=== PATIENT | male | born 1985 | race Caucasian/White ===

== ENCOUNTER 2017-08-11 04:48 | Emergency (ER) | payer MEDICAID ==
[~2017-08-11] VITALS: Ht 182.9 cm; Wt 81.6 kg
[2017-08-11 04:48] VITALS: BP_SYST 98
[~2017-08-11 04:48] MED LIST: ALBU2.5V7 INH; ARTT OP; ASCO-339 GT; BACL10TA GT; COLL100 GT; EPOE1VIA13 SUBCUT; FAMO20TA8 GT; LEVE750T4 GT; MAGN400O4 GT; MULT240L GT; NA P118E RC; ONDA4TAB5 GT; POLY17PO4 PO; PROP10TA10 GT; TOP25 GT; TYLL650 GT; ZIN220 GT; [UNRECOGNIZED DRUG - CODE] IV
[2017-08-11] MEDS ORDERED: GASTROGRAFIN 120 ML ONE (06:24)
== END 2017-08-11 09:30 | disposition home or self-care (01) ==
LOC: SED 04:48
DX: K94.23 Gastrostomy malfunction (principal); Z79.899 Other long term (current) drug therapy
CPT/HCPCS: 43760; 74240; 99284; Q9963

== ENCOUNTER 2019-04-21 10:10 | Inpatient (IN) | payer MEDICAID ==
[~2019-04-21] VITALS: Ht 167.6 cm; Wt 66.7 kg
[2019-04-21 10:10] VITALS: BP_SYST 133
[~2019-04-21 10:10] MED LIST changes: -EPOE1VIA13 SUBCUT; +FER300L GT; +FRUC15LI GT; +IPRA0.2S6 INH; -MAGN400O4 GT; -NA P118E RC; -ONDA4TAB5 GT; +TRAM50TA92 GT; -ZIN220 GT; -[UNRECOGNIZED DRUG - CODE] IV
[2019-04-21] MEDS ORDERED: MORPHINE 4 MG/ML INJ. SYRINGE IVP ONE ×2 (10:45→13:45)
[2019-04-21 11:02] LABS: BILIRUBIN,URINE NEGATIVE (NEGATIVE); BLOOD, URINE 3+ (NEGATIVE); CLARITY/URINE TURBID (CLEAR); COLOR,URINE YELLOW (YELLOW); GLUCOSE,URINE NEGATIVE (NEGATIVE); KETONES,URINE NEGATIVE (NEGATIVE); LEUKOCYTE ESTERASE ,URINE 3+ (NEGATIVE); NITRITE, URINE POSITIVE (NEGATIVE); PH,URINE 7.5 (5.0-8.0); PROTEIN URINE 1+ (NEGATIVE); UROBILINOGEN,URINE 0.2 (0.2-1.0)
[2019-04-21 11:28] LABS: WBC,URINE 50-80 /HPF (0-3)
[2019-04-21 11:29] LABS: BACTERIA,URINE FEW /HPF (None Seen); MUCUS,URINE None Seen /LPF (None Seen)
[2019-04-21 11:30] LABS: BASOPHILS % (AUTO) 0.1 % (0.0-2.0); EOSINOPHILS % (AUTO) 0.1 % (0.0-4.0); HEMATOCRIT 27.9 % (36-54); HEMOGLOBIN 9.7 g/dL (14.0-18.0); LYMPHOCYTES # (AUTO) 0.6 K/uL (1.0-5.5); LYMPHOCYTES % (AUTO) 3.8 % (20.5-51.5); MEAN CORPUSCULAR HEMOGLOBIN 35 pg (27-31); MEAN CORPUSCULAR HGB CONC 35 % (32-36); MEAN CORPUSCULAR VOLUME 101 fL (79.0-98.0); MONOCYTES # (AUTO) 0.7 K/uL (0.0-1.0); MONOCYTES % (AUTO) 4.4 % (1.7-9.3); NEUTROPHILS # (AUTO) 14.3 K/uL (1.8-7.7); NEUTROPHILS % (AUTO) 91.6 % (40.0-70.0); PLATELET COUNT (AUTO) 348 K/uL (130-430); RED BLOOD CELL COUNT(AUTO) 2.76 MIL/uL (4.2-6.2); RED CELL DISTRIBUTION WIDTH 13.2 % (9.0-15.0); WHITE BLOOD COUNT (AUTO) 15.6 K/uL (4.8-10.8)
[2019-04-21 11:39] LABS: CALCIUM 8.5 mg/dL (8.4-11.0); CREATININE 1.64 mg/dL (0.55-1.30); POTASSIUM 4.1 mmol/L (3.5-5.1)
[2019-04-21 11:44] LABS: ALBUMIN 3.3 g/dL (3.4-4.8); INR 1.1 (0.80-1.20); PROTHROMBIN TIME 10.9 SECS (9.5-12.5); TOTAL BILIRUBIN 0.3 mg/dL (0.0-1.0)
[2019-04-21] MEDS ORDERED: NACL 0.9% 1,000 ML IV ONE (13:45)
[2019-04-21] MEDS ORDERED: cefTRIAXone 1 GM IVPB PREMIX 50 ML IV ONE (13:45)
[2019-04-21] MEDS ORDERED: ONDANSETRON HCL 4 MG/2 ML VIAL IVP ONE (13:45)
[2019-04-21] MEDS ORDERED: NS 500 ML IV ONE (14:00)
[2019-04-21] MEDS ORDERED: MUPIROCIN 2% TOPICAL OINTMENT 22 GM NS PRN (14:45)
[2019-04-21] MEDS ORDERED: POTASSIUM CHLORIDE 20 MEQ TAB.PRT.SR PO PRN (14:45)
[2019-04-21] MEDS ORDERED: ACETAMINOPHEN 325 MG TABLET PO PRN (14:45)
[2019-04-21] MEDS ORDERED: IPRATROPIUM BROM 0.5 MG/2.5 ML VIAL.NEB (ATROVENT) INH PRN (14:45)
[2019-04-21] MEDS ORDERED: ONDANSETRON HCL 4 MG/2 ML VIAL IVP PRN (14:45)
[2019-04-21] MEDS ORDERED: ALBUTEROL SULFATE 0.083% 2.5 MG/3 ML VIAL.NEB INH PRN (14:45)
[2019-04-21] MEDS ORDERED: DOCUSATE SODIUM 100 MG CAPSULE PO PRN (14:45)
[2019-04-21] MEDS ORDERED: MAGNESIUM SULFATE 50 ML IV PRN (14:45)
[2019-04-21] MEDS ORDERED: MORPHINE 2 MG/ML INJ. SYRINGE IVP PRN ×2 (14:45)
[2019-04-21] MEDS ORDERED: ZOLPIDEM TARTRATE 5 MG TABLET PO PRN (14:45)
[2019-04-21] MEDS ORDERED: LORazepam 2 MG/ML VIAL IVP PRN (14:45)
[2019-04-21] MEDS: NACL 0.9% 1,000 ML IV SCH (16:53)
[2019-04-21 16:56] VITALS: BP_SYST 101
[2019-04-21 17:02] VITALS: BP_SYST 114
[2019-04-21] MEDS ORDERED: ATROPINE SULFATE 0.5 MG/5 ML SYRINGE IVP ONE (17:30)
[2019-04-21 19:00] VITALS: BP_SYST 105
[2019-04-21] MEDS ORDERED: ATROPINE SULFATE 0.5 MG/5 ML SYRINGE IVP PRN (19:30)
[2019-04-21 20:00] VITALS: BP_SYST 105
[2019-04-21] MEDS: levETIRAcetam 500 MG TABLET GT SCH (21:00)
[2019-04-21] MEDS: TOPIRAMATE 25 MG TABLET(TOPAMAX) GT SCH (21:00)
[2019-04-21] MEDS: HEPARIN SODIUM,PORCINE 5000 UNITS/ML VIAL SUBCUT SCH (21:00)
[2019-04-21] MEDS: POLYETHYLENE GLYCOL 3350, 17 GM/ POWD.PACK PO SCH (21:00)
[2019-04-22] MEDS: NACL 0.9% 1,000 ML IV SCH (02:07)
[2019-04-22 02:29] VITALS: BP_SYST 128
[2019-04-22 07:19] LABS: BASOPHILS % (AUTO) 0.2 % (0.0-2.0); EOSINOPHILS % (AUTO) 0.1 % (0.0-4.0); HEMATOCRIT 29.9 % (36-54); HEMOGLOBIN 10.5 g/dL (14.0-18.0); LYMPHOCYTES # (AUTO) 1.1 K/uL (1.0-5.5); LYMPHOCYTES % (AUTO) 7.1 % (20.5-51.5); MEAN CORPUSCULAR HEMOGLOBIN 36 pg (27-31); MEAN CORPUSCULAR HGB CONC 35 % (32-36); MEAN CORPUSCULAR VOLUME 102 fL (79.0-98.0); MONOCYTES # (AUTO) 1.4 K/uL (0.0-1.0); MONOCYTES % (AUTO) 8.7 % (1.7-9.3); NEUTROPHILS # (AUTO) 13.4 K/uL (1.8-7.7); NEUTROPHILS % (AUTO) 83.9 % (40.0-70.0); PLATELET COUNT (AUTO) 411 K/uL (130-430); RED BLOOD CELL COUNT(AUTO) 2.93 MIL/uL (4.2-6.2); RED CELL DISTRIBUTION WIDTH 13.3 % (9.0-15.0)
[2019-04-22 08:00] VITALS: BP_SYST 133
[2019-04-22 08:00] LABS: ALBUMIN 3.4 g/dL (3.4-4.8); CREATININE 1.53 mg/dL (0.55-1.30); POTASSIUM 4.4 mmol/L (3.5-5.1); THYROID STIMULATING HORMONE 4.39 uIu/mL (0.36-3.74); TOTAL BILIRUBIN 0.3 mg/dL (0.0-1.0)
[2019-04-22 08:01] LABS: CALCIUM 8.6 mg/dL (8.4-11.0)
[2019-04-22] MEDS ORDERED: cefTRIAXone 1 GM in D5W 50 ML IV SCH (09:00)
[2019-04-22] MEDS ORDERED: metroNIDAZOLE 500 mg/NS 100 ML IV ONE (09:15)
[2019-04-22] MEDS: DOCUSATE SODIUM 100 MG/10 ML UDC GT SCH (09:24)
[2019-04-22] MEDS: PROPRANOLOL HCL 10 MG TABLET (INDERAL) PO SCH ×2 (09:25→23:10)
[2019-04-22] MEDS: BACLOFEN 10 MG TABLET GT SCH (09:25)
[2019-04-22] MEDS: TOPIRAMATE 25 MG TABLET(TOPAMAX) GT SCH ×2 (09:26→23:09)
[2019-04-22] MEDS: levETIRAcetam 500 MG TABLET GT SCH ×2 (09:26→23:09)
[2019-04-22] MEDS: HEPARIN SODIUM,PORCINE 5000 UNITS/ML VIAL SUBCUT SCH ×2 (09:28→23:13)
[2019-04-22 12:00] VITALS: BP_SYST 130
[2019-04-22] MEDS: metroNIDAZOLE 500 mg/NS 100 ML IV SCH ×2 (14:00→23:11)
[2019-04-22 16:57] VITALS: BP_SYST 116
[2019-04-22] MEDS: PEG 400/HYPROMELLOSE/GLYCERIN 15 ML DROPS OP SCH (18:13)
[2019-04-22 19:00] VITALS: BP_SYST 135
[2019-04-22 20:00] VITALS: BP_SYST 135
[2019-04-22] MEDS: POLYETHYLENE GLYCOL 3350, 17 GM/ POWD.PACK PO SCH (23:10)
[2019-04-23] MEDS ORDERED: PIPERACILLIN/TAZOBACTAM 3.375 GM/VIAL (ZOSYN) IV ONE (05:24)
[2019-04-23] MEDS: metroNIDAZOLE 500 mg/NS 100 ML IV SCH ×3 (05:34→23:47)
[2019-04-23] MEDS: PIPERACILLIN/TAZO 3.375/DEX-IS 50 ML IV SCH ×4 (05:34→23:47)
[2019-04-23 06:28] VITALS: BP_SYST 123
[2019-04-23 07:45] LABS: BASOPHILS % (AUTO) 0.3 % (0.0-2.0); EOSINOPHILS # (AUTO) 0.1 K/uL (0.0-0.4); EOSINOPHILS % (AUTO) 0.6 % (0.0-4.0); HEMATOCRIT 30.5 % (36-54); HEMOGLOBIN 10.2 g/dL (14.0-18.0); LYMPHOCYTES # (AUTO) 1.2 K/uL (1.0-5.5); LYMPHOCYTES % (AUTO) 8.4 % (20.5-51.5); MEAN CORPUSCULAR HEMOGLOBIN 35 pg (27-31); MEAN CORPUSCULAR HGB CONC 33 % (32-36); MEAN CORPUSCULAR VOLUME 105 fL (79.0-98.0); MONOCYTES # (AUTO) 1.2 K/uL (0.0-1.0); MONOCYTES % (AUTO) 8.5 % (1.7-9.3); NEUTROPHILS % (AUTO) 82.2 % (40.0-70.0); PLATELET COUNT (AUTO) 364 K/uL (130-430); RED CELL DISTRIBUTION WIDTH 13.6 % (9.0-15.0); WHITE BLOOD COUNT (AUTO) 14.6 K/uL (4.8-10.8)
[2019-04-23 08:01] LABS: CALCIUM 8.5 mg/dL (8.4-11.0); CREATININE 1.67 mg/dL (0.55-1.30)
[2019-04-23] MEDS: levETIRAcetam 500 MG TABLET GT SCH ×2 (09:24→23:48)
[2019-04-23] MEDS: DOCUSATE SODIUM 100 MG/10 ML UDC GT SCH (09:24)
[2019-04-23] MEDS: PROPRANOLOL HCL 10 MG TABLET (INDERAL) PO SCH ×2 (09:25→23:49)
[2019-04-23] MEDS: TOPIRAMATE 25 MG TABLET(TOPAMAX) GT SCH ×2 (09:26→23:48)
[2019-04-23] MEDS: HEPARIN SODIUM,PORCINE 5000 UNITS/ML VIAL SUBCUT SCH ×2 (09:26→23:51)
[2019-04-23] MEDS: PEG 400/HYPROMELLOSE/GLYCERIN 15 ML DROPS OP SCH (09:27)
[2019-04-23] MEDS: NACL 0.9% 1,000 ML IV SCH ×2 (09:28→23:44)
[2019-04-23] MEDS: BACLOFEN 10 MG TABLET GT SCH (09:44)
[2019-04-23 12:15] VITALS: BP_SYST 116
[2019-04-23 17:23] VITALS: BP_SYST 122
[2019-04-23 20:34] VITALS: BP_SYST 119
[2019-04-23] MEDS: POLYETHYLENE GLYCOL 3350, 17 GM/ POWD.PACK PO SCH (23:47)
[2019-04-23 23:55] VITALS: BP_SYST 110
[2019-04-24] VITALS (8 sets, daily range): BP systolic 101–117
[2019-04-24] MEDS: PIPERACILLIN/TAZO 3.375/DEX-IS 50 ML IV SCH ×3 (06:42→21:00)
[2019-04-24] MEDS: metroNIDAZOLE 500 mg/NS 100 ML IV SCH ×3 (06:43→21:00)
[2019-04-24 08:32] LABS: BASOPHILS % (AUTO) 0.3 % (0.0-2.0); EOSINOPHILS # (AUTO) 0.4 K/uL (0.0-0.4); EOSINOPHILS % (AUTO) 3.1 % (0.0-4.0); HEMATOCRIT 27.2 % (36-54); HEMOGLOBIN 9.2 g/dL (14.0-18.0); LYMPHOCYTES # (AUTO) 1.2 K/uL (1.0-5.5); LYMPHOCYTES % (AUTO) 9.1 % (20.5-51.5); MEAN CORPUSCULAR HEMOGLOBIN 35 pg (27-31); MEAN CORPUSCULAR HGB CONC 34 % (32-36); MEAN CORPUSCULAR VOLUME 104 fL (79.0-98.0); MONOCYTES # (AUTO) 0.9 K/uL (0.0-1.0); MONOCYTES % (AUTO) 6.7 % (1.7-9.3); NEUTROPHILS # (AUTO) 10.8 K/uL (1.8-7.7); NEUTROPHILS % (AUTO) 80.8 % (40.0-70.0); PLATELET COUNT (AUTO) 325 K/uL (130-430); RED BLOOD CELL COUNT(AUTO) 2.61 MIL/uL (4.2-6.2); RED CELL DISTRIBUTION WIDTH 13.6 % (9.0-15.0); WHITE BLOOD COUNT (AUTO) 13.4 K/uL (4.8-10.8)
[2019-04-24 09:31] LABS: CALCIUM 8.2 mg/dL (8.4-11.0); CREATININE 1.63 mg/dL (0.55-1.30); POTASSIUM 3.8 mmol/L (3.5-5.1)
[2019-04-24] MEDS: BACLOFEN 10 MG TABLET GT SCH (10:42)
[2019-04-24] MEDS: levETIRAcetam 500 MG TABLET GT SCH ×2 (10:43→20:59)
[2019-04-24] MEDS: TOPIRAMATE 25 MG TABLET(TOPAMAX) GT SCH ×2 (10:43→20:59)
[2019-04-24] MEDS: PEG 400/HYPROMELLOSE/GLYCERIN 15 ML DROPS OP SCH (10:44)
[2019-04-24] MEDS: PROPRANOLOL HCL 10 MG TABLET (INDERAL) PO SCH (10:45)
[2019-04-24] MEDS: HEPARIN SODIUM,PORCINE 5000 UNITS/ML VIAL SUBCUT SCH ×2 (10:47→21:16)
[2019-04-24] MEDS: DOCUSATE SODIUM 100 MG/10 ML UDC GT SCH (10:49)
[2019-04-24] MEDS: NACL 0.9% 1,000 ML IV SCH (11:03)
[2019-04-24] MEDS: D5/0.45 NS 1,000 ML IV SCH ×2 (14:22→21:04)
[2019-04-24] MEDS: POLYETHYLENE GLYCOL 3350, 17 GM/ POWD.PACK PO SCH (20:59)
[2019-04-25 00:26] VITALS: BP_SYST 132
[2019-04-25] MEDS: metroNIDAZOLE 500 mg/NS 100 ML IV SCH ×3 (05:22→21:51)
[2019-04-25] MEDS: PIPERACILLIN/TAZO 3.375/DEX-IS 50 ML IV SCH ×3 (05:23→17:13)
[2019-04-25] MEDS: D5/0.45 NS 1,000 ML IV SCH (05:54)
[2019-04-25 07:48] LABS: ALBUMIN 2.6 g/dL (3.4-4.8); CALCIUM 8.5 mg/dL (8.4-11.0); CREATININE 1.65 mg/dL (0.55-1.30); POTASSIUM 4.1 mmol/L (3.5-5.1); TOTAL BILIRUBIN 0.3 mg/dL (0.0-1.0)
[2019-04-25 07:55] VITALS: BP_SYST 104
[2019-04-25 08:14] LABS: BASOPHILS # (AUTO) 0.1 K/uL (0.0-0.2); BASOPHILS % (AUTO) 0.7 % (0.0-2.0); EOSINOPHILS # (AUTO) 0.5 K/uL (0.0-0.4); EOSINOPHILS % (AUTO) 3.8 % (0.0-4.0); HEMATOCRIT 27.1 % (36-54); HEMOGLOBIN 8.9 g/dL (14.0-18.0); LYMPHOCYTES # (AUTO) 1.3 K/uL (1.0-5.5); LYMPHOCYTES % (AUTO) 9.3 % (20.5-51.5); MEAN CORPUSCULAR HEMOGLOBIN 35 pg (27-31); MEAN CORPUSCULAR HGB CONC 33 % (32-36); MEAN CORPUSCULAR VOLUME 107 fL (79.0-98.0); MONOCYTES # (AUTO) 0.8 K/uL (0.0-1.0); MONOCYTES % (AUTO) 5.9 % (1.7-9.3); NEUTROPHILS # (AUTO) 11.2 K/uL (1.8-7.7); NEUTROPHILS % (AUTO) 80.3 % (40.0-70.0); PLATELET COUNT (AUTO) 292 K/uL (130-430); RED BLOOD CELL COUNT(AUTO) 2.53 MIL/uL (4.2-6.2); RED CELL DISTRIBUTION WIDTH 13.7 % (9.0-15.0)
[2019-04-25] MEDS: BACLOFEN 10 MG TABLET GT SCH (09:09)
[2019-04-25] MEDS: TOPIRAMATE 25 MG TABLET(TOPAMAX) GT SCH ×2 (09:10→21:51)
[2019-04-25] MEDS: PEG 400/HYPROMELLOSE/GLYCERIN 15 ML DROPS OP SCH (09:10)
[2019-04-25] MEDS: levETIRAcetam 500 MG TABLET GT SCH ×2 (09:10→21:51)
[2019-04-25] MEDS: DOCUSATE SODIUM 100 MG/10 ML UDC GT SCH (09:10)
[2019-04-25] MEDS: HEPARIN SODIUM,PORCINE 5000 UNITS/ML VIAL SUBCUT SCH ×2 (09:12→22:05)
[2019-04-25] MEDS: ATROPINE SULFATE 1 MG/10 ML SYRINGE IVP PRN ×2 (11:06→15:43)
[2019-04-25 12:48] VITALS: BP_SYST 111
[2019-04-25 16:00] VITALS: BP_SYST 100
[2019-04-25] MEDS: D5W 1,000 ML IV SCH ×2 (17:18→21:50)
[2019-04-25] MEDS ORDERED: MENTHOL/ZINC OXIDE 113 GM OINT. TP PRN (18:45)
[2019-04-25 21:48] VITALS: BP_SYST 110
[2019-04-25] MEDS: POLYETHYLENE GLYCOL 3350, 17 GM/ POWD.PACK PO SCH (21:51)
[2019-04-26 00:28] VITALS: BP_SYST 128
[2019-04-26] MEDS: metroNIDAZOLE 500 mg/NS 100 ML IV SCH ×2 (05:17→14:49)
[2019-04-26] MEDS: PIPERACILLIN/TAZO 3.375/DEX-IS 50 ML IV SCH ×2 (06:25→13:57)
[2019-04-26] MEDS: D5W 1,000 ML IV SCH (06:25)
[2019-04-26] MEDS: ATROPINE SULFATE 1 MG/10 ML SYRINGE IVP PRN (07:51)
[2019-04-26] MEDS: HEPARIN SODIUM,PORCINE 5000 UNITS/ML VIAL SUBCUT SCH (09:37)
[2019-04-26] MEDS: DOCUSATE SODIUM 100 MG/10 ML UDC GT SCH (09:59)
[2019-04-26] MEDS: PEG 400/HYPROMELLOSE/GLYCERIN 15 ML DROPS OP SCH (09:59)
[2019-04-26] MEDS: BACLOFEN 10 MG TABLET GT SCH (09:59)
[2019-04-26] MEDS: TOPIRAMATE 25 MG TABLET(TOPAMAX) GT SCH (09:59)
[2019-04-26] MEDS: levETIRAcetam 500 MG TABLET GT SCH (10:00)
[2019-04-26 10:20] LABS: CALCIUM 8.9 mg/dL (8.4-11.0); CREATININE 1.62 mg/dL (0.55-1.30); POTASSIUM 4.1 mmol/L (3.5-5.1); TOTAL BILIRUBIN 0.3 mg/dL (0.0-1.0)
[2019-04-26 10:35] LABS: BASOPHILS # (AUTO) 0.1 K/uL (0.0-0.2); BASOPHILS % (AUTO) 0.5 % (0.0-2.0); EOSINOPHILS # (AUTO) 0.5 K/uL (0.0-0.4); EOSINOPHILS % (AUTO) 5.4 % (0.0-4.0); HEMATOCRIT 23.7 % (36-54); LYMPHOCYTES # (AUTO) 1.2 K/uL (1.0-5.5); LYMPHOCYTES % (AUTO) 13.1 % (20.5-51.5); MEAN CORPUSCULAR HEMOGLOBIN 36 pg (27-31); MEAN CORPUSCULAR HGB CONC 34 % (32-36); MEAN CORPUSCULAR VOLUME 107 fL (79.0-98.0); MONOCYTES # (AUTO) 0.6 K/uL (0.0-1.0); MONOCYTES % (AUTO) 6.2 % (1.7-9.3); NEUTROPHILS % (AUTO) 74.8 % (40.0-70.0); PLATELET COUNT (AUTO) 231 K/uL (130-430); RED BLOOD CELL COUNT(AUTO) 2.23 MIL/uL (4.2-6.2); RED CELL DISTRIBUTION WIDTH 13.7 % (9.0-15.0); WHITE BLOOD COUNT (AUTO) 9.4 K/uL (4.8-10.8)
[2019-04-26 12:45] VITALS: BP_SYST 104
[2019-04-26] MEDS ORDERED: PIPE3.379 IV (16:44)
[2019-04-26 16:46] VITALS: BP_SYST 131
[2019-04-26 16:50] VITALS: BP_SYST 131
== END 2019-04-26 19:05 | DRG 720 ==
LOC: SED 10:10 → STU 14:29
PROVIDERS: ADMIT General Practice; ATTEND General Practice
PROC: 5A1955Z Respiratory Ventilation, Greater than 96 Consecutive Hours (ICD-10-PCS; 2019-04-21)
PROC: 02HV33Z Insertion of Infusion Device into Superior Vena Cava, Percutaneous Approach (ICD-10-PCS; principal; 2019-04-22)
PROC: B548ZZA Ultrasonography of Superior Vena Cava, Guidance (ICD-10-PCS; 2019-04-22)
DX: A41.9 Sepsis, unspecified organism (principal); N17.0 Acute kidney failure with tubular necrosis; G82.50 Quadriplegia, unspecified; Z99.11 Dependence on respirator [ventilator] status; G93.40 Encephalopathy, unspecified; J96.10 Chronic respiratory failure, unspecified whether with hypoxia or hypercapnia; Z93.0 Tracheostomy status; T83.018A Breakdown (mechanical) of other urinary catheter, initial encounter; N39.0 Urinary tract infection, site not specified; Z66 Do not resuscitate; N18.9 Chronic kidney disease, unspecified; B96.4 Proteus (mirabilis) (morganii) as the cause of diseases classified elsewhere; E87.0 Hyperosmolality and hypernatremia; G40.909 Epilepsy, unspecified, not intractable, without status epilepticus; J45.909 Unspecified asthma, uncomplicated; N31.9 Neuromuscular dysfunction of bladder, unspecified; N13.30 Unspecified hydronephrosis; Y73.8 Miscellaneous gastroenterology and urology devices associated with adverse incidents, not elsewhere classified; R13.10 Dysphagia, unspecified; Z86.718 Personal history of other venous thrombosis and embolism; Z87.820 Personal history of traumatic brain injury; Z93.1 Gastrostomy status; Z95.828 Presence of other vascular implants and grafts; Z87.81 Personal history of (healed) traumatic fracture; Y92.89 Other specified places as the place of occurrence of the external cause
CPT/HCPCS: 36415; 71045; 76770; 80048; 80053; 81000-TC; 83036; 83605; 83735-TC; 84443-TC; 84484; 85025; 85610-TC; 85730-TC; 87040-TC; 87081; 87086; 87186-TC; 93005; 94002; 94003; 94640; 94760; 96361; 96365; 96375; 96376; 99285; C1751; C1769; G0378; J0461; J0696; J1644; J2060; J2270; J2405; J2543; J3490; J7030; J7060; J7613

== ENCOUNTER 2019-07-20 23:21 | Inpatient (IN) | payer MEDICAID ==
[~2019-07-20] VITALS: Ht 167.6 cm; Wt 70.8 kg
[2019-07-20 23:21] VITALS: BP_SYST 102
[~2019-07-20 23:21] MED LIST changes: +PIPE3.379 IV
[2019-07-21] VITALS (25 sets, daily range): BP systolic 92–154
--- NOTE | 2019-07-21 00:40 | NUR ---
SENT HERE FROM [facility] FOR CATHETER INSERTION. STAFF APPARENTLY UNABLE TO INSERT WANG. MALAYSIAN 14 COUDE CATHETER INSERTION ATTEMPTED BUT WITH TOTAL RESISTANCE. ER-MD MADE AWARE. MALAYSIAN 12 COUDE CATHETER ORDERED.
--- NOTE | 2019-07-21 01:05 | NUR ---
ATTEMPTED TO INSERT 12 CHINESE COUDE CATHETER BUT UNSUCCESSFUL. PT. TO BE ADMITTED INSTEAD.
--- NOTE | 2019-07-21 01:15 | NUR ---
PLACED IN BED 2. RT AT BEDSIDE TO HOOK PT.TO THE VENTILATOR WTH THE FOLLOWING SETTINGS: WD=092 FIO2=40% AC=12 PEEP=5.
--- NOTE | 2019-07-21 03:08 | NUR ---
RECTAL TEMPERATURE RECHECKED WITH . IYMO=859.3. FINGERSTICK BLOOD SUGAR HSDUZ=704. ER- AWARE.
[2019-07-21] MEDS ORDERED: PIPERACILLIN/TAZO 3.375 GM in NS 50 ML IV ONE (03:15)
[2019-07-21] MEDS ORDERED: NACL 0.9% 1,000 ML IV ONE (03:15)
[2019-07-21] MEDS ORDERED: VANCOMYCIN HCL 1,000 MG in NS 250 ML IV ONE (03:15)
--- NOTE | 2019-07-21 03:18 | NUR ---
GAUGE 20 IV LINE ESTABLISHED TO THE RIGHT WRIST.
--- NOTE | 2019-07-21 03:24 | NUR ---
PORTABLE CXR DONE.
--- NOTE | 2019-07-21 03:30 | NUR ---
BLOOD DRAWN BY LAB.CARE AIDE
--- NOTE | 2019-07-21 03:31 | NUR ---
NS 1 LITER BOLUS AND ZOSYN 3.375 GM IVPB GIVEN ORDERED.
[2019-07-21 03:36] LABS: HEMATOCRIT 30.1 % (36-54); HEMOGLOBIN 10.6 g/dL (14.0-18.0); MEAN CORPUSCULAR HEMOGLOBIN 35 pg (27-31); MEAN CORPUSCULAR HGB CONC 35 % (32-36); MEAN CORPUSCULAR VOLUME 100 fL (79.0-98.0); PLATELET COUNT (AUTO) 391 K/uL (130-430); RED BLOOD CELL COUNT(AUTO) 3.01 MIL/uL (4.2-6.2); WHITE BLOOD COUNT (AUTO) 19.2 K/uL (4.8-10.8)
[2019-07-21] MEDS ORDERED: PIPERACILLIN/TAZOBACTAM 3.375 GM/VIAL (ZOSYN) IV ONE (03:39)
[2019-07-21] MEDS ORDERED: VANCOMYCIN HCL 1000 MG/VIAL IV ONE (03:39)
[2019-07-21 03:49] LABS: CALCIUM 9.4 mg/dL (8.4-11.0); CREATININE 2.59 mg/dL (0.55-1.30)
[2019-07-21 03:55] LABS: ALBUMIN 3.5 g/dL (3.4-4.8); TOTAL BILIRUBIN 0.6 mg/dL (0.0-1.0)
[2019-07-21 03:57] LABS: ATYPICAL LYMPHOCYTES % 0 % (0-0); BAND % (MANUAL) 0 % (0-6); LYMPHOCYTES % (MANUAL) 10 % (20-46); MONOCYTES % (MANUAL) 4 % (0-11)
[2019-07-21 03:58] LABS: BASOPHILS % (MANUAL) 0 % (0-2); EOSINOPHILS % (MANUAL) 1 % (0-7); METAMYELOCYTES % 0 % (0-0)
[2019-07-21 04:02] LABS: POTASSIUM 2.9 mmol/L (3.5-5.1)
--- NOTE | 2019-07-21 04:11 | NUR ---
INFUSION OF VANCOMYCIN 1 GM IVPB STARTED.
--- NOTE | 2019-07-21 05:14 | NUR ---
ADMITTED TO ICU FOR UTI,RENAL FAILURE. UNDER THE SERVICE OF . ADMITTING ORDERS GIVEN.
[2019-07-21] MEDS ORDERED: ASCO500T20 PO (05:18)
[2019-07-21] MEDS ORDERED: KCL 20 mEq in 0.45% NS 1000 mL 1,000 ML IV ONE (05:30)
[2019-07-21] MEDS ORDERED: PIPERACILLIN/TAZO 3.375 GM in NS 50 ML IV SCH (06:00)
--- NOTE | 2019-07-21 06:40 | NUR ---
REPORT GIVEN TO ICU CHARGE NURSE TYREL BEY. PT. GOING TO ICU BED-4. PT. TO BE TRANSFERRED AFTER 729 PER ICU STAFF REQUEST. VS REMAIN STABLE.
--- NOTE | 2019-07-21 07:10 | NUR ---
ENDORSED CARE TO AM SHIFT NURSE KRISS DICKERSON.
--- NOTE | 2019-07-21 07:40 | NUR ---
Transfer to ICU via ACLS protocol. Licensed nurse present. IV present no signs or symptoms of infiltration. Patient will be admitted to care of DR. BOYER. Admitted to ICU unit. Will go to room 4. Belongings list completed. Complete and up to date summary report printed. SBAR report to be given at bedside with opportunity for questions.
--- NOTE | 2019-07-21 07:40 | NUR ---
Patient will be admitted to care of DR. BOYER. Admitted to ICU unit. Will go to room 4. Belongings list completed. Complete and up to date summary report printed. SBAR report to be given at bedside with opportunity for questions. Transfer to ICU via ACLS protocol. Licensed nurse present. IV present no signs or symptoms of infiltration.
--- NOTE | 2019-07-21 07:50 | NUR ---
Pt transfer on gurney from ER to ICU without incidence. PT stable HR ST 111, RR 12, 100% O2, 128/83.
--- NOTE | 2019-07-21 07:50 | NUR ---
AM ASSESSMENT Received pt from ER via tesfaye. PT diaphoretic, sluggish eye reflexes, does not respond to verbal or tactile response. Moves when applied noxious stimuli. Excessive redness noted in midback to buttocks. Open wound noted near sacrum area. Lung sounds clear in upper and middle lobes bilaterally but diminished in the lower right. Bed locked and in lowest position with call light in hand.
--- NOTE | 2019-07-21 08:35 | NUR ---
Called Dr. Quiñones with a consult, spoke with Marce from the exchange
--- NOTE | 2019-07-21 09:00 | NUR ---
CHG BATH given. Changed chucks and gown. PT had BM and provided perianal care. Pictures taken and noted. Pt is anuric with slight red discharge from penis. Will continue to monitor.
--- NOTE | 2019-07-21 09:30 | NUR ---
G-tube dressing changed. Noted no dressing applied on arrival from ER. Periwound is slightly red and inflamed. Cleaned ostomy with NS.
--- NOTE | 2019-07-21 09:32 | NUR ---
Zosyn for 0600 not administered. Called Pharmacy per Mackenzie who asked pharmacists to not administer the 0600 dose and to continue with the 1200 dose as scheduled. Read back and confirmed. Will place 0600 dose in return cassette.
--- NOTE | 2019-07-21 10:30 | NUR ---
Place seizure pads on upper bed rails due to history of seizures. Verified by sister Gabrielle.
--- NOTE | 2019-07-21 11:00 | NUR ---
CONSULTS Called Dr Estes and received consult orders for Dr Watters, Cortes Martin (Urologist), and Dr Mcleod (GI). Asked for DVT prophylaxis orders but no other orders received. Dr Estes stated he will in later to do an assessment and to give orders.
--- NOTE | 2019-07-21 11:22 | NUR ---
FLU STATUS PT is current for this years flu vaccine. Received 03/2019, Verified from Figueroa from [facility].
--- NOTE | 2019-07-21 11:26 | NUR ---
Called Dr. Kolb with a consult spoke with Arlene from doctors office
--- NOTE | 2019-07-21 11:35 | NUR ---
Called Dr. Watters with a consult, spoke with Caridad from doctors office
--- NOTE | 2019-07-21 11:37 | NUR ---
DC PLANNING Called & spoke w Dr Estes if can downgrade from ICU level of care. States has not seen pt, will come in to eval & downgrade if not needing ICU.
--- NOTE | 2019-07-21 11:41 | NUR ---
Called Dr. Mcleod with a consult, spoke with Sandy from doctors office
--- NOTE | 2019-07-21 12:00 | NUR ---
CONTACT PRECAUTIONS Place pt on contact precautions due to sister Gabrielle stating pt has recent positive culture for fungal infection on back.
--- NOTE | 2019-07-21 12:40 | NUR ---
Start tube feeding Jevity 1.5 @ 30cc/hr with a goal of 50cc/hr. 0cc residual noted. Flushed with 30cc pre-feeding and auscultated for positive placement.
[2019-07-21] MEDS ORDERED: LevALBUTEROL HCL 1.25 MG/0.5 ML *CONC.* VIAL.NEB (XOPENEX CONC.) INH PRN (14:15)
--- NOTE | 2019-07-21 14:15 | NUR ---
Called Dr. Madrigal with a consult,spoke with Anitha from doctors office
--- NOTE | 2019-07-21 14:40 | NUR ---
MD ROUNDS Dr Estes bedside. Bladder scan performed per MD request. Three scans completed with the highest scan reading @ 521cc. MD witnessed bedside and aware.
--- NOTE | 2019-07-21 14:50 | NUR ---
Dr Majano from ER bedside from request of Dr Estes. Dr Majano unsuccessfully tried to insert a 10 red Coude and 12 Coude with 0.035 x 15cm guide wire using sterile technique. Obstruction noted from Dr Majano. Slight blood drainage noted but no discharge of urine. Will continue to monitor. Dr Estes bedside and aware of procedure.
[2019-07-21] MEDS ORDERED: cefTRIAXone 1 GM in D5W 50 ML IV SCH (15:00)
--- NOTE | 2019-07-21 15:10 | NUR ---
DC PLANNING Discussed dc planning w Dr Estes. Pt needs to transfer to contracted hospital for higher level of care for Urology consult. Has bladder outlet obstruction & have not been able to put in ross cath here & no Urology to see pt here. Pt needs Transfer to Tele level of care. Called & spoke with Kristy @ [facility], ph [phone], states to fax order/pt info to . Pt will be assigned a CM, CM will review & call me to work on transfer. Faxed pt info. Spoke with pt's sister Gabrielle Townsend, ph [phone], in [facility]. Is aware of plan to transfer & agreeable. Prefers [facility] or anywhere going [place], sister lives in [place], but agreeable anywhere where he is accepted.
[2019-07-21] MEDS ORDERED: POTASSIUM CHLORIDE 20 MEQ/PKT PACKET PO ONE (15:30)
[2019-07-21] MEDS: NACL 0.9% 1,000 ML IV SCH ×2 (15:30→21:28)
--- NOTE | 2019-07-21 15:55 | NUR ---
DC PLANNING Received call from Destinee @ [facility],[place] [phone], pt can go to [facility] w tracking #[id number] if accepted. No other hospital @ this time will ask Produce Clerk. For ambulance use Call the Car , ph [phone] under transportation prompt, no auth# needed, inform it's for hospital to hospital transfer Trach to vent. Called & spoke w Latisha @ [facility], ph [phone], states that they are at capacity but do anticipate discharges later today, will place on board for when bed avail. Faxed pt info, fax [phone], informed to call nsg station directly after hours. Called & spoke w Destinee @ [facility], updated [facility] @ capacity might have bed later, asked for other hospital. States will call Produce Clerk for other hospital option in case no beds @ [facility]. Addendum: 07/21/19 at 1637 by Ivana Severino RN Received call back from [place], can try [facility] use same tracking/auth #. Called & spoke with Iris @ [facility], ph [phone], states has no Tele beds avail. States any trach/vent pt is automatically ICU level & no ICU beds either. States to fax pt info for when bed avail, pt info faxed, fax [phone]. Gave auth #. Updated charge nurse in ICU. Called & spoke w Latisha @ [facility], has all info needed states will call nsg station when bed avail. Radiology called for CD.
[2019-07-21] MEDS: PIPERACILLIN/TAZO 2.25G/DEX-IS 50 ML IV SCH ×2 (17:48→23:53)
--- NOTE | 2019-07-21 18:00 | NUR ---
APPLIED SCD BILATERALLY ON LOWER EXTREMITIES.
--- NOTE | 2019-07-21 18:50 | NUR ---
Re: Transfer - Received call back from [facility] rep who states that the urologist cannot accept the patient and suggests patient goes to tertiary care center such as [facility] or [place]. Informed primary nurse.
--- NOTE | 2019-07-21 19:14 | NUR ---
Endorsement given to Celio BEY and Stoney BEY using SBAR. Pt resting with no signs of pain or distress. Seizure pads in place with SCD, and SEQUEIRA. Feet elevated with call light in hand.
--- NOTE | 2019-07-21 20:00 | NUR ---
OPENS EYES SPON. TRACH TO VENT. SUCTIONED WITH SMALL AMOUNT OF THIN CLEAR MUCUS OBTAINED. ORAL CARE GIVEN. GT FEEDING WITH JEVITY 1.5 AT 50CC/HR. RESIDUAL CHECK 100CC, GT DRSG SATURATED. GT FEEDING PLACED ON HOLD AT THIS TIME. EXTREMITIES CONTRACTED. JOCELYNN SCD'S IN PLACE. ST.
[2019-07-21] MEDS: LevALBUTEROL HCL 1.25 MG/0.5 ML *CONC.* VIAL.NEB (XOPENEX CONC.) INH SCH (20:12)
[2019-07-21] MEDS: traMADol HCL HCL 50 MG TABLET (ULTRAM) GT SCH (21:16)
[2019-07-21] MEDS: TOPIRAMATE 25 MG TABLET(TOPAMAX) GT SCH (21:16)
[2019-07-21] MEDS: FAMOTIDINE 20 MG TABLET GT SCH (21:16)
[2019-07-21] MEDS: LevETIRAcetam 500 MG/5 ML UDC ORAL LIQUID GT SCH (21:16)
[2019-07-21] MEDS: POLYETHYLENE GLYCOL 3350, 17 GM/ POWD.PACK PO SCH (21:17)
--- NOTE | 2019-07-21 22:00 | NUR ---
HS CARE. HAS SPASTIC EPISODES WHEN COUGHING.
[2019-07-22] VITALS (35 sets, daily range): BP systolic 77–143
--- NOTE | 2019-07-22 | NUR ---
DOZES ON AND OFF. SUCTIONED WITH SAME RESULTS. ORAL CARE DONE. RESIDUAL CHECK 0, GT FEEDING RESTARTED AT 50CC/HR.
[2019-07-22] MEDS: LevALBUTEROL HCL 1.25 MG/0.5 ML *CONC.* VIAL.NEB (XOPENEX CONC.) INH SCH ×4 (01:31→20:03)
--- NOTE | 2019-07-22 04:00 | NUR ---
GT DRSG CHANGED, GT SITE CARE DONE. INCONTINENT OF URINE(?) AND STOOL, 1 LARGE PASTY GREENISH BROWN STOOL DEFECATED. ANGELA-CARE DONE. CLEANED WELL, SKIN IN BUTTOCKS EXCORIATED. Z-GUARD APPLIED. BACK CARE DONE. COMPLETE LINEN CHANGE. DOES NOT ASSIST WITH TURNING. ANUPAM PROC WELL.
[2019-07-22] MEDS: PIPERACILLIN/TAZO 2.25G/DEX-IS 50 ML IV SCH ×4 (05:47→23:02)
--- NOTE | 2019-07-22 06:00 | NUR ---
SUCTIONED AND TURNED Q2 HRS AND PRN. VSS. REMAINS IN GUARDED CONDITION.
[2019-07-22 06:04] LABS: BASOPHILS # (AUTO) 0.1 K/uL (0.0-0.2); BASOPHILS % (AUTO) 0.3 % (0.0-2.0); EOSINOPHILS # (AUTO) 0.1 K/uL (0.0-0.4); EOSINOPHILS % (AUTO) 0.7 % (0.0-4.0); HEMATOCRIT 25.9 % (36-54); HEMOGLOBIN 8.9 g/dL (14.0-18.0); LYMPHOCYTES # (AUTO) 0.5 K/uL (1.0-5.5); LYMPHOCYTES % (AUTO) 2.2 % (20.5-51.5); MEAN CORPUSCULAR HEMOGLOBIN 35 pg (27-31); MEAN CORPUSCULAR HGB CONC 35 % (32-36); MEAN CORPUSCULAR VOLUME 102 fL (79.0-98.0); MONOCYTES # (AUTO) 0.9 K/uL (0.0-1.0); MONOCYTES % (AUTO) 4.6 % (1.7-9.3); NEUTROPHILS % (AUTO) 92.2 % (40.0-70.0); PLATELET COUNT (AUTO) 314 K/uL (130-430); RED BLOOD CELL COUNT(AUTO) 2.55 MIL/uL (4.2-6.2); RED CELL DISTRIBUTION WIDTH 14.4 % (9.0-15.0); WHITE BLOOD COUNT (AUTO) 20.6 K/uL (4.8-10.8)
[2019-07-22 06:30] LABS: CALCIUM 8.4 mg/dL (8.4-11.0); CREATININE 3.76 mg/dL (0.55-1.30); POTASSIUM 3.8 mmol/L (3.5-5.1)
--- NOTE | 2019-07-22 07:00 | NUR ---
Shift report received from night RN using SBAR
[2019-07-22] MEDS ORDERED: MENTHOL/ZINC OXIDE 113 GM OINT. TP PRN (07:15)
[2019-07-22] MEDS: FAMOTIDINE 20 MG TABLET GT SCH ×2 (08:15→20:05)
[2019-07-22] MEDS: ASCORBIC ACID 500 MG TABLET PO SCH (08:15)
[2019-07-22] MEDS: PEG 400/HYPROMELLOSE/GLYCERIN 15 ML DROPS OP SCH (08:15)
[2019-07-22] MEDS: FERROUS SULFATE 300 MG/5 ML UDC GT SCH (08:15)
[2019-07-22] MEDS: TOPIRAMATE 25 MG TABLET(TOPAMAX) GT SCH ×2 (08:15→20:05)
[2019-07-22] MEDS: traMADol HCL HCL 50 MG TABLET (ULTRAM) GT SCH ×2 (08:15→09:15)
[2019-07-22] MEDS: BACLOFEN 10 MG TABLET GT SCH (08:15)
--- NOTE | 2019-07-22 08:15 | NUR ---
AM ASSESSMENT PT resting with no signs of pain or distress. Seizure pads in place bilaterally in upper rails. PT on SCD bilaterally on lower extremities. No BM, pt anuric with no visible signs of urine. PT gown slightly saturated with diaphoresis. Noted eyes slightly red. PT on left side pillow support. Will continue to monitor. Bed locked and in lowest position.
[2019-07-22] MEDS: LevETIRAcetam 500 MG/5 ML UDC ORAL LIQUID GT SCH ×2 (08:16→20:05)
[2019-07-22] MEDS: DOCUSATE SODIUM 100 MG/10 ML UDC GT SCH (08:16)
[2019-07-22] MEDS: FIBER STAT GT SCH (08:16)
[2019-07-22] MEDS: MULTIVITAMINS,THERAPEUTIC 5 ML UDC GT SCH (08:18)
--- NOTE | 2019-07-22 08:30 | NUR ---
Oral care performed. Pt unwilling to open mouth completely. Will try again @ 12:00
--- NOTE | 2019-07-22 08:37 | NUR ---
DC PLANNING Per nsg notes last [facility] unable to take pt. Called & spoke w Nusrat @ [facility], ph [phone], states has not heard back from urologist yet, will page again to see if can take pt, will call back once hears from Urologist. Called & spoke w Destinee @ [facility], ph [phone], updated, states will speak w her Site Leader & will call me back with other Hospitals we can try. Called & spoke w charge nurse in ICU, per report Charge Nurse yest did call Dr Kolb, Urologist, to see if could come see pt & stated could not yest. Today I called Dr Kolb's/Dr Kirkland's office if can see pt today, will ask administration for Medicare rate if can see pt. Addendum: 07/22/19 at 0917 by Ivana Severino RN Received call from Destinee @ [facility], [facility] to call [facility] if can accept pt. Asked for other hospitals also, states have to try that one first. Called & spoke w Darwin @ Transfer Center @ [facility], ph [phone], states no bed avail & have pt's waiting in ER for beds. Called & informed Destinee, states her Site Leader is reaching out to Urologist looking for hospital, will call me back with other hospital can try. Wants Radiology showing bladder obstruction. Called & spoke w pt's nurse informed needed order for radiology showing bladder obstruction.
--- NOTE | 2019-07-22 09:00 | NUR ---
Ivana (applications developer) called stating insurance wanted to see if we could order an ultrasound or diagnostic study to verify need for urologist. Informed Ivana I will contact and request for service. Will follow up with Ivana and .
--- NOTE | 2019-07-22 09:20 | NUR ---
Dr Madrigal bedside. Informed MD of current situation with pt status, insurance, urologist, and rn case mgr. MD ordered STAT ultrasound of kidney and bladder. Will continue to monitor pt status and keep all parties updated with results.
--- NOTE | 2019-07-22 09:39 | NUR ---
Nutrition Update Lexx Scale 11 noted. Pt admitted for cath replacement. Diet: Jevity 1.5 at 50 ml/hr, Free Water Flush: 75 CC/HR via GT BMI: 25.3 kg/m2 RD to follow per nutrition care standards.
--- NOTE | 2019-07-22 10:45 | NUR ---
plumbing service technician bedside.
--- NOTE | 2019-07-22 11:46 | NUR ---
DC PLANNING Received call back from Destinee @ [facility] to try [facility]. Called & spoke w Gabrielle @ [facility] transfer [place], ph [phone] fax [phone], states no beds avail right now but will add to wait list, faxed pt information. Called & spoke w Joselo in admitting @ [facility], states need to find accepting MD first. Called & spoke w Dr Estes states will accept pt @ Q of . Called & spoke w Joselo @ [facility] & informed, transferred call to [facility] in Bed Control. Per [facility] in bed control [facility], ph [phone] fax [phone], no beds & few in ER waiting for bed to fax pt info & will place on waiting list once insurance verified. Gave auth# from [facility]. FAxed pt info. Called Dr Kolb & Dr Kirkland's exchange again if can come see pt, will ask administration for Medicare rate. Per Arlene in Urology office, Dr Kirkland declined & Dr Kolb has not responded, she paged again but thinks will decline, seeing pts in office. Called & [facility] Transfer center per Rayna earlier needed transfer back agreement, got administration to sign, Dr Estes in agreement & faxed back. Spoke w Catrina @ [facility], received transfer back agreement, Urologist has not called back, will try again. Addendum: 07/22/19 at 1226 by Ivana Severino RN Received call from Luz @ [facility], states discussed with their CM & to try their sister [facility] that they have urology specialty. Called & informed Destinee @ [facility], states ok to try them. Called & spoke w Shayy @ [facility], ph [phone], cannot accept no beds & have alot of pt's waiting in ER for beds. Called & left msdustin Felipe, need more hospitals. Addendum: 07/22/19 at 1228 by Ivana Severino RN Called [facility] transfer center, ph [phone], received pt info, will call if get a bed. Addendum: 07/22/19 at 1352 by Ivana Severino RN Late Entry per Destinee Argueta, same auth/tracking # for all Hospitals that she gives me ok for, auth# [id number].
--- NOTE | 2019-07-22 12:00 | NUR ---
Dr Kolb bedside and successfully inserted Willis Catheter 16 Fr. Immediate return of clear yellow urine noted. PT tolerated well. Called Dr Estes per exchange. Will continue to monitor.
--- NOTE | 2019-07-22 12:25 | NUR ---
CHG bath given. Changed bedding and provided perineal and perianal care.
--- NOTE | 2019-07-22 12:35 | NUR ---
Oral care provide. Pt tolerated well. Sister bedside to assist.
--- NOTE | 2019-07-22 12:45 | NUR ---
Dropped of urine culture sample to laboratory per Dr Kolb orders.
--- NOTE | 2019-07-22 13:30 | NUR ---
Noted 550 cc of urine in Willis Bag. Slight cloudy remnants visible.
--- NOTE | 2019-07-22 13:52 | NUR ---
DC PLANNING Per ICU nurse Dr Kolb, Urologist, came in & placed ross, Dr Estes was notified. I called & spoke w Dr Estes is aware of Ross being placed & states no need to transfer pt, cancelled transfer order. I called & informed Destinee @ [facility]. Called & informed Rayna @ [facility]. Called & informed Rafael @ [facility], called & informed [facility]. Spoke w pt's sister Gabrielle in [facility], is aware.
--- NOTE | 2019-07-22 16:00 | NUR ---
Oral care provided Pt tolerated well.
[2019-07-22] MEDS ORDERED: NS 500 ML IV ONE (17:30)
--- NOTE | 2019-07-22 17:35 | NUR ---
Pt had BM, changed gown, chucks, and provided perineal & perianal care. PT tolerated well. Willis draining yellow cloudy urine.
--- NOTE | 2019-07-22 19:15 | NUR ---
Endorsement provided to night RN using SBAR. PT noted with low BP 95/65. Night RN bedside for endorsement. Bed locked and in lowest position. Seizure pads in place.
--- NOTE | 2019-07-22 19:45 | NUR ---
Opening Note Pt in bed, lethargic. Able to open eyes spontaneously, but unable to track or follow commands. Pt is SR/SB on the monitor w/ BP noted in the 90s. Pt is Trach to vent, Settings: AC 15, 40%, 500, +5. Tolerating well, no s/s of distress noted. Pt has G-tube in place running TF, no residual noted. Willis catheter in place draining urine to gravity. RT wrist 22g in place running IVF. No s/s of infiltration noted. Will continue to monitor.
[2019-07-22] MEDS: POLYETHYLENE GLYCOL 3350, 17 GM/ POWD.PACK PO SCH (20:05)
[2019-07-22] MEDS: NACL 0.9% 1,000 ML IV SCH (20:06)
--- NOTE | 2019-07-22 20:30 | NUR ---
Called Spoke w/ Dr. Velasco regarding Pt low BP. New orders received. Will carry out as ordered.
[2019-07-22] MEDS ORDERED: NACL 0.9% 500 ML IV ONE (20:45)
--- NOTE | 2019-07-22 22:14 | NUR ---
MD Called Spoke w/ Dr. Estes regarding Pt status. New orders received, Will carry out as ordered.
[2019-07-22] MEDS: NOREPINEPHRINE BITARTRATE 4 MG in NS 246 ML IV PRN (22:28)
[2019-07-22] MEDS ORDERED: NOREPINEPHRINE 4 MG/4 ML VIAL IV ONE (22:34)
[2019-07-23] VITALS (34 sets, daily range): BP systolic 80–140
--- NOTE | 2019-07-23 00:27 | NUR ---
RN Rounds Pt in bed asleep. SR/SB on the monitor. SBP currently in the 80-90s. Levophed running @4mcg/kg/min. No s/s of distress noted. Will continue to monitor.
[2019-07-23] MEDS: LevALBUTEROL HCL 1.25 MG/0.5 ML *CONC.* VIAL.NEB (XOPENEX CONC.) INH SCH ×4 (01:06→19:00)
[2019-07-23] MEDS: NACL 0.9% 1,000 ML IV SCH ×2 (03:30→16:57)
--- NOTE | 2019-07-23 04:12 | NUR ---
RN Round Pt in bed asleep. No s/s of distress noted. Pt has Levophed running @4mcg/kg/min. VSS. Will continue to monitor.
[2019-07-23] MEDS: PIPERACILLIN/TAZO 2.25G/DEX-IS 50 ML IV SCH ×4 (06:09→23:14)
--- NOTE | 2019-07-23 06:39 | NUR ---
Closing Note Pt in bed asleep. SB on the monitor. Trach to vent. Settings remain the same. Pt has IVF infusing and Levophed @4mcg/kg/min. SBP in the 80-90s. No s/s of distress noted. Pt has ross catheter in place draniing urine to gravity. Pt G-tube running TF. No residual noted. H2O flush given. Patient safety rounds completed. Pt turned and cleaned. Will endorse to oncoming RN.
--- NOTE | 2019-07-23 07:05 | NUR ---
Endorsement received from night RN using SBAR.
--- NOTE | 2019-07-23 07:10 | NUR ---
SHIFT REPORT Pt resting with no signs of pain. Levophed running @ 4 mcg/kg/min. HR 60, RR 18, O2 sat 100%, BP 125/82. SCD on bilaterally lower extremities, on SEQUEIRA. Tube feeding Jevity 1.5 @ 50cc. NS running @ 75cc/hr.
[2019-07-23] MEDS: PEG 400/HYPROMELLOSE/GLYCERIN 15 ML DROPS OP SCH (08:19)
[2019-07-23] MEDS: LevETIRAcetam 500 MG/5 ML UDC ORAL LIQUID GT SCH ×2 (08:19→21:00)
[2019-07-23] MEDS: FERROUS SULFATE 300 MG/5 ML UDC GT SCH (08:20)
[2019-07-23] MEDS: BACLOFEN 10 MG TABLET GT SCH (08:20)
[2019-07-23] MEDS: ASCORBIC ACID 500 MG TABLET PO SCH (08:20)
[2019-07-23] MEDS: MULTIVITAMINS,THERAPEUTIC 5 ML UDC GT SCH (08:20)
[2019-07-23] MEDS: TOPIRAMATE 25 MG TABLET(TOPAMAX) GT SCH ×2 (08:20→20:59)
[2019-07-23] MEDS: FAMOTIDINE 20 MG TABLET GT SCH (08:20)
[2019-07-23] MEDS: DOCUSATE SODIUM 100 MG/10 ML UDC GT SCH (08:20)
[2019-07-23] MEDS: traMADol HCL HCL 50 MG TABLET (ULTRAM) GT SCH ×2 (08:21→20:59)
--- NOTE | 2019-07-23 08:30 | NUR ---
Critical value reporting H&H 6.8 and 20.1 noted from LAB. Called MD for orders.
--- NOTE | 2019-07-23 08:45 | NUR ---
Oral care provided. Pt tolerated well.
--- NOTE | 2019-07-23 09:00 | NUR ---
AM ASSESSMENT PT sinus leola on monitor. No BM, with yellow cloudy urine noted. Will continue to monitor.
--- NOTE | 2019-07-23 09:00 | NUR ---
Consent for PICC line and blood transfusion obtained via telephone with Gabrielle (sister of pt).
[2019-07-23 09:32] LABS: BASOPHILS % (AUTO) 0.4 % (0.0-2.0); EOSINOPHILS # (AUTO) 0.6 K/uL (0.0-0.4); EOSINOPHILS % (AUTO) 4.5 % (0.0-4.0); LYMPHOCYTES % (AUTO) 7.8 % (20.5-51.5); MEAN CORPUSCULAR HEMOGLOBIN 35 pg (27-31); MEAN CORPUSCULAR HGB CONC 34 % (32-36); MEAN CORPUSCULAR VOLUME 104 fL (79.0-98.0); MONOCYTES # (AUTO) 1.4 K/uL (0.0-1.0); MONOCYTES % (AUTO) 10.5 % (1.7-9.3); PLATELET COUNT (AUTO) 279 K/uL (130-430); RED CELL DISTRIBUTION WIDTH 14.6 % (9.0-15.0)
[2019-07-23 09:44] LABS: RED BLOOD CELL COUNT(AUTO) 1.95 MIL/uL (4.2-6.2)
[2019-07-23 09:53] LABS: CALCIUM 7.8 mg/dL (8.4-11.0); CREATININE 2.94 mg/dL (0.55-1.30); POTASSIUM 3.4 mmol/L (3.5-5.1)
[2019-07-23 09:54] LABS: ALBUMIN 2.3 g/dL (3.4-4.8); TOTAL BILIRUBIN 0.3 mg/dL (0.0-1.0)
[2019-07-23 09:59] LABS: HEMATOCRIT 20.1 % (36-54); HEMOGLOBIN 6.8 g/dL (14.0-18.0)
--- NOTE | 2019-07-23 10:26 | NUR ---
CONSULT PAGE DR MYLES PER NURSE FOR LAB RESULTS DIALED NUMBER [id number] SPOKE TO LUL
--- NOTE | 2019-07-23 10:30 | NUR ---
Dr Forte called and orders received for 1 unit of PRBC, protonix IV, CBC post transfusion. Read back and confirmed
[2019-07-23 10:48] LABS: NEUTROPHILS % (AUTO) 76.8 % (40.0-70.0)
--- NOTE | 2019-07-23 11:30 | NUR ---
PICC line inserted and Okay to used received from internetworking technician. Will document and enter orders.
--- NOTE | 2019-07-23 12:00 | NUR ---
Oral care provided. Pt tolerated well.
[2019-07-23] MEDS: NOREPINEPHRINE BITARTRATE 4 MG in NS 246 ML IV PRN (12:11)
--- NOTE | 2019-07-23 12:35 | NUR ---
Dietitian Recommendations * Recommend Jevity 1.5 at 50 ml/hr, Davin BID, Free Water Flush: 75 ml Q6h via GT Provides: 1800 kcal/day, 77 gm protein/day, and 1212 ml free water/day Meets: 101% of estimated caloric needs and 91% of upper end of estimated protein needs LP, RD Please refer to Nutrition Assessment for details. Addendum: 07/23/19 at [address] Amended: Links added.
--- NOTE | 2019-07-23 15:30 | NUR ---
MD Rounds Dr Estes bedside. Orders received.
--- NOTE | 2019-07-23 16:20 | NUR ---
Oral care provided. Pt tolerated well.
--- NOTE | 2019-07-23 16:45 | NUR ---
Transfusion of 300cc of PRBC given IV through PICC line. PT had no adverse reactions. Temp 97.1f pre transfusion, 15 minutes @ 97.4F, Post transfusion @ 98.1F. Will continue to monitor.
[2019-07-23] MEDS: ATROPINE SULFATE 1 MG/10 ML SYRINGE IVP PRN (16:57)
[2019-07-23 18:08] LABS: BASOPHILS % (AUTO) 0.3 % (0.0-2.0); EOSINOPHILS # (AUTO) 0.7 K/uL (0.0-0.4); EOSINOPHILS % (AUTO) 5.2 % (0.0-4.0); HEMATOCRIT 26.8 % (36-54); HEMOGLOBIN 9.1 g/dL (14.0-18.0); LYMPHOCYTES # (AUTO) 1.1 K/uL (1.0-5.5); LYMPHOCYTES % (AUTO) 8.5 % (20.5-51.5); MEAN CORPUSCULAR HEMOGLOBIN 35 pg (27-31); MEAN CORPUSCULAR HGB CONC 34 % (32-36); MEAN CORPUSCULAR VOLUME 102 fL (79.0-98.0); MONOCYTES # (AUTO) 1.4 K/uL (0.0-1.0); MONOCYTES % (AUTO) 11.3 % (1.7-9.3); NEUTROPHILS # (AUTO) 9.5 K/uL (1.8-7.7); NEUTROPHILS % (AUTO) 74.7 % (40.0-70.0); PLATELET COUNT (AUTO) 272 K/uL (130-430); RED BLOOD CELL COUNT(AUTO) 2.64 MIL/uL (4.2-6.2); RED CELL DISTRIBUTION WIDTH 15.6 % (9.0-15.0); WHITE BLOOD COUNT (AUTO) 12.8 K/uL (4.8-10.8)
--- NOTE | 2019-07-23 19:15 | NUR ---
Endorsement given to night RN using SBAR. PT in no signs of pain or distress. Bed locked and in lowest position.
--- NOTE | 2019-07-23 19:55 | NUR ---
Called Dr. Estes called and made aware of Pt urine lab results. No new orders received. Pt already on ABx. Will continue to monitor.
--- NOTE | 2019-07-23 20:07 | NUR ---
Opening Note Pt in bed asleep. SB on the monitor w/ HR in the 50s. Pt Trach to vent. Settings: AC 15, 40%, 500, +5. Tolerating well. LISANDRO PICC line in place running IVF and LEvophed @4mcg/kg/min. Pt BP stable, SBP >90. G-tube in place running feedings, no residual noted. Willis catheter in place draining urine to gravity. No s/s of leakage noted. Pt safety rounds completed, will continue to monitor.
[2019-07-23] MEDS: PANTOPRAZOLE SODIUM 40 MG/VIAL (PROTONIX) IVP SCH (20:59)
[2019-07-23] MEDS: POLYETHYLENE GLYCOL 3350, 17 GM/ POWD.PACK PO SCH (20:59)
[2019-07-24] VITALS (35 sets, daily range): BP systolic 88–124
--- NOTE | 2019-07-24 00:20 | NUR ---
RN Rounds Pt in bed asleep. No s/s of distress noted. SR on the monitor. Pt has Levophed infusing @4mcg/kg/min. RT wrist 22g has been dislodged. Site cleaned. Will continue to monitor.
--- NOTE | 2019-07-24 04:03 | NUR ---
RN Rounds Pt in bed asleep. No s/s of distress noted. Tolerating Levophed @2mcg/kg/min well. VSS. SBP >90. Will continue to monitor.
[2019-07-24] MEDS: PIPERACILLIN/TAZO 2.25G/DEX-IS 50 ML IV SCH ×4 (05:16→23:24)
--- NOTE | 2019-07-24 06:25 | NUR ---
Closing Note Pt in bed asleep. SB on the monitor. Trach to vent. Pt has IVF infusing and Levophed @2mcg/kg/min. SBP >90. No s/s of distress noted. Pt has ross catheter in place draning urine to gravity. Pt G-tube running TF. No residual noted. H2O flush given. Patient safety rounds completed. Pt turned and cleaned. Will endorse to oncoming RN.
[2019-07-24 06:35] LABS: BASOPHILS % (AUTO) 0.1 % (0.0-2.0); EOSINOPHILS # (AUTO) 0.4 K/uL (0.0-0.4); EOSINOPHILS % (AUTO) 3.8 % (0.0-4.0); HEMATOCRIT 25.7 % (36-54); HEMOGLOBIN 8.8 g/dL (14.0-18.0); LYMPHOCYTES # (AUTO) 0.9 K/uL (1.0-5.5); LYMPHOCYTES % (AUTO) 8.4 % (20.5-51.5); MEAN CORPUSCULAR HEMOGLOBIN 35 pg (27-31); MEAN CORPUSCULAR HGB CONC 34 % (32-36); MEAN CORPUSCULAR VOLUME 101 fL (79.0-98.0); MONOCYTES % (AUTO) 9.5 % (1.7-9.3); NEUTROPHILS # (AUTO) 8.6 K/uL (1.8-7.7); NEUTROPHILS % (AUTO) 78.2 % (40.0-70.0); PLATELET COUNT (AUTO) 268 K/uL (130-430); RED BLOOD CELL COUNT(AUTO) 2.53 MIL/uL (4.2-6.2); RED CELL DISTRIBUTION WIDTH 15.9 % (9.0-15.0); WHITE BLOOD COUNT (AUTO) 10.9 K/uL (4.8-10.8)
[2019-07-24 06:36] LABS: CALCIUM 8.7 mg/dL (8.4-11.0); CREATININE 2.28 mg/dL (0.55-1.30); POTASSIUM 3.8 mmol/L (3.5-5.1)
--- NOTE | 2019-07-24 07:07 | NUR ---
RECEIVED NURSING REPORT FROM RISHABH BRISCOE R.N
[2019-07-24 07:21] LABS: TOTAL IRON BIND. CAPACITY 166 ug/dL (250-450)
[2019-07-24] MEDS: LevALBUTEROL HCL 1.25 MG/0.5 ML *CONC.* VIAL.NEB (XOPENEX CONC.) INH SCH ×4 (07:45→19:30)
--- NOTE | 2019-07-24 08:30 | NUR ---
DR. FAN SEE PATIENT
[2019-07-24] MEDS ORDERED: PANTOPRAZOLE SODIUM 40 MG/VIAL (PROTONIX) IVP SCH (09:00)
[2019-07-24] MEDS: traMADol HCL HCL 50 MG TABLET (ULTRAM) GT SCH ×2 (09:20→20:39)
[2019-07-24] MEDS: ASCORBIC ACID 500 MG TABLET PO SCH (09:20)
[2019-07-24] MEDS: PANTOPRAZOLE SODIUM 40 MG/VIAL (PROTONIX) IVP SCH ×2 (09:20→20:40)
[2019-07-24] MEDS: TOPIRAMATE 25 MG TABLET(TOPAMAX) GT SCH ×2 (09:20→20:39)
[2019-07-24] MEDS: BACLOFEN 10 MG TABLET GT SCH (09:21)
[2019-07-24] MEDS: LevETIRAcetam 500 MG/5 ML UDC ORAL LIQUID GT SCH ×2 (09:21→20:40)
[2019-07-24] MEDS: FERROUS SULFATE 300 MG/5 ML UDC GT SCH (09:21)
[2019-07-24] MEDS: DOCUSATE SODIUM 100 MG/10 ML UDC GT SCH (09:21)
[2019-07-24] MEDS: MULTIVITAMINS,THERAPEUTIC 5 ML UDC GT SCH (09:22)
[2019-07-24] MEDS: PEG 400/HYPROMELLOSE/GLYCERIN 15 ML DROPS OP SCH (09:23)
[2019-07-24] MEDS: NACL 0.9% 1,000 ML IV SCH ×2 (09:23→22:36)
--- NOTE | 2019-07-24 10:00 | NUR ---
PATIENT HAD LARGE AMOUNT LOOSE STOOL, GIVE CHG BATH DONE, G-T STOMA CARE DONE
[2019-07-24] MEDS: ATROPINE SULFATE 1 MG/10 ML SYRINGE IVP PRN ×2 (12:38→16:33)
--- NOTE | 2019-07-24 12:39 | NUR ---
H.R 46-48, ORDERED GIVE ATROPINE 0.5 MG IVP
[2019-07-24] MEDS: NOREPINEPHRINE BITARTRATE 4 MG in NS 246 ML IV PRN (12:45)
--- NOTE | 2019-07-24 16:15 | NUR ---
DR. BOYER SEE PATIENT
[2019-07-24] MEDS: POLYETHYLENE GLYCOL 3350, 17 GM/ POWD.PACK PO SCH (20:38)
--- NOTE | 2019-07-24 22:41 | NUR ---
PAGED FOR SINUS TACHYCARDIA, H.R [id number]
--- NOTE | 2019-07-24 22:53 | NUR ---
AT 2250 P.M, CALLED BACK, ORDERED KEEP CLOSE MONITOR, IF H.R > 140, PLEASE NOTIFY DR LUU AWARE
--- NOTE | 2019-07-24 23:40 | NUR ---
ENDORSEMENT Pt care endorsed to me, VSS. All patient needs met at this time. Report given by SOTERO Rose.
[2019-07-25] VITALS (30 sets, daily range): BP systolic 85–108
[2019-07-25] MEDS: LevALBUTEROL HCL 1.25 MG/0.5 ML *CONC.* VIAL.NEB (XOPENEX CONC.) INH SCH ×2 (01:10→19:35)
[2019-07-25] MEDS: PIPERACILLIN/TAZO 2.25G/DEX-IS 50 ML IV SCH ×3 (05:25→17:02)
[2019-07-25 05:59] LABS: BASOPHILS % (AUTO) 0.6 % (0.0-2.0); EOSINOPHILS # (AUTO) 0.3 K/uL (0.0-0.4); EOSINOPHILS % (AUTO) 4.4 % (0.0-4.0); HEMATOCRIT 23.6 % (36-54); LYMPHOCYTES # (AUTO) 0.9 K/uL (1.0-5.5); LYMPHOCYTES % (AUTO) 11.4 % (20.5-51.5); MEAN CORPUSCULAR HEMOGLOBIN 35 pg (27-31); MEAN CORPUSCULAR HGB CONC 34 % (32-36); MEAN CORPUSCULAR VOLUME 102 fL (79.0-98.0); MONOCYTES # (AUTO) 0.8 K/uL (0.0-1.0); MONOCYTES % (AUTO) 9.5 % (1.7-9.3); NEUTROPHILS # (AUTO) 5.8 K/uL (1.8-7.7); NEUTROPHILS % (AUTO) 74.1 % (40.0-70.0); PLATELET COUNT (AUTO) 255 K/uL (130-430); RED BLOOD CELL COUNT(AUTO) 2.32 MIL/uL (4.2-6.2); RED CELL DISTRIBUTION WIDTH 15.9 % (9.0-15.0); WHITE BLOOD COUNT (AUTO) 7.9 K/uL (4.8-10.8)
[2019-07-25 06:15] LABS: CALCIUM 8.3 mg/dL (8.4-11.0); CREATININE 1.97 mg/dL (0.55-1.30); POTASSIUM 4.1 mmol/L (3.5-5.1)
--- NOTE | 2019-07-25 08:05 | NUR ---
RECEIVED NURSING REPORT FROM HR PAYROLL COORDINATOR ADEN Lara
--- NOTE | 2019-07-25 08:07 | NUR ---
REPORT GIVEN PT CARE ENDORSED TO SOTERO COLEMAN USING NURSING SBAR.
[2019-07-25] MEDS: FIBER STAT GT SCH (09:00)
[2019-07-25] MEDS: PEG 400/HYPROMELLOSE/GLYCERIN 15 ML DROPS OP SCH (09:34)
[2019-07-25] MEDS: PANTOPRAZOLE SODIUM 40 MG/VIAL (PROTONIX) IVP SCH ×2 (09:35→21:58)
[2019-07-25] MEDS: FERROUS SULFATE 300 MG/5 ML UDC GT SCH (09:35)
[2019-07-25] MEDS: DOCUSATE SODIUM 100 MG/10 ML UDC GT SCH (09:35)
[2019-07-25] MEDS: LevETIRAcetam 500 MG/5 ML UDC ORAL LIQUID GT SCH ×2 (09:36→21:56)
[2019-07-25] MEDS: traMADol HCL HCL 50 MG TABLET (ULTRAM) GT SCH ×2 (09:36→21:58)
[2019-07-25] MEDS: MULTIVITAMINS,THERAPEUTIC 5 ML UDC GT SCH (09:36)
[2019-07-25] MEDS: TOPIRAMATE 25 MG TABLET(TOPAMAX) GT SCH ×2 (09:37→21:57)
[2019-07-25] MEDS: BACLOFEN 10 MG TABLET GT SCH (09:37)
[2019-07-25] MEDS: ASCORBIC ACID 500 MG TABLET PO SCH (09:37)
[2019-07-25] MEDS: 0.45% NACL 1,000 ML IV SCH (11:28)
--- NOTE | 2019-07-25 14:00 | NUR ---
DR. BOYER SEE PATIENT, NO ORDER FOR DOWN GRADE, DOCTOR VERBALIZED : KEEP PATIENT IN ICU ,CLOSE MONITOR PATIENT,S CONDITION
--- NOTE | 2019-07-25 14:30 | NUR ---
GIVE CHG BATH ,WOUND CARE , G-T STOMA CARE DONE
--- NOTE | 2019-07-25 14:33 | NUR ---
Nutrition F/U RD reviewed pt's current EMR including diet Hx, physician notes, nursing notes, pertinent labs/meds/procedures, care trends and care activity. Current Nutrition Support: Jevity 1.5 at 50ml/hr, Davin BID, FWF 75cc Q6H via GT x 2 days Subjective information: Pt seen in bed, on vent, IV infusing and EN infusing per MD orders. Per RN report, pt is tolerating EN regimen well, no residual this morning. Davin was delivered w/ EN formula and was administered this morning w/ medications. Theragran liquid noted in list of medications. Labs: 07/25 Na 145WNL, K 4.1WNL, BG 137H, BUN 25H, CRE 1.97H Skin Integrity Comment: Lexx scale: 12; posterior buttocks w/ wound per nursing notes NEW Estimated Energy Expenditure (kcals/day) 1756 kcal/day (REE using PSU 2003b for critical illness, on vent) Estimated Protein Required (g/day) 43-85 gm/day (0.6-1.2 gm/kg CBW for ARF, wound healing) Estimated Fluid Required (l/day) Per physician d/t ARF Problem/Etiology/Signs/Symptoms Increased nutritional needs related to metabolic demands as evidenced by estimated nutritional requirements for wound healing. (*ongoing) Altered nutrition-related labs r/t renal dysfunction AEB elevated BUN and SCre lab values and Hx of Renal Disease. (*new) Expected Outcomes/Goals - Monitor tolerance to EN support w/ goal of pt meeting at least 80% of estimated nutritional needs, labs trending WNL, normal GI function, and skin integrity/wt maintenance Dietitian Recommendations * Recommend continuing Jevity 1.5 at 50 ml/hr, Davin BID, Free Water Flush: 75 ml Q6h via GT Provides: 1800 kcal/day, 77 gm protein/day, and 1212 ml free water/day Meets: 103% of estimated caloric needs and 91% of upper end of estimated protein needs Follow Up High Risk: F/U in 2-3days
--- NOTE | 2019-07-25 14:43 | NUR ---
Dietitian Recommendations * Recommend continuing Jevity 1.5 at 50 ml/hr, Davin BID, Free Water Flush: 75 ml Q6h via GT Provides: 1800 kcal/day, 77 gm protein/day, and 1212 ml free water/day Meets: 103% of estimated caloric needs and 91% of upper end of estimated protein needs Please see Nutrition F/U note. FDC, RD
--- NOTE | 2019-07-25 19:30 | NUR ---
Initial note Received patient after report from dayshift nurse Rose BEY. Patient in isolation room for positive urine culture Citrobacter Koseri. Vent dependent via trach with settings AC 15, TV 500, FIO2 40%, Peep 5+. Opens eyes to contact. Repositioned for comfort. Willis catheter in place and secured to leg. LISANDRO picc in place and patent, infusing IVF as per MD orders. will continue to monitor patient as per unit protocol.
--- NOTE | 2019-07-25 19:35 | NUR ---
GIVE COMPLETE NURSING REPORT TO SPRING MACHINE OPERATOR RYANN Lara
[2019-07-25] MEDS: POLYETHYLENE GLYCOL 3350, 17 GM/ POWD.PACK PO SCH (21:58)
[2019-07-26] VITALS (29 sets, daily range): BP systolic 84–128
[2019-07-26] MEDS: PIPERACILLIN/TAZO 2.25G/DEX-IS 50 ML IV SCH ×5 (00:10→23:51)
[2019-07-26] MEDS: LevALBUTEROL HCL 1.25 MG/0.5 ML *CONC.* VIAL.NEB (XOPENEX CONC.) INH SCH ×2 (00:47→19:18)
[2019-07-26 01:31] LABS: FOLATE (FOLIC ACID) >20.0 ng/mL (>3.0)
--- NOTE | 2019-07-26 03:00 | NUR ---
Morning care provided. Bed bath given, linen and gown changed. carlee area and ross care also provided. Repositioned for comfort. patient tolerated well.
--- NOTE | 2019-07-26 07:07 | NUR ---
RECEIVED NURSING REPORT FROM SILK HANGER RYANN Lara
--- NOTE | 2019-07-26 07:45 | NUR ---
SEE PATIENT, ORDERED FOLLOW UP STAT CMP
[2019-07-26] MEDS: ASCORBIC ACID 500 MG TABLET PO SCH (08:15)
[2019-07-26] MEDS: BACLOFEN 10 MG TABLET GT SCH (08:15)
[2019-07-26] MEDS: traMADol HCL HCL 50 MG TABLET (ULTRAM) GT SCH ×2 (08:15→20:46)
[2019-07-26] MEDS: TOPIRAMATE 25 MG TABLET(TOPAMAX) GT SCH ×2 (08:15→20:46)
[2019-07-26] MEDS: DOCUSATE SODIUM 100 MG/10 ML UDC GT SCH (08:16)
[2019-07-26] MEDS: FERROUS SULFATE 300 MG/5 ML UDC GT SCH (08:16)
[2019-07-26] MEDS: LevETIRAcetam 500 MG/5 ML UDC ORAL LIQUID GT SCH ×2 (08:16→20:46)
[2019-07-26] MEDS: MULTIVITAMINS,THERAPEUTIC 5 ML UDC GT SCH (08:17)
[2019-07-26] MEDS: PEG 400/HYPROMELLOSE/GLYCERIN 15 ML DROPS OP SCH (08:17)
[2019-07-26] MEDS: PANTOPRAZOLE SODIUM 40 MG/VIAL (PROTONIX) IVP SCH ×2 (08:17→20:47)
[2019-07-26] MEDS: ATROPINE SULFATE 1 MG/10 ML SYRINGE IVP PRN ×2 (08:23→11:59)
--- NOTE | 2019-07-26 08:25 | NUR ---
H.R 47 , ORDERED GIVE ATROPINE 0.5 MG IVP
[2019-07-26 08:40] LABS: CALCIUM 8.7 mg/dL (8.4-11.0)
[2019-07-26 08:45] LABS: ALBUMIN 2.5 g/dL (3.4-4.8); TOTAL BILIRUBIN 0.4 mg/dL (0.0-1.0)
[2019-07-26] MEDS: NOREPINEPHRINE BITARTRATE 4 MG in NS 246 ML IV PRN (11:17)
--- NOTE | 2019-07-26 11:17 | NUR ---
PATIENT,S B.P 82/40 [facility]-84/41 [facility], H.R 55-57,( AFTER ATROPINE 0.5 MG IVP ) PRN ORDERED ON LEVOPHED DRIP, KEEP SBP > 90 MM[facility]
[2019-07-26] MEDS: 0.45% NACL 1,000 ML IV SCH (11:19)
--- NOTE | 2019-07-26 19:07 | NUR ---
GIVE COMPLETE NURSING REPORT TO OVEN STRIPPER RYANN Lara
--- NOTE | 2019-07-26 19:45 | NUR ---
INITIAL NOTE Received patient after report from dayshift nurse Rose BEY. Patient with eyes open but unable to follow commands nor able to trace. Levophed drip infusing at 2 mcg/k/min with adequate BP. Willis catheter in place and draining to gravity. Repositioned for comfort with assist from second nurse. Will continue to monitor patient as per unit protocol.
[2019-07-26] MEDS: POLYETHYLENE GLYCOL 3350, 17 GM/ POWD.PACK PO SCH (20:47)
--- NOTE | 2019-07-26 21:50 | NUR ---
Blood pressure over 120 systolic and HR 130 Levophed drip reduced from 2 mcg/min to 1 mcg/min
[2019-07-26] MEDS: ACETAMINOPHEN 650 MG/20.3 ML UDC GT PRN (22:07)
--- NOTE | 2019-07-26 22:30 | NUR ---
Dr Estes to see patient. No orders received.
[2019-07-27] VITALS (36 sets, daily range): BP systolic 83–125
[2019-07-27] MEDS: LevALBUTEROL HCL 1.25 MG/0.5 ML *CONC.* VIAL.NEB (XOPENEX CONC.) INH SCH ×4 (00:51→19:29)
--- NOTE | 2019-07-27 04:55 | NUR ---
Morning care provided CHG bath given. patient repositioned for comfort.
[2019-07-27] MEDS: PIPERACILLIN/TAZO 2.25G/DEX-IS 50 ML IV SCH ×3 (06:16→17:04)
--- NOTE | 2019-07-27 07:05 | NUR ---
Shift report received from night RN using SBAR
[2019-07-27] MEDS: PEG 400/HYPROMELLOSE/GLYCERIN 15 ML DROPS OP SCH (08:13)
[2019-07-27] MEDS: LevETIRAcetam 500 MG/5 ML UDC ORAL LIQUID GT SCH ×2 (08:13→21:27)
[2019-07-27] MEDS: MULTIVIT-MINERALS/FERROUS GLUC 15 ML UDC GT SCH (08:13)
[2019-07-27] MEDS: TOPIRAMATE 25 MG TABLET(TOPAMAX) GT SCH ×2 (08:15→21:25)
[2019-07-27] MEDS: ASCORBIC ACID 500 MG TABLET PO SCH (08:15)
[2019-07-27] MEDS: FERROUS SULFATE 300 MG/5 ML UDC GT SCH (08:15)
[2019-07-27] MEDS: PANTOPRAZOLE SODIUM 40 MG/VIAL (PROTONIX) IVP SCH ×2 (08:15→21:25)
[2019-07-27] MEDS: DOCUSATE SODIUM 100 MG/10 ML UDC GT SCH (08:15)
[2019-07-27] MEDS: traMADol HCL HCL 50 MG TABLET (ULTRAM) GT SCH ×2 (08:15→21:26)
[2019-07-27] MEDS: FIBER STAT GT SCH (08:16)
[2019-07-27] MEDS: BACLOFEN 10 MG TABLET GT SCH (08:16)
--- NOTE | 2019-07-27 08:30 | NUR ---
AM ASSESSMENT PT resting with no signs of pain or distress. PT has scant BM. Levophed @ 2 mcg/kg/min. Will continue to monitor. Bedlocked and in lowest position.
--- NOTE | 2019-07-27 08:40 | NUR ---
Davin administered with 8oz of water via gtube.
--- NOTE | 2019-07-27 08:45 | NUR ---
Oral care provided. Pt tolerated well.
[2019-07-27] MEDS: 0.45% NACL 1,000 ML IV SCH (08:51)
--- NOTE | 2019-07-27 09:15 | NUR ---
Pt had BM, provided perineal and perianal care. CHG done. Changed bedding and gown.
[2019-07-27 09:26] LABS: FERRITIN 413 ng/mL (30-400)
--- NOTE | 2019-07-27 09:30 | NUR ---
Pictures taken of posterior and buttock wounds. Changed dressing, provided perineal and perianal care. Pt tolerated well.
--- NOTE | 2019-07-27 12:25 | NUR ---
Pt sinus leola on monitor of <60 bpm. Administered 0.5 mg of atropine and HR increased to >60bpm. Will continue to monitor.
[2019-07-27] MEDS: ATROPINE SULFATE 1 MG/10 ML SYRINGE IVP PRN ×2 (12:26→17:03)
--- NOTE | 2019-07-27 12:30 | NUR ---
Oral care provided. Pt tolerated well.
--- NOTE | 2019-07-27 14:00 | NUR ---
Provided deep tracheal suction. Noted scant amount of clear sputum. Pt tolerated well.
--- NOTE | 2019-07-27 17:00 | NUR ---
Pt sinus leola <60 bpm, pulled out atropine 0.5 mg to administer but pt rebounded on own and HR >60 bpm. Will continue to monitor. Will hold atropine until needed or will return to pharmacy.
[2019-07-27] MEDS: NOREPINEPHRINE BITARTRATE 4 MG in NS 246 ML IV PRN (17:02)
--- NOTE | 2019-07-27 17:50 | NUR ---
PT now Sinus Tach >99 bpm, currently at 121 bpm. Returned atropine to pharmacy. Will continue to monitor.
--- NOTE | 2019-07-27 19:10 | NUR ---
Endorsement given to night RN using SBAR. Pt resting with no signs of pain. SR on monitor 93 bpm. Levophed running at 0.5 mcg/kg/min. Bed locked and in lowest position.
[2019-07-27] MEDS: POLYETHYLENE GLYCOL 3350, 17 GM/ POWD.PACK PO SCH (21:00)
[2019-07-28] VITALS (35 sets, daily range): BP systolic 90–126
[2019-07-28] MEDS: PIPERACILLIN/TAZO 2.25G/DEX-IS 50 ML IV SCH ×5 (00:20→23:49)
[2019-07-28] MEDS: ACETAMINOPHEN 650 MG/20.3 ML UDC GT PRN (00:55)
[2019-07-28] MEDS: LevALBUTEROL HCL 1.25 MG/0.5 ML *CONC.* VIAL.NEB (XOPENEX CONC.) INH SCH ×4 (01:22→21:32)
[2019-07-28 05:28] LABS: BASOPHILS # (AUTO) 0.1 K/uL (0.0-0.2); BASOPHILS % (AUTO) 0.4 % (0.0-2.0); EOSINOPHILS # (AUTO) 0.5 K/uL (0.0-0.4); EOSINOPHILS % (AUTO) 3.7 % (0.0-4.0); HEMATOCRIT 27.2 % (36-54); HEMOGLOBIN 9.2 g/dL (14.0-18.0); LYMPHOCYTES # (AUTO) 1.5 K/uL (1.0-5.5); LYMPHOCYTES % (AUTO) 11.8 % (20.5-51.5); MEAN CORPUSCULAR HEMOGLOBIN 34 pg (27-31); MEAN CORPUSCULAR HGB CONC 34 % (32-36); MEAN CORPUSCULAR VOLUME 102 fL (79.0-98.0); MONOCYTES # (AUTO) 0.8 K/uL (0.0-1.0); MONOCYTES % (AUTO) 6.4 % (1.7-9.3); NEUTROPHILS # (AUTO) 10.1 K/uL (1.8-7.7); NEUTROPHILS % (AUTO) 77.7 % (40.0-70.0); PLATELET COUNT (AUTO) 336 K/uL (130-430); RED BLOOD CELL COUNT(AUTO) 2.66 MIL/uL (4.2-6.2); RED CELL DISTRIBUTION WIDTH 15.6 % (9.0-15.0)
[2019-07-28 05:41] LABS: ALBUMIN 2.4 g/dL (3.4-4.8); CALCIUM 8.4 mg/dL (8.4-11.0); CREATININE 1.96 mg/dL (0.55-1.30); POTASSIUM 4.4 mmol/L (3.5-5.1); TOTAL BILIRUBIN 0.4 mg/dL (0.0-1.0)
--- NOTE | 2019-07-28 07:05 | NUR ---
Update report received from night RN using SBAR bedside.
[2019-07-28] MEDS: PEG 400/HYPROMELLOSE/GLYCERIN 15 ML DROPS OP SCH (08:08)
[2019-07-28] MEDS: MULTIVIT-MINERALS/FERROUS GLUC 15 ML UDC GT SCH (08:09)
[2019-07-28] MEDS: LevETIRAcetam 500 MG/5 ML UDC ORAL LIQUID GT SCH ×2 (08:10→21:01)
[2019-07-28] MEDS: FERROUS SULFATE 300 MG/5 ML UDC GT SCH (08:10)
[2019-07-28] MEDS: BACLOFEN 10 MG TABLET GT SCH (08:10)
[2019-07-28] MEDS: PANTOPRAZOLE SODIUM 40 MG/VIAL (PROTONIX) IVP SCH ×2 (08:10→21:01)
[2019-07-28] MEDS: DOCUSATE SODIUM 100 MG/10 ML UDC GT SCH (08:11)
[2019-07-28] MEDS: ASCORBIC ACID 500 MG TABLET PO SCH (08:11)
[2019-07-28] MEDS: traMADol HCL HCL 50 MG TABLET (ULTRAM) GT SCH ×2 (08:11→21:01)
[2019-07-28] MEDS: TOPIRAMATE 25 MG TABLET(TOPAMAX) GT SCH ×2 (08:20→21:01)
--- NOTE | 2019-07-28 08:30 | NUR ---
AM ASSESSMENT PT resting with no signs of pain or distress. Levophed running at 3mcg/kg/min. Tube feeding out of volume. No residual present in G-tube. G-tube patent. Pt temp at 98.8F. Willis with clear yellow urine. Seizure pads in place. Bed locked and in lowest position.
--- NOTE | 2019-07-28 08:45 | NUR ---
Oral care provided. Pt tolerated well.
--- NOTE | 2019-07-28 09:00 | NUR ---
Davin provided with 8oz of water through G-tube.
--- NOTE | 2019-07-28 11:00 | NUR ---
CHG bath provided. Wound care provided. Changed bedding and gown. Pt tolerated well.
[2019-07-28] MEDS: 0.45% NACL 1,000 ML IV SCH (11:18)
--- NOTE | 2019-07-28 12:00 | NUR ---
Oral care provided. Deep suction with scant amount of sputum. Pt tolerated well.
--- NOTE | 2019-07-28 15:00 | NUR ---
Atropine 0.5 mg administered for HR <60bpm. Pt HR increased >60bpm. Will continue to monitor.
[2019-07-28] MEDS: ATROPINE SULFATE 1 MG/10 ML SYRINGE IVP PRN ×2 (15:01→18:24)
--- NOTE | 2019-07-28 15:30 | NUR ---
Per Lani BEY and Vee ID remove pt from isolation precautions.
--- NOTE | 2019-07-28 16:00 | NUR ---
Oral care provided. Pt tolerated well.
--- NOTE | 2019-07-28 16:15 | NUR ---
Nutrition F/U (short note d/t high patient load) RD reviewed pt's current EMR including diet Hx, physician notes, nursing notes, pertinent labs/meds/procedures, care trends, and care activity. Current Nutrition Support: Jevity 1.5 at 50 ml/hr, Davin BID, Free Water Flush: 75 ml Q6h via GT x5 days Pt seen resting in bed earlier today w/ TF infusing as per physician order. No s/s of intolerance per EMR records. Bedscale wt taken: 178# -- likely skewed d/t linens/bedding. Current TF regimen continues adequate/appropriate. Pt is at moderate nutritional risk; RD to F/U within 3-5 days.
--- NOTE | 2019-07-28 18:25 | NUR ---
Atropine 0.5 mg administered for HR <60bpm. Pt HR increased >60bpm. Will continue to monitor and endorse to night RN.
--- NOTE | 2019-07-28 19:17 | NUR ---
Endorsement provided to night RN using SBAR. PT resting with no signs of pain or distress. Padded side rails in place. Bed locked and in lowest position.
--- NOTE | 2019-07-28 19:25 | NUR ---
Opening Note Patient report received from endorsing RN via SBAR communication
[2019-07-28] MEDS: POLYETHYLENE GLYCOL 3350, 17 GM/ POWD.PACK PO SCH (20:49)
--- NOTE | 2019-07-28 21:00 | NUR ---
Nursing Note Patient repositioned in bed, oral care given. Patient tolerated well
--- NOTE | 2019-07-28 22:00 | NUR ---
Nursing Note Davin given via g-tube, patient tolerated well
--- NOTE | 2019-07-28 23:00 | NUR ---
Nursing Note Patient given oral suctioning, patient tolerated well
[2019-07-29] VITALS (36 sets, daily range): BP systolic 64–132
[2019-07-29] MEDS: LevALBUTEROL HCL 1.25 MG/0.5 ML *CONC.* VIAL.NEB (XOPENEX CONC.) INH SCH ×2 (00:59→19:45)
[2019-07-29] MEDS: NOREPINEPHRINE BITARTRATE 4 MG in NS 246 ML IV PRN (02:32)
--- NOTE | 2019-07-29 03:00 | NUR ---
Nursing Note Patient given oral care, suctioning provided. Patient pulled up in bed and repositioned. Patient tolerated well. Patient resting with eyes closed
--- NOTE | 2019-07-29 05:00 | NUR ---
Nursing Note Patient repositioned in bed, patient tolerated well
[2019-07-29] MEDS: PIPERACILLIN/TAZO 2.25G/DEX-IS 50 ML IV SCH ×3 (05:40→17:20)
[2019-07-29 06:02] LABS: BASOPHILS # (AUTO) 0.1 K/uL (0.0-0.2); BASOPHILS % (AUTO) 0.7 % (0.0-2.0); EOSINOPHILS # (AUTO) 0.6 K/uL (0.0-0.4); EOSINOPHILS % (AUTO) 4.5 % (0.0-4.0); HEMATOCRIT 27.9 % (36-54); HEMOGLOBIN 9.5 g/dL (14.0-18.0); LYMPHOCYTES # (AUTO) 1.3 K/uL (1.0-5.5); LYMPHOCYTES % (AUTO) 10.3 % (20.5-51.5); MEAN CORPUSCULAR HEMOGLOBIN 35 pg (27-31); MEAN CORPUSCULAR HGB CONC 34 % (32-36); MEAN CORPUSCULAR VOLUME 103 fL (79.0-98.0); MONOCYTES # (AUTO) 0.7 K/uL (0.0-1.0); MONOCYTES % (AUTO) 5.6 % (1.7-9.3); NEUTROPHILS # (AUTO) 10.3 K/uL (1.8-7.7); NEUTROPHILS % (AUTO) 78.9 % (40.0-70.0); PLATELET COUNT (AUTO) 349 K/uL (130-430); RED BLOOD CELL COUNT(AUTO) 2.71 MIL/uL (4.2-6.2); RED CELL DISTRIBUTION WIDTH 15.5 % (9.0-15.0)
[2019-07-29 06:37] LABS: CALCIUM 8.8 mg/dL (8.4-11.0); CREATININE 1.86 mg/dL (0.55-1.30); POTASSIUM 4.5 mmol/L (3.5-5.1)
--- NOTE | 2019-07-29 07:26 | NUR ---
Closing Note Patient report given to oncoming RN via SBAR communication
--- NOTE | 2019-07-29 08:00 | NUR ---
AM NOTES: Received bedside report. patient resting. no s/s of distress. on trach vent setting ac 15, tv 500, fio2 40%, peep 5. saturation 100%. oral care, skin care, ross care provided. g-tube feeding ongoing 50ml/hr no residual noted. keep hob elevated to prevent aspiration. ross emptied 200ml bright yellow output. right upper picc line 30cm arm circumference. ivf and levophed 3 mcg/kg/min infusing. 2 lumen with good blood return. redness r/t moisture at the perianal area. scd for dvt prophylaxis.bed is low and lock position. will monitor.
[2019-07-29] MEDS: FIBER STAT GT SCH (09:00)
[2019-07-29] MEDS: DOCUSATE SODIUM 100 MG/10 ML UDC GT SCH (09:00)
[2019-07-29] MEDS: PANTOPRAZOLE SODIUM 40 MG/VIAL (PROTONIX) IVP SCH ×2 (09:11→20:58)
[2019-07-29] MEDS: FERROUS SULFATE 300 MG/5 ML UDC GT SCH (09:11)
[2019-07-29] MEDS: BACLOFEN 10 MG TABLET GT SCH (09:12)
[2019-07-29] MEDS: ASCORBIC ACID 500 MG TABLET PO SCH (09:12)
[2019-07-29] MEDS: MULTIVIT-MINERALS/FERROUS GLUC 15 ML UDC GT SCH (09:13)
[2019-07-29] MEDS: LevETIRAcetam 500 MG/5 ML UDC ORAL LIQUID GT SCH ×2 (09:13→20:57)
[2019-07-29] MEDS: PEG 400/HYPROMELLOSE/GLYCERIN 15 ML DROPS OP SCH (09:17)
[2019-07-29] MEDS: TOPIRAMATE 25 MG TABLET(TOPAMAX) GT SCH ×2 (09:28→20:57)
[2019-07-29] MEDS: traMADol HCL HCL 50 MG TABLET (ULTRAM) GT SCH ×2 (09:29→20:58)
--- NOTE | 2019-07-29 09:30 | NUR ---
patient heart rate drop to 47bpm. atropin 0.5 mg ivp administered . will monitor. Addendum: 07/29/19 at 1003 by Rupinder Jacobo RN heart rate 70-80's.
[2019-07-29] MEDS: ATROPINE SULFATE 1 MG/10 ML SYRINGE IVP PRN ×4 (09:31→20:59)
[2019-07-29] MEDS: 0.45% NACL 1,000 ML IV SCH ×2 (12:18→14:48)
--- NOTE | 2019-07-29 12:38 | NUR ---
patient heart rate drop to 45bpm. atropin 0.5 mg ivp administered. heart rate goes up to 60-66bpm. will monitor.
--- NOTE | 2019-07-29 15:00 | NUR ---
Wound Evaluation: Wound Consult ordered for Low Lexx Score. Patient evaluated for a low Lexx score of 12. Patient was awake, non-verbal, non-responsive to verbal commands, and received in a [place] Bed with an IsoFlex MANDY mattress with low air-loss therapy. Patient is unable to turn in bed. Recent labs: WBC 13.0, RBC 2.71, Hgb 9.5, Hct 27.9, Cl 113, BUN 38, Creat 1.86, GFR 45, Alb 2.4. 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 Microbiology reports: Blood Culture results x 2 negative. MRSA screen results negative. Urine culture results positive for Citrobacter Koseri. Intrinsic values that affect wound healing: Traumatic Brain Injury, Hydrocephalus, Chronic Respiratory Failure. Extrinsic values that affect wound healing: Immobility. Skin Assessment: 1. Sacral/Buttocks/Perineal/Entire Bilateral Posterior Thigh areas: Severe IAD with bright red erythema, present on admission. Dry, flaky scaly skin present. 2. Left Buttock: Severe IAD with bright red erythema and MASD, present on admission. Surrounding tissue has dry, flaky scaly skin. Open area has 100% dark red tissue. No odor, scant sanguineous drainage. Measures 4.0 cm x 3.5 cm. 3. Right Buttock: Severe IAD with bright red erythema and MASD, present on admission. Surrounding tissue has dry, flaky scaly skin. Open area has 100% dark red tissue. No odor, scant sanguineous drainage. Measures 4.3 cm x 3.0 cm. Recommend: Cleanse wounds with normal Saline. Pat dry. Apply Calmoseptine cream to wounds. Apply Hydraguard barrier cream to erythematous and dry, flaky scaly skin areas. Perform site care bid and prn for soiling. Recommend reposition patient side to side only every 2 hours with pillow support. Elevate, off-load and float bilateral heels with pillows. Offload pressure areas with pillows for pressure re-distribution. Perform skin care and monitor skin integrity Q shift. Use moisture barrier cream on moisture susceptible areas QID and PRN for soiling. Maintain patient on a low air-loss mattress.
--- NOTE | 2019-07-29 15:00 | NUR ---
wound care nurse seen by and recommend cleanse normal saline, applied silicon cream bid to removed scaly and dry skin. Calmoseptine cream to the open skin. turn and reposition with pillow support.
--- NOTE | 2019-07-29 16:00 | NUR ---
Patient repositioned by staff every 2 hours with pillow support.
--- NOTE | 2019-07-29 16:16 | NUR ---
PUlmo consult: seen by dr. brownlee, updated about patient current condition.
[2019-07-29] MEDS ORDERED: HYDROCORTISONE SOD SUCC 100 MG/2 ML VIAL IVP ONE (16:30)
--- NOTE | 2019-07-29 18:00 | NUR ---
Patient repositioned by staff every 2 hours with pillow support.
--- NOTE | 2019-07-29 18:55 | NUR ---
all needs mets. no s/s of distress. trach to vent mech setting ac 15, tv 400m fio2 40% peep 5. saturation 100%. vital sign stable, afebrile. ivf and Levophed infusing well. Picc line patent with good blood return. ross catheter draining via gravity. adequate amount yellow color out noted. g-tube feeding.keep hob elevated to prevent aspiration.
--- NOTE | 2019-07-29 20:00 | NUR ---
TRACH TO VENT. SUCTIONED WITH SCANT AMOUNT OF THIN CLEAR SPUTUM OBTAINED. ORAL CARE GIVEN. GT FEEDING WITH JEVITY 1.5 AT 50CC/HR. RESIDUAL CHECK. 0. LISANDRO PICC LINE RAMIREZ D/I. EXTREMITIES CONTRACTED. WANG CATH PATENT DRAINING CLEAR YELLOW URINE TO GRAVITY. DR BOYER HERE EARLIER. NO NEW ORDERS GIVEN. ON LEVOPHED DRIP AT 3 MCG/MIN. SINUS BRADYCARDIA.
[2019-07-29] MEDS: POLYETHYLENE GLYCOL 3350, 17 GM/ POWD.PACK PO SCH (20:58)
--- NOTE | 2019-07-29 21:00 | NUR ---
ATROPINE 0.5 MG IVP GIVEN FOR HR OF 43.
[2019-07-29] MEDS: HYDROCORTISONE SOD SUCC 100 MG/2 ML VIAL IVP SCH (21:49)
--- NOTE | 2019-07-29 22:00 | NUR ---
HS CARE GIVEN.
[2019-07-30] VITALS (36 sets, daily range): BP systolic 89–130
--- NOTE | 2019-07-30 | NUR ---
SUCTIONED. TURNED. ORAL CARE. RESIDUAL CHECK 0. GT FLUSHED WITH 75CC H2O. SINUS TACHY. HR 130. TYLENOL 640 MG GT GIVEN FOR SLIGHT FEVER OF 99.1. BP 130/70, LEVOPHED DECREASED TO 2 MCG/MIN.
[2019-07-30] MEDS: PIPERACILLIN/TAZO 2.25G/DEX-IS 50 ML IV SCH ×4 (00:16→17:05)
[2019-07-30] MEDS: ACETAMINOPHEN 650 MG/20.3 ML UDC GT PRN (00:19)
[2019-07-30] MEDS: LevALBUTEROL HCL 1.25 MG/0.5 ML *CONC.* VIAL.NEB (XOPENEX CONC.) INH SCH ×4 (01:04→19:20)
--- NOTE | 2019-07-30 02:30 | NUR ---
BP 122/64, LEVOPHED AT 1 MCG/MIN
--- NOTE | 2019-07-30 04:00 | NUR ---
SUCTIONED. TURNED. 1 MOD SOFT FORMED GREENISH BROWN STOOL DEFECATED. CLEANED. ANGELA-CARE. HYDRAGUARD, Z-GUARD, AND CALMOSEPTINE APPLIED. RESIDUAL CHECK 0. BP 123/61, LEVOPHED OFF.
[2019-07-30 05:50] LABS: BASOPHILS # (AUTO) 0.1 K/uL (0.0-0.2); BASOPHILS % (AUTO) 0.5 % (0.0-2.0); EOSINOPHILS % (AUTO) 0.1 % (0.0-4.0); HEMATOCRIT 29.1 % (36-54); HEMOGLOBIN 9.7 g/dL (14.0-18.0); LYMPHOCYTES # (AUTO) 0.9 K/uL (1.0-5.5); MEAN CORPUSCULAR HEMOGLOBIN 34 pg (27-31); MEAN CORPUSCULAR HGB CONC 33 % (32-36); MEAN CORPUSCULAR VOLUME 103 fL (79.0-98.0); MONOCYTES # (AUTO) 0.6 K/uL (0.0-1.0); MONOCYTES % (AUTO) 4.2 % (1.7-9.3); NEUTROPHILS # (AUTO) 12.9 K/uL (1.8-7.7); NEUTROPHILS % (AUTO) 89.2 % (40.0-70.0); PLATELET COUNT (AUTO) 347 K/uL (130-430); RED BLOOD CELL COUNT(AUTO) 2.82 MIL/uL (4.2-6.2); RED CELL DISTRIBUTION WIDTH 15.4 % (9.0-15.0); WHITE BLOOD COUNT (AUTO) 14.5 K/uL (4.8-10.8)
[2019-07-30] MEDS: HYDROCORTISONE SOD SUCC 100 MG/2 ML VIAL IVP SCH ×3 (05:52→21:12)
--- NOTE | 2019-07-30 06:00 | NUR ---
UO GOOD. GT FLUSHED WITH 75CC H2O. SUCTIONED AND TURNED Q2 HRS AND PRN. OCCASIONAL SPASTIC REACTIONS TO SUCTIONING NOTED. REMAINS IN GUARDED CONDITION.
[2019-07-30 06:07] LABS: CALCIUM 8.7 mg/dL (8.4-11.0); POTASSIUM 4.2 mmol/L (3.5-5.1)
--- NOTE | 2019-07-30 08:00 | NUR ---
am notes; received report from Celio griffin. patient obtunded. on trach to vent size 7.vent setting ac 15, tv 500, fio2 40%, peep 5. saturation 100%. oral care, skin care, ross care provided. right buttock ( close to sacral area small size purple color skin noted. turn and reposition with pillow support. lower back, sacral, beatriz buttocks and upper posterior legs dermatitis.pinkish/ scaly skin, peer wound care nurse recommendation, cleanse with ns and silicon cream applied. and Calmoseptine at the skin tear area. turn and reposition with pillow support. on air mattress. g-tube feeding jevity 1.5 @ 40ml/hr infusing. no residual noted. keep hob elevated to prevent aspiration. ross cath draining via gravity. emptied 180ml yellow with sediment noted. bed is low and lock position. will monitor.
[2019-07-30] MEDS: DOCUSATE SODIUM 100 MG/10 ML UDC GT SCH (09:00)
[2019-07-30] MEDS: PANTOPRAZOLE SODIUM 40 MG/VIAL (PROTONIX) IVP SCH ×2 (09:17→21:11)
[2019-07-30] MEDS: TOPIRAMATE 25 MG TABLET(TOPAMAX) GT SCH ×2 (09:18→21:11)
[2019-07-30] MEDS: traMADol HCL HCL 50 MG TABLET (ULTRAM) GT SCH ×2 (09:18→21:11)
[2019-07-30] MEDS: ASCORBIC ACID 500 MG TABLET PO SCH (09:18)
[2019-07-30] MEDS: MULTIVIT-MINERALS/FERROUS GLUC 15 ML UDC GT SCH (09:18)
[2019-07-30] MEDS: BACLOFEN 10 MG TABLET GT SCH (09:18)
[2019-07-30] MEDS: FERROUS SULFATE 300 MG/5 ML UDC GT SCH (09:18)
[2019-07-30] MEDS: LevETIRAcetam 500 MG/5 ML UDC ORAL LIQUID GT SCH ×2 (09:19→21:13)
[2019-07-30] MEDS: PEG 400/HYPROMELLOSE/GLYCERIN 15 ML DROPS OP SCH (09:19)
--- NOTE | 2019-07-30 10:00 | NUR ---
Patient repositioned by staff every 2 hours with pillow support.
--- NOTE | 2019-07-30 10:47 | NUR ---
Nutrition Consult Nutrition Consult received for Lexx Score 12, MASD Buttocks 07/29/19 1811. Pt is being followed by clinical nutrition team. Please refer to latest Nutrition F/U note 07/28/19. RD to continue to follow as per nutrition care standards.
--- NOTE | 2019-07-30 11:30 | NUR ---
MD ROUNDS: seen by Dr. Noriega updated about patient current condition.
--- NOTE | 2019-07-30 12:00 | NUR ---
Patient is able to reposition self in bed and is encouraged to request assistance when needed. Addendum: 07/30/19 at 1922 by Celio Thomason RN Patient repositioned by staff every 2 hours with pillow support.
--- NOTE | 2019-07-30 16:00 | NUR ---
Patient is able to reposition self in bed and is encouraged to request assistance when needed. Addendum: 07/30/19 at 1923 by Celio Thomason RN Patient repositioned by staff every 2 hours with pillow support.
[2019-07-30] MEDS: 0.45% NACL 1,000 ML IV SCH (16:53)
--- NOTE | 2019-07-30 18:48 | NUR ---
all needs mets, no s/s of distress. vital sign stable, afebrile. g-tube feeding infusing.keep hob elevated to prevent aspiration. no residual noted.
--- NOTE | 2019-07-30 20:00 | NUR ---
TRACH TO VENT. SUCTIONED WITH SMALL AMOUNT OF THIN WHITE MUCUS OBTAINED. ORAL CARE GIVEN. GT FEEDING WITH JEVITY 1.5 AT 50 CC/HR. RESIDUAL CHECK 0. WANG CATH PATENT DRAINING CLOUDY YELLOW URINE WITH SEDIMENTS TO GRAVITY. EXTREMITIES CONTRACTED. LIAT BRIGHT. LISANDRO PICC LINE RAMIREZ D/I.
--- NOTE | 2019-07-30 21:00 | NUR ---
1 PACKET OF NAY GIVEN. HS CARE.
[2019-07-30] MEDS: POLYETHYLENE GLYCOL 3350, 17 GM/ POWD.PACK PO SCH (21:11)
--- NOTE | 2019-07-30 23:00 | NUR ---
RIGHT UPPER ARM PICC LINE DRSG CHANGED USING ASEPTIC TECHNIQUE.
[2019-07-31] VITALS (35 sets, daily range): BP systolic 93–121
--- NOTE | 2019-07-31 | NUR ---
SUCTIONED. TURNED. ORAL CARE GIVEN. RESIDUAL CHECK 0. GT FLUSHED WITH 75CC H2O.
[2019-07-31] MEDS: PIPERACILLIN/TAZO 2.25G/DEX-IS 50 ML IV SCH ×4 (00:03→18:02)
--- NOTE | 2019-07-31 02:00 | NUR ---
SUCTIONED WITH SAME RESULTS. SPASTIC REACTIONS AT TIMES. SINUS DEANGELO.
[2019-07-31] MEDS: LevALBUTEROL HCL 1.25 MG/0.5 ML *CONC.* VIAL.NEB (XOPENEX CONC.) INH SCH ×4 (02:13→19:55)
--- NOTE | 2019-07-31 04:00 | NUR ---
ORAL CARE, RESIDUAL CHECK 0. SUCTIONED AND REPOSITIONED. AM CARE DONE.
[2019-07-31] MEDS: HYDROCORTISONE SOD SUCC 100 MG/2 ML VIAL IVP SCH ×2 (05:25→18:03)
[2019-07-31] MEDS: ATROPINE SULFATE 1 MG/10 ML SYRINGE IVP PRN ×3 (05:26→11:16)
--- NOTE | 2019-07-31 05:32 | NUR ---
ATROPINE 0.5 MG IVP GIVEN FOR HR 40.
--- NOTE | 2019-07-31 06:00 | NUR ---
SUCTIONED AND TURNED Q2 HRS AND PRN. UO GOOD. GT FLUSHED WITH 75CC H2O. REMAINS IN GUARDED CONDITION.
[2019-07-31 06:24] LABS: ALBUMIN 2.2 g/dL (3.4-4.8); CALCIUM 8.2 mg/dL (8.4-11.0); CREATININE 1.96 mg/dL (0.55-1.30); POTASSIUM 4.1 mmol/L (3.5-5.1); TOTAL BILIRUBIN 0.3 mg/dL (0.0-1.0)
[2019-07-31] MEDS: BACLOFEN 10 MG TABLET GT SCH (09:14)
[2019-07-31] MEDS: DOCUSATE SODIUM 100 MG/10 ML UDC GT SCH (09:14)
[2019-07-31] MEDS: PANTOPRAZOLE SODIUM 40 MG/VIAL (PROTONIX) IVP SCH ×2 (09:15→21:54)
[2019-07-31] MEDS: FERROUS SULFATE 300 MG/5 ML UDC GT SCH (09:15)
[2019-07-31] MEDS: MULTIVIT-MINERALS/FERROUS GLUC 15 ML UDC GT SCH (09:44)
[2019-07-31] MEDS: LevETIRAcetam 500 MG/5 ML UDC ORAL LIQUID GT SCH ×2 (09:45→21:55)
[2019-07-31] MEDS: PEG 400/HYPROMELLOSE/GLYCERIN 15 ML DROPS OP SCH (09:46)
[2019-07-31] MEDS: THEOPHYLLINE ANHYDROUS 200 MG CAP.ER.24H PO SCH ×2 (10:02→21:54)
[2019-07-31] MEDS: TOPIRAMATE 25 MG TABLET(TOPAMAX) GT SCH ×2 (10:02→21:54)
[2019-07-31] MEDS: ASCORBIC ACID 500 MG TABLET PO SCH (10:02)
[2019-07-31 10:08] LABS: BASOPHILS % (AUTO) 0.3 % (0.0-2.0); EOSINOPHILS % (AUTO) 0.1 % (0.0-4.0); HEMATOCRIT 23.3 % (36-54); HEMOGLOBIN 7.9 g/dL (14.0-18.0); LYMPHOCYTES # (AUTO) 0.7 K/uL (1.0-5.5); LYMPHOCYTES % (AUTO) 7.2 % (20.5-51.5); MEAN CORPUSCULAR HEMOGLOBIN 35 pg (27-31); MEAN CORPUSCULAR HGB CONC 34 % (32-36); MEAN CORPUSCULAR VOLUME 104 fL (79.0-98.0); MONOCYTES # (AUTO) 0.3 K/uL (0.0-1.0); MONOCYTES % (AUTO) 2.7 % (1.7-9.3); NEUTROPHILS # (AUTO) 8.7 K/uL (1.8-7.7); NEUTROPHILS % (AUTO) 89.7 % (40.0-70.0); PLATELET COUNT (AUTO) 271 K/uL (130-430); RED BLOOD CELL COUNT(AUTO) 2.25 MIL/uL (4.2-6.2); RED CELL DISTRIBUTION WIDTH 15.2 % (9.0-15.0); WHITE BLOOD COUNT (AUTO) 9.7 K/uL (4.8-10.8)
[2019-07-31 14:23] LABS: BASOPHILS % (AUTO) 0.3 % (0.0-2.0); EOSINOPHILS % (AUTO) 0.3 % (0.0-4.0); HEMATOCRIT 24.9 % (36-54); HEMOGLOBIN 8.3 g/dL (14.0-18.0); LYMPHOCYTES # (AUTO) 1.1 K/uL (1.0-5.5); LYMPHOCYTES % (AUTO) 11.4 % (20.5-51.5); MEAN CORPUSCULAR HEMOGLOBIN 35 pg (27-31); MEAN CORPUSCULAR HGB CONC 33 % (32-36); MEAN CORPUSCULAR VOLUME 104 fL (79.0-98.0); MONOCYTES # (AUTO) 0.5 K/uL (0.0-1.0); MONOCYTES % (AUTO) 5.2 % (1.7-9.3); NEUTROPHILS # (AUTO) 8.2 K/uL (1.8-7.7); NEUTROPHILS % (AUTO) 82.8 % (40.0-70.0); PLATELET COUNT (AUTO) 296 K/uL (130-430); RED CELL DISTRIBUTION WIDTH 15.3 % (9.0-15.0); WHITE BLOOD COUNT (AUTO) 9.9 K/uL (4.8-10.8)
--- NOTE | 2019-07-31 18:00 | NUR ---
pt repositiond q2, suctioned as need. G/T feeding with Jevity 1.5 @ 50ml/hr tolerated. flushed water 75ml q6. on Trach vent A/C 15, TV 500, FIO2 40%, PEEP 5. F/C draining yellow colored urine. 700ml out. IVF 1/2 NS @ 40ML/HR TO LISANDRO PICC line. Tele monitor SB ( HR 40-50). will continue to monitor.
[2019-07-31] MEDS: POLYETHYLENE GLYCOL 3350, 17 GM/ POWD.PACK PO SCH (21:59)
[2019-08-01] VITALS (35 sets, daily range): BP systolic 87–127
[2019-08-01] MEDS: PIPERACILLIN/TAZO 2.25G/DEX-IS 50 ML IV SCH ×5 (00:51→23:33)
[2019-08-01] MEDS: LevALBUTEROL HCL 1.25 MG/0.5 ML *CONC.* VIAL.NEB (XOPENEX CONC.) INH SCH ×4 (01:39→19:56)
[2019-08-01] MEDS: HYDROCORTISONE SOD SUCC 100 MG/2 ML VIAL IVP SCH ×2 (07:03→16:57)
[2019-08-01 07:09] LABS: BASOPHILS # (AUTO) 0.1 K/uL (0.0-0.2); BASOPHILS % (AUTO) 0.4 % (0.0-2.0); EOSINOPHILS # (AUTO) 0.2 K/uL (0.0-0.4); EOSINOPHILS % (AUTO) 1.1 % (0.0-4.0); HEMATOCRIT 27.8 % (36-54); HEMOGLOBIN 9.2 g/dL (14.0-18.0); LYMPHOCYTES # (AUTO) 2.3 K/uL (1.0-5.5); LYMPHOCYTES % (AUTO) 14.2 % (20.5-51.5); MEAN CORPUSCULAR HEMOGLOBIN 35 pg (27-31); MEAN CORPUSCULAR HGB CONC 33 % (32-36); MEAN CORPUSCULAR VOLUME 105 fL (79.0-98.0); MONOCYTES # (AUTO) 1.1 K/uL (0.0-1.0); NEUTROPHILS # (AUTO) 12.3 K/uL (1.8-7.7); PLATELET COUNT (AUTO) 372 K/uL (130-430); RED BLOOD CELL COUNT(AUTO) 2.64 MIL/uL (4.2-6.2); RED CELL DISTRIBUTION WIDTH 15.5 % (9.0-15.0); WHITE BLOOD COUNT (AUTO) 15.9 K/uL (4.8-10.8)
--- NOTE | 2019-08-01 07:30 | NUR ---
Opening Note Patient report received from insole presser via SBAR
[2019-08-01 07:35] LABS: ALBUMIN 2.2 g/dL (3.4-4.8); CALCIUM 8.3 mg/dL (8.4-11.0); CREATININE 1.78 mg/dL (0.55-1.30); POTASSIUM 4.2 mmol/L (3.5-5.1); TOTAL BILIRUBIN 0.3 mg/dL (0.0-1.0)
--- NOTE | 2019-08-01 08:30 | NUR ---
MD Round Dr. Watters at bedside assessing patient, no new orders. Consult okay with transfer to Tele
[2019-08-01] MEDS: FIBER STAT GT SCH (09:00)
[2019-08-01] MEDS: DOCUSATE SODIUM 100 MG/10 ML UDC GT SCH (09:00)
[2019-08-01] MEDS: THEOPHYLLINE ANHYDROUS 200 MG CAP.ER.24H PO SCH ×2 (09:09→20:44)
[2019-08-01] MEDS: LevETIRAcetam 500 MG/5 ML UDC ORAL LIQUID GT SCH ×2 (09:09→20:44)
[2019-08-01] MEDS: PANTOPRAZOLE SODIUM 40 MG/VIAL (PROTONIX) IVP SCH ×2 (09:10→20:41)
[2019-08-01] MEDS: ASCORBIC ACID 500 MG TABLET PO SCH (09:10)
[2019-08-01] MEDS: BACLOFEN 10 MG TABLET GT SCH (09:10)
[2019-08-01] MEDS: FERROUS SULFATE 300 MG/5 ML UDC GT SCH (09:10)
[2019-08-01] MEDS: MULTIVIT-MINERALS/FERROUS GLUC 15 ML UDC GT SCH (09:10)
[2019-08-01] MEDS: PEG 400/HYPROMELLOSE/GLYCERIN 15 ML DROPS OP SCH (09:10)
[2019-08-01] MEDS: TOPIRAMATE 25 MG TABLET(TOPAMAX) GT SCH ×2 (09:15→20:42)
[2019-08-01] MEDS: ATROPINE SULFATE 1 MG/10 ML SYRINGE IVP PRN ×2 (09:16→15:13)
--- NOTE | 2019-08-01 09:45 | NUR ---
MD Round Dr. Quiñones at bedside assessing patient, physician entered orders. Consult okay with transfer to Tele
--- NOTE | 2019-08-01 10:00 | NUR ---
Nursing Note Patient provided oral care, repositioned in bed. Patient tolerated well
[2019-08-01] MEDS: 0.45% NACL 1,000 ML IV SCH ×2 (10:12→22:45)
[2019-08-01 11:19] LABS: NEUTROPHILS % (AUTO) 77.3 % (40.0-70.0)
--- NOTE | 2019-08-01 12:00 | NUR ---
Nursing Note Patient repositioned in bed, tubefeeding flush given. Patient tolerated well
--- NOTE | 2019-08-01 13:45 | NUR ---
Round Dr. Madrigal at bedside assessing patient, no new orders. Consult okay with transfer to Tele
--- NOTE | 2019-08-01 18:00 | NUR ---
MD Carlo Estes at bedside assessing patient, physician okay with transfer to Tele, orders entered. Patient will be monitored on Tele status until a bed and nurse are available
--- NOTE | 2019-08-01 19:20 | NUR ---
Closing Note Patient report given to nightshift RN via SBAR communication
[2019-08-01] MEDS: POLYETHYLENE GLYCOL 3350, 17 GM/ POWD.PACK PO SCH (20:42)
[2019-08-02] VITALS (21 sets, daily range): BP systolic 100–112
[2019-08-02] MEDS: LevALBUTEROL HCL 1.25 MG/0.5 ML *CONC.* VIAL.NEB (XOPENEX CONC.) INH SCH ×4 (01:07→19:47)
[2019-08-02] MEDS: ATROPINE SULFATE 1 MG/10 ML SYRINGE IVP PRN ×3 (04:23→22:14)
[2019-08-02] MEDS: PIPERACILLIN/TAZO 2.25G/DEX-IS 50 ML IV SCH ×4 (05:21→23:09)
[2019-08-02] MEDS: HYDROCORTISONE SOD SUCC 100 MG/2 ML VIAL IVP SCH ×2 (05:48→17:43)
[2019-08-02 06:13] LABS: BASOPHILS # (AUTO) 0.1 K/uL (0.0-0.2); BASOPHILS % (AUTO) 0.4 % (0.0-2.0); EOSINOPHILS # (AUTO) 0.1 K/uL (0.0-0.4); EOSINOPHILS % (AUTO) 0.6 % (0.0-4.0); HEMATOCRIT 28.2 % (36-54); HEMOGLOBIN 9.3 g/dL (14.0-18.0); LYMPHOCYTES % (AUTO) 13.7 % (20.5-51.5); MEAN CORPUSCULAR HEMOGLOBIN 34 pg (27-31); MEAN CORPUSCULAR HGB CONC 33 % (32-36); MEAN CORPUSCULAR VOLUME 105 fL (79.0-98.0); MONOCYTES # (AUTO) 1.4 K/uL (0.0-1.0); MONOCYTES % (AUTO) 9.5 % (1.7-9.3); NEUTROPHILS # (AUTO) 10.9 K/uL (1.8-7.7); NEUTROPHILS % (AUTO) 75.8 % (40.0-70.0); PLATELET COUNT (AUTO) 305 K/uL (130-430); RED CELL DISTRIBUTION WIDTH 15.7 % (9.0-15.0); WHITE BLOOD COUNT (AUTO) 14.4 K/uL (4.8-10.8)
--- NOTE | 2019-08-02 07:01 | NUR ---
Opening Note Patient report received from endorsing RN via SBAR communication
[2019-08-02] MEDS: DOCUSATE SODIUM 100 MG/10 ML UDC GT SCH (07:36)
--- NOTE | 2019-08-02 07:45 | NUR ---
Round Dr. Madrigal at bedside assessing patient, no new orders
[2019-08-02] MEDS: THEOPHYLLINE ANHYDROUS 200 MG CAP.ER.24H PO SCH ×2 (08:03→21:12)
[2019-08-02] MEDS: FERROUS SULFATE 300 MG/5 ML UDC GT SCH (08:03)
[2019-08-02] MEDS: PEG 400/HYPROMELLOSE/GLYCERIN 15 ML DROPS OP SCH (08:03)
[2019-08-02] MEDS: MULTIVIT-MINERALS/FERROUS GLUC 15 ML UDC GT SCH (08:03)
[2019-08-02] MEDS: LevETIRAcetam 500 MG/5 ML UDC ORAL LIQUID GT SCH ×2 (08:03→21:14)
[2019-08-02] MEDS: ASCORBIC ACID 500 MG TABLET PO SCH (08:05)
[2019-08-02] MEDS: TOPIRAMATE 25 MG TABLET(TOPAMAX) GT SCH ×2 (08:05→21:08)
[2019-08-02] MEDS: BACLOFEN 10 MG TABLET GT SCH (08:05)
[2019-08-02] MEDS: PANTOPRAZOLE SODIUM 40 MG/VIAL (PROTONIX) IVP SCH ×2 (08:05→21:06)
--- NOTE | 2019-08-02 08:55 | NUR ---
Round Dr. Watters at bedside assessing patient, no new orders
--- NOTE | 2019-08-02 10:00 | NUR ---
Nursing Note Patient repositioned in bed and pulled up, oral care provided. Patient tolerated well
--- NOTE | 2019-08-02 11:42 | NUR ---
Discharge Planning: DCP faxed referral to Sharri [facility] (f [phone] p [phone]) DCP to follow up
--- NOTE | 2019-08-02 11:46 | NUR ---
LTAC Request: Phoned [facility] provider line # [phone] and faxed the clinical info to fax# [phone]. Per Kailey. there will be a vocational case manager calling back with the approval decision , once she received and reviewed the documents. Ambulance auth is also required prior to transfer the pt.
--- NOTE | 2019-08-02 13:00 | NUR ---
Nursing Note Patient provided oral care and repositioned in bed. Water flush provided though g-tube, patient tolerated well
--- NOTE | 2019-08-02 15:00 | NUR ---
Patient received obtunded, no signs of pain, no signs of distress, on trach to vent - settings AC 15, TV 500, Fio2 40% and peep 5, tolerating well, G tube in place, no residual output at this time , flushing well, Willis Catheter in place draining to gravity, no leaking, fall, aspiration and seizure precautions in place, continuing to monitor.
--- NOTE | 2019-08-02 15:05 | NUR ---
PT TRANSFERRED Patient transfered to room 134A via hospital bed, accompanied by ACLS certified RN and RT. Patient's chart, medication, and belonging sent with patient. Patient tolerated well. Report given to SOTERO Rao at bedside via [facility].
--- NOTE | 2019-08-02 15:49 | NUR ---
Atropine patient heart rate down to 40 at the time of administration, post administration heart rate is - 60bpm, continuing to monitor the patient.
--- NOTE | 2019-08-02 16:58 | NUR ---
RN rounds patient resting in bed, eyes open, no signs of pain or distress, tolerating vent settings, heart rate is now 68, continuing to monitor, bed in lowest position, three side rails up, bed alarm on, fall, aspiration and seizure precautions in place.
--- NOTE | 2019-08-02 17:48 | NUR ---
RN rounds/Medication patient resting in bed, eyes open, no signs of distress or pain, administered scheduled medications, PICC line is patent and infusing well, water flush provided per MD orders, continuing to monitor, bed in lowest position, three side rails up, fall, aspiration and seizure precautions in place.
--- NOTE | 2019-08-02 18:32 | NUR ---
Closing note patient resting in bed, eyes closed, breathing is even and unlabored, no signs of distress, all needs met, will endorse report to NOC shift nurse, bed in lowest position, three side rails up, bed alarm on, fall, aspiration and seizure precautions in place.
--- NOTE | 2019-08-02 20:51 | NUR ---
INITIAL NOTE: Patient in bed asleep. Patient showing no signs and or symptoms of pain or respiratory distress. Patient currently on Vent with settings of: AC-15, Fi02-40%, Peep- 5, TV-500. Patient has a LISANDRO PICC Line in place. Vitals stable with a HR of 50. Patient has a ross catheter in place draining urine to gravity. No leakage noted. Safety measures enforced and placed. Bed in lowest position. Call light within reach. Will continue to monitor and carry out plan of care.
[2019-08-02] MEDS: POLYETHYLENE GLYCOL 3350, 17 GM/ POWD.PACK PO SCH (21:15)
--- NOTE | 2019-08-02 22:20 | NUR ---
Bradycardia: Patient's heart rate sustaining in the 40's. Administered Atropine 0.5 MG intravenously as indicated. Heart rate post-administration assessed, now sustaining in 60's. Will continue monitoring.
--- NOTE | 2019-08-02 22:45 | NUR ---
MEDS: Nightly scheduled medications given. Patient tolerated well. No residual noted from g-tube. Willis catheter in place draining urine by gravity. Patient LISANDRO Picc Line in place. flushes well. Safety measures in place. Patient Q2 reposition. Bed in lowest position. Call light within reach. Will continue to monitor and carry out plan of care.
--- NOTE | 2019-08-03 00:45 | NUR ---
ROUND: patient showing no respiratory distress or pain. patient resting in bed asleep with eyes closed, tolerating mech. vent settings well. continuing to monitor. bed in lowest position. call light within reach. will continue to monitor and carry out plan of care.
[2019-08-03] MEDS: LevALBUTEROL HCL 1.25 MG/0.5 ML *CONC.* VIAL.NEB (XOPENEX CONC.) INH SCH ×4 (01:04→19:21)
[2019-08-03 01:40] VITALS: BP_SYST 115
[2019-08-03] MEDS: ATROPINE SULFATE 1 MG/10 ML SYRINGE IVP PRN (01:42)
--- NOTE | 2019-08-03 01:47 | NUR ---
Bradycardia: Patient's heart rate sustaining in the 40's. Administered Atropine 0.5 MG intravenously as indicated. Heart rate post-administration assessed, now sustaining in 70's. Will continue monitoring.
--- NOTE | 2019-08-03 02:45 | NUR ---
ROUNDS: patient asleep. eyes closed showing no respiratory distress or pain. patients HR is 97. patient bed in lowest position. call light within reach. will continue to monitor and carry out plan of care. safety measures enforced and in place.
[2019-08-03] MEDS: 0.45% NACL 1,000 ML IV SCH (03:43)
[2019-08-03] MEDS: PIPERACILLIN/TAZO 2.25G/DEX-IS 50 ML IV SCH (05:02)
[2019-08-03] MEDS: HYDROCORTISONE SOD SUCC 100 MG/2 ML VIAL IVP SCH (05:02)
--- NOTE | 2019-08-03 06:11 | NUR ---
CLOSING NOTES: Patient remained calm and comfortable throughout the night. Patient showing no respiratory distress or pain. Patient ross catheter in place and draining yellow urine to gravity. G tube in place. No residual noted. PICC Line to LISANDRO. Flushed with NS. Intact. No change in vent settings. Safety protocols met and enforced throughout the shift. Patient changed Q2 hours throughout the night. bed in lowest position. call light within reach. will continue to monitor and carry out plan of care.
[2019-08-03 08:00] VITALS: BP_SYST 118
--- NOTE | 2019-08-03 08:00 | NUR ---
ASSUMPTION OF CARE: RECEIVED PT ASLEEP, EASILY AROUSED VIA LIGHT TACTILE STIMULI, NON-VERBAL, TRACH TO VENT, WITH CLEAR BREATH SOUNDS, UNLABORED BREATHING, VENT SETTINGS ARE AC=15, XL=009, FIO2=40 AND PEEP OF 5, SATURATING 99% AT THIS TIME, NO DISTRESS NOTED, G-TUBE FEEDING OF JEVITY @50CC, TOLERATING WELL, LESS THAN 10CC RESIDUAL ASPIRATED, DX:RISK FOR FLUID VOLUME EXCESS, R/T UTI, RENAL FAILURE. PT HAS WANG CATH SECURE, DRAINING CLEAR, YELLOW URINE TO GRAVITY, IV SITE INTACT, PATENT, NO REDNESS OR SWELLING, RESTING ON AIR MATTRESS WITH NO OPEN WOUNDS TO SKIN NOTED, WILL CONT' TO REPOSITION Q2HRS AND PRN, WILL CONT' WITH HOURLY ROUNDING, AND POC.
--- NOTE | 2019-08-03 09:00 | NUR ---
VISIT: AT BEDSIDE FOR ASSESSMENT OF PT, NEW ORDERS GIVEN, WILL CONT' TO MONITOR, WILL CONT' WITH POC.
--- NOTE | 2019-08-03 09:00 | NUR ---
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
[2019-08-03 09:07] LABS: BASOPHILS # (AUTO) 0.1 K/uL (0.0-0.2); BASOPHILS % (AUTO) 0.3 % (0.0-2.0); EOSINOPHILS # (AUTO) 0.2 K/uL (0.0-0.4); EOSINOPHILS % (AUTO) 1.1 % (0.0-4.0); HEMATOCRIT 30.6 % (36-54); HEMOGLOBIN 10.1 g/dL (14.0-18.0); LYMPHOCYTES % (AUTO) 5.4 % (20.5-51.5); MEAN CORPUSCULAR HEMOGLOBIN 35 pg (27-31); MEAN CORPUSCULAR HGB CONC 33 % (32-36); MEAN CORPUSCULAR VOLUME 105 fL (79.0-98.0); MONOCYTES # (AUTO) 0.6 K/uL (0.0-1.0); MONOCYTES % (AUTO) 3.2 % (1.7-9.3); NEUTROPHILS # (AUTO) 16.6 K/uL (1.8-7.7); PLATELET COUNT (AUTO) 344 K/uL (130-430); RED BLOOD CELL COUNT(AUTO) 2.92 MIL/uL (4.2-6.2); RED CELL DISTRIBUTION WIDTH 16.7 % (9.0-15.0); WHITE BLOOD COUNT (AUTO) 18.5 K/uL (4.8-10.8)
[2019-08-03] MEDS: DOCUSATE SODIUM 100 MG/10 ML UDC GT SCH (09:13)
[2019-08-03] MEDS: BACLOFEN 10 MG TABLET GT SCH (09:14)
[2019-08-03] MEDS: FERROUS SULFATE 300 MG/5 ML UDC GT SCH (09:14)
[2019-08-03] MEDS: TOPIRAMATE 25 MG TABLET(TOPAMAX) GT SCH ×2 (09:14→21:46)
[2019-08-03] MEDS: PANTOPRAZOLE SODIUM 40 MG/VIAL (PROTONIX) IVP SCH ×2 (09:14→21:43)
[2019-08-03] MEDS: ASCORBIC ACID 500 MG TABLET PO SCH (09:14)
[2019-08-03] MEDS: THEOPHYLLINE ANHYDROUS 200 MG CAP.ER.24H PO SCH ×2 (09:15→21:43)
[2019-08-03] MEDS: MULTIVIT-MINERALS/FERROUS GLUC 15 ML UDC GT SCH (09:16)
[2019-08-03] MEDS: LevETIRAcetam 500 MG/5 ML UDC ORAL LIQUID GT SCH ×2 (09:17→21:42)
[2019-08-03] MEDS: PEG 400/HYPROMELLOSE/GLYCERIN 15 ML DROPS OP SCH (09:18)
[2019-08-03 09:25] LABS: ALBUMIN 2.5 g/dL (3.4-4.8); CALCIUM 8.7 mg/dL (8.4-11.0); CREATININE 1.77 mg/dL (0.55-1.30); POTASSIUM 4.7 mmol/L (3.5-5.1); TOTAL BILIRUBIN 0.4 mg/dL (0.0-1.0)
[2019-08-03] MEDS ORDERED: HYDROCORTISONE SOD SUCC 100 MG/2 ML VIAL IVP ONE (10:15)
--- NOTE | 2019-08-03 10:15 | NUR ---
VISIT: AT BEDSIDE FOR ASSESSMENT OF PT, NEW ORDERS GIVEN, WILL CONT' TO MONITOR, WILL CONT' WITH POC.
--- NOTE | 2019-08-03 11:20 | NUR ---
FELISA FREEMAN CONTACTED INSURANCE SHELLEY EVERETT # [phone] FOR LTAC AUTHORIZATION, SHELLEY LADD CM REQUESTED FOR CLINICAL AND LTAC ORDER TO FAX TO HER # [phone] @ 11:20 AM. DIXIE BEY CM
--- NOTE | 2019-08-03 12:00 | NUR ---
NURSES NOTES: PT REPOSITIONED FOR COMFORT, REMAINS STABLE, NO S/S OF DISTRESS, SUCTIONED PRN, ORAL CARE GIVEN, TOLERATING TUBE FEEDING, WILL CONT' TO MONITOR, WILL CONT' WITH POC.
[2019-08-03 12:54] VITALS: BP_SYST 124
[2019-08-03] MEDS: CEFEPIME 1 GM in D5W 50 ML IV SCH ×2 (12:55→21:42)
--- NOTE | 2019-08-03 13:50 | NUR ---
DC PLANNING [facility] KATHI EVERETT CALLED BACK AT 12:50, MENTIONED THAT AFTER CAREFULLY REVIEWED PATIENT CURRENTLY USES VENTILATOR WITH FIO2 40%, WILL NOT BE QUALIFIED TO GO LTAC LEVEL OF CARE, DCP: RESUME SUB ACUTE LEVEL OF CARE. NOTIFIED RN @ 13:48 AND RN WILL INFORM PHYSICIAN. SARAH BEY CM
--- NOTE | 2019-08-03 15:00 | NUR ---
NURSES NOTES: PT REMAINS STABLE, IS SLEEPING WITH NO S/S OF DISTRESS, BREATHING IS UNLABORED, NO INDICATION OF PAIN, TOLERATING PRESCRIBED TX, WILL CONT' TO MONITOR AND ASSESS.
[2019-08-03 16:57] VITALS: BP_SYST 122
--- NOTE | 2019-08-03 19:20 | NUR ---
VISIT: DR BOYER AT [facility] FOR NASSESSMENT OF PT, NEW ORDERS GIVEN, WILL CONT' TO MONITOR, WILL ENDORSE TO NEXT SHIFT.
--- NOTE | 2019-08-03 19:38 | NUR ---
Pt was received lying in bed with his eyes closed and non-verbal. Tracheostomy #[address] and connected to vent with settings of AC 15, FIO2 40%, TV 500 and Peep 5. GTF of Jevity 1.5 is infusing well at 50ml/hr. HOB is elevated 45 degrees to prevent aspiration. Pt is tolerating vent settings and GTF well. IVF of 1/2NS is infusing well via LISANDRO PICC at 40ml/hr with the PICC dressing dry and intact. Willis cath to gravity drainage is draining clear yellowish urine. Fall, seizure and safety precautions are in place.
[2019-08-03 20:00] VITALS: BP_SYST 111
--- NOTE | 2019-08-03 21:30 | NUR ---
Pt is tolerating GTF and vent settings well. No acute distress noted at this time. Fall, seizure and safety precautions are in place.
[2019-08-03] MEDS: POLYETHYLENE GLYCOL 3350, 17 GM/ POWD.PACK PO SCH (21:43)
--- NOTE | 2019-08-03 23:30 | NUR ---
Pt remains non-verbal. GTF and IVF are infusing well. No respiratory distress noted. Vent settings remain unchanged and well tolerated by pt. Fall, seizure and safety precautions are in place.
[2019-08-04] MEDS: LevALBUTEROL HCL 1.25 MG/0.5 ML *CONC.* VIAL.NEB (XOPENEX CONC.) INH SCH ×3 (01:17→13:46)
[2019-08-04 01:28] VITALS: BP_SYST 122
--- NOTE | 2019-08-04 01:30 | NUR ---
No seizure activity noted. Pt is tolerating Vent settings and GTF well. IVF is infusing well via LISANDRO PICC. Fall, seizure and safety precautions are in place.
--- NOTE | 2019-08-04 03:30 | NUR ---
Pt is sleeping comfortably in bed. GTF and IVF are infusing well. Pt is tolerating GTF and vent settings well. No acute distress noted at this time. Fall, seizure and safety precautions are in place.
--- NOTE | 2019-08-04 05:00 | NUR ---
Pt is sleeping without any distress noted. IVF is infusing well via LISANDRO PICC. Pt is tolerating vent settings and GTF well. Fall, seizure and safety precautions are in place.
[2019-08-04] MEDS: 0.45% NACL 1,000 ML IV SCH (06:19)
--- NOTE | 2019-08-04 06:33 | NUR ---
Pt is resting quietly in bed. All pt's needs were attended to. IVF and GTF are infusing well. Fall, seizure and safety precautions are in place. Will endorse to day shift nurse.
[2019-08-04 07:15] LABS: BASOPHILS # (AUTO) 0.1 K/uL (0.0-0.2); BASOPHILS % (AUTO) 0.5 % (0.0-2.0); EOSINOPHILS # (AUTO) 0.3 K/uL (0.0-0.4); EOSINOPHILS % (AUTO) 2.5 % (0.0-4.0); HEMATOCRIT 27.8 % (36-54); HEMOGLOBIN 9.3 g/dL (14.0-18.0); LYMPHOCYTES # (AUTO) 1.4 K/uL (1.0-5.5); MEAN CORPUSCULAR HEMOGLOBIN 35 pg (27-31); MEAN CORPUSCULAR HGB CONC 34 % (32-36); MEAN CORPUSCULAR VOLUME 105 fL (79.0-98.0); MONOCYTES # (AUTO) 0.8 K/uL (0.0-1.0); NEUTROPHILS # (AUTO) 11.3 K/uL (1.8-7.7); PLATELET COUNT (AUTO) 282 K/uL (130-430); RED BLOOD CELL COUNT(AUTO) 2.65 MIL/uL (4.2-6.2); RED CELL DISTRIBUTION WIDTH 17.1 % (9.0-15.0)
[2019-08-04 07:23] LABS: CALCIUM 8.4 mg/dL (8.4-11.0); CREATININE 1.62 mg/dL (0.55-1.30); POTASSIUM 3.5 mmol/L (3.5-5.1)
[2019-08-04 08:00] VITALS: BP_SYST 110
--- NOTE | 2019-08-04 08:00 | NUR ---
ASSUMPTION OF CARE: RECEIVED PT ASLEEP, EASILY AROUSED VIA LIGHT TACTILE STIMULI, NON-VERBAL, TRACH TO VENT, WITH CLEAR BREATH SOUNDS, UNLABORED BREATHING, VENT SETTINGS ARE AC=15, IR=232, FIO2=40 AND PEEP OF 5, SATURATING 100% AT THIS TIME, NO DISTRESS NOTED, G-TUBE FEEDING OF JEVITY @50CC, TOLERATING WELL, LESS THAN 10CC RESIDUAL ASPIRATED, DX:RISK FOR FLUID VOLUME EXCESS, R/T UTI, RENAL FAILURE. PT HAS WANG CATH SECURE, DRAINING CLEAR, YELLOW URINE TO GRAVITY, IV SITE INTACT, PATENT, NO REDNESS OR SWELLING, RESTING ON AIR MATTRESS WITH NO OPEN WOUNDS TO SKIN NOTED, WILL CONT' TO REPOSITION Q2HRS AND PRN, WILL CONT' WITH HOURLY ROUNDING, AND POC.
[2019-08-04] MEDS ORDERED: HYDROCORTISONE SOD SUCC 100 MG/2 ML VIAL IVP SCH (09:00)
--- NOTE | 2019-08-04 09:00 | NUR ---
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
[2019-08-04] MEDS: ASCORBIC ACID 500 MG TABLET PO SCH (09:41)
[2019-08-04] MEDS: BACLOFEN 10 MG TABLET GT SCH (09:41)
[2019-08-04] MEDS: TOPIRAMATE 25 MG TABLET(TOPAMAX) GT SCH (09:42)
[2019-08-04] MEDS: CEFEPIME 1 GM in D5W 50 ML IV SCH (09:43)
[2019-08-04] MEDS: FERROUS SULFATE 300 MG/5 ML UDC GT SCH (09:44)
[2019-08-04] MEDS: DOCUSATE SODIUM 100 MG/10 ML UDC GT SCH (09:44)
[2019-08-04] MEDS: MULTIVIT-MINERALS/FERROUS GLUC 15 ML UDC GT SCH (09:45)
[2019-08-04] MEDS: THEOPHYLLINE ANHYDROUS 200 MG CAP.ER.24H PO SCH (09:45)
[2019-08-04] MEDS: LevETIRAcetam 500 MG/5 ML UDC ORAL LIQUID GT SCH (09:46)
[2019-08-04] MEDS: PANTOPRAZOLE SODIUM 40 MG/VIAL (PROTONIX) IVP SCH (09:46)
[2019-08-04 10:38] VITALS: BP_SYST 112
--- NOTE | 2019-08-04 12:00 | NUR ---
NURSES NOTES: PT REMAINS STABLE, WITH NO S/S OF DISTRESS, BREATHING IS UNLABORED, NO INDICATION OF PAIN, SUCTIONED NEEDED, REPOSITIONED FOR COMFORT, TOLERATED WELL, SIDE RAILS UP X3, SIDE RAILS PADDED SZ. PRECAUTION, CALL LIGHT PLACED WITHIN REACH, WILL CONT' TO MONITOR AND ASSESS.
[2019-08-04 12:47] VITALS: BP_SYST 116
--- NOTE | 2019-08-04 14:30 | NUR ---
VISIT: AT BEDSIDE FOR ASSESSMENT OF PT, NEW ORDERS GIVEN, WILL CONT' TO MONITOR AND ASSESS.
--- NOTE | 2019-08-04 14:57 | NUR ---
Discharge Planning: Patient going to [facility] ([phone]) Rm 43, DCP arrange transportation with [employer] ([phone]) ACLS with RT Ref#[id number], nurse station will be notified of transport company and time of moss picker. Patient packet taken to nurse station and nurse made aware.
--- NOTE | 2019-08-04 15:00 | NUR ---
NURSES NOTES: PT CLEANED, REPOSITIONED, VSS, NO SIGNIFICANT CHANGES NOTED, WILL CONT' TO MONITOR AND ASSESS.
--- NOTE | 2019-08-04 16:30 | NUR ---
ENDORSEMENT: REPORT GIVEN TO NURSE CEM BEY, PT WILL GO TO ROOM 43, EPT IS 1700P, FAMILY INFORMED, SPOKE WITH PT'S BROTHER AND DAUGHTER VIA PHONE, NEEDS MET, WILL CONT' TO MONITOR AND ASSESS.
[2019-08-04 16:35] VITALS: BP_SYST 113
[2019-08-04 17:17] VITALS: BP_SYST 116
--- NOTE | 2019-08-04 17:23 | NUR ---
Nutrition F/U (short note d/t high patient load) RD reviewed pt's current EMR including diet Hx, physician notes, nursing notes, pertinent labs/meds/procedures, care trends, and care activity. Current Nutrition Support: Jevity 1.5 at 50 ml/hr, Davin BID, Free Water Flush: 75 ml Q6h via GT x12 days Per EMR, no s/s of intolerance -- abd is soft and non-distended w/ active bowel sounds; minimal residuals noted. Current TF regimen continues adequate/appropriate. Pt is at moderate nutritional risk; RD to F/U within 3-5 days.
--- NOTE | 2019-08-04 17:37 | NUR ---
[facility] CAME TO TELL THAT THEY CANNOT TRANSPORT PT TO [facility] FOR THEY DO NOT HAVE THE VENTILATOR. DISPATCH DID NOT GIVE THE INFO THAT VENTILATOR IS NEEDED. THE NEW DIRECTOR BROADCAST TIME WAS SET FOR 1800 - 1830.
--- NOTE | 2019-08-04 18:30 | NUR ---
DISCHARGE: PT DISCHARGED TO [facility] IN STABLE CONDITION, HAS NO PERSONAL BELONGINGS IN ROOM, WILL BE TRANSPORTED VIA [facility].
[2019-08-05] MEDS ORDERED: HYDROCORTISONE SOD SUCC 100 MG/2 ML VIAL IVP SCH (09:00)
== END 2019-08-04 19:10 | DRG 720 ==
LOC: SED 23:21 → SIC 07-21 05:19 → STU 08-02 14:54 → SMU 08-03 21:44 → STU 08-04 11:40
PROVIDERS: ADMIT Family Medicine; ATTEND Family Medicine
PROC: 5A1955Z Respiratory Ventilation, Greater than 96 Consecutive Hours (ICD-10-PCS; principal; 2019-07-21)
PROC: 30233N1 Transfusion of Nonautologous Red Blood Cells into Peripheral Vein, Percutaneous Approach (ICD-10-PCS; 2019-07-23)
PROC: 02HV33Z Insertion of Infusion Device into Superior Vena Cava, Percutaneous Approach (ICD-10-PCS; 2019-07-23)
PROC: B548ZZA Ultrasonography of Superior Vena Cava, Guidance (ICD-10-PCS; 2019-07-23)
DX: A41.9 Sepsis, unspecified organism (principal); R65.21 Severe sepsis with septic shock; G82.50 Quadriplegia, unspecified; G93.40 Encephalopathy, unspecified; J18.9 Pneumonia, unspecified organism; Z99.11 Dependence on respirator [ventilator] status; G91.9 Hydrocephalus, unspecified; J96.10 Chronic respiratory failure, unspecified whether with hypoxia or hypercapnia; N17.9 Acute kidney failure, unspecified; N39.0 Urinary tract infection, site not specified; E87.6 Hypokalemia; G40.909 Epilepsy, unspecified, not intractable, without status epilepticus; N31.9 Neuromuscular dysfunction of bladder, unspecified; N18.9 Chronic kidney disease, unspecified; N13.9 Obstructive and reflux uropathy, unspecified; M86.60 Other chronic osteomyelitis, unspecified site; D64.9 Anemia, unspecified; G90.8 Other disorders of autonomic nervous system; F07.81 Postconcussional syndrome; N35.919 Unspecified urethral stricture, male, unspecified site; R13.10 Dysphagia, unspecified; Z86.718 Personal history of other venous thrombosis and embolism; Z98.2 Presence of cerebrospinal fluid drainage device; Z95.828 Presence of other vascular implants and grafts; Z87.891 Personal history of nicotine dependence; Z87.820 Personal history of traumatic brain injury; Z93.0 Tracheostomy status
CPT/HCPCS: 36415; 71045; 76770; 80048; 80053; 82607; 82728; 82746; 82962; 83540-TC; 83550-TC; 83605; 85007; 85025; 85027; 86886; 86900; 86901; 86920; 87040-TC; 87081; 87086; 87186-TC; 94002; 94003; 94640; 94760; 96365; 96366; 96367; 99285; C1751; C9113; G0378; J0461; J0692; J0696; J1720; J2543; J3370; J3480; J7030; J7040; J7050; J7060; J7612; P9021

== ENCOUNTER 2020-04-06 08:36 | Inpatient (IN) | payer MEDICAID, SELFPAY ==
[~2020-04-06] VITALS: Ht 175.3 cm; Wt 59.9 kg
[2020-04-06] VITALS (7 sets, daily range): BP systolic 78–126
[~2020-04-06 08:36] MED LIST changes: -ASCO-339 GT; +ASCO500T20 PO; -PIPE3.379 IV; +POLY17PO4 GT; -POLY17PO4 PO; -PROP10TA10 GT
--- NOTE | 2020-04-06 08:36 | NUR ---
BROUGHT IN BY [facility] FROM [facility], PLACED IN BED #6 AND TRIAGED. REPORT GIVEN TO KENTON
--- NOTE | 2020-04-06 08:38 | NUR ---
Patient to ER bed 6 to gown for evaluation. Side rails up.
--- NOTE | 2020-04-06 08:40 | NUR ---
Pt brought to ER for low H/H, Hgb 6.7 Hct 20. Pt resting in gurney at this time, placed on monitor, no distress noted, appears calm and comfortable, awaiting MD.
--- NOTE | 2020-04-06 08:45 | NUR ---
ER at bedside examining patient.
[2020-04-06 09:25] LABS: BASOPHILS # (AUTO) 0.1 K/uL (0.0-0.2)
[2020-04-06 09:33] LABS: RED CELL DISTRIBUTION WIDTH 16.1 % (9.0-15.0)
--- NOTE | 2020-04-06 09:44 | NUR ---
CALLED TO [facility] FOR UPDATED MED REC. STATES THEY WILL FAX IT OVER
[2020-04-06 10:12] LABS: BASOPHILS % (AUTO) 0.7 % (0.0-2.0); EOSINOPHILS # (AUTO) 0.3 K/uL (0.0-0.4); EOSINOPHILS % (AUTO) 3.1 % (0.0-4.0); HEMATOCRIT 22.7 % (36-54); HEMOGLOBIN 7.8 g/dL (14.0-18.0); LYMPHOCYTES # (AUTO) 1.2 K/uL (1.0-5.5); LYMPHOCYTES % (AUTO) 11.9 % (20.5-51.5); MEAN CORPUSCULAR HEMOGLOBIN 38 pg (27-31); MEAN CORPUSCULAR HGB CONC 34 % (32-36); MEAN CORPUSCULAR VOLUME 112 fL (79.0-98.0); MONOCYTES # (AUTO) 1.1 K/uL (0.0-1.0); NEUTROPHILS # (AUTO) 7.5 K/uL (1.8-7.7); NEUTROPHILS % (AUTO) 73.3 % (40.0-70.0); PLATELET COUNT (AUTO) 463 K/uL (130-430); RED BLOOD CELL COUNT(AUTO) 2.03 MIL/uL (4.2-6.2); WHITE BLOOD COUNT (AUTO) 10.2 K/uL (4.8-10.8)
[2020-04-06] MEDS ORDERED: MOM GT (10:19)
[2020-04-06] MEDS ORDERED: B CO1CAP5 GT (10:19)
[2020-04-06] MEDS ORDERED: CALC-823 GT (10:19)
[2020-04-06] MEDS ORDERED: REGL10 GT (10:19)
[2020-04-06] MEDS ORDERED: THEO80SO4 GT (10:19)
[2020-04-06] MEDS ORDERED: BISACODYL SUPP PR (10:19)
[2020-04-06] MEDS ORDERED: [UNRECOGNIZED DRUG - OTHER] GT (10:19)
[2020-04-06] MEDS ORDERED: MYL80 GT (10:19)
[2020-04-06] MEDS ORDERED: CHLO473M5 GT (10:19)
--- NOTE | 2020-04-06 10:20 | NUR ---
Medication reconciliation completed with information provided by [facility]. Any prior medication reconciliation on file was reviewed and corrected.
[2020-04-06 10:32] LABS: CREATININE 1.76 mg/dL (0.55-1.30); POTASSIUM 3.8 mmol/L (3.5-5.1)
[2020-04-06 10:35] LABS: INR 1.1 (0.80-1.20)
[2020-04-06 10:39] LABS: ALBUMIN 2.5 g/dL (3.4-4.8); TOTAL BILIRUBIN 0.2 mg/dL (0.0-1.0)
--- NOTE | 2020-04-06 11:30 | NUR ---
Pt resting in [facility] VSS appears comfortable
--- NOTE | 2020-04-06 12:20 | NUR ---
ADMISSION NOTE Received patient from ER via tesfaye, received report from Ney BEY. Patient admitted with diagnosis of anemia. Patient a & o x 0, non verbal, patient on vent, ross draining by gravity, picc line on left upper arm, bed in low and locked position, call light within reach, bed alarm on. vs obtained
--- NOTE | 2020-04-06 12:33 | NUR ---
Patient will be admitted to care [facility]. Admitted to Med Surg unit. Will go to room 101A. Belongings list completed. Complete and up to date summary report printed. SBAR report to be given at bedside with opportunity for questions.
--- NOTE | 2020-04-06 14:57 | NUR ---
NURSE NOTE HUNG PATIENTS FEEDING VIA GTUBE. 0 RESIDUAL, FLUSHED FREELY. NO SIGNS OF DISTRESS
--- NOTE | 2020-04-06 16:26 | NUR ---
BT INITIATION: Consent signed per agreeing to administration of blood. Blood has been type and crossmatched. Blood sent from blood bank. Information on unit of blood checked against patient wristband at bedside by two nurses. All information matches. Patient or responsible constitution party informed of potential complications associated with blood transfusion. Informed of possible transfusion reaction symptoms. Aware of need to notify nurse at once of itching, shortness of breath, flushing, feeling of impending doom, or other symptoms not previously present. Vital signs taken within 5 minutes prior to initiation of transfusion. RN will remain with patient for first 15 minutes of transfusion at which time vital signs will be re-assessed.
--- NOTE | 2020-04-06 18:06 | NUR ---
NURSE NOTE PATIENT IN BED, RESPIRATIONS EVEN, NON LABORED, VENT SETTINGS ORDERED, G TUBE FEEDING RUNNING ORDERED, BLOOD TRANSFUSION RUNNING ORDERED, NO SIGNS OF DISTRESS NOTED. BED IN LOW AND LOCKED POSITION, CALL LIGHT WITHIN REACH, BED ALARM ON
--- NOTE | 2020-04-06 19:25 | NUR ---
CLOSING NOTE PATIENT IN BED, RESPIRATIONS EVEN, NON LABORED, VENT SETTINGS ORDERED, G TUBE FEEDING RUNNING ORDERED, IVF'S TKO, NO SIGNS OF DISTRESS NOTED. BED IN LOW AND LOCKED POSITION, CALL LIGHT WITHIN REACH, BED ALARM ON, ENDORSED CARE TO NIGHT RN, PATIENT HAS RECEIVED 1 OF 2 PRBC'S.
--- NOTE | 2020-04-06 19:37 | NUR ---
Initial note: Received report from nikolay RN. Patient in bed asleep. Patient showing no signs and or symptoms of acute distress. Patient currently on trach to vent with settings of AC 12, FiO2 25%, PEEP 5.0, TV 500. Patient has a VERONICA PICC Line in place, flushes well with NS and has good blood return. Willis catheter in place draining yellow urine to gravity. Safety, fall, seizure precautions in place. Will continue with plan of care.
--- NOTE | 2020-04-06 19:55 | NUR ---
BT INITIATION: Consent signed agreeing to administration of blood. Blood has been type and crossmatched. Blood sent from blood bank. Information on unit of blood checked against patient wristband at bedside by two nurses. All information matches. Patient or responsible alliance party informed of potential complications associated with blood transfusion. Informed of possible transfusion reaction symptoms. Aware of need to notify nurse at once of itching, shortness of breath, flushing, feeling of impending doom, or other symptoms not previously present. Vital signs taken within 5 minutes prior to initiation of transfusion. RN will remain with patient for first 15 minutes of transfusion at which time vital signs will be re-assessed.
[2020-04-06] MEDS ORDERED: IPRATROPIUM BROM 0.5 MG/2.5 ML VIAL.NEB (ATROVENT) INH PRN ×2 (21:30)
[2020-04-06] MEDS ORDERED: BISACODYL PR PRN (21:30)
[2020-04-06] MEDS: BACLOFEN 10 MG TABLET GT SCH (21:30)
[2020-04-06] MEDS: ACETAMINOPHEN 650 MG/20.3 ML UDC GT SCH (21:30)
[2020-04-06] MEDS: THEOPHYLLINE ANHYDROUS 80 MG/15 ML UDC GT SCH (21:30)
--- NOTE | 2020-04-06 21:45 | NUR ---
CONSULTATION PAGED/CALLED Reason for Consultation: RESP FAILURE Person Who was Notified:EXCHANGE Consulting Physician: DR. PINA Performance Improvement Manager Specialty: Ordering Physician: MERLIN
--- NOTE | 2020-04-06 22:08 | NUR ---
Dr. Villa rounds: MD at bedside to examine patient.
[2020-04-06] MEDS: levETIRAcetam 500 MG TABLET GT SCH (22:11)
[2020-04-06] MEDS: TOPIRAMATE 25 MG TABLET(TOPAMAX) GT SCH (22:11)
[2020-04-06] MEDS: FAMOTIDINE 20 MG TABLET GT SCH (22:11)
[2020-04-06] MEDS ORDERED: BISACODYL 10 MG/SUPPOSITORY RC PRN (22:15)
--- NOTE | 2020-04-06 22:45 | NUR ---
BT complete: Blood transfusion completed at this time. Patient tolerated well. No adverse reactions throughout transfusion. Total of 2 units PRBC's transfused today. VERONICA PICC line saline locked.
[2020-04-07 00:07] VITALS: BP_SYST 121
--- NOTE | 2020-04-07 03:43 | NUR ---
Rounds: Patient is sleeping comfortably. Does not show any acute distress. Even and unlabored breathing on trach to vent, no change in settings. Tubefeeding in place as ordered. Call light with patient. Will continue monitoring.
--- NOTE | 2020-04-07 04:30 | NUR ---
Wound care: Wound care done for buttocks and sacrum. Patient tolerated well.
--- NOTE | 2020-04-07 05:30 | NUR ---
PICC line care: VERONICA PICC line care performed. Sterile technique observed. Site saline locked. Patient tolerated well.
--- NOTE | 2020-04-07 06:07 | NUR ---
Closing note: Patient is sleeping. Patient showing no signs and or symptoms of acute distress. Patient on trach to vent, no change in settings. Patient has a VERONICA PICC Line in place. Willis catheter in place draining yellow urine to gravity. All needs met. Safety, fall, seizure precautions in place. Call light with patient. Will endorse care to dayshift RN.
[2020-04-07 06:44] LABS: BASOPHILS # (AUTO) 0.1 K/uL (0.0-0.2); BASOPHILS % (AUTO) 0.8 % (0.0-2.0); EOSINOPHILS # (AUTO) 0.5 K/uL (0.0-0.4); EOSINOPHILS % (AUTO) 5.1 % (0.0-4.0); HEMATOCRIT 29.5 % (36-54); HEMOGLOBIN 10.2 g/dL (14.0-18.0); LYMPHOCYTES # (AUTO) 1.4 K/uL (1.0-5.5); LYMPHOCYTES % (AUTO) 13.7 % (20.5-51.5); MEAN CORPUSCULAR HEMOGLOBIN 35 pg (27-31); MEAN CORPUSCULAR HGB CONC 35 % (32-36); MEAN CORPUSCULAR VOLUME 101 fL (79.0-98.0); MONOCYTES # (AUTO) 1.1 K/uL (0.0-1.0); NEUTROPHILS # (AUTO) 7.4 K/uL (1.8-7.7); NEUTROPHILS % (AUTO) 70.4 % (40.0-70.0); PLATELET COUNT (AUTO) 515 K/uL (130-430); RED BLOOD CELL COUNT(AUTO) 2.92 MIL/uL (4.2-6.2); RED CELL DISTRIBUTION WIDTH 23.1 % (9.0-15.0); WHITE BLOOD COUNT (AUTO) 10.6 K/uL (4.8-10.8)
[2020-04-07 06:45] LABS: CALCIUM 8.5 mg/dL (8.4-11.0); CREATININE 1.86 mg/dL (0.55-1.30); POTASSIUM 3.9 mmol/L (3.5-5.1)
[2020-04-07 08:00] VITALS: BP_SYST 122
[2020-04-07] MEDS: FERROUS SULFATE 300 MG/5 ML UDC GT SCH (08:45)
[2020-04-07] MEDS: METOCLOPRAMIDE HCL 10 MG/10 ML UDC GT SCH ×3 (08:46→20:05)
[2020-04-07] MEDS: FAMOTIDINE 20 MG TABLET GT SCH ×2 (08:46→20:05)
[2020-04-07] MEDS: ACETAMINOPHEN 650 MG/20.3 ML UDC GT SCH ×2 (08:46→20:05)
[2020-04-07] MEDS: DOCUSATE SODIUM 100 MG/10 ML UDC GT SCH (08:46)
[2020-04-07] MEDS: TOPIRAMATE 25 MG TABLET(TOPAMAX) GT SCH ×2 (08:46→20:06)
[2020-04-07] MEDS: levETIRAcetam 500 MG TABLET GT SCH ×2 (08:47→20:06)
[2020-04-07] MEDS: traMADol HCL HCL 50 MG TABLET (ULTRAM) GT SCH ×2 (08:47→20:06)
[2020-04-07] MEDS: CALCIUM CARBONATE/VITAMIN D3 1 TAB TABLET GT SCH ×2 (08:47→20:06)
[2020-04-07] MEDS: SIMETHICONE 80 MG TAB.CHEW GT SCH ×3 (08:47→20:06)
[2020-04-07] MEDS: BACLOFEN 10 MG TABLET GT SCH (08:47)
[2020-04-07] MEDS: PEG 400/HYPROMELLOSE/GLYCERIN 15 ML DROPS OP SCH (08:48)
[2020-04-07] MEDS: CHLORHEXIDINE GLUCONATE 15 ML/DOSE, 480 ML MM SCH ×2 (08:48→20:09)
[2020-04-07] MEDS: THEOPHYLLINE ANHYDROUS 80 MG/15 ML UDC GT SCH ×2 (08:49→20:08)
[2020-04-07] MEDS ORDERED: [UNRECOGNIZED DRUG - OTHER] GT SCH (09:00)
--- NOTE | 2020-04-07 09:41 | NUR ---
opened eyes when addressed him by first name, non-verbal. On vent, sat well 99%, ABG done, nothing abnormal. H&H up to 10.2/29.5 vs 7.8//7 on admission.
--- NOTE | 2020-04-07 10:15 | NUR ---
Nutrition Update Lexx Scale 11 noted. Pt admitted for anemia. Diet: Jevity 1.2 at 60 ml/hr, Free Water Flush: q6h via GT -- *water flush order needs clarification* BMI: 19.6 kg/m2 RD to follow per nutrition care standards.
[2020-04-07] MEDS ORDERED: VITAMIN B COMPLEX 1 CAP/TAB GT ONE (12:00)
[2020-04-07 12:08] VITALS: BP_SYST 92
--- NOTE | 2020-04-07 15:22 | NUR ---
Dietitian Recommendations * Recommend Jevity 1.2 at 60 ml/hr, Davin BID, Free Water Flush: 200 ml Q6h via GT Provides: 1808 kcal/day, 85 gm protein/day, and 1962 ml free water/day Meets: 100% of lower end of estimated caloric needs and 94% of upper end of estimated protein needs SARAH VINES Please refer to Nutrition Assessment for details. Addendum: 04/07/20 at [address] Amended: Links added. Addendum: 04/07/20 at [address] RD called pt's primary RN x4 to relay RD rec and new TF order; unable to reach RN via phone call. RD spoke w/ MST playground monitor to relay message to RN. Addendum: 04/07/20 at [address] RD spoke w/ pt's primary RN via phone call -- relayed RD rec for Davin BID and water flush order: 200 ml Q6h via GT; RN acknowledged. Addendum: 04/07/20 at [address] CORRECTION: * Recommend Jevity 1.2 at 60 ml/hr, Davin BID, Free Water Flush: 200 ml Q6h via GT Provides: 1888 kcal/day, 85 gm protein/day, and 1962 ml free water/day Meets: 105% of lower end of estimated caloric needs and 94% of upper end of estimated protein needs LP, RD
[2020-04-07 16:08] VITALS: BP_SYST 123
--- NOTE | 2020-04-07 19:30 | NUR ---
OPENING NOTES RECEIVED REPORT FROM DAY SHIFT RN. PT RESTING IN BED, NONVERBAL. PT TOLERATING TO VENT SETTING AT AC12, FiO2 25, TV 500, PEEP 5. NO SIGNS OF RESPIRATORY DISTRESS NOTED. LEFT UPPER ARM CENTRAL LINE INTACT. PT ALSO TOLERATING TO TUBE FEEDING AT 60ML/HR. WANG CATHETER INTACT, DRAINING BY GRAVITY. BED ALARM ON, LOCKED IN LOWEST POSITION. PADDED SIDE RAILS UP. SAFETY, FALL, AND ASPIRATION PRECAUTIONS ARE IN PLACE. WILL CONTINUE TO MONITOR.
[2020-04-07 20:00] VITALS: BP_SYST 133
[2020-04-07] MEDS: POLYETHYLENE GLYCOL 3350, 17 GM/ POWD.PACK GT SCH (20:06)
--- NOTE | 2020-04-07 21:39 | NUR ---
Paged Dr. Estes
--- NOTE | 2020-04-07 22:03 | NUR ---
Taqueria Noriega s/w Juliann
--- NOTE | 2020-04-07 22:21 | NUR ---
Second call for Dr. Noriega s/w Juliann
--- NOTE | 2020-04-07 22:41 | NUR ---
Taqueria Noriega s/w Juliann
--- NOTE | 2020-04-07 22:42 | NUR ---
SPOKE TO DR. GEORGE NOTIFIED DR. GEORGE REGARDING PT HEART RATE 133-143. NEW ORDER RECEIVED. WILL CARRY OUT.
--- NOTE | 2020-04-07 22:43 | NUR ---
HIGH ALERT NOTE: Called HAROLDO Garcia back at 2240 identified within the medical roster to verify physician authenticity.
[2020-04-07] MEDS ORDERED: MORPHINE 2 MG/ML INJ. SYRINGE IVP PRN (22:45)
[2020-04-07] MEDS: NACL 0.9% 1,000 ML IV SCH (23:08)
[2020-04-07 23:15] LABS: HEMOGLOBIN 10.1 g/dL (14.0-18.0)
[2020-04-07 23:20] LABS: BASOPHILS # (AUTO) 0.1 K/uL (0.0-0.2); BASOPHILS % (AUTO) 0.5 % (0.0-2.0); CALCIUM 8.4 mg/dL (8.4-11.0); CREATININE 1.82 mg/dL (0.55-1.30); EOSINOPHILS # (AUTO) 0.6 K/uL (0.0-0.4); EOSINOPHILS % (AUTO) 4.1 % (0.0-4.0); HEMATOCRIT 29.1 % (36-54); LYMPHOCYTES # (AUTO) 1.7 K/uL (1.0-5.5); LYMPHOCYTES % (AUTO) 12.3 % (20.5-51.5); MEAN CORPUSCULAR HEMOGLOBIN 35 pg (27-31); MEAN CORPUSCULAR HGB CONC 35 % (32-36); MEAN CORPUSCULAR VOLUME 101 fL (79.0-98.0); MONOCYTES # (AUTO) 1.3 K/uL (0.0-1.0); MONOCYTES % (AUTO) 9.3 % (1.7-9.3); NEUTROPHILS # (AUTO) 10.3 K/uL (1.8-7.7); NEUTROPHILS % (AUTO) 73.8 % (40.0-70.0); PLATELET COUNT (AUTO) 561 K/uL (130-430); POTASSIUM 4.2 mmol/L (3.5-5.1); RED BLOOD CELL COUNT(AUTO) 2.89 MIL/uL (4.2-6.2); RED CELL DISTRIBUTION WIDTH 22.1 % (9.0-15.0); WHITE BLOOD COUNT (AUTO) 13.9 K/uL (4.8-10.8)
[2020-04-07 23:25] LABS: ALBUMIN 2.5 g/dL (3.4-4.8); TOTAL BILIRUBIN 0.2 mg/dL (0.0-1.0)
--- NOTE | 2020-04-07 23:46 | NUR ---
Taqueria Noriega s/w Juliann
[2020-04-08] VITALS (8 sets, daily range): BP systolic 114–149
--- NOTE | 2020-04-08 00:04 | NUR ---
SPOKE TO DR. GEORGE NOTIFIED DR. GEORGE REGARDING RESULT OF WBC AND HEART RATE SUSTAINING 145S. NEW ORDER RECEIVED. ALSO, SPOKE TO DR. GEORGE REGARDING PT WANG CATHETER NEEDS TO BE CHANGE (WANG FROM [facility], AND WAS NOT CHANGED BY ER). DR. GEORGE STATED TO DO NOT CHANGE, LEAVE IT ALONE. MD DIDN'T ORDER FOR BOLUS NS, ANTIBIOTICS, AND ID CONSULT.
--- NOTE | 2020-04-08 00:05 | NUR ---
DR. PINA AT THE BEDSIDE
[2020-04-08] MEDS ORDERED: cefTRIAXone 1 GM VIAL ONE (00:47)
--- NOTE | 2020-04-08 00:58 | NUR ---
Consultation Paged Reason for Consultation: tachycardia Was consult called: Y Person who was notified: Divina Consulting Physician: Dr. Watters (Dr. Velasco is service station cashier) Ordering Physician: Dr. Noriega
[2020-04-08] MEDS: cefTRIAXone 1 GM in D5W 50 ML IV SCH ×2 (01:09→23:52)
[2020-04-08 01:25] LABS: CLARITY/URINE CLOUDY (CLEAR); COLOR,URINE YELLOW (YELLOW)
[2020-04-08 01:26] LABS: BILIRUBIN,URINE NEGATIVE (NEGATIVE); BLOOD, URINE 3+ (NEGATIVE); GLUCOSE,URINE NEGATIVE (NEGATIVE); KETONES,URINE NEGATIVE (NEGATIVE); LEUKOCYTE ESTERASE ,URINE 3+ (NEGATIVE); NITRITE, URINE POSITIVE (NEGATIVE); PROTEIN URINE NEGATIVE (NEGATIVE); UROBILINOGEN,URINE 0.2 (0.2-1.0)
[2020-04-08 01:28] LABS: BACTERIA,URINE MANY /HPF (None Seen); RBC,URINE >100 /HPF (0-3); WBC,URINE >100 /HPF (0-3)
--- NOTE | 2020-04-08 04:20 | NUR ---
SPOKE TO DR. LUU NOTIFIED DR. LUU REGARDING PT HEART RATE SUSTAINING (130-135). NO NEW ORDER RECEIVED. WILL CONTINUE TO MONITOR.
--- NOTE | 2020-04-08 06:55 | NUR ---
CLOSING NOTES PT RESTING IN BED. PT TOLERATING TO VENT SETTING AT AC12, FiO2 25, TV 500, PEEP 5. NO SIGNS OF RESPIRATORY DISTRESS NOTED. HEART RATE NOTED BETWEEN 117-118. LEFT UPPER ARM CENTRAL LINE INTACT. PT ALSO TOLERATING TO TUBE FEEDING AT 60ML/HR. WANG CATHETER INTACT, DRAINING BY GRAVITY. BED ALARM ON, LOCKED IN LOWEST POSITION. PADDED SIDE RAILS UP. SAFETY, FALL, AND ASPIRATION PRECAUTIONS ARE IN PLACE. ALL NEEDS ARE MET THROUGHOUT SHIFT. WILL CONTINUE TO MONITOR UNTIL ENDORSE TO DAY SHIFT RN.
[2020-04-08 07:00] LABS: BASOPHILS # (AUTO) 0.1 K/uL (0.0-0.2); BASOPHILS % (AUTO) 0.4 % (0.0-2.0); EOSINOPHILS # (AUTO) 0.2 K/uL (0.0-0.4); EOSINOPHILS % (AUTO) 1.6 % (0.0-4.0); HEMATOCRIT 27.9 % (36-54); HEMOGLOBIN 9.7 g/dL (14.0-18.0); LYMPHOCYTES # (AUTO) 1.3 K/uL (1.0-5.5); LYMPHOCYTES % (AUTO) 9.2 % (20.5-51.5); MEAN CORPUSCULAR HEMOGLOBIN 35 pg (27-31); MEAN CORPUSCULAR HGB CONC 35 % (32-36); MEAN CORPUSCULAR VOLUME 101 fL (79.0-98.0); MONOCYTES # (AUTO) 1.2 K/uL (0.0-1.0); MONOCYTES % (AUTO) 8.5 % (1.7-9.3); NEUTROPHILS # (AUTO) 11.8 K/uL (1.8-7.7); NEUTROPHILS % (AUTO) 80.3 % (40.0-70.0); PLATELET COUNT (AUTO) 514 K/uL (130-430); RED BLOOD CELL COUNT(AUTO) 2.75 MIL/uL (4.2-6.2); WHITE BLOOD COUNT (AUTO) 14.7 K/uL (4.8-10.8)
[2020-04-08] MEDS ORDERED: ACETAMINOPHEN 500 MG TABLET GT PRN (07:30)
[2020-04-08 07:33] LABS: CALCIUM 8.1 mg/dL (8.4-11.0); CREATININE 1.8 mg/dL (0.55-1.30); POTASSIUM 3.7 mmol/L (3.5-5.1)
--- NOTE | 2020-04-08 07:38 | NUR ---
SPOKE TO LAB SPOKE TO THE LAB REGARDING TYLENOL BECAUSE I WAS NOT ABLE TO STOP SCHEDULE TYLENOL. LAB STATED THAT THEY ARE GOING TO STOP SCHEDULE MEDICATION. DR. PINA STATED TO STOP SCHEDULE TYLENOL AND PUT NEW ORDER FOR TYLENOL 500MG GT Q4 PRN FOR FEVER/MILD PAIN.
[2020-04-08] MEDS: NACL 0.9% 1,000 ML IV SCH ×2 (07:51→22:13)
[2020-04-08] MEDS: PEG 400/HYPROMELLOSE/GLYCERIN 15 ML DROPS OP SCH (07:53)
[2020-04-08] MEDS: CHLORHEXIDINE GLUCONATE 15 ML/DOSE, 480 ML MM SCH ×2 (07:53→22:16)
[2020-04-08] MEDS: DOCUSATE SODIUM 100 MG/10 ML UDC GT SCH (08:49)
[2020-04-08] MEDS: VITAMIN B COMPLEX 1 CAP/TAB GT SCH (08:49)
[2020-04-08] MEDS: METOCLOPRAMIDE HCL 10 MG/10 ML UDC GT SCH ×3 (08:49→22:14)
[2020-04-08] MEDS: FERROUS SULFATE 300 MG/5 ML UDC GT SCH (08:49)
[2020-04-08] MEDS: MILK OF MAGNESIA 30 ML UDC GT SCH (08:49)
[2020-04-08] MEDS: FAMOTIDINE 20 MG TABLET GT SCH ×2 (08:49→22:14)
[2020-04-08] MEDS: levETIRAcetam 500 MG TABLET GT SCH ×2 (08:49→22:13)
[2020-04-08] MEDS: BACLOFEN 10 MG TABLET GT SCH (08:50)
[2020-04-08] MEDS: CALCIUM CARBONATE/VITAMIN D3 1 TAB TABLET GT SCH ×2 (08:50→22:14)
[2020-04-08] MEDS: TOPIRAMATE 25 MG TABLET(TOPAMAX) GT SCH ×2 (08:50→22:14)
[2020-04-08] MEDS: traMADol HCL HCL 50 MG TABLET (ULTRAM) GT SCH ×2 (08:50→22:16)
[2020-04-08] MEDS: SIMETHICONE 80 MG TAB.CHEW GT SCH ×3 (08:50→22:13)
[2020-04-08] MEDS: THEOPHYLLINE ANHYDROUS 80 MG/15 ML UDC GT SCH (10:24)
--- NOTE | 2020-04-08 17:09 | NUR ---
alert, opened eyes when heard voices, and on tactile stimuli, non-verbal. Still Tachy , 110-112 HR GT site red, leaked, the site cleansed with water, barrier cream applied. Continues with ivf, and tube feed at 60cc, Davin added per acid cutter recommendations. Seen by reservation manager, no new orders except lab in am. Seen by supervisor pile driving, EKG done. As the shift goes, back to NSR now.
[2020-04-08] MEDS: POLYETHYLENE GLYCOL 3350, 17 GM/ POWD.PACK GT SCH (22:13)
[2020-04-09 00:33] VITALS: BP_SYST 125
[2020-04-09 06:19] LABS: BASOPHILS # (AUTO) 0.1 K/uL (0.0-0.2); BASOPHILS % (AUTO) 0.7 % (0.0-2.0); EOSINOPHILS # (AUTO) 0.5 K/uL (0.0-0.4); EOSINOPHILS % (AUTO) 2.7 % (0.0-4.0); HEMOGLOBIN 9.2 g/dL (14.0-18.0); LYMPHOCYTES # (AUTO) 1.7 K/uL (1.0-5.5); LYMPHOCYTES % (AUTO) 8.3 % (20.5-51.5); MEAN CORPUSCULAR HEMOGLOBIN 35 pg (27-31); MEAN CORPUSCULAR HGB CONC 34 % (32-36); MEAN CORPUSCULAR VOLUME 103 fL (79.0-98.0); MONOCYTES # (AUTO) 1.7 K/uL (0.0-1.0); MONOCYTES % (AUTO) 8.3 % (1.7-9.3); NEUTROPHILS # (AUTO) 15.9 K/uL (1.8-7.7); PLATELET COUNT (AUTO) 557 K/uL (130-430); RED BLOOD CELL COUNT(AUTO) 2.63 MIL/uL (4.2-6.2); RED CELL DISTRIBUTION WIDTH 21.9 % (9.0-15.0); WHITE BLOOD COUNT (AUTO) 19.9 K/uL (4.8-10.8)
[2020-04-09] MEDS: NACL 0.9% 1,000 ML IV SCH ×2 (06:20→16:02)
[2020-04-09 06:51] LABS: CALCIUM 8.1 mg/dL (8.4-11.0); CREATININE 1.46 mg/dL (0.55-1.30)
--- NOTE | 2020-04-09 07:28 | NUR ---
Opening Note received SBAR report from night shift manager RN, patient resting in bed, patient is nonverbal, trach to mechanical ventilator, no acute distress noted, side rails padded, educated patient on use of call light and asked to call for assistance, call light in reach, bed in low and locked position, bed alarm on.
[2020-04-09 08:00] VITALS: BP_SYST 118
[2020-04-09] MEDS ORDERED: [UNRECOGNIZED DRUG - OTHER] GT SCH (09:00)
[2020-04-09] MEDS: FERROUS SULFATE 300 MG/5 ML UDC GT SCH (09:07)
[2020-04-09] MEDS: CALCIUM CARBONATE/VITAMIN D3 1 TAB TABLET GT SCH ×2 (09:07→20:42)
[2020-04-09] MEDS: FAMOTIDINE 20 MG TABLET GT SCH ×2 (09:07→20:41)
[2020-04-09] MEDS: PEG 400/HYPROMELLOSE/GLYCERIN 15 ML DROPS OP SCH (09:07)
[2020-04-09] MEDS: DOCUSATE SODIUM 100 MG/10 ML UDC GT SCH (09:07)
[2020-04-09] MEDS: METOCLOPRAMIDE HCL 10 MG/10 ML UDC GT SCH ×3 (09:07→20:41)
[2020-04-09] MEDS: SIMETHICONE 80 MG TAB.CHEW GT SCH ×3 (09:08→20:41)
[2020-04-09] MEDS: levETIRAcetam 500 MG TABLET GT SCH ×2 (09:08→20:41)
[2020-04-09] MEDS: traMADol HCL HCL 50 MG TABLET (ULTRAM) GT SCH ×2 (09:08→20:42)
[2020-04-09] MEDS: BACLOFEN 10 MG TABLET GT SCH (09:08)
[2020-04-09] MEDS: THEOPHYLLINE ANHYDROUS 200 MG CAP.ER.24H PO SCH (09:14)
[2020-04-09] MEDS: VITAMIN B COMPLEX 1 CAP/TAB GT SCH (09:14)
[2020-04-09] MEDS: CHLORHEXIDINE GLUCONATE 15 ML/DOSE, 480 ML MM SCH ×2 (09:14→20:44)
[2020-04-09] MEDS: TOPIRAMATE 25 MG TABLET(TOPAMAX) GT SCH ×2 (09:14→20:41)
--- NOTE | 2020-04-09 09:55 | NUR ---
Oral Care/Tube Feeding educated patient on purpose and procedure for oral care, oral care completed, patient tolerated well, new tube feeding with new tubing hung at this time, HOB elevated 30 degrees, no acute distress noted, no residual from tube feeding, patient resting in bed, respirations even and unlabored on mechanical ventilator.
[2020-04-09 11:28] VITALS: BP_SYST 130
--- NOTE | 2020-04-09 12:05 | NUR ---
RN Rounds patient resting in bed, respirations even and unlabored on mechanical ventilator, no acute distress noted.
--- NOTE | 2020-04-09 14:18 | NUR ---
Oral Care oral care provided, patient tolerated well, no acute distress noted.
--- NOTE | 2020-04-09 15:00 | NUR ---
Wound Care Nawaf RN at bedside for wound consult, wound care completed to sacrum, patient tolerated well, no pain noted during or after wound care using FLACC scale, see MST shift assessment for wound care.
--- NOTE | 2020-04-09 15:00 | NUR ---
Wound Evaluation: Wound Consult ordered by Dr. Estes. Thank you, Dr. Estes, for the consult. Patient was awake, non-verbal, non-responsive to verbal commands, and received in a Vianney Bed with an IsoFlex MANDY mattress with low air-loss therapy. Patient is unable to turn in bed. Past medical history: Traumatic Brain Injury, Seizure disorder, REFERRAL SPECIALIST Shunt Placement, Hydrocephalus, Chronic Respiratory Failure, G-tube placement and Tracheostomy. Recent labs: WBC 19.9, RBC 2.63, hemoglobin 9.2, hematocrit 27.0, BUN 32, creatinine 1.46, GFR 59, calcium 8.1, alkaline phosphatase 150, albumin 2.5. Microbiology reports: Blood Culture results x 2 in progress. MRSA screen results negative. Urine culture results in progress. 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 Intrinsic values that affect wound healing: Traumatic Brain Injury, Hydrocephalus, Chronic Respiratory Failure, Hypoalbuminemia. Extrinsic values that affect wound healing: Immobility. Skin Assessment: 1. Left Buttock: Severe IAD with bright red erythema and MASD that has converted to a Stage 2 pressure ulcer, present on admission. Surrounding tissue has dry, flaky scaly skin. Open area has 100% dark red tissue. No odor, no drainage. Measures 6.0 cm x 5.4 cm. 2. Right Buttock: Severe IAD with bright red erythema and MASD that has converted to a Stage 2 pressure ulcer, present on admission. Surrounding tissue has dry, flaky scaly skin. Open area has 100% dark red tissue. No odor, no drainage. Measures 12.0 cm x 6.5 cm. Recommend: Cleanse wounds with normal Saline. Pat dry. Apply Calmoseptine cream to wounds. Apply Hydraguard barrier cream to erythematous and dry, flaky scaly skin areas on surrounding tissue. Apply Venelex ointment to any portion of wound not covered by Calmoseptine cream. Perform site care daily, and prn for soiling. Recommend reposition patient side to side only every 2 hours with pillow support. Elevate, off-load and float bilateral heels with one pillow lengthwise under each extremity at all times. Offload pressure areas with pillows for pressure re-distribution. Perform skin care and monitor skin integrity Q shift. Use Calmoseptine cream on moisture susceptible areas QID and PRN for soiling. Maintain patient on a low air-loss mattress.
[2020-04-09 15:09] VITALS: BP_SYST 106
--- NOTE | 2020-04-09 17:21 | NUR ---
RN Rounds patient resting in bed, respirations even and unlabored on mechanical ventilator, no acute distress noted, patient tolerating tube feeding well, zero residual, HOB elevated, heel floating throughout shift.
[2020-04-09] MEDS ORDERED: MENTHOL/ZINC OXIDE 113 GM OINT. TP PRN (18:15)
--- NOTE | 2020-04-09 19:22 | NUR ---
Closing Note SBAR report given to receiving RN, patient resting in bed, respirations even and unlabored on mechanical ventilator, tube feeding infusing well, HOB elevated, ross catheter draining to gravity, side rails padded, educated patient on use of call light and asked to call for assistance, call light in reach, bed in low and locked position, bed alarm on, care endorsed to night custodian RN.
--- NOTE | 2020-04-09 19:30 | NUR ---
CHANGE OF SHIFT; pt. endorsed by day shift, no respiratory distress. no complaints at this time, wants the door closed for now since it is noisy. call light within reach. Addendum: 04/09/20 at 2252 by Lizzette Bautista RN wrong pt.
--- NOTE | 2020-04-09 20:00 | NUR ---
NOTES: pt. on vent via trach # 7 settings, FIO2 @ 25 %, TV 500 Peep 5 AC rate 12, with some spontaneous breathing. O2 sat 99%.HOB elevated. VS checked. pt. non verbal due to brain injury. IV infusing via left upper arm with PICC line. both arms and lower extremities contracted, noted tattoo all over his upper body. on air sampling and monitoring and shows sinus tach. ross cath to osd. g tube feed with Jevity 1.2 @ 60cc/hr.
[2020-04-09 20:15] VITALS: BP_SYST 130
[2020-04-09] MEDS: POLYETHYLENE GLYCOL 3350, 17 GM/ POWD.PACK GT SCH (20:42)
--- NOTE | 2020-04-09 21:00 | NUR ---
NOTES: due medications given per g tube. and flushed. g tube has 2 outlets, 1 port for the feeding and another port for medications. g tube site clean.
--- NOTE | 2020-04-09 22:30 | NUR ---
NOTES: complete hs care done, repositioned and turn to sides.
[2020-04-10] VITALS: BP_SYST 101
--- NOTE | 2020-04-10 | NUR ---
NOTES: condition observed. suction orally and via trach. on seizure precautions, side rails padded.
--- NOTE | 2020-04-10 01:05 | NUR ---
NOTES: charge nurse Mirian, found out that pt. sputum culture done on 04/06 was PHLEBOTOMIST (Carbapenem ). will put pt. on contact isolation.
--- NOTE | 2020-04-10 02:15 | NUR ---
NOTES: continue to monitor. borderline sinus rhythm and sinus tach. 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
--- NOTE | 2020-04-10 03:00 | NUR ---
NOTES: pictures taken on bilateral buttocks, wound care nurse seen it, noted stage 2 pressure sore. dressing changed.
[2020-04-10] MEDS: NACL 0.9% 1,000 ML IV SCH ×3 (03:56→15:27)
[2020-04-10] MEDS: cefTRIAXone 1 GM in D5W 50 ML IV SCH (03:56)
--- NOTE | 2020-04-10 04:15 | NUR ---
NOTES: pt. repositioned, turn to sides. condition observed. pretty calm and sleeping.
--- NOTE | 2020-04-10 05:30 | NUR ---
NOTES: oral suction and oral care done. keep HOB elevated. trach site clean. kept both legs/heels elevated with 2 pillows, on air mattress.
--- NOTE | 2020-04-10 06:43 | NUR ---
CLOSING NOTES; pt. vent settings unchanged, FIO2 25% TV 500 Peep 5 AC rate 12. IV continuous via PICC line on left upper arm. G tube feeding with Jevity 1.2 @ 60 cc/hr. Free water flushes every 6 hours. neuro status unchanged. head protruding, soft to touch. fall and seizure precautions. bed alarm on, side rails padded. unable to use call light. 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 for further care and assistance. will endorse to incoming shift.
--- NOTE | 2020-04-10 07:35 | NUR ---
OPENING NOTES: RECEIVED PATIENT FROM HEEL SHAPER NURSE. PATIENT IS AWAKE LAYING DOWN IN BED WITH HIS EYES OPEN. PATIENT IS ON MECHANICAL VENTILATION WITH SETTING OF FIO2: 25%, PEEP: 5, RATE: 12, TV: 500 AND TOLERATING WELL. G-TUBE INTACT AND RUNNING FEEDING. PICC LINE INTACT AND RUNNING FLUIDS. WANG INTACT AND DRAINING BY GRAVITY. PATIENT IN STABLE CONDITION. SAFETY, FALL, ASPIRATION, SEIZURE, AND CONTACT PRECAUTIONS ARE IN PLACE. BED LOCKED IN LOWEST POSITION WITH CALL LIGHT IN REACH. WILL CONTINUE TO MONITOR PATIENT FOR ANY CHANGES.
[2020-04-10 08:18] VITALS: BP_SYST 104
[2020-04-10] MEDS: DOCUSATE SODIUM 100 MG/10 ML UDC GT SCH (08:55)
[2020-04-10] MEDS: MILK OF MAGNESIA 30 ML UDC GT SCH (08:55)
[2020-04-10] MEDS: VITAMIN B COMPLEX 1 CAP/TAB GT SCH (08:56)
[2020-04-10] MEDS: METOCLOPRAMIDE HCL 10 MG/10 ML UDC GT SCH ×3 (08:56→20:41)
[2020-04-10] MEDS: CALCIUM CARBONATE/VITAMIN D3 1 TAB TABLET GT SCH ×2 (08:56→20:42)
[2020-04-10] MEDS: FAMOTIDINE 20 MG TABLET GT SCH ×2 (08:56→20:41)
[2020-04-10] MEDS: FERROUS SULFATE 300 MG/5 ML UDC GT SCH (08:56)
[2020-04-10] MEDS: TOPIRAMATE 25 MG TABLET(TOPAMAX) GT SCH ×2 (08:56→20:42)
[2020-04-10] MEDS: SIMETHICONE 80 MG TAB.CHEW GT SCH ×3 (08:56→20:42)
[2020-04-10] MEDS: BACLOFEN 10 MG TABLET GT SCH (08:56)
[2020-04-10] MEDS: levETIRAcetam 500 MG TABLET GT SCH ×2 (08:56→20:42)
[2020-04-10] MEDS: PEG 400/HYPROMELLOSE/GLYCERIN 15 ML DROPS OP SCH (08:56)
[2020-04-10] MEDS: CHLORHEXIDINE GLUCONATE 15 ML/DOSE, 480 ML MM SCH ×2 (08:57→21:35)
[2020-04-10] MEDS: BALSAM PERU/CASTOR OIL 60 GM OINT...G. TP SCH (08:57)
[2020-04-10] MEDS: THEOPHYLLINE ANHYDROUS 200 MG CAP.ER.24H PO SCH (08:57)
[2020-04-10] MEDS: traMADol HCL HCL 50 MG TABLET (ULTRAM) GT SCH ×2 (08:57→20:43)
--- NOTE | 2020-04-10 10:35 | NUR ---
REPORT/CHANGE OF CARE: REPORT GIVEN TO SOTERO MONTALVO. PATIENT IS AWAKE LAYING DOWN IN BED WITH HIS EYES OPEN. PATIENT IS ON MECHANICAL VENTILATION AND TOLERATING WELL. G-TUBE INTACT AND RUNNING FEEDING. PICC LINE INTACT AND RUNNING FLUIDS. WANG INTACT AND DRAINING BY GRAVITY. PATIENT IN STABLE CONDITION. SAFETY, FALL, ASPIRATION, SEIZURE, AND CONTACT PRECAUTIONS ARE IN PLACE. BED LOCKED IN LOWEST POSITION WITH CALL LIGHT IN REACH.
[2020-04-10 11:44] VITALS: BP_SYST 106
--- NOTE | 2020-04-10 11:52 | NUR ---
Nutrition F/U RD reviewed pt's current EMR record including diet hx, MD notes, RN notes, pertinent labs/meds/procedures, care trends, and care activity Admitting Diagnosis Anemia Reviewed Pertinent Medical/Surgical Hx Medical Record Medical History Comment: PMH: TBI, vent-dependent respiratory failure, s/p trach/PEG, seizure disorder per physician notes Pt received packed cells upon admission per EMR review SARS-CoV-2 Ag (Rapid) Negative 04/06 Subjective Information Pt remains comatose, s/p trach, on vent, non-verbal per MD notes. Per RN note, pt has been tolerating TF well, w/ minimal residuals. Current TF of Jevity 1.2 at 60 ml/hr w/ FWF 200 ml q6h w/ Davin BID remains adequate and appropriate to meet needs. Will continue monitor. Current Diet Order/Nutrition Support Jevity 1.2 at 60 ml/hr, Free Water Flush: 200 ml q6h via GT w/ Davin BID x 3 days Pertinent Medications mylicon, miralax, VIT B complex, reglan, ferrous sulfate, colace, os-ivy, MOM, dulcolax, keppra, pepcid Pertinent Labs H/H 9.5 L/27.0 L Last BM Apr 07, 2020 Skin Integrity Comment: Lexx scale: 9; per [facility] note (04/09), L/R buttocks - IAD w/ MASD converted to Stage 2 pressure ulcers Estimated Energy Expenditure (kcals/day) 6448-3294 kcal/day (30-35 kcal/kg CBW for gradual wt gain, wound healing) Estimated Protein Required (g/day) 72-90 gm/day (1.2-1.5 gm/kg CBW for gradual wt gain, wound healing) Estimated Fluid Required (l/day) 1.8-2.1 L/day (1 ml/kcal/day for maintenance) Problem/Etiology/Signs/Symptoms Increased nutritional needs related to metabolic demands as evidenced by estimated nutritional requirements for underweight status and wound healing. *improving via EN Expected Outcomes/Goals - Monitor tolerance of EN support w/ goal of pt meeting at least 90% of estimated nutritional needs, labs trending WNL, normal GI function, and skin integrity/wt maintenance Dietitian Recommendations * Recommend continue Jevity 1.2 at 60 ml/hr, Davin BID, Free Water Flush: 200 ml Q6h via GT Provides: 1888 kcal/day, 85 gm protein/day, and 1962 ml free water/day Meets: 105% of lower end of estimated caloric needs and 94% of upper end of estimated protein needs Follow Up High Risk: F/U in 2-3days
--- NOTE | 2020-04-10 11:58 | NUR ---
Dietitian Recommendations * Recommend continue Jevity 1.2 at 60 ml/hr, Davin BID, Free Water Flush: 200 ml Q6h via GT Provides: 1888 kcal/day, 85 gm protein/day, and 1962 ml free water/day Meets: 105% of lower end of estimated caloric needs and 94% of upper end of estimated protein needs. Please see Nutrition F/U for details. EP,RD
--- NOTE | 2020-04-10 12:05 | NUR ---
RECEIVED PT IN BED, PT IS AWARE, NON-VERBAL, ON TRACH TO VENT. NO SOB, NO S/S OF RESP DISTRESS. IV FLUIDS AND G-TUBE FEEDING INFUSING WELL. WILL CONT TO MONITOR.
[2020-04-10 15:34] VITALS: BP_SYST 97
--- NOTE | 2020-04-10 19:40 | NUR ---
CHANGE OF SHIFT; report given by nurse Panchito pt. on vent with trach. no respiratory distress. 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 continue to monitor. pt. unable to use call light.
--- NOTE | 2020-04-10 19:49 | NUR ---
CLOSING NOTES, PT HAS BEEN STABLE, NO CHANGES IN VENT SETTINGS, SUCTIONED PRN. IV FLUIDS AND TUBE FEEDING CONTINUED. ENDORSED TO NIGHT NURSE.
[2020-04-10] MEDS: POLYETHYLENE GLYCOL 3350, 17 GM/ POWD.PACK GT SCH (20:41)
[2020-04-10 21:00] VITALS: BP_SYST 124
--- NOTE | 2020-04-10 21:00 | NUR ---
NOTES; pt. on vent via trach, vent settings FIO2 25% TV 500 Peep 5 AC rate 12, continuous IVF via PICC line on left upper ar, bot arms and legs contracted and stiff with tattoos on upper body. G tube with Jevity 1.2 @ [address] Estes here , made aware of IV rte, order to decrease to 50 cc/hr. ross cath to osd. on fall and seizure precautions. 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 environmental monitoring technician shows sinus tach. unable to use call light.
--- NOTE | 2020-04-10 22:00 | NUR ---
NOTES: complete hs care and linen changed. repositioned, turn to sides. suction via trach. medications given thru g tube, 2 ports for feeding and medications.
--- NOTE | 2020-04-11 00:15 | NUR ---
NOPTES: pt. suctioned orally and via trach. oral care done. repositioned. occ. bout of cough on stimulation.
[2020-04-11] MEDS: cefTRIAXone 1 GM in D5W 50 ML IV SCH ×2 (00:30→23:25)
[2020-04-11] MEDS: NACL 0.9% 1,000 ML IV SCH ×3 (00:35→20:48)
[2020-04-11 00:44] VITALS: BP_SYST 114
--- NOTE | 2020-04-11 02:00 | NUR ---
NOTES: pt. eyes closed no distress. condition unchanged.
--- NOTE | 2020-04-11 03:16 | NUR ---
NOTES: condition observed. continue to monitor.
--- NOTE | 2020-04-11 04:30 | NUR ---
NOTES: sacral/buttocks wound dressing changed. repositioned. condition unchanged. no BM. oral care greer.
--- NOTE | 2020-04-11 06:00 | NUR ---
NOTES: repositioned, turn to sides. g tube dressing changed, site skin appears reddened. flushed with water.
--- NOTE | 2020-04-11 06:53 | NUR ---
CLOSING NOTES; SAME SETTINGS ON THE VENT, KEPT hob ELEVATED. HEAD PROTRUDING DUE TO BRAIN INJURY. IVF AT 50 CC/HR. G TUBE AT 60 CC/HR. ON FALL AND SEIZURE PRECAUTIONS, BOTH RAILS PADDED. WANG INTACT. FOR FURTHER CARE AND ASSISTANCE. WILL ENDORSE TO INCOMING SHIFT. 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
--- NOTE | 2020-04-11 07:30 | NUR ---
OPENING NOTES: RECEIVED PATIENT FROM EMERGENCY COMMUNICATIONS DISPATCHER NURSE. PATIENT IS AWAKE LAYING DOWN IN BED WITH HIS EYES OPEN. PATIENT IS ON MECHANICAL VENTILATION WITH SETTING OF FIO2: 25%, PEEP: 5, RATE: 12, TV: 500 AND TOLERATING WELL. G-TUBE INTACT AND RUNNING FEEDING. PICC LINE INTACT AND RUNNING FLUIDS. WANG INTACT AND DRAINING BY GRAVITY. PATIENT IN STABLE CONDITION. SAFETY, FALL, ASPIRATION, SEIZURE, AND CONTACT PRECAUTIONS ARE IN PLACE. BED LOCKED IN LOWEST POSITION WITH CALL LIGHT IN REACH. WILL CONTINUE TO MONITOR PATIENT FOR ANY CHANGES.
[2020-04-11] MEDS: VITAMIN B COMPLEX 1 CAP/TAB GT SCH (09:00)
[2020-04-11] MEDS: THEOPHYLLINE ANHYDROUS 200 MG CAP.ER.24H PO SCH (09:00)
--- NOTE | 2020-04-11 10:05 | NUR ---
NOTES: pt. suctioned orally and via trach. oral care done. repositioned. occassional cough on stimulation.
--- NOTE | 2020-04-11 10:45 | NUR ---
This Rn along with PHOTOGRAPHS CURATOR repositioned pt. and this RN did dressing change. pt. tolerated procedure well.
[2020-04-11] MEDS: FERROUS SULFATE 300 MG/5 ML UDC GT SCH (11:19)
[2020-04-11] MEDS: METOCLOPRAMIDE HCL 10 MG/10 ML UDC GT SCH ×3 (11:19→20:45)
[2020-04-11] MEDS: TOPIRAMATE 25 MG TABLET(TOPAMAX) GT SCH ×2 (11:20→20:45)
[2020-04-11] MEDS: levETIRAcetam 500 MG TABLET GT SCH ×2 (11:20→20:44)
[2020-04-11] MEDS: traMADol HCL HCL 50 MG TABLET (ULTRAM) GT SCH ×2 (11:21→20:47)
[2020-04-11] MEDS: SIMETHICONE 80 MG TAB.CHEW GT SCH ×3 (11:21→20:45)
[2020-04-11] MEDS: DOCUSATE SODIUM 100 MG/10 ML UDC GT SCH (11:21)
[2020-04-11] MEDS: CALCIUM CARBONATE/VITAMIN D3 1 TAB TABLET GT SCH ×2 (11:22→20:45)
[2020-04-11] MEDS: FAMOTIDINE 20 MG TABLET GT SCH ×2 (11:22→20:45)
[2020-04-11] MEDS: BACLOFEN 10 MG TABLET GT SCH (11:22)
[2020-04-11] MEDS: CHLORHEXIDINE GLUCONATE 15 ML/DOSE, 480 ML MM SCH ×2 (11:23→20:47)
[2020-04-11] MEDS: PEG 400/HYPROMELLOSE/GLYCERIN 15 ML DROPS OP SCH (11:23)
[2020-04-11] MEDS: BALSAM PERU/CASTOR OIL 60 GM OINT...G. TP SCH (11:24)
[2020-04-11 12:00] VITALS: BP_SYST 110
[2020-04-11 16:00] VITALS: BP_SYST 105
[2020-04-11 19:00] VITALS: BP_SYST 118
--- NOTE | 2020-04-11 19:15 | NUR ---
change of shift.pt.presents isolation stsus;contact;urine/sputum.pt.presents trach/vent.pt.presents picc line w iv fluids.pt.presents g/j tube w feed.pt.presents ross cath.pt.presents seizure precautions.call light/telephone w/in access of the pt.
[2020-04-11 20:00] VITALS: BP_SYST 118
--- NOTE | 2020-04-11 20:00 | NUR ---
pt.assessed.v/s assessed values w/in normal limits.trach intact.i have attended to the oral/trach care/suctioning.picc line intact;patent iv fluids infusing.g/j tube intact;patent g/j tube feed;jevity:1.2 infusing@the rate 60ml/hr.ross cath intact; patent urine content present.pt. assessed for cleanliness.pt.repositioned.per flacc pain mgx pt.absent facial grimaces/body posturing.general status stable. respiratory status stable;unlabored.call light/telephone placed w/in access of the pt. vent settings reviewed;tv;500,fio-2%=25%,a/c;12,peep:5.correspond to the md's current order.
[2020-04-11] MEDS: POLYETHYLENE GLYCOL 3350, 17 GM/ POWD.PACK GT SCH (20:45)
--- NOTE | 2020-04-11 21:00 | NUR ---
2100pmedications administered vi the g/j tube.intact;patent.i have changed the g/j-tube bottle.keppra administered via the g/j tube.
--- NOTE | 2020-04-11 22:00 | NUR ---
pt.assessed.trach intact.i have attended to the oral/trach care/suctioning.pt.assessed for cleanliness.pt.repositioned.per flacc pain mgx pt.absent facial grimaces/body posturing.picc line intact;patent iv fluids infusing.g/j tube intact;patent g/j tube feed infusing. general status stable.respiratory status stable:02-sat%=99%.call light/telephone placed w/in access of the pt.
--- NOTE | 2020-04-12 | NUR ---
pt.assessed.v/s assessed values w/in normal limits.trach intact.i have attended to the oral/trach care/suctioning.picc line intact;patent iv fluids infusing.g/j tube intact;patent g/j-tube feed infusing.ross cath intact;patent urine content present pt.assessed for cleanliness.pt.repositioned.general status stable.respiratory status stable:02-sat%=99%.call light/telephone w/in access of the pt.
[2020-04-12 00:04] VITALS: BP_SYST 115
--- NOTE | 2020-04-12 02:00 | NUR ---
pt.assessed.trach intact.i have attended to the oral/trach care/suctioning.02-sat%=99%.picc line intact;patent iv fluids infusing. g/j tube intact;patent g-tube feed infusing.ross cath intact;patent urine content present.pt.assessed for cleanliness.pt.repositioned.general status stable.respiratory status stable.call light/telephone place w/in access of the pt.
--- NOTE | 2020-04-12 04:00 | NUR ---
pt.assessed.pt.presents quiescent affect;calm.per flacc pain mgx pt.absent facial grimaces/body posturing.trach intact. i have attended to the oral/trach care/suctioning.picc line intact;patent iv fluids infusing.g/j tube intact;patent g/j tube feed infusing.ross cath intact;patent urine content present.pt.assessed for cleanliness.pt.repositioned.general status stable.respiratory status stable.02-sat%=99%.call light/telephone placed w/in access of the pt.
--- NOTE | 2020-04-12 06:25 | NUR ---
pt.assessed.pt.presents quiescent affect;calm.per flacc pain mgx pt.absent facial grimaces/body posturing.trach intact. i have attended to the oral/trach care/suctioning.picc line intact;patent iv fluids infusing.g/j tube intact;patent g/j tube feed infusing.ross cath intact;patent urine content present.pt.assessed for cleanliness.pt.repositioned.general status stable.respiratory status stable;unlabored:02-thu%=99%.call light/telephone placed w/in access of the pt. Addendum: 04/12/20 at 0642 by Tito Finney RN i have cleansed/changed the g/j tube dsg.
[2020-04-12 06:44] LABS: CALCIUM 8.4 mg/dL (8.4-11.0); CREATININE 1.21 mg/dL (0.55-1.30); POTASSIUM 4.6 mmol/L (3.5-5.1)
[2020-04-12 06:55] LABS: BASOPHILS # (AUTO) 0.1 K/uL (0.0-0.2); BASOPHILS % (AUTO) 0.5 % (0.0-2.0); EOSINOPHILS # (AUTO) 0.5 K/uL (0.0-0.4); EOSINOPHILS % (AUTO) 4.4 % (0.0-4.0); HEMATOCRIT 25.6 % (36-54); HEMOGLOBIN 8.6 g/dL (14.0-18.0); LYMPHOCYTES # (AUTO) 1.6 K/uL (1.0-5.5); LYMPHOCYTES % (AUTO) 14.2 % (20.5-51.5); MEAN CORPUSCULAR HEMOGLOBIN 35 pg (27-31); MEAN CORPUSCULAR HGB CONC 34 % (32-36); MEAN CORPUSCULAR VOLUME 104 fL (79.0-98.0); MONOCYTES # (AUTO) 1.1 K/uL (0.0-1.0); MONOCYTES % (AUTO) 9.7 % (1.7-9.3); NEUTROPHILS # (AUTO) 7.9 K/uL (1.8-7.7); NEUTROPHILS % (AUTO) 71.2 % (40.0-70.0); PLATELET COUNT (AUTO) 451 K/uL (130-430); RED BLOOD CELL COUNT(AUTO) 2.46 MIL/uL (4.2-6.2); RED CELL DISTRIBUTION WIDTH 21.4 % (9.0-15.0); WHITE BLOOD COUNT (AUTO) 11.1 K/uL (4.8-10.8)
--- NOTE | 2020-04-12 07:55 | NUR ---
Opening Notes Patient is laying in bed, resting at this time. Alert and oriented x0. Patient remains on contact isolation and bed rest at this time. Seizure precautions in place: padded siderails, bed in lowest position. No resp distress noted. Breathing is even and unlabored. No use of accessory muscles. Pt remains on trach to vent, protex #7 (AC 12 TV 500 FiO2 25% PEEP 5), patient has scheduled breathing treatments. PICC line on VERONICA, flushing well at this time. Dressing clean and dry. NS @ 100 cc/hr, infusing well at this time. Willis catheter draining by gravity, note with clear and yellow urine. GTUBE site intact, dressing clean and dry. Tubefeed: Jevity 1.2 @ 60 cc/hr, infusing well. No residual noted. SCDs in place. All needs met. Safety and fall precautions in place. Call light within reach. Bed in lowest position, alarm on, locked. Will continue to monitor.
[2020-04-12 08:00] VITALS: BP_SYST 118
[2020-04-12] MEDS: VITAMIN B COMPLEX 1 CAP/TAB GT SCH (09:26)
[2020-04-12] MEDS: DOCUSATE SODIUM 100 MG/10 ML UDC GT SCH (09:26)
[2020-04-12] MEDS: THEOPHYLLINE ANHYDROUS 200 MG CAP.ER.24H PO SCH (09:26)
[2020-04-12] MEDS: SIMETHICONE 80 MG TAB.CHEW GT SCH ×2 (09:26→14:03)
[2020-04-12] MEDS: METOCLOPRAMIDE HCL 10 MG/10 ML UDC GT SCH ×2 (09:26→14:02)
[2020-04-12] MEDS: MILK OF MAGNESIA 30 ML UDC GT SCH (09:26)
[2020-04-12] MEDS: FERROUS SULFATE 300 MG/5 ML UDC GT SCH (09:26)
[2020-04-12] MEDS: CALCIUM CARBONATE/VITAMIN D3 1 TAB TABLET GT SCH (09:26)
[2020-04-12] MEDS: TOPIRAMATE 25 MG TABLET(TOPAMAX) GT SCH (09:27)
[2020-04-12] MEDS: levETIRAcetam 500 MG TABLET GT SCH (09:27)
[2020-04-12] MEDS: FAMOTIDINE 20 MG TABLET GT SCH (09:27)
[2020-04-12] MEDS: BACLOFEN 10 MG TABLET GT SCH (09:27)
[2020-04-12] MEDS: traMADol HCL HCL 50 MG TABLET (ULTRAM) GT SCH (09:28)
[2020-04-12] MEDS: PEG 400/HYPROMELLOSE/GLYCERIN 15 ML DROPS OP SCH (09:28)
[2020-04-12] MEDS: BALSAM PERU/CASTOR OIL 60 GM OINT...G. TP SCH (09:28)
[2020-04-12] MEDS: CHLORHEXIDINE GLUCONATE 15 ML/DOSE, 480 ML MM SCH (09:29)
--- NOTE | 2020-04-12 10:02 | NUR ---
Notes Patient is laying in bed at this time. Hung a new tube feeding: Jevity 1.2 @ 60 cc/hr, infusing well at this time. No resp distress noted. Breathing is even and unlabored. Pt shows no signs of pain at this time. Will continue to monitor.
[2020-04-12 11:00] VITALS: BP_SYST 109
--- NOTE | 2020-04-12 12:00 | NUR ---
Notes Patient is sleeping in bed at this time. No resp distress noted. Breathing is even and unlabored. No signs of pain at this time. Will continue to monitor.
--- NOTE | 2020-04-12 12:02 | NUR ---
Discharge Planning: DCP faxed pt referral to [facility] (p [phone]) DCP to follow up Addendum: 04/12/20 at 1516 by Taty Armstrong DP DCP arranged transportation with [employer] [phone] trip# [phone] [facility] to transport to [facility] (p [phone]) Rm 46. DCP took patient packet to nurse station nurse made aware.
[2020-04-12 12:07] VITALS: BP_SYST 109
[2020-04-12 12:28] VITALS: BP_SYST 136
[2020-04-12] MEDS: NACL 0.9% 1,000 ML IV SCH (14:09)
--- NOTE | 2020-04-12 14:45 | NUR ---
Notes Patient is laying in bed, resting at this time. No resp distress noted. Breathing is even and unlabored. No signs of pain at this time. Patient is incontinent, noted with soft bowel movement. Cleaned, left dry and repositioned in bed. Will continue to monitor.
[2020-04-12] MEDS ORDERED: ROCPM1 IV (15:18)
--- NOTE | 2020-04-12 15:52 | NUR ---
Called and gave report to SOTERO Resendiz at [facility]
[2020-04-12 16:05] VITALS: BP_SYST 136
--- NOTE | 2020-04-12 16:45 | NUR ---
D/C Patient Patient ALERT AND ORIENTED X0. discussed with patient the results and treatment provided. ON BED REST for discharge to [facility]. Patient in stable condition, ID band removed. PATIENT LEFT WITH TRACHEOSTOMY, PICC LINE AND WANG CATHETER IN PLACE. PT HAS NO BELONGINGS UPON ADMISSION.
== END 2020-04-12 16:40 | DRG 663 ==
LOC: SED 08:36 → SMU 11:47 → STU 12:33 → SMU 12:33 → STU 21:06
PROVIDERS: ADMIT Family Medicine; ATTEND Family Medicine
PROC: 5A1955Z Respiratory Ventilation, Greater than 96 Consecutive Hours (ICD-10-PCS; principal; 2020-04-06)
PROC: 30233N1 Transfusion of Nonautologous Red Blood Cells into Peripheral Vein, Percutaneous Approach (ICD-10-PCS; 2020-04-06)
DX: D64.9 Anemia, unspecified (principal); N39.0 Urinary tract infection, site not specified; J96.10 Chronic respiratory failure, unspecified whether with hypoxia or hypercapnia; G40.909 Epilepsy, unspecified, not intractable, without status epilepticus; M86.9 Osteomyelitis, unspecified; G90.8 Other disorders of autonomic nervous system; E86.0 Dehydration; G91.9 Hydrocephalus, unspecified; G82.50 Quadriplegia, unspecified; Z66 Do not resuscitate; S06.9X0A Unspecified intracranial injury without loss of consciousness, initial encounter; Z20.828 Contact with and (suspected) exposure to other viral communicable diseases; J94.2 Hemothorax; X58.XXXA Exposure to other specified factors, initial encounter; Z87.01 Personal history of pneumonia (recurrent); Z99.11 Dependence on respirator [ventilator] status; Z87.820 Personal history of traumatic brain injury; Z93.0 Tracheostomy status; Z93.1 Gastrostomy status; Y93.89 Activity, other specified; Y92.89 Other specified places as the place of occurrence of the external cause; Y99.8 Other external cause status; E44.0 Moderate protein-calorie malnutrition
CPT/HCPCS: 36415; 36430; 36600; 71045; 80048; 80053; 81000-TC; 82803-TC; 83605; 85025; 85610-TC; 85730-TC; 86886; 86900; 86901; 86920; 87040-TC; 87070-TC; 87081; 87086; 87205-TC; 93005; 94002; 94003; 94640; 94760; 99285; G0378; J0696; J2270; J7030; J7040; J7060; J8597; P9021

== ENCOUNTER 2021-07-30 20:36 | Inpatient (IN) | payer MEDICAID, SELFPAY ==
[~2021-07-30] VITALS: Ht 162.6 cm; Wt 55.8 kg
[~2021-07-30 20:36] MED LIST changes: -ALBU2.5V7 INH; +ALBU8.5H8 INH; +AMIN30LI2 PO; +ASCO500T20 GT; -ASCO500T20 PO; +BISACODYL SUPP PR; +CALC-823 GT; +CARB15DR OP; +CHLO473M5 GT; +FOLI0.8T42 GT; +FRUC15LI PO; -IPRA0.2S6 INH; +MOM GT; -MULT240L GT; +REGL10 GT; +SIME80TA15 GT; +THEO80SO4 GT; +ZINC50TA69 GT; +[UNRECOGNIZED DRUG - CODE] IJ; +[UNRECOGNIZED DRUG - OTHER] GT
[2021-07-30 20:42] VITALS: BP_SYST 108
[2021-07-30] MEDS ORDERED: [UNRECOGNIZED DRUG - CODE] IJ (21:15)
[2021-07-30] MEDS ORDERED: AMIN30LI2 GT (21:15)
[2021-07-30] MEDS ORDERED: LACT10SO7 PO (21:15)
[2021-07-30] MEDS ORDERED: METO25TA6 GT (21:15)
[2021-07-30] MEDS ORDERED: Rena-Vite GT (21:15)
[2021-07-30] MEDS ORDERED: SIME125C81 GT (21:15)
[2021-07-30 21:21] LABS: BASOPHILS # (AUTO) 0.1 K/uL (0.0-0.2); BASOPHILS % (AUTO) 0.6 % (0.0-2.0); EOSINOPHILS # (AUTO) 0.5 K/uL (0.0-0.4); EOSINOPHILS % (AUTO) 4.4 % (0.0-4.0); HEMATOCRIT 27.8 % (36-54); HEMOGLOBIN 9.8 g/dL (14.0-18.0); LYMPHOCYTES # (AUTO) 1.4 K/uL (1.0-5.5); LYMPHOCYTES % (AUTO) 12.8 % (20.5-51.5); MEAN CORPUSCULAR HEMOGLOBIN 37 pg (27-31); MEAN CORPUSCULAR HGB CONC 35 % (32-36); MEAN CORPUSCULAR VOLUME 104 fL (79.0-98.0); MONOCYTES % (AUTO) 9.3 % (1.7-9.3); NEUTROPHILS # (AUTO) 7.9 K/uL (1.8-7.7); NEUTROPHILS % (AUTO) 72.9 % (40.0-70.0); PLATELET COUNT (AUTO) 384 K/uL (130-430); RED BLOOD CELL COUNT(AUTO) 2.66 MIL/uL (4.2-6.2); RED CELL DISTRIBUTION WIDTH 15.3 % (9.0-15.0); WHITE BLOOD COUNT (AUTO) 10.8 K/uL (4.8-10.8)
[2021-07-30 21:47] LABS: CALCIUM 10.3 mg/dL (8.4-11.0); CREATININE 2.13 mg/dL (0.55-1.30); POTASSIUM 3.8 mmol/L (3.5-5.1)
[2021-07-30 21:56] LABS: ALBUMIN 3.3 g/dL (3.4-4.8); TOTAL BILIRUBIN 1.3 mg/dL (0.0-1.0)
[2021-07-30 22:41] LABS: BILIRUBIN,URINE NEGATIVE (NEGATIVE); BLOOD, URINE 2+ (NEGATIVE); CLARITY/URINE CLOUDY (CLEAR); COLOR,URINE STRAW (YELLOW); GLUCOSE,URINE NEGATIVE (NEGATIVE); KETONES,URINE NEGATIVE (NEGATIVE); LEUKOCYTE ESTERASE ,URINE 3+ (NEGATIVE); PROTEIN URINE 2+ (NEGATIVE)
[2021-07-30 22:42] LABS: NITRITE, URINE NEGATIVE (NEGATIVE); UROBILINOGEN,URINE 0.2 (0.2-1.0)
[2021-07-30] MEDS ORDERED: NACL 0.9% 1,000 ML IV ONE (22:45)
[2021-07-30 22:50] LABS: BACTERIA,URINE MANY /HPF (None Seen); MUCUS,URINE 2+ /LPF (None Seen); WBC,URINE >100 /HPF (0-3)
[2021-07-30] MEDS ORDERED: cefTRIAXone 1 GM IVPB PREMIX 0 ML IV ONE (23:35)
[2021-07-30] MEDS: 0.45% NACL 1,000 ML IV SCH (23:35)
[2021-07-31] VITALS (7 sets, daily range): BP systolic 92–117
[2021-07-31 07:17] LABS: BASOPHILS # (AUTO) 0.1 K/uL (0.0-0.2); BASOPHILS % (AUTO) 0.5 % (0.0-2.0); EOSINOPHILS # (AUTO) 0.5 K/uL (0.0-0.4); EOSINOPHILS % (AUTO) 4.6 % (0.0-4.0); HEMOGLOBIN 7.5 g/dL (14.0-18.0); LYMPHOCYTES # (AUTO) 1.6 K/uL (1.0-5.5); LYMPHOCYTES % (AUTO) 15.2 % (20.5-51.5); MEAN CORPUSCULAR HEMOGLOBIN 37 pg (27-31); MEAN CORPUSCULAR HGB CONC 35 % (32-36); MEAN CORPUSCULAR VOLUME 106 fL (79.0-98.0); MONOCYTES % (AUTO) 9.2 % (1.7-9.3); NEUTROPHILS # (AUTO) 7.4 K/uL (1.8-7.7); NEUTROPHILS % (AUTO) 70.5 % (40.0-70.0); PLATELET COUNT (AUTO) 356 K/uL (130-430); RED BLOOD CELL COUNT(AUTO) 2.02 MIL/uL (4.2-6.2); RED CELL DISTRIBUTION WIDTH 15.5 % (9.0-15.0); WHITE BLOOD COUNT (AUTO) 10.6 K/uL (4.8-10.8)
[2021-07-31 07:43] LABS: PROTHROMBIN TIME 10.6 SECS (9.5-12.5)
[2021-07-31 07:49] LABS: CALCIUM 9.5 mg/dL (8.4-11.0); CREATININE 2.13 mg/dL (0.55-1.30); POTASSIUM 3.9 mmol/L (3.5-5.1)
[2021-07-31 07:53] LABS: ALBUMIN 2.9 g/dL (3.4-4.8); TOTAL BILIRUBIN 0.3 mg/dL (0.0-1.0)
[2021-07-31 08:37] LABS: HEMATOCRIT 21.3 % (36-54)
[2021-07-31] MEDS ORDERED: cefTRIAXone 1 GM in D5W 50 ML IV SCH (09:00)
[2021-07-31] MEDS: cefTRIAXone 1 GM in D5W 50 ML IV SCH (09:50)
[2021-07-31 11:04] LABS: THYROID STIMULATING HORMONE 2.75 uIu/mL (0.34-4.82)
[2021-07-31] MEDS: 0.45% NACL 1,000 ML IV SCH ×2 (13:55→17:52)
[2021-08-01 00:25] VITALS: BP_SYST 135
[2021-08-01] MEDS: 0.45% NACL 1,000 ML IV SCH ×4 (02:42→21:49)
[2021-08-01 04:38] VITALS: BP_SYST 117
[2021-08-01 04:39] VITALS: BP_SYST 124
[2021-08-01 07:41] LABS: CALCIUM 8.7 mg/dL (8.4-11.0); CREATININE 1.73 mg/dL (0.55-1.30); PHOSPHORUS 4.9 mg/dL (2.7-4.5); POTASSIUM 3.9 mmol/L (3.5-5.1)
[2021-08-01 08:23] LABS: TOTAL IRON BIND. CAPACITY 181 ug/dL (250-450)
[2021-08-01 09:19] LABS: BASOPHILS # (AUTO) 0.1 K/uL (0.0-0.2); BASOPHILS % (AUTO) 0.5 % (0.0-2.0); EOSINOPHILS # (AUTO) 0.5 K/uL (0.0-0.4); EOSINOPHILS % (AUTO) 5.2 % (0.0-4.0); HEMOGLOBIN 7.2 g/dL (14.0-18.0); LYMPHOCYTES # (AUTO) 0.9 K/uL (1.0-5.5); LYMPHOCYTES % (AUTO) 9.7 % (20.5-51.5); MEAN CORPUSCULAR HEMOGLOBIN 36 pg (27-31); MEAN CORPUSCULAR HGB CONC 34 % (32-36); MEAN CORPUSCULAR VOLUME 106 fL (79.0-98.0); MONOCYTES # (AUTO) 0.7 K/uL (0.0-1.0); MONOCYTES % (AUTO) 6.9 % (1.7-9.3); NEUTROPHILS # (AUTO) 7.6 K/uL (1.8-7.7); NEUTROPHILS % (AUTO) 77.7 % (40.0-70.0); PLATELET COUNT (AUTO) 321 K/uL (130-430); RED CELL DISTRIBUTION WIDTH 15.2 % (9.0-15.0); WHITE BLOOD COUNT (AUTO) 9.7 K/uL (4.8-10.8)
[2021-08-01 09:29] LABS: RED BLOOD CELL COUNT(AUTO) 1.98 MIL/uL (4.2-6.2)
[2021-08-01] MEDS: cefTRIAXone 1 GM in D5W 50 ML IV SCH (10:04)
[2021-08-01 11:41] VITALS: BP_SYST 114
[2021-08-01 18:02] VITALS: BP_SYST 135
[2021-08-01 19:21] LABS: URINE SODIUM, RANDOM 33 mmol/L (40-220)
[2021-08-01 21:30] VITALS: BP_SYST 103
[2021-08-02] VITALS (8 sets, daily range): BP systolic 101–127
[2021-08-02] MEDS: 0.45% NACL 1,000 ML IV SCH ×3 (04:05→18:31)
[2021-08-02 07:48] LABS: BASOPHILS % (AUTO) 0.5 % (0.0-2.0); EOSINOPHILS # (AUTO) 0.4 K/uL (0.0-0.4); EOSINOPHILS % (AUTO) 5.2 % (0.0-4.0); HEMATOCRIT 25.1 % (36-54); HEMOGLOBIN 8.8 g/dL (14.0-18.0); LYMPHOCYTES # (AUTO) 0.8 K/uL (1.0-5.5); LYMPHOCYTES % (AUTO) 10.3 % (20.5-51.5); MEAN CORPUSCULAR HEMOGLOBIN 35 pg (27-31); MEAN CORPUSCULAR HGB CONC 35 % (32-36); MEAN CORPUSCULAR VOLUME 100 fL (79.0-98.0); MONOCYTES # (AUTO) 0.6 K/uL (0.0-1.0); MONOCYTES % (AUTO) 8.4 % (1.7-9.3); NEUTROPHILS # (AUTO) 5.7 K/uL (1.8-7.7); NEUTROPHILS % (AUTO) 75.6 % (40.0-70.0); PLATELET COUNT (AUTO) 288 K/uL (130-430); RED BLOOD CELL COUNT(AUTO) 2.52 MIL/uL (4.2-6.2); RED CELL DISTRIBUTION WIDTH 20.3 % (9.0-15.0); WHITE BLOOD COUNT (AUTO) 7.6 K/uL (4.8-10.8)
[2021-08-02 07:58] LABS: CALCIUM 8.6 mg/dL (8.4-11.0); CREATININE 1.47 mg/dL (0.55-1.30); POTASSIUM 4.1 mmol/L (3.5-5.1)
[2021-08-02] MEDS: cefTRIAXone 1 GM in D5W 50 ML IV SCH (08:07)
[2021-08-02 09:07] LABS: FOLATE (FOLIC ACID) >20.0 ng/mL (>3.0)
[2021-08-02] MEDS ORDERED: CIPROFLOXACIN LACT 400 MG/D5W 200 ML IV SCH (20:00)
[2021-08-03] VITALS (9 sets, daily range): BP systolic 98–156
[2021-08-03] MEDS: 0.45% NACL 1,000 ML IV SCH ×4 (01:49→22:20)
[2021-08-03] MEDS ORDERED: LEVOFLOXACIN 250 MG/D5W 0 ML IV ONE (02:01)
[2021-08-03] MEDS ORDERED: LEVOFLOXACIN IN DEXTROSE 5 % 100 ML IV ONE (02:15)
[2021-08-03] MEDS: LEVOFLOXACIN IN DEXTROSE 5 % 100 ML IV SCH ×2 (02:16→20:13)
[2021-08-03 07:47] LABS: CALCIUM 8.7 mg/dL (8.4-11.0); CREATININE 1.38 mg/dL (0.55-1.30); POTASSIUM 4.4 mmol/L (3.5-5.1)
[2021-08-03 09:13] LABS: RED BLOOD CELL COUNT(AUTO) 2.47 MIL/uL (4.2-6.2); WHITE BLOOD COUNT (AUTO) 7.7 K/uL (4.8-10.8)
[2021-08-03 09:14] LABS: BASOPHILS % (AUTO) 0.6 % (0.0-2.0); EOSINOPHILS # (AUTO) 0.3 K/uL (0.0-0.4); EOSINOPHILS % (AUTO) 4.1 % (0.0-4.0); HEMATOCRIT 25.1 % (36-54); HEMOGLOBIN 7.7 g/dL (14.0-18.0); LYMPHOCYTES # (AUTO) 0.9 K/uL (1.0-5.5); LYMPHOCYTES % (AUTO) 11.4 % (20.5-51.5); MEAN CORPUSCULAR HEMOGLOBIN 35 pg (27-31); MEAN CORPUSCULAR HGB CONC 35 % (32-36); MEAN CORPUSCULAR VOLUME 102 fL (79.0-98.0); MONOCYTES # (AUTO) 0.9 K/uL (0.0-1.0); MONOCYTES % (AUTO) 11.2 % (1.7-9.3); NEUTROPHILS # (AUTO) 5.6 K/uL (1.8-7.7); NEUTROPHILS % (AUTO) 72.7 % (40.0-70.0); PLATELET COUNT (AUTO) 260 K/uL (130-430); RED CELL DISTRIBUTION WIDTH 19.8 % (9.0-15.0)
[2021-08-04] VITALS (7 sets, daily range): BP systolic 113–128
[2021-08-04] MEDS: 0.45% NACL 1,000 ML IV SCH ×2 (08:20→18:46)
[2021-08-04 09:01] LABS: BASOPHILS % (AUTO) 0.4 % (0.0-2.0); EOSINOPHILS # (AUTO) 0.4 K/uL (0.0-0.4); EOSINOPHILS % (AUTO) 3.5 % (0.0-4.0); HEMATOCRIT 29.6 % (36-54); LYMPHOCYTES % (AUTO) 8.7 % (20.5-51.5); MEAN CORPUSCULAR HEMOGLOBIN 35 pg (27-31); MEAN CORPUSCULAR HGB CONC 34 % (32-36); MEAN CORPUSCULAR VOLUME 102 fL (79.0-98.0); MONOCYTES # (AUTO) 0.8 K/uL (0.0-1.0); MONOCYTES % (AUTO) 7.2 % (1.7-9.3); NEUTROPHILS # (AUTO) 9.1 K/uL (1.8-7.7); NEUTROPHILS % (AUTO) 80.2 % (40.0-70.0); PLATELET COUNT (AUTO) 332 K/uL (130-430); RED BLOOD CELL COUNT(AUTO) 2.91 MIL/uL (4.2-6.2); RED CELL DISTRIBUTION WIDTH 19.3 % (9.0-15.0)
[2021-08-04 09:04] LABS: WHITE BLOOD COUNT (AUTO) 11.4 K/uL (4.8-10.8)
[2021-08-04 09:08] LABS: CALCIUM 8.9 mg/dL (8.4-11.0); CREATININE 1.5 mg/dL (0.55-1.30); POTASSIUM 4.7 mmol/L (3.5-5.1)
[2021-08-04] MEDS: ACETAMINOPHEN 650 MG/20.3 ML UDC GT PRN ×2 (10:49→17:50)
[2021-08-04] MEDS: LEVOFLOXACIN IN DEXTROSE 5 % 100 ML IV SCH (21:08)
[2021-08-04] MEDS: LevETIRAcetam 500 MG/5 ML UDC ORAL LIQUID GT SCH (23:27)
[2021-08-04] MEDS ORDERED: LevETIRAcetam 500 MG/5 ML UDC ORAL LIQUID ONE (23:28)
[2021-08-05] VITALS (15 sets, daily range): BP systolic 78–144
[2021-08-05] MEDS: 0.45% NACL 1,000 ML IV SCH ×2 (04:36→14:43)
[2021-08-05 09:20] LABS: BASOPHILS # (AUTO) 0.1 K/uL (0.0-0.2); BASOPHILS % (AUTO) 0.6 % (0.0-2.0); EOSINOPHILS # (AUTO) 0.5 K/uL (0.0-0.4); HEMATOCRIT 23.5 % (36-54); HEMOGLOBIN 8.2 g/dL (14.0-18.0); LYMPHOCYTES # (AUTO) 1.2 K/uL (1.0-5.5); LYMPHOCYTES % (AUTO) 13.2 % (20.5-51.5); MEAN CORPUSCULAR HEMOGLOBIN 36 pg (27-31); MEAN CORPUSCULAR HGB CONC 35 % (32-36); MEAN CORPUSCULAR VOLUME 102 fL (79.0-98.0); MONOCYTES # (AUTO) 1.2 K/uL (0.0-1.0); MONOCYTES % (AUTO) 13.1 % (1.7-9.3); NEUTROPHILS # (AUTO) 6.3 K/uL (1.8-7.7); NEUTROPHILS % (AUTO) 68.1 % (40.0-70.0); PLATELET COUNT (AUTO) 270 K/uL (130-430); RED CELL DISTRIBUTION WIDTH 19.2 % (9.0-15.0); WHITE BLOOD COUNT (AUTO) 9.2 K/uL (4.8-10.8)
[2021-08-05 09:49] LABS: CALCIUM 8.5 mg/dL (8.4-11.0); CREATININE 1.53 mg/dL (0.55-1.30); POTASSIUM 4.5 mmol/L (3.5-5.1)
[2021-08-05] MEDS: LevETIRAcetam 500 MG/5 ML UDC ORAL LIQUID GT SCH ×2 (10:03→21:08)
[2021-08-05] MEDS ORDERED: LORazepam 2 MG/ML VIAL IVP ONE (12:15)
[2021-08-05] MEDS ORDERED: METOPROLOL TARTRATE 5 MG/5 ML AMPUL IVP ONE (13:30)
[2021-08-05] MEDS: ACETAMINOPHEN 650 MG/20.3 ML UDC GT PRN ×3 (14:15→22:21)
[2021-08-05] MEDS ORDERED: cefTRIAXone 1 GM in D5W 50 ML IV SCH (14:30)
[2021-08-05] MEDS ORDERED: ACETAMINOPHEN 650 MG/20.3 ML UDC ONE (15:45)
[2021-08-05] MEDS ORDERED: NALOXONE HCL 0.4 MG/ML AMP (NARCAN) IVP PRN (18:00)
[2021-08-05] MEDS ORDERED: DEXMEDETOMIDINE HCL 400 MCG in NS 96 ML IV PRN ×2 (18:00→18:30)
[2021-08-05] MEDS: cefTRIAXone 1 GM in D5W 50 ML IV SCH (18:42)
[2021-08-05] MEDS: MORPHINE 2 MG/ML INJ. SYRINGE IVP PRN (19:00)
[2021-08-05] MEDS ORDERED: NOREPINEPHRINE BITARTRATE 4 MG in NS 246 ML IV PRN (19:45)
[2021-08-05 20:52] LABS: INR 1.2 (0.80-1.20); PROTHROMBIN TIME 12.3 SECS (9.5-12.5)
[2021-08-05] MEDS: LEVOFLOXACIN IN DEXTROSE 5 % 100 ML IV SCH (21:09)
[2021-08-05] MEDS: METOPROLOL TARTRATE 25 MG TABLET PO SCH (21:29)
[2021-08-06] VITALS (26 sets, daily range): BP systolic 63–163
[2021-08-06] MEDS: LORazepam 2 MG/ML VIAL IVP PRN ×2 (00:54→13:05)
[2021-08-06] MEDS: 0.45% NACL 1,000 ML IV SCH (01:08)
[2021-08-06] MEDS: ACETAMINOPHEN 650 MG/20.3 ML UDC GT PRN ×2 (06:20→15:01)
[2021-08-06 06:56] LABS: BASOPHILS # (AUTO) 0.1 K/uL (0.0-0.2); BASOPHILS % (AUTO) 0.6 % (0.0-2.0); EOSINOPHILS # (AUTO) 0.3 K/uL (0.0-0.4); EOSINOPHILS % (AUTO) 1.9 % (0.0-4.0); HEMATOCRIT 29.7 % (36-54); HEMOGLOBIN 10.2 g/dL (14.0-18.0); LYMPHOCYTES # (AUTO) 1.4 K/uL (1.0-5.5); LYMPHOCYTES % (AUTO) 7.9 % (20.5-51.5); MEAN CORPUSCULAR HEMOGLOBIN 36 pg (27-31); MEAN CORPUSCULAR HGB CONC 34 % (32-36); MEAN CORPUSCULAR VOLUME 104 fL (79.0-98.0); MONOCYTES # (AUTO) 1.7 K/uL (0.0-1.0); MONOCYTES % (AUTO) 9.8 % (1.7-9.3); PLATELET COUNT (AUTO) 301 K/uL (130-430); RED BLOOD CELL COUNT(AUTO) 2.85 MIL/uL (4.2-6.2); WHITE BLOOD COUNT (AUTO) 17.5 K/uL (4.8-10.8)
[2021-08-06 07:08] LABS: ALBUMIN 2.8 g/dL (3.4-4.8); CALCIUM 8.4 mg/dL (8.4-11.0); CREATININE 2.17 mg/dL (0.55-1.30); PHOSPHORUS 4.4 mg/dL (2.7-4.5); POTASSIUM 5.3 mmol/L (3.5-5.1); TOTAL BILIRUBIN 0.5 mg/dL (0.0-1.0)
[2021-08-06] MEDS ORDERED: NS 500 ML IV ONE ×2 (07:15→10:25)
[2021-08-06] MEDS: ALBUMIN HUMAN 25% 50 ML IV SCH ×3 (07:15→18:43)
[2021-08-06] MEDS: NACL 0.9% 1,000 ML IV SCH ×2 (08:00→16:00)
[2021-08-06] MEDS: ENOXAPARIN SODIUM 30 MG/0.3 ML SYRINGE SUBCUT SCH (09:00)
[2021-08-06] MEDS ORDERED: EPOETIN ALFA 10,000 UNITS/ML VIAL SUBCUT SCH (09:00)
[2021-08-06 10:25] LABS: NEUTROPHILS % (AUTO) 79.8 % (40.0-70.0)
[2021-08-06] MEDS: LevETIRAcetam 500 MG/5 ML UDC ORAL LIQUID GT SCH (11:28)
[2021-08-06] MEDS: METOPROLOL TARTRATE 25 MG TABLET PO SCH ×2 (11:30→21:56)
[2021-08-06] MEDS ORDERED: SODIUM ZIRCONIUM CYCLOSILICATE 10 GM POWD.PACK PO ONE (13:30)
[2021-08-06] MEDS: MORPHINE 2 MG/ML INJ. SYRINGE IVP PRN (16:10)
[2021-08-06] MEDS: cefTRIAXone 1 GM in D5W 50 ML IV SCH (16:53)
[2021-08-06] MEDS: EPOETIN ALFA 10,000 UNITS/ML VIAL SUBCUT SCH (17:11)
[2021-08-06] MEDS: LEVOFLOXACIN IN DEXTROSE 5 % 100 ML IV SCH (21:55)
[2021-08-07] VITALS (21 sets, daily range): BP systolic 95–149
[2021-08-07 06:31] LABS: BASOPHILS # (AUTO) 0.1 K/uL (0.0-0.2); BASOPHILS % (AUTO) 0.6 % (0.0-2.0); EOSINOPHILS # (AUTO) 0.5 K/uL (0.0-0.4); EOSINOPHILS % (AUTO) 5.2 % (0.0-4.0); HEMATOCRIT 26.1 % (36-54); HEMOGLOBIN 8.8 g/dL (14.0-18.0); LYMPHOCYTES # (AUTO) 1.2 K/uL (1.0-5.5); LYMPHOCYTES % (AUTO) 12.1 % (20.5-51.5); MEAN CORPUSCULAR HEMOGLOBIN 35 pg (27-31); MEAN CORPUSCULAR HGB CONC 34 % (32-36); MEAN CORPUSCULAR VOLUME 104 fL (79.0-98.0); MONOCYTES # (AUTO) 0.7 K/uL (0.0-1.0); MONOCYTES % (AUTO) 7.2 % (1.7-9.3); NEUTROPHILS # (AUTO) 7.5 K/uL (1.8-7.7); NEUTROPHILS % (AUTO) 74.9 % (40.0-70.0); PLATELET COUNT (AUTO) 272 K/uL (130-430); RED BLOOD CELL COUNT(AUTO) 2.51 MIL/uL (4.2-6.2); RED CELL DISTRIBUTION WIDTH 19.1 % (9.0-15.0)
[2021-08-07 07:26] LABS: ALBUMIN 3.1 g/dL (3.4-4.8); CREATININE 1.91 mg/dL (0.55-1.30); POTASSIUM 3.9 mmol/L (3.5-5.1); TOTAL BILIRUBIN 0.5 mg/dL (0.0-1.0)
[2021-08-07] MEDS: NACL 0.9% 1,000 ML IV SCH ×3 (08:07→16:28)
[2021-08-07] MEDS: ENOXAPARIN SODIUM 30 MG/0.3 ML SYRINGE SUBCUT SCH (08:30)
[2021-08-07] MEDS: METOPROLOL TARTRATE 25 MG TABLET PO SCH ×2 (09:00→21:06)
[2021-08-07 09:01] LABS: THYROID STIMULATING HORMONE 1.67 uIu/mL (0.34-4.82)
[2021-08-07] MEDS: LORazepam 2 MG/ML VIAL IVP PRN ×2 (13:42→19:48)
[2021-08-07] MEDS: MORPHINE 2 MG/ML INJ. SYRINGE IVP PRN ×2 (14:57→21:08)
[2021-08-07] MEDS: cefTRIAXone 1 GM in D5W 50 ML IV SCH (16:27)
[2021-08-07] MEDS: ACETAMINOPHEN 650 MG/20.3 ML UDC GT PRN ×2 (18:26→18:27)
[2021-08-07] MEDS: LEVOFLOXACIN IN DEXTROSE 5 % 100 ML IV SCH (21:25)
[2021-08-08 05:07] VITALS: BP_SYST 105
[2021-08-08 07:30] LABS: BASOPHILS # (AUTO) 0.1 K/uL (0.0-0.2); BASOPHILS % (AUTO) 0.9 % (0.0-2.0); EOSINOPHILS # (AUTO) 0.8 K/uL (0.0-0.4); EOSINOPHILS % (AUTO) 6.6 % (0.0-4.0); HEMOGLOBIN 9.4 g/dL (14.0-18.0); LYMPHOCYTES # (AUTO) 1.4 K/uL (1.0-5.5); LYMPHOCYTES % (AUTO) 11.4 % (20.5-51.5); MEAN CORPUSCULAR HEMOGLOBIN 35 pg (27-31); MEAN CORPUSCULAR HGB CONC 33 % (32-36); MEAN CORPUSCULAR VOLUME 105 fL (79.0-98.0); MONOCYTES # (AUTO) 1.1 K/uL (0.0-1.0); MONOCYTES % (AUTO) 8.8 % (1.7-9.3); NEUTROPHILS % (AUTO) 72.3 % (40.0-70.0); PLATELET COUNT (AUTO) 350 K/uL (130-430); RED BLOOD CELL COUNT(AUTO) 2.68 MIL/uL (4.2-6.2); RED CELL DISTRIBUTION WIDTH 19.2 % (9.0-15.0); WHITE BLOOD COUNT (AUTO) 12.4 K/uL (4.8-10.8)
[2021-08-08 07:32] LABS: CREATININE 1.74 mg/dL (0.55-1.30); POTASSIUM 4.3 mmol/L (3.5-5.1)
[2021-08-08 08:27] VITALS: BP_SYST 111
[2021-08-08] MEDS: METOPROLOL TARTRATE 25 MG TABLET PO SCH ×2 (09:13→20:34)
[2021-08-08] MEDS: ENOXAPARIN SODIUM 30 MG/0.3 ML SYRINGE SUBCUT SCH (09:15)
[2021-08-08] MEDS: NACL 0.9% 1,000 ML IV SCH ×3 (09:16→16:19)
[2021-08-08 11:31] VITALS: BP_SYST 114
[2021-08-08] MEDS ORDERED: levoFLOXacin 500 MG TABLET PO ONE (14:15)
[2021-08-08 15:30] VITALS: BP_SYST 115
[2021-08-08] MEDS: VANCOMYCIN HCL 750 MG in NS 250 ML IV SCH (16:18)
[2021-08-08] MEDS: EPOETIN ALFA 10,000 UNITS/ML VIAL SUBCUT SCH (17:52)
[2021-08-08 20:00] VITALS: BP_SYST 119
[2021-08-08 23:24] VITALS: BP_SYST 119
[2021-08-09] VITALS (7 sets, daily range): BP systolic 100–150
[2021-08-09] MEDS: NACL 0.9% 1,000 ML IV SCH ×3 (00:05→15:35)
[2021-08-09] MEDS: VANCOMYCIN HCL 750 MG in NS 250 ML IV SCH ×2 (02:10→15:35)
[2021-08-09 07:13] LABS: BASOPHILS # (AUTO) 0.1 K/uL (0.0-0.2); EOSINOPHILS # (AUTO) 0.6 K/uL (0.0-0.4); EOSINOPHILS % (AUTO) 6.2 % (0.0-4.0); HEMATOCRIT 26.3 % (36-54); LYMPHOCYTES # (AUTO) 1.4 K/uL (1.0-5.5); LYMPHOCYTES % (AUTO) 13.4 % (20.5-51.5); MEAN CORPUSCULAR HEMOGLOBIN 36 pg (27-31); MEAN CORPUSCULAR HGB CONC 34 % (32-36); MEAN CORPUSCULAR VOLUME 104 fL (79.0-98.0); NEUTROPHILS # (AUTO) 7.2 K/uL (1.8-7.7); NEUTROPHILS % (AUTO) 69.4 % (40.0-70.0); PLATELET COUNT (AUTO) 312 K/uL (130-430); RED BLOOD CELL COUNT(AUTO) 2.52 MIL/uL (4.2-6.2); RED CELL DISTRIBUTION WIDTH 19.2 % (9.0-15.0); WHITE BLOOD COUNT (AUTO) 10.4 K/uL (4.8-10.8)
[2021-08-09 07:51] LABS: ALBUMIN 2.8 g/dL (3.4-4.8); CALCIUM 8.6 mg/dL (8.4-11.0); CREATININE 1.77 mg/dL (0.55-1.30); POTASSIUM 4.1 mmol/L (3.5-5.1); TOTAL BILIRUBIN 0.3 mg/dL (0.0-1.0)
[2021-08-09] MEDS: LevETIRAcetam 500 MG/5 ML UDC ORAL LIQUID GT SCH ×2 (08:12→21:09)
[2021-08-09] MEDS: ENOXAPARIN SODIUM 30 MG/0.3 ML SYRINGE SUBCUT SCH (08:14)
[2021-08-09] MEDS: METOPROLOL TARTRATE 25 MG TABLET PO SCH ×2 (08:15→21:09)
[2021-08-09] MEDS ORDERED: MINERAL OIL 30 ML UDC GT ONE (09:30)
[2021-08-09] MEDS: levoFLOXacin 500 MG TABLET PO SCH (10:02)
[2021-08-10 00:14] VITALS: BP_SYST 126
[2021-08-10] MEDS: VANCOMYCIN HCL 750 MG in NS 250 ML IV SCH ×2 (03:15→14:41)
[2021-08-10 06:50] LABS: BASOPHILS # (AUTO) 0.1 K/uL (0.0-0.2); BASOPHILS % (AUTO) 0.6 % (0.0-2.0); EOSINOPHILS # (AUTO) 0.6 K/uL (0.0-0.4); EOSINOPHILS % (AUTO) 4.5 % (0.0-4.0); HEMATOCRIT 24.8 % (36-54); HEMOGLOBIN 8.2 g/dL (14.0-18.0); LYMPHOCYTES # (AUTO) 1.3 K/uL (1.0-5.5); LYMPHOCYTES % (AUTO) 9.1 % (20.5-51.5); MEAN CORPUSCULAR HEMOGLOBIN 35 pg (27-31); MEAN CORPUSCULAR HGB CONC 33 % (32-36); MEAN CORPUSCULAR VOLUME 105 fL (79.0-98.0); NEUTROPHILS # (AUTO) 11.5 K/uL (1.8-7.7); NEUTROPHILS % (AUTO) 78.8 % (40.0-70.0); PLATELET COUNT (AUTO) 296 K/uL (130-430); RED BLOOD CELL COUNT(AUTO) 2.36 MIL/uL (4.2-6.2); RED CELL DISTRIBUTION WIDTH 18.8 % (9.0-15.0); WHITE BLOOD COUNT (AUTO) 14.5 K/uL (4.8-10.8)
[2021-08-10 07:06] LABS: ALBUMIN 2.9 g/dL (3.4-4.8); CREATININE 1.65 mg/dL (0.55-1.30); POTASSIUM 4.1 mmol/L (3.5-5.1); TOTAL BILIRUBIN 0.2 mg/dL (0.0-1.0)
[2021-08-10 08:00] VITALS: BP_SYST 132
[2021-08-10] MEDS: NACL 0.9% 1,000 ML IV SCH ×4 (08:00→22:02)
[2021-08-10] MEDS: LevETIRAcetam 500 MG/5 ML UDC ORAL LIQUID GT SCH ×2 (09:43→21:44)
[2021-08-10] MEDS: METOPROLOL TARTRATE 25 MG TABLET PO SCH ×2 (09:43→21:44)
[2021-08-10] MEDS: levoFLOXacin 500 MG TABLET PO SCH (09:44)
[2021-08-10] MEDS: ENOXAPARIN SODIUM 30 MG/0.3 ML SYRINGE SUBCUT SCH (09:56)
[2021-08-10] MEDS: ACETAMINOPHEN 650 MG/20.3 ML UDC GT PRN (09:57)
[2021-08-10] MEDS: MINERAL OIL 30 ML UDC GT SCH (12:00)
[2021-08-10 12:59] VITALS: BP_SYST 130
[2021-08-10 15:20] VITALS: BP_SYST 95
[2021-08-10] MEDS: EPOETIN ALFA 10,000 UNITS/ML VIAL SUBCUT SCH (17:29)
[2021-08-10 20:30] VITALS: BP_SYST 115
[2021-08-11 01:16] VITALS: BP_SYST 122
[2021-08-11 07:16] LABS: BASOPHILS # (AUTO) 0.1 K/uL (0.0-0.2); BASOPHILS % (AUTO) 0.7 % (0.0-2.0); EOSINOPHILS # (AUTO) 0.7 K/uL (0.0-0.4); EOSINOPHILS % (AUTO) 6.8 % (0.0-4.0); HEMATOCRIT 23.5 % (36-54); HEMOGLOBIN 7.9 g/dL (14.0-18.0); LYMPHOCYTES # (AUTO) 1.4 K/uL (1.0-5.5); LYMPHOCYTES % (AUTO) 13.4 % (20.5-51.5); MEAN CORPUSCULAR HEMOGLOBIN 36 pg (27-31); MEAN CORPUSCULAR HGB CONC 34 % (32-36); MEAN CORPUSCULAR VOLUME 106 fL (79.0-98.0); MONOCYTES # (AUTO) 0.7 K/uL (0.0-1.0); NEUTROPHILS # (AUTO) 7.3 K/uL (1.8-7.7); NEUTROPHILS % (AUTO) 72.1 % (40.0-70.0); PLATELET COUNT (AUTO) 274 K/uL (130-430); RED BLOOD CELL COUNT(AUTO) 2.22 MIL/uL (4.2-6.2); RED CELL DISTRIBUTION WIDTH 19.5 % (9.0-15.0); WHITE BLOOD COUNT (AUTO) 10.1 K/uL (4.8-10.8)
[2021-08-11 07:36] LABS: CALCIUM 9.1 mg/dL (8.4-11.0); CREATININE 1.43 mg/dL (0.55-1.30)
[2021-08-11] MEDS: NACL 0.9% 1,000 ML IV SCH (07:48)
[2021-08-11] MEDS: MINERAL OIL 30 ML UDC GT SCH (08:52)
[2021-08-11] MEDS: METOPROLOL TARTRATE 25 MG TABLET PO SCH ×2 (08:53→20:56)
[2021-08-11] MEDS: levoFLOXacin 500 MG TABLET PO SCH (08:53)
[2021-08-11] MEDS: ENOXAPARIN SODIUM 30 MG/0.3 ML SYRINGE SUBCUT SCH (08:58)
[2021-08-11] MEDS: LevETIRAcetam 500 MG/5 ML UDC ORAL LIQUID GT SCH ×2 (09:14→20:55)
[2021-08-11 09:30] LABS: VANCOMYCIN,RANDOM 36.6 ug/mL
[2021-08-11] MEDS: 0.45% NACL 1,000 ML IV SCH ×2 (10:15→20:58)
[2021-08-11 10:36] VITALS: BP_SYST 136
[2021-08-11 12:23] VITALS: BP_SYST 130
[2021-08-11 16:20] VITALS: BP_SYST 125
[2021-08-11 20:00] VITALS: BP_SYST 120
[2021-08-11 20:17] VITALS: BP_SYST 120
[2021-08-11] MEDS: ACETAMINOPHEN 650 MG/20.3 ML UDC GT PRN (20:57)
[2021-08-12 00:06] VITALS: BP_SYST 99
[2021-08-12 07:40] VITALS: BP_SYST 129
[2021-08-12 08:00] VITALS: BP_SYST 129
[2021-08-12] MEDS: MINERAL OIL 30 ML UDC GT SCH (08:37)
[2021-08-12] MEDS: ACETAMINOPHEN 650 MG/20.3 ML UDC GT PRN (08:37)
[2021-08-12] MEDS: LevETIRAcetam 500 MG/5 ML UDC ORAL LIQUID GT SCH (08:37)
[2021-08-12] MEDS: levoFLOXacin 500 MG TABLET PO SCH (08:37)
[2021-08-12] MEDS: METOPROLOL TARTRATE 25 MG TABLET PO SCH (08:38)
[2021-08-12] MEDS: ENOXAPARIN SODIUM 30 MG/0.3 ML SYRINGE SUBCUT SCH (08:38)
[2021-08-12 12:18] VITALS: BP_SYST 144
[2021-08-12] MEDS ORDERED: LEVO500T90 GT (15:28)
[2021-08-12] MEDS ORDERED: VANCOMYCIN (15:49)
[2021-08-12 16:08] VITALS: BP_SYST 136
[2021-08-12] MEDS ORDERED: MENTHOL/ZINC OXIDE 113 GM OINT. TP PRN (16:30)
[2021-08-12 16:55] VITALS: BP_SYST 118
== END 2021-08-12 17:00 | DRG 720 ==
LOC: SED 20:36 → STU 22:36 → SIC 08-05 15:46 → STU 08-07 17:56
PROVIDERS: ADMIT Internal Medicine; ATTEND Internal Medicine
PROC: 5A1955Z Respiratory Ventilation, Greater than 96 Consecutive Hours (ICD-10-PCS; principal; 2021-07-30)
PROC: 30233N1 Transfusion of Nonautologous Red Blood Cells into Peripheral Vein, Percutaneous Approach (ICD-10-PCS; 2021-08-02)
PROC: 05HY33Z Insertion of Infusion Device into Upper Vein, Percutaneous Approach (ICD-10-PCS; 2021-08-06)
PROC: B54NZZA Ultrasonography of Left Upper Extremity Veins, Guidance (ICD-10-PCS; 2021-08-06)
DX: A41.59 Other Gram-negative sepsis (principal); R65.21 Severe sepsis with septic shock; G82.50 Quadriplegia, unspecified; E43 Unspecified severe protein-calorie malnutrition; J96.10 Chronic respiratory failure, unspecified whether with hypoxia or hypercapnia; N17.9 Acute kidney failure, unspecified; L89.159 Pressure ulcer of sacral region, unspecified stage; G91.9 Hydrocephalus, unspecified; Z93.0 Tracheostomy status; Z99.11 Dependence on respirator [ventilator] status; D63.1 Anemia in chronic kidney disease; M86.9 Osteomyelitis, unspecified; E86.0 Dehydration; N39.0 Urinary tract infection, site not specified; G40.909 Epilepsy, unspecified, not intractable, without status epilepticus; I12.9 Hypertensive chronic kidney disease with stage 1 through stage 4 chronic kidney disease, or unspecified chronic kidney disease; N18.2 Chronic kidney disease, stage 2 (mild); Z20.822 Contact with and (suspected) exposure to COVID-19; Z93.1 Gastrostomy status; Z79.1 Long term (current) use of non-steroidal anti-inflammatories (NSAID); Z79.899 Other long term (current) drug therapy; Z87.01 Personal history of pneumonia (recurrent); Z74.01 Bed confinement status; Z86.73 Personal history of transient ischemic attack (TIA), and cerebral infarction without residual deficits; Z68.21 Body mass index [BMI] 21.0-21.9, adult
CPT/HCPCS: 36415; 36600; 71045; 74018; 76770; 80048; 80053; 80061; 80202; 81000; 82043; 82272; 82542; 82570; 82607; 82746; 82803-TC; 83540; 83550; 83605; 83690; 83735; 83880; 84100; 84302; 84443; 84484; 84550; 85025; 85610-TC; 85730-TC; 86886; 86900; 86901; 86920; 87040; 87070-TC; 87081; 87086; 87186-TC; 87205-TC; 93005; 94002; 94003; 94640; 94760; 96360; 99285; G0378; J0696; J0885; J1650; J1956; J2060; J2270; J3490; J7050; J7060; P9021; P9046

== ENCOUNTER 2021-09-30 10:00 | Inpatient (IN) | payer MEDICAID ==
[~2021-09-30] VITALS: Ht 162.6 cm; Wt 51.7 kg
[~2021-09-30 10:00] MED LIST changes: +AMIN30LI2 GT; -AMIN30LI2 PO; -ARTT OP; -COLL100 GT; -FOLI0.8T42 GT; -FRUC15LI PO; +LACT10SO7 PO; +LEVO500T90 GT; +METO25TA6 GT; -MOM GT; +Rena-Vite GT; +SIME125C81 GT; -SIME80TA15 GT; +VANCOMYCIN
[2021-09-30 10:05] VITALS: BP_SYST 116
--- NOTE | 2021-09-30 10:05 | NUR ---
Pt to bed 4 with report given to SOTERO Newton who will assume care. Pt connected to vent per RT.
--- NOTE | 2021-09-30 10:54 | NUR ---
pt brought in from [facility]. patient has been brought for abnormal bun levels. patient is non verbal non responsive as baseline.l wasw in [facility] in 2014. pt in bed with bed lowered and locked and rails up
[2021-09-30 10:57] LABS: BASOPHILS # (AUTO) 0.1 K/uL (0.0-0.2); BASOPHILS % (AUTO) 0.7 % (0.0-2.0); EOSINOPHILS # (AUTO) 0.9 K/uL (0.0-0.4); EOSINOPHILS % (AUTO) 7.2 % (0.0-4.0); HEMATOCRIT 37.2 % (36-54); HEMOGLOBIN 12.1 g/dL (14.0-18.0); LYMPHOCYTES % (AUTO) 8.5 % (20.5-51.5); MEAN CORPUSCULAR HEMOGLOBIN 35 pg (27-31); MEAN CORPUSCULAR HGB CONC 33 % (32-36); MEAN CORPUSCULAR VOLUME 107 fL (79.0-98.0); MONOCYTES # (AUTO) 0.9 K/uL (0.0-1.0); MONOCYTES % (AUTO) 7.5 % (1.7-9.3); NEUTROPHILS # (AUTO) 9.1 K/uL (1.8-7.7); NEUTROPHILS % (AUTO) 76.1 % (40.0-70.0); PLATELET COUNT (AUTO) 302 K/uL (130-430); RED BLOOD CELL COUNT(AUTO) 3.48 MIL/uL (4.2-6.2); RED CELL DISTRIBUTION WIDTH 15.9 % (9.0-15.0)
--- NOTE | 2021-09-30 11:00 | NUR ---
PT ARRIVES WITH POLST DNR WITH SELECIVE TREATMENT
[2021-09-30 11:18] LABS: CALCIUM 8.9 mg/dL (8.4-11.0); CREATININE 2.72 mg/dL (0.55-1.30); POTASSIUM 4.3 mmol/L (3.5-5.1)
[2021-09-30 11:43] LABS: TOTAL BILIRUBIN 0.3 mg/dL (0.0-1.0)
[2021-09-30 11:44] LABS: ALBUMIN 3.3 g/dL (3.4-4.8)
[2021-09-30] MEDS ORDERED: LR 1,000 ML IV ONE ×3 (11:45→12:45)
[2021-09-30] MEDS ORDERED: BISA10SU61 RC (11:58)
[2021-09-30] MEDS ORDERED: LOVI30 SQ (11:58)
--- NOTE | 2021-09-30 11:58 | NUR ---
Medication reconciliation completed with information provided by [facility]. Any prior medication reconciliation on file was reviewed and corrected.
--- NOTE | 2021-09-30 12:08 | NUR ---
replaced patients indewelling ting. patient tolared procedure. collect sterile urine for lab. pt o2 sat at 100. pt vitals with in normal limits. pt in bed, bed lowered and locked rails up
--- NOTE | 2021-09-30 12:22 | NUR ---
rt notes 1222 Per ABG results, titrated fio2 to 30%, pt saturating 98%. will continue to monitor pt
--- NOTE | 2021-09-30 12:26 | NUR ---
reset indicateor for i access. pt arrived from [facility] with iv access on right forearm. line is patent
[2021-09-30] MEDS ORDERED: PIPERACILLIN/TAZOBACTAM 2.25 GM in NS 50 ML IV ONE (12:30)
--- NOTE | 2021-09-30 12:45 | NUR ---
PT BEING TAKEN TO CT
[2021-09-30] MEDS ORDERED: NACL 0.9% 1,000 ML IV SCH (13:15)
--- NOTE | 2021-09-30 13:19 | NUR ---
ULTRASOUND AT THE BEDSIDE
[2021-09-30] MEDS ORDERED: PIPERACILLIN/TAZOBACTAM 2.25 GM VIAL IV ONE (13:49)
--- NOTE | 2021-09-30 14:00 | NUR ---
rt notes 1025 Pt came in from sub-acute facility. Trach to vent (AC12,400VT PEEP 5 35% FIO2) trach size: Portex 7. Sxn small/thin/yellow. sputum culture sent to lab. Pt saturating 100%. 1222 Titrated fio2 to 30%, per ABG results. [address] for pelvis/abdomen via BVM 15L. No incident happened.
--- NOTE | 2021-09-30 14:44 | NUR ---
Admit bed requested Patient will be admitted to care of . Admitted to unit. 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
[2021-09-30 14:46] LABS: BILIRUBIN,URINE NEGATIVE (NEGATIVE); BLOOD, URINE 3+ (NEGATIVE); CLARITY/URINE TURBID (CLEAR); COLOR,URINE YELLOW (YELLOW); GLUCOSE,URINE NEGATIVE (NEGATIVE); KETONES,URINE NEGATIVE (NEGATIVE); LEUKOCYTE ESTERASE ,URINE 3+ (NEGATIVE); NITRITE, URINE POSITIVE (NEGATIVE); PH,URINE 7.5 (5.0-8.0); PROTEIN URINE 2+ (NEGATIVE); UROBILINOGEN,URINE 0.2 (0.2-1.0)
[2021-09-30 14:51] LABS: BACTERIA,URINE MANY /HPF (None Seen); MUCUS,URINE 1+ /LPF (None Seen); RBC,URINE 50-80 /HPF (0-3); WBC,URINE >100 /HPF (0-3)
[2021-09-30] MEDS ORDERED: LORazepam 2 MG/ML VIAL IVP PRN (15:00)
[2021-09-30] MEDS ORDERED: MUPIROCIN 2% TOPICAL OINTMENT 22 GM NS PRN (15:00)
[2021-09-30] MEDS ORDERED: DOCUSATE SODIUM 100 MG CAPSULE PO PRN (15:00)
[2021-09-30] MEDS ORDERED: MAGNESIUM SULFATE 50 ML IV PRN (15:00)
[2021-09-30] MEDS ORDERED: ONDANSETRON HCL 4 MG/2 ML VIAL IVP PRN (15:00)
[2021-09-30] MEDS ORDERED: IPRATROPIUM/ALBUTEROL SULFATE 3 ML AMPUL.NEB (DUONEB) INH PRN (15:00)
[2021-09-30] MEDS ORDERED: NALOXONE HCL 0.4 MG/ML AMP (NARCAN) IVP PRN ×2 (15:00)
[2021-09-30] MEDS ORDERED: ACETAMINOPHEN 325 MG TABLET PO PRN ×2 (15:00→15:30)
[2021-09-30] MEDS ORDERED: POTASSIUM CHLORIDE 20 MEQ TAB.PRT.SR PO PRN (15:00)
[2021-09-30] MEDS ORDERED: MORPHINE 2 MG/ML INJ. SYRINGE IVP PRN ×2 (15:00)
[2021-09-30 15:07] VITALS: BP_SYST 116
--- NOTE | 2021-09-30 15:08 | NUR ---
PT TURNED FOR COMFORT, HAD SMALL BM, PT CLEANED AND LININS CHANGED. TOLERATED WELL
[2021-09-30] MEDS ORDERED: cefTRIAXone 1 GM in D5W 50 ML IV SCH (16:00)
--- NOTE | 2021-09-30 16:49 | NUR ---
CHANGED TO DR. BOYER, PCP
--- NOTE | 2021-09-30 16:59 | NUR ---
Patient will be admitted to care of [facility]. Admitted to Tele unit. Will go to room . Belongings list completed. Complete and up to date summary report printed. SBAR report to be given at bedside with opportunity for questions.
[2021-09-30 17:30] VITALS: BP_SYST 108
--- NOTE | 2021-09-30 17:30 | NUR ---
rt notes 1730 pt transferred to room 101A via Ventilator [id number]. Vent settings AC12,400VT PEEP 5 30% FIO2. Portex 7, sxn'd prior/post transport. no distress noted. no incident happened. pt saturating 98%. RN Miracle noyola at bedside.
[2021-09-30] MEDS: D5/0.45 NS 1,000 ML IV SCH (17:52)
--- NOTE | 2021-09-30 17:57 | NUR ---
CONSULT: P[facility]NC ACUTE RENAL FAILURE ERIC WISE [phone] S/W: SOWMYA
--- NOTE | 2021-09-30 17:59 | NUR ---
CONSULTATION PAGED/CALLED Reason for Consultation: [] ACUTE RENAL FAILURE Person Who was Notified: [] SOWMYA Consulting Physician: [] DR ANNE Access Control Officer Specialty: [] NEPHRO Ordering Physician: [] DR BOYER
--- NOTE | 2021-09-30 17:59 | NUR ---
CONSULTATION PAGED/CALLED Reason for Consultation: [] RESP FAIL Person Who was Notified: [] SOWMYA Consulting Physician: [] DR PINA Molder Sweep Specialty: [] PULMO Ordering Physician: [] DR BOYER
[2021-09-30 18:07] VITALS: BP_SYST 108
--- NOTE | 2021-09-30 18:52 | NUR ---
1730- received pt from ER, non verbal, trach to vent, tolerating setting well. No distress, started on IVF and GT feeding. 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 unable to take picture on buttom with excoriation at this time. will endorse
[2021-09-30] MEDS ORDERED: LevALBUTEROL HCL 1.25 MG/0.5 ML *CONC.* VIAL.NEB (XOPENEX CONC.) INH PRN (19:30)
[2021-09-30] MEDS ORDERED: BISACODYL 10 MG/SUPPOSITORY RC PRN (19:30)
[2021-09-30 20:00] VITALS: BP_SYST 129
[2021-09-30] MEDS ORDERED: METOPROLOL TARTRATE 25 MG TABLET GT SCH (21:00)
[2021-09-30] MEDS ORDERED: TOPIRAMATE 25 MG TABLET(TOPAMAX) GT SCH (21:00)
[2021-09-30] MEDS ORDERED: POLYETHYLENE GLYCOL 3350, 17 GM/ POWD.PACK GT SCH (21:00)
[2021-09-30] MEDS ORDERED: traMADol HCL HCL 50 MG TABLET (ULTRAM) GT SCH (21:00)
[2021-09-30] MEDS ORDERED: THEOPHYLLINE ANHYDROUS 80 MG/15 ML UDC GT SCH (21:00)
[2021-09-30] MEDS ORDERED: HEPARIN SODIUM,PORCINE 5,000 UNITS/ML VIAL SUBCUT SCH (21:00)
[2021-09-30] MEDS ORDERED: levETIRAcetam 500 MG TABLET GT SCH (21:00)
[2021-09-30] MEDS: ACETAMINOPHEN 650 MG/20.3 ML UDC GT SCH (21:16)
[2021-09-30] MEDS: FAMOTIDINE 20 MG TABLET GT SCH (21:16)
[2021-09-30] MEDS: CALCIUM CARBONATE/VITAMIN D3 1 TAB TABLET GT SCH (21:16)
[2021-09-30] MEDS: METOCLOPRAMIDE HCL 10 MG/10 ML UDC GT SCH (21:16)
[2021-09-30] MEDS: LevETIRAcetam 500 MG/5 ML UDC ORAL LIQUID GT SCH (21:16)
[2021-09-30] MEDS: CHLORHEXIDINE GLUCONATE 15 ML/DOSE, 480 ML MM SCH (21:17)
--- NOTE | 2021-09-30 22:11 | NUR ---
CONSULTATION PAGED/CALLED Reason for Consultation: V TACH EPISODE Person Who was Notified: LORRAINE Consulting Physician: FLORECITA Cook [place] Specialty: Ordering Physician: MERLIN
--- NOTE | 2021-09-30 22:29 | NUR ---
epsiode of vtach for 20 minutes from 2128, Dr. Mendoza informed, referral to Dr. Watters. called Dr. Watters. ordered Amiodarone 200mg per GT q 8hours, CBC, CMP, 21 leads EKG in the morning. BP stable 114/79 during vtach episode.
[2021-09-30] MEDS ORDERED: AMIODARONE HCL 200 MG TABLET PO ONE (22:30)
[2021-10-01] VITALS: BP_SYST 121
[2021-10-01] MEDS ORDERED: THEOPHYLLINE ANHYDROUS 80 MG/15 ML UDC GT SCH
[2021-10-01] MEDS ORDERED: PIPERACILLIN/TAZOBACTAM 3.375 GM/VIAL (ZOSYN) IV ONE (00:09)
[2021-10-01] MEDS: PIPERACILLIN/TAZO 3.375/DEX-IS 50 ML IV SCH ×5 (00:12→23:48)
[2021-10-01] MEDS: LevALBUTEROL HCL 1.25 MG/0.5 ML *CONC.* VIAL.NEB (XOPENEX CONC.) INH SCH ×4 (02:23→19:53)
[2021-10-01 04:00] VITALS: BP_SYST 91
[2021-10-01] MEDS: D5/0.45 NS 1,000 ML IV SCH (05:49)
[2021-10-01] MEDS ORDERED: AMIODARONE HCL 200 MG TABLET PO SCH (06:00)
[2021-10-01 07:07] LABS: CALCIUM 8.4 mg/dL (8.4-11.0); CREATININE 2.55 mg/dL (0.55-1.30); POTASSIUM 4.2 mmol/L (3.5-5.1); TOTAL BILIRUBIN 0.2 mg/dL (0.0-1.0)
[2021-10-01 07:18] LABS: BASOPHILS # (AUTO) 0.1 K/uL (0.0-0.2); BASOPHILS % (AUTO) 0.6 % (0.0-2.0); EOSINOPHILS # (AUTO) 0.7 K/uL (0.0-0.4); HEMATOCRIT 33.9 % (36-54); HEMOGLOBIN 11.1 g/dL (14.0-18.0); LYMPHOCYTES # (AUTO) 0.7 K/uL (1.0-5.5); LYMPHOCYTES % (AUTO) 6.2 % (20.5-51.5); MEAN CORPUSCULAR HEMOGLOBIN 35 pg (27-31); MEAN CORPUSCULAR HGB CONC 33 % (32-36); MEAN CORPUSCULAR VOLUME 107 fL (79.0-98.0); MONOCYTES # (AUTO) 0.7 K/uL (0.0-1.0); MONOCYTES % (AUTO) 6.5 % (1.7-9.3); NEUTROPHILS # (AUTO) 8.4 K/uL (1.8-7.7); NEUTROPHILS % (AUTO) 79.7 % (40.0-70.0); PLATELET COUNT (AUTO) 272 K/uL (130-430); RED BLOOD CELL COUNT(AUTO) 3.18 MIL/uL (4.2-6.2); RED CELL DISTRIBUTION WIDTH 15.9 % (9.0-15.0); WHITE BLOOD COUNT (AUTO) 10.5 K/uL (4.8-10.8)
[2021-10-01] MEDS ORDERED: BISACODYL 10 MG/SUPPOSITORY RC PRN (07:30)
[2021-10-01 07:40] VITALS: BP_SYST 104
--- NOTE | 2021-10-01 08:00 | NUR ---
Initial Notes Patient is nonverbal and lethargic. Vital signs obtained. SPo2 at 97% via trach/vent. No respiratory distress noted. No facial grimace. Oral care done. Patient clean and repositioned. HOB elevated, High Fowlers. Bed locked,alarm on, and side rails up. Call light within reach.
[2021-10-01] MEDS ORDERED: NS 500 ML IV ONE (08:45)
[2021-10-01] MEDS ORDERED: EPOETIN ALFA-EPBX 4,000 UNITS/ML VIAL SUBCUT SCH (09:00)
[2021-10-01] MEDS ORDERED: BACLOFEN 10 MG TABLET GT SCH (09:00)
[2021-10-01] MEDS ORDERED: ZINC GT SCH (09:00)
[2021-10-01] MEDS ORDERED: NON-FORMULARY MEDICATION (Lactulose 20 GM) PO SCH (09:00)
[2021-10-01] MEDS ORDERED: levoFLOXacin 500 MG TABLET GT SCH (09:00)
[2021-10-01] MEDS: CHLORHEXIDINE GLUCONATE 15 ML/DOSE, 480 ML MM SCH ×2 (09:21→21:20)
[2021-10-01] MEDS: ACETAMINOPHEN 650 MG/20.3 ML UDC GT SCH ×2 (09:21→21:17)
[2021-10-01] MEDS: FERROUS SULFATE 300 MG/5 ML UDC GT SCH (09:22)
[2021-10-01] MEDS: LevETIRAcetam 500 MG/5 ML UDC ORAL LIQUID GT SCH ×2 (09:22→21:06)
[2021-10-01] MEDS: METOCLOPRAMIDE HCL 10 MG/10 ML UDC GT SCH ×3 (09:22→21:16)
[2021-10-01] MEDS: NEPHROVITE, (FOLIC ACID/VITAMIN B COMP W-C 1 TAB) GT SCH (09:23)
[2021-10-01] MEDS: CALCIUM CARBONATE/VITAMIN D3 1 TAB TABLET GT SCH ×2 (09:23→21:20)
[2021-10-01] MEDS: ASCORBIC ACID 500 MG TABLET GT SCH (09:23)
[2021-10-01] MEDS: FAMOTIDINE 20 MG TABLET GT SCH ×2 (09:24→21:20)
[2021-10-01] MEDS: ENOXAPARIN SODIUM 30 MG/0.3 ML SYRINGE SQ SCH (09:26)
[2021-10-01] MEDS: PEG 400/HYPROMELLOSE/GLYCERIN 15 ML DROPS OP SCH (09:27)
[2021-10-01] MEDS: SIMETHICONE 40 MG/0.6 ML ML GT SCH ×3 (09:30→21:15)
[2021-10-01] MEDS: THEOPHYLLINE ANHYDROUS 80 MG/15 ML UDC GT SCH ×2 (09:33→21:12)
[2021-10-01 11:32] VITALS: BP_SYST 94
--- NOTE | 2021-10-01 12:00 | NUR ---
Notes Patient is resting. No signs of respiratory distress or facial grimace. Patient's position is High Fowlers. Safety precautions in place and call light within reach.
--- NOTE | 2021-10-01 12:09 | NUR ---
notes- Bolus of 500ml done.
--- NOTE | 2021-10-01 12:26 | NUR ---
Initial Notes Patient is non verbal and lethargic. Vitals obtained, Spo2 at 97% via trach. No respiratory distress noted. No facial grimace noted. Oral care given. Patient repositioned and HOB elevated at High Fowlers. Side rails up, bed locked, and alarm on. Call light within reach. Addendum: 10/01/21 at 1230 by Ivana Aleman LVN wrong time
--- NOTE | 2021-10-01 13:05 | NUR ---
Employment Program Representative VALVE INSPECTOR received a referral stating pt. needs "Social Work" VALVE INSPECTOR called and spoke to emergency contact/ pts. sister, Gabrielle Townsend, who stated she does not know what social work needs pt./brother would need. Gabrielle did not have any concerns or need assistance from VALVE INSPECTOR at this point. VALVE INSPECTOR asked if she needs anything, she could leave a message for this VALVE INSPECTOR or contact the other VALVE INSPECTOR, Jimena at x [phone]. surtass analyst will remain available as needed.
[2021-10-01 15:27] VITALS: BP_SYST 106
--- NOTE | 2021-10-01 16:00 | NUR ---
NOTES PATIENT HAS BEEN CLEANED, APPLIED CREAM, AND REPOSITIONED HIGH FOWLERS. TOLERATED WELL. NO RESPIRATORY DISTRESS NOTED. SAFETY PRECAUTIONS IN PLACE AND CALL LIGHT WITHIN REACH.
--- NOTE | 2021-10-01 18:10 | NUR ---
CLOSING NOTES PATIENT IN BED, RESTING. NO SIGNS OF RESPIRATORY DISTRESS. SPO2 AT 96%. PATIENT HAS BEEN REPOSITIONED AND IS IN HIGH FOWLERS. SAFETY PRECAUTIONS IN PLACE. CALL LIGHT WITHIN REACH.
--- NOTE | 2021-10-01 19:32 | NUR ---
OPENING NOTES: Patient received from AM shift. Patient is not alert and unable to communicate needs, no s/s of distress is noted at this time. Chest rise is even and unlabored on a vent/trach. Normal heart sounds present on tele monitoring. Normal heart sounds with PEG tube noted where he is receiving GT feedings of Jevity 1.2 at 55c/hr with 200ml flush. Willis cath also noted patent and hanging with yellow urine. PIV to right forearm C/D/I and running D51/2NS AT 75ML/HR. Sacral wound dressing is C/D/I/ Patient is stable at this time. Will resume care and monitor throughout the shift.
[2021-10-01 20:00] VITALS: BP_SYST 106
--- NOTE | 2021-10-01 23:00 | NUR ---
Patient HR noted to be elevated at [address] Leo chang.
--- NOTE | 2021-10-01 23:08 | NUR ---
Paged Dr. Watters. SOTERO Brito spoke to the doctor.
[2021-10-01] MEDS ORDERED: METOPROLOL TARTRATE 5 MG/5 ML AMPUL IVP ONE (23:15)
--- NOTE | 2021-10-01 23:30 | NUR ---
HIGH ALERT NOTE: Called back at identified within the medical roster to verify physician authenticity.
[2021-10-02 00:09] VITALS: BP_SYST 104
--- NOTE | 2021-10-02 01:30 | NUR ---
Patient is in bed resting no s/s of distress is noted at this time. Chest rise is even and unlabored. Patient HR is still elevated but it is less than 120bpm. Will continue to monitor.
[2021-10-02] MEDS: D5/0.45 NS 1,000 ML IV SCH (02:30)
[2021-10-02] MEDS: LevALBUTEROL HCL 1.25 MG/0.5 ML *CONC.* VIAL.NEB (XOPENEX CONC.) INH SCH ×4 (02:47→21:03)
[2021-10-02] MEDS: PIPERACILLIN/TAZO 3.375/DEX-IS 50 ML IV SCH ×3 (06:08→17:11)
--- NOTE | 2021-10-02 06:25 | NUR ---
Patient is in bed resting no s/s of distress at this time. Chest rise is even and unlabored on Vent/ trach. All current needs have been met. Safety protocols are in place. Will differ current care to AM shift for continuity of care.
[2021-10-02 06:38] LABS: BASOPHILS # (AUTO) 0.1 K/uL (0.0-0.2); BASOPHILS % (AUTO) 0.7 % (0.0-2.0); EOSINOPHILS # (AUTO) 0.5 K/uL (0.0-0.4); EOSINOPHILS % (AUTO) 4.5 % (0.0-4.0); HEMATOCRIT 33.1 % (36-54); HEMOGLOBIN 10.9 g/dL (14.0-18.0); LYMPHOCYTES # (AUTO) 0.6 K/uL (1.0-5.5); LYMPHOCYTES % (AUTO) 6.4 % (20.5-51.5); MEAN CORPUSCULAR HEMOGLOBIN 35 pg (27-31); MEAN CORPUSCULAR HGB CONC 33 % (32-36); MEAN CORPUSCULAR VOLUME 107 fL (79.0-98.0); MONOCYTES # (AUTO) 0.7 K/uL (0.0-1.0); MONOCYTES % (AUTO) 7.3 % (1.7-9.3); NEUTROPHILS # (AUTO) 8.2 K/uL (1.8-7.7); NEUTROPHILS % (AUTO) 81.1 % (40.0-70.0); PLATELET COUNT (AUTO) 239 K/uL (130-430); RED BLOOD CELL COUNT(AUTO) 3.09 MIL/uL (4.2-6.2); RED CELL DISTRIBUTION WIDTH 16.3 % (9.0-15.0); WHITE BLOOD COUNT (AUTO) 10.1 K/uL (4.8-10.8)
[2021-10-02 06:45] LABS: ANION GAP 10 (5-15); CALCIUM 8.7 mg/dL (8.4-11.0); CHLORIDE 111 mmol/L (98-107); CREATININE 2.58 mg/dL (0.55-1.30); GLUCOSE 244 mg/dL (70-99); POTASSIUM 4.2 mmol/L (3.5-5.1); SODIUM SERUM 147 mmol/L (136-145)
[2021-10-02 07:03] LABS: ALANINE AMINOTRANSFERASE 64 U/L (12-78); ALBUMIN 2.9 g/dL (3.4-4.8); ASPARTATE AMINOTRANSFERASE 21 U/L (10-37); THYROID STIMULATING HORMONE 2.01 uIu/mL (0.36-3.74); TOTAL BILIRUBIN 0.2 mg/dL (0.0-1.0)
[2021-10-02 07:18] LABS: INR 1.2 (0.80-1.20); PROTHROMBIN TIME 11.7 SECS (9.5-12.5)
[2021-10-02 07:44] LABS: GFR AFRICAN AMERICAN 37 mL/min (>90); UREA NITROGEN, BLOOD 114 mg/dL (8-21)
--- NOTE | 2021-10-02 08:20 | NUR ---
Opening Notes Received report from Alisha BEY. Patient is in bed with eyes closed. No apparent distress noted. Patient appears calm and resting. Vitals as charted. Fall and safety precautions in place. All needs met.
[2021-10-02 08:25] VITALS: BP_SYST 110
[2021-10-02] MEDS ORDERED: NS 500 ML IV ONE (08:45)
[2021-10-02 09:18] LABS: CHOLESTEROL 108 mg/dL (<200); HDL CHOLESTEROL 35 mg/dL (>45); LDL CHOLESTEROL 55 mg/dL (<100); TRIGLYCERIDES 134 mg/dL (30-150)
[2021-10-02] MEDS: FERROUS SULFATE 300 MG/5 ML UDC GT SCH (09:50)
[2021-10-02] MEDS: ENOXAPARIN SODIUM 30 MG/0.3 ML SYRINGE SQ SCH (09:51)
[2021-10-02] MEDS: FAMOTIDINE 20 MG TABLET GT SCH ×2 (09:54→21:11)
[2021-10-02] MEDS: ACETAMINOPHEN 650 MG/20.3 ML UDC GT SCH ×2 (09:54→21:10)
[2021-10-02] MEDS: NEPHROVITE, (FOLIC ACID/VITAMIN B COMP W-C 1 TAB) GT SCH (09:54)
[2021-10-02] MEDS: ASCORBIC ACID 500 MG TABLET GT SCH (09:54)
[2021-10-02] MEDS: METOCLOPRAMIDE HCL 10 MG/10 ML UDC GT SCH ×3 (09:54→21:10)
[2021-10-02] MEDS: CALCIUM CARBONATE/VITAMIN D3 1 TAB TABLET GT SCH ×2 (09:55→21:11)
[2021-10-02] MEDS: THEOPHYLLINE ANHYDROUS 80 MG/15 ML UDC GT SCH ×2 (09:56→21:07)
[2021-10-02] MEDS: LevETIRAcetam 500 MG/5 ML UDC ORAL LIQUID GT SCH ×2 (09:57→21:08)
[2021-10-02] MEDS: SIMETHICONE 40 MG/0.6 ML ML GT SCH ×3 (09:57→21:05)
[2021-10-02] MEDS: PEG 400/HYPROMELLOSE/GLYCERIN 15 ML DROPS OP SCH (09:59)
[2021-10-02] MEDS: CHLORHEXIDINE GLUCONATE 15 ML/DOSE, 480 ML MM SCH ×2 (10:03→21:12)
[2021-10-02 11:37] VITALS: BP_SYST 103
[2021-10-02] MEDS: D5W 1,000 ML IV SCH (12:09)
--- NOTE | 2021-10-02 13:37 | NUR ---
Dietitian Recommendations Continue Jevity 1.2 @55 mL/hr. Provides (w/ current D5%) 1754 kcals/day, 73 g protein/day and 1065 mL free water/day. Meets: 99% of lower kcal needs and 103% of upper protein needs. Specify free water flush. Consider switching formula to Glucerna 1.2 if BG continues to be high. Consider d/c D5% if BG continues to be high. Please refer to nutritional assessment for details. Signed: 10/02/21 at 1339 by Lilibeth CASTLE <Co-Signature Required> Co-Signed: 10/02/21 at [address] Addendum: 10/02/21 at 1339 by Lilibeth CASTLE Amended: Links added.
--- NOTE | 2021-10-02 14:30 | NUR ---
RT NOTES. 1300 VENT CHECK WAS UNABLE TO BE PERFORMED DUE TO UNAVAILABILITY.
[2021-10-02 15:34] VITALS: BP_SYST 106
--- NOTE | 2021-10-02 18:48 | NUR ---
Closing Notes Patient is laying in bed with eyes closed. Patient appears calm and resting. No apparent distress noted. Safety and fall precautions within reach. All needs met. Will endorse care to sap bpc architect RN.
--- NOTE | 2021-10-02 19:16 | NUR ---
OPENING NOTES: Patient received from AM shift. Patient is no able to communicate needs, no s/s of distress noted at this time. Chest rise is even and unlabored and patient is vent/trach dependent. Tachy cardic rhythm on tele monitoring. Active bowel sounds present x4, on GT feeding running at 55ml/hr with 200ml flushes. Willis cath in place, patent and running clear yellow urine. Dressing noted to the sacral area C/D/I. Patient is currently stable and safety protocols are in place. Will continue to monitor throughout the shift.
[2021-10-02 20:00] VITALS: BP_SYST 81
[2021-10-02] MEDS ORDERED: ALBUMIN HUMAN 25% 100 ML IV ONE (20:30)
[2021-10-03] MEDS: PIPERACILLIN/TAZO 3.375/DEX-IS 50 ML IV SCH ×4 (00:03→17:48)
[2021-10-03] MEDS: D5W 1,000 ML IV SCH ×2 (00:04→05:18)
[2021-10-03 00:53] VITALS: BP_SYST 92
[2021-10-03] MEDS: LevALBUTEROL HCL 1.25 MG/0.5 ML *CONC.* VIAL.NEB (XOPENEX CONC.) INH SCH ×4 (01:35→21:38)
[2021-10-03 07:04] LABS: ALBUMIN 2.8 g/dL (3.4-4.8); CALCIUM 9.1 mg/dL (8.4-11.0); CREATININE 2.33 mg/dL (0.55-1.30); POTASSIUM 3.9 mmol/L (3.5-5.1); TOTAL BILIRUBIN 0.4 mg/dL (0.0-1.0)
[2021-10-03 07:32] LABS: BASOPHILS # (AUTO) 0.1 K/uL (0.0-0.2); BASOPHILS % (AUTO) 0.6 % (0.0-2.0); EOSINOPHILS # (AUTO) 0.5 K/uL (0.0-0.4); EOSINOPHILS % (AUTO) 4.5 % (0.0-4.0); HEMATOCRIT 28.9 % (36-54); HEMOGLOBIN 9.5 g/dL (14.0-18.0); LYMPHOCYTES # (AUTO) 0.9 K/uL (1.0-5.5); LYMPHOCYTES % (AUTO) 7.3 % (20.5-51.5); MEAN CORPUSCULAR HEMOGLOBIN 35 pg (27-31); MEAN CORPUSCULAR HGB CONC 33 % (32-36); MEAN CORPUSCULAR VOLUME 107 fL (79.0-98.0); MONOCYTES # (AUTO) 0.7 K/uL (0.0-1.0); NEUTROPHILS # (AUTO) 9.7 K/uL (1.8-7.7); PLATELET COUNT (AUTO) 189 K/uL (130-430); RED BLOOD CELL COUNT(AUTO) 2.71 MIL/uL (4.2-6.2); RED CELL DISTRIBUTION WIDTH 15.6 % (9.0-15.0); WHITE BLOOD COUNT (AUTO) 11.9 K/uL (4.8-10.8)
--- NOTE | 2021-10-03 07:43 | NUR ---
Patient is bed resting no s/s of distress at this time. Chest rise is even and unlabored on Vent/Trach. All current shift needs have been met. Patient is currently stable. Will differ current care. To Am shift for continuity of care.
[2021-10-03 08:18] LABS: NEUTROPHILS % (AUTO) 81.6 % (40.0-70.0)
--- NOTE | 2021-10-03 08:20 | NUR ---
Opening Note Patient is laying in bed with eyes closed. Patient appears to be resting, no apparent distress noted. A/O x0. Safety and fall precautions in place.
[2021-10-03] MEDS: THEOPHYLLINE ANHYDROUS 80 MG/15 ML UDC GT SCH ×2 (10:18→22:00)
[2021-10-03] MEDS: SIMETHICONE 40 MG/0.6 ML ML GT SCH ×3 (10:19→22:00)
[2021-10-03] MEDS: LevETIRAcetam 500 MG/5 ML UDC ORAL LIQUID GT SCH ×2 (10:19→22:00)
[2021-10-03] MEDS: FERROUS SULFATE 300 MG/5 ML UDC GT SCH (10:19)
[2021-10-03] MEDS: METOCLOPRAMIDE HCL 10 MG/10 ML UDC GT SCH ×3 (10:20→22:00)
[2021-10-03] MEDS: FAMOTIDINE 20 MG TABLET GT SCH ×2 (10:20→22:01)
[2021-10-03] MEDS: CALCIUM CARBONATE/VITAMIN D3 1 TAB TABLET GT SCH ×2 (10:20→22:04)
[2021-10-03] MEDS: NEPHROVITE, (FOLIC ACID/VITAMIN B COMP W-C 1 TAB) GT SCH (10:20)
[2021-10-03] MEDS: ASCORBIC ACID 500 MG TABLET GT SCH (10:21)
[2021-10-03] MEDS: ACETAMINOPHEN 650 MG/20.3 ML UDC GT SCH ×2 (10:21→22:04)
[2021-10-03] MEDS: ENOXAPARIN SODIUM 30 MG/0.3 ML SYRINGE SQ SCH (10:31)
[2021-10-03] MEDS: PEG 400/HYPROMELLOSE/GLYCERIN 15 ML DROPS OP SCH (10:33)
[2021-10-03] MEDS: CHLORHEXIDINE GLUCONATE 15 ML/DOSE, 480 ML MM SCH ×2 (10:33→22:05)
[2021-10-03 10:44] VITALS: BP_SYST 92
[2021-10-03 11:30] VITALS: BP_SYST 115
--- NOTE | 2021-10-03 12:50 | NUR ---
Note Frankie BEY began midline placement.
--- NOTE | 2021-10-03 13:15 | NUR ---
Note Frankie BEY completed midline placement. 12cm length, 23cm arm circumference.
[2021-10-03] MEDS: NACL 0.9% 1,000 ML IV SCH ×2 (14:12→22:03)
[2021-10-03 15:47] VITALS: BP_SYST 130
[2021-10-03] MEDS: EPOETIN ALFA-EPBX 4,000 UNITS/ML VIAL SUBCUT SCH (16:07)
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
--- NOTE | 2021-10-03 18:53 | NUR ---
Closing Note Patient is laying in bed with eyes closed. No apparent distress noted. Patient appears calm and resting. Safety and fall precautions in place. All needs met. Will endorse care to shift leader RN.
[2021-10-03 21:00] VITALS: BP_SYST 135
--- NOTE | 2021-10-03 21:15 | NUR ---
Reposition & Turning off loading with pillows kept clean also dry as needed , minimal VENTILATOR ALARMING noted position change on schedule tolerating continue to monitor .
[2021-10-04 00:25] VITALS: BP_SYST 90
--- NOTE | 2021-10-04 00:50 | NUR ---
Z GUARD OINTMENT APPLIED TO REDDENED SKIN AREAS LEFT & RIGHT BUTTOCKS , KEPT CLEAN ALSO DRY NEEDED , POSITION CHANGE IMPLEMENTED & TOLERATED .
[2021-10-04] MEDS: PIPERACILLIN/TAZO 3.375/DEX-IS 50 ML IV SCH ×4 (01:55→18:18)
[2021-10-04] MEDS: LevALBUTEROL HCL 1.25 MG/0.5 ML *CONC.* VIAL.NEB (XOPENEX CONC.) INH SCH ×4 (03:26→19:27)
--- NOTE | 2021-10-04 03:31 | NUR ---
PHOTO PICTURE TAKEN OF WOUND LEFT LOWER BUTTOCKS & PUT IN MEDICAL RECORD .
--- NOTE | 2021-10-04 03:32 | NUR ---
PHOTO PICTURE TAKEN OF RIGHT LOWER BUTTOCK WOUND & PUT IN MEDICAL RECORD .
--- NOTE | 2021-10-04 03:33 | NUR ---
PHOTO PICTURE TAKEN OF WOUNDS ON BUTTOCKS AREAS & PUT IN MEDICAL Record .
[2021-10-04] MEDS: NACL 0.9% 1,000 ML IV SCH ×2 (06:03→12:17)
--- NOTE | 2021-10-04 07:55 | NUR ---
Opening Notes Patient is awake, alert and oriented x0, laying in bed resting at this time. Flat affect, obtunded, arousable to painful stimuli. Mild SOB at rest. Congested, suctioned as needed. Pt remains on trach to vent (FiO2 30% TV 400 PEEP 5). No signs of distress/pain at this time. Seizure precautions in place. MID LINE on LISANDRO, double lumen, C/D/I, NS @ 100 ml/hr, infusing well. PEGTUBE in place, clean and dry, new dressing provided. TF: Jevity 1.2 @ 55 ml/hr, infusing well. No residual noted. Confirmed placement with stethoscope. FC draining by gravity, yellow and clear. Wound care provided on PM shift. Contact precautions. All needs met at this time. Safety and fall precautions in place. Bed in lowest position, alarm on, locked. Will continue to monitor.
[2021-10-04 08:00] VITALS: BP_SYST 142
[2021-10-04] MEDS: FERROUS SULFATE 300 MG/5 ML UDC GT SCH (08:41)
[2021-10-04] MEDS: ACETAMINOPHEN 650 MG/20.3 ML UDC GT SCH ×2 (08:42→22:31)
[2021-10-04] MEDS: LevETIRAcetam 500 MG/5 ML UDC ORAL LIQUID GT SCH ×2 (08:43→22:34)
[2021-10-04] MEDS: METOCLOPRAMIDE HCL 10 MG/10 ML UDC GT SCH ×3 (08:43→22:31)
[2021-10-04] MEDS: SIMETHICONE 40 MG/0.6 ML ML GT SCH ×3 (08:43→23:00)
[2021-10-04] MEDS: BALSAM PERU/CASTOR OIL 56.7 GM OINT...G. TP SCH (08:43)
[2021-10-04] MEDS: NEPHROVITE, (FOLIC ACID/VITAMIN B COMP W-C 1 TAB) GT SCH (08:44)
[2021-10-04] MEDS: CALCIUM CARBONATE/VITAMIN D3 1 TAB TABLET GT SCH ×2 (08:44→23:00)
[2021-10-04] MEDS: THEOPHYLLINE ANHYDROUS 80 MG/15 ML UDC GT SCH ×2 (08:44→22:30)
[2021-10-04] MEDS: FAMOTIDINE 20 MG TABLET GT SCH ×2 (08:45→22:31)
[2021-10-04] MEDS: PEG 400/HYPROMELLOSE/GLYCERIN 15 ML DROPS OP SCH (08:45)
[2021-10-04] MEDS: ASCORBIC ACID 500 MG TABLET GT SCH (08:45)
[2021-10-04] MEDS: ENOXAPARIN SODIUM 30 MG/0.3 ML SYRINGE SQ SCH (08:47)
[2021-10-04] MEDS: CHLORHEXIDINE GLUCONATE 15 ML/DOSE, 480 ML MM SCH ×2 (09:00→23:00)
--- NOTE | 2021-10-04 12:00 | NUR ---
Notes Patient is awake, alert and oriented x0. Mild SOB at rest, suctioned as needed. Pt remains on trach to vent. (FiO2 30% TV 400 PEEP 5). No signs of pain at this time. Will continue to monitor.
[2021-10-04 12:33] VITALS: BP_SYST 125
--- NOTE | 2021-10-04 15:12 | NUR ---
CM: Faxed sub acute referral , dc order back to [facility] . The transfer is pending bed assignment.
[2021-10-04 16:08] VITALS: BP_SYST 127
--- NOTE | 2021-10-04 18:55 | NUR ---
Closing Notes Patient is asleep at this time, flat affect. Alert and oriented x0. Mild SOB, use of accessory muscles. Congested, suction as needed. Pt remains on trach to vent (FiO2 30%, TV 400 PEEP 5)., tolerating well. MIDLINE on LISANDRO, double lumen, NS @ 100 ml/hr, infusing well. FC draining by gravity, yellow and clear urine noted. PEGTUBE in place. TF: Jevity 1.2 @ 55 ml/hr, infusing well. Pt remains on bedrest. All needs met. Safety and fall precautions in place. Bed in lowest position, alarm on, locked. Will continue to monitor.
[2021-10-04 20:00] VITALS: BP_SYST 143; BP_SYST 146
--- NOTE | 2021-10-04 20:00 | NUR ---
recieved report from ME nurse. Pt is trach to vent, and admission dx is acute renal failure. Patient is asleep at this time, flat affect. Alert and oriented x0. Mild SOB, use of accessory muscles. settings (FiO2 30%, TV 400 PEEP 5)., tolerating well. MIDLINE on LISANDRO, double lumen, NS @ 100 ml/hr, infusing well. FC draining by gravity, yellow and clear urine noted. PEGTUBE in place. TF: Jevity 1.2 @ 55 ml/hr, infusing well. Pt remains on bedrest. All needs met. Safety and fall precautions in place. Bed in lowest position, alarm on, locked. Will continue to monito
[2021-10-05 00:49] VITALS: BP_SYST 136
[2021-10-05] MEDS: PIPERACILLIN/TAZO 3.375/DEX-IS 50 ML IV SCH ×4 (01:03→17:24)
[2021-10-05] MEDS: LevALBUTEROL HCL 1.25 MG/0.5 ML *CONC.* VIAL.NEB (XOPENEX CONC.) INH SCH ×4 (01:15→21:17)
[2021-10-05 08:02] VITALS: BP_SYST 103
[2021-10-05] MEDS ORDERED: D5W 1,000 ML IV SCH (08:30)
[2021-10-05] MEDS: CALCIUM CARBONATE/VITAMIN D3 1 TAB TABLET GT SCH ×2 (09:19→21:40)
[2021-10-05] MEDS: ASCORBIC ACID 500 MG TABLET GT SCH (09:19)
[2021-10-05] MEDS: FAMOTIDINE 20 MG TABLET GT SCH ×2 (09:20→21:39)
[2021-10-05] MEDS: NEPHROVITE, (FOLIC ACID/VITAMIN B COMP W-C 1 TAB) GT SCH (09:20)
[2021-10-05] MEDS: FERROUS SULFATE 300 MG/5 ML UDC GT SCH (09:21)
[2021-10-05] MEDS: LevETIRAcetam 500 MG/5 ML UDC ORAL LIQUID GT SCH ×2 (09:22→21:36)
[2021-10-05] MEDS: ACETAMINOPHEN 650 MG/20.3 ML UDC GT SCH ×2 (09:22→21:38)
[2021-10-05] MEDS: METOCLOPRAMIDE HCL 10 MG/10 ML UDC GT SCH ×3 (09:22→21:38)
[2021-10-05] MEDS: THEOPHYLLINE ANHYDROUS 80 MG/15 ML UDC GT SCH ×2 (09:23→21:36)
[2021-10-05] MEDS: PEG 400/HYPROMELLOSE/GLYCERIN 15 ML DROPS OP SCH (09:25)
[2021-10-05] MEDS: BALSAM PERU/CASTOR OIL 56.7 GM OINT...G. TP SCH (09:25)
[2021-10-05] MEDS: SIMETHICONE 40 MG/0.6 ML ML GT SCH ×3 (09:26→21:40)
[2021-10-05] MEDS: CHLORHEXIDINE GLUCONATE 15 ML/DOSE, 480 ML MM SCH ×2 (09:28→21:40)
[2021-10-05] MEDS: ENOXAPARIN SODIUM 30 MG/0.3 ML SYRINGE SQ SCH (09:31)
[2021-10-05] MEDS: D5/0.45 NS 1,000 ML IV SCH ×2 (09:34→21:35)
[2021-10-05 12:16] VITALS: BP_SYST 129
--- NOTE | 2021-10-05 13:44 | NUR ---
CM: Per [facility]: unable to accommodate the isolation bed until Thursday. Addendum: 10/05/21 at 1419 by Eduardo Bennett RN Called from [facility]: stated there may be bed for the pt today, he will call back with update.
[2021-10-05 15:29] VITALS: BP_SYST 112
[2021-10-05] MEDS: EPOETIN ALFA-EPBX 4,000 UNITS/ML VIAL SUBCUT SCH (17:26)
--- NOTE | 2021-10-05 19:02 | NUR ---
PT HAD EPISODES OF LOW TV ON THE MONITOR (APPEARS TO BE POSITIONAL) . PT CHANGED TURNED AND REPOSITIONED. WOUND CARE DONE. NO UNTOWARD INCIDENT. WILL ENDORSE TO NIGHT NURSE.
[2021-10-05 19:30] VITALS: BP_SYST 95
[2021-10-05 20:00] VITALS: BP_SYST 95
--- NOTE | 2021-10-05 20:08 | NUR ---
OPENING NOTES: Patient received from AM shift patient patient is non alert unable to communicate needs. Chest rise is even and unlabored on vent/trach. Shifted patient in bed and TV volume alert turns on and off. Will have RT follow up. Patient has normal heart sounds on tele monitoring. Active bowel sounds x4 on auscultation. GT noted on ABD. noted, no tenderness noted. Patient has a sacral wound that is C/D/I. Midline to LISANDRO noted and infusing. Will resume care for continuity of care and monitor throughout the shift.
[2021-10-06] VITALS (9 sets, daily range): BP systolic 83–158
--- NOTE | 2021-10-06 | NUR ---
ROUNDS: Patient is in bed resting no s/s of distress is noted at this time. Chest rise is even and unlabored on vent/trach. Will continue to monitor throughout the shift.
[2021-10-06] MEDS: PIPERACILLIN/TAZO 3.375/DEX-IS 50 ML IV SCH ×4 (02:50→18:53)
[2021-10-06] MEDS: LevALBUTEROL HCL 1.25 MG/0.5 ML *CONC.* VIAL.NEB (XOPENEX CONC.) INH SCH ×4 (04:26→19:48)
[2021-10-06] MEDS: D5/0.45 NS 1,000 ML IV SCH ×2 (06:21→18:54)
[2021-10-06 06:50] LABS: BASOPHILS # (AUTO) 0.1 K/uL (0.0-0.2); BASOPHILS % (AUTO) 1.1 % (0.0-2.0); EOSINOPHILS # (AUTO) 0.6 K/uL (0.0-0.4); HEMATOCRIT 28.3 % (36-54); HEMOGLOBIN 9.4 g/dL (14.0-18.0); LYMPHOCYTES # (AUTO) 1.2 K/uL (1.0-5.5); LYMPHOCYTES % (AUTO) 17.1 % (20.5-51.5); MEAN CORPUSCULAR HEMOGLOBIN 35 pg (27-31); MEAN CORPUSCULAR HGB CONC 33 % (32-36); MEAN CORPUSCULAR VOLUME 105 fL (79.0-98.0); MONOCYTES # (AUTO) 0.6 K/uL (0.0-1.0); MONOCYTES % (AUTO) 8.6 % (1.7-9.3); NEUTROPHILS # (AUTO) 4.5 K/uL (1.8-7.7); NEUTROPHILS % (AUTO) 64.2 % (40.0-70.0); PLATELET COUNT (AUTO) 220 K/uL (130-430); RED BLOOD CELL COUNT(AUTO) 2.69 MIL/uL (4.2-6.2)
--- NOTE | 2021-10-06 07:00 | NUR ---
CLOSING NOTES: Patient is in bed resting no s/s of distress at this time. Chest rise is even and unlabored on RA. Patient is receiving GT feeding with no residual noted at this time and infusing at 55ml/hr. Patient has a LISANDRO Mid-line and is currently infusing D51/2NS running at 100ml/hr, C/D/I, patent with no s/s of infiltration. All current needs have been made and patient is resting comfortably in bed. Will differ further care to AM shift for continuity of care.
[2021-10-06 07:40] LABS: ALBUMIN 2.4 g/dL (3.4-4.8); CREATININE 1.88 mg/dL (0.55-1.30); POTASSIUM 4.1 mmol/L (3.5-5.1); TOTAL BILIRUBIN 0.2 mg/dL (0.0-1.0)
[2021-10-06] MEDS: NEPHROVITE, (FOLIC ACID/VITAMIN B COMP W-C 1 TAB) GT SCH (10:04)
[2021-10-06] MEDS: CALCIUM CARBONATE/VITAMIN D3 1 TAB TABLET GT SCH ×2 (10:04→21:24)
[2021-10-06] MEDS: FAMOTIDINE 20 MG TABLET GT SCH ×2 (10:04→21:24)
[2021-10-06] MEDS: THEOPHYLLINE ANHYDROUS 80 MG/15 ML UDC GT SCH ×2 (10:06→21:23)
[2021-10-06] MEDS: METOCLOPRAMIDE HCL 10 MG/10 ML UDC GT SCH ×3 (10:06→21:24)
[2021-10-06] MEDS: LevETIRAcetam 500 MG/5 ML UDC ORAL LIQUID GT SCH ×2 (10:06→21:23)
[2021-10-06] MEDS: ACETAMINOPHEN 650 MG/20.3 ML UDC GT SCH ×2 (10:06→21:25)
[2021-10-06] MEDS: FERROUS SULFATE 300 MG/5 ML UDC GT SCH (10:07)
[2021-10-06] MEDS: CHLORHEXIDINE GLUCONATE 15 ML/DOSE, 480 ML MM SCH ×2 (10:08→21:00)
[2021-10-06] MEDS: SIMETHICONE 40 MG/0.6 ML ML GT SCH ×3 (10:08→21:23)
[2021-10-06] MEDS: ENOXAPARIN SODIUM 30 MG/0.3 ML SYRINGE SQ SCH (10:10)
[2021-10-06] MEDS: ASCORBIC ACID 500 MG TABLET GT SCH (10:15)
[2021-10-06] MEDS: BALSAM PERU/CASTOR OIL 56.7 GM OINT...G. TP SCH (10:15)
[2021-10-06] MEDS: PEG 400/HYPROMELLOSE/GLYCERIN 15 ML DROPS OP SCH (10:16)
[2021-10-06] MEDS ORDERED: NS 500 ML IV ONE (10:45)
--- NOTE | 2021-10-06 19:24 | NUR ---
Quiet hours noted throughout the shift. No change in condition noted. Pt remains on ventilator. No s/s acute distress noted. Report given to oncoming nurse.
--- NOTE | 2021-10-06 19:52 | NUR ---
RECEIVED PT ON ORDERED VENT SETTINGS: AC12,400,+5 AND 30%. NO S/S OF RD WERE NOTED AND PT IS RESTING COMFORTABLY. VENT ALARMS WERE TURNED DOWN TO VOLUME 1 AT TIME OF ASSESSMENT. ALARMS WERE SUBSEQUENTLY TURNED UP TO VOLUME 5 AND WILL REMAIN THERE THROUGHOUT SHIFT. WILL MONITOR PT THROUGHOUT REMAINDER OF SHIFT.
--- NOTE | 2021-10-06 20:00 | NUR ---
pt.assessed.v/s assessed values wnl.i have attended to the oral/trach care/suction.o2-sat%=98%.picc line,g-tube.ross cath intact. seizure precautions noted.per flacc pain mgx pt.absent facial grimaces/body posturing.pt.assessed cleanliness.pt.repositioned. call light/telephone placed w/in access of the pt.
--- NOTE | 2021-10-06 21:00 | NUR ---
2100p medications administered via g-tube.g-tube feed residuals assessed note 10ml.g-tube flushed w/out resistance. per flacc pain mgx pt.absent facial grimaces/body posturing.call light/telephone w/in access of the pt.
--- NOTE | 2021-10-06 22:00 | NUR ---
pt.assessed.i have attended to the oral/trach care/suction.02-sat%=98%.picc line,g-tube,ross cath intact.per flacc pain mgx pt.absent facial grimaces/body posturing.pt.assessed for cleanliness.pt.repositioned.call light/telephone placed w/in access of the pt.
[2021-10-07] VITALS: BP_SYST 138
--- NOTE | 2021-10-07 | NUR ---
pt.assessed.v/s assessed value wnl.iv fluids infusing.g-tube feed infusing.ross cath intact.i have attended to the oral/trach care/suction.02-sat%=98%.per flacc pain mgx pt.absent facial grimaces/body posturing.pt.assessed for cleanliness.pt. repositioned.call light/telephone placed w/in access of the pt.
[2021-10-07] MEDS: PIPERACILLIN/TAZO 3.375/DEX-IS 50 ML IV SCH ×4 (00:10→23:24)
[2021-10-07] MEDS: LevALBUTEROL HCL 1.25 MG/0.5 ML *CONC.* VIAL.NEB (XOPENEX CONC.) INH SCH ×4 (01:20→19:33)
[2021-10-07] MEDS: D5/0.45 NS 1,000 ML IV SCH ×3 (01:30→21:30)
--- NOTE | 2021-10-07 02:00 | NUR ---
pt.assessed.i have attended to the oral/trach care suction.02-sat%=98%.pt.assessed for cleanliness pt.repositioned. per flacc pain mgx pt.absent facial grimaces/body posturing.call light/telephone placed w/in access of the pt.
--- NOTE | 2021-10-07 04:00 | NUR ---
pt.assessed.i have attended to the oral/trach care/suction.02-sat%=98%.i have attended to the wound care/dsg changes. g-tube,picc line dsg changed.per flacc pain mgx pt.absent facial grimaces/body PoSTURING.PT.ASSessed FOr cleanliness.pt. cleaned/repositioned.CAll lIGHT/TELEpHone PlaCEd W/IN ACCESS OF THe PT.
--- NOTE | 2021-10-07 06:00 | NUR ---
pt.assessed.i have attended to the oral/trach care/suction.02-sat%=98%.call light/telephone placed w/in access of the pt.
[2021-10-07 08:20] VITALS: BP_SYST 127
--- NOTE | 2021-10-07 08:20 | NUR ---
Opening Notes Patient is laying in bed with eyes open. A/O x0. No apparent distress noted. Vitals as charted. Call light within reach. Safety and fall precautions in place. All needs met.
[2021-10-07 09:30] LABS: CALCIUM 8.8 mg/dL (8.4-11.0); CREATININE 1.83 mg/dL (0.55-1.30); POTASSIUM 3.8 mmol/L (3.5-5.1)
[2021-10-07 09:34] LABS: ALBUMIN 2.4 g/dL (3.4-4.8); TOTAL BILIRUBIN 0.2 mg/dL (0.0-1.0)
[2021-10-07] MEDS: THEOPHYLLINE ANHYDROUS 80 MG/15 ML UDC GT SCH ×2 (09:49→23:29)
[2021-10-07] MEDS: LevETIRAcetam 500 MG/5 ML UDC ORAL LIQUID GT SCH ×2 (09:50→23:28)
[2021-10-07] MEDS: FERROUS SULFATE 300 MG/5 ML UDC GT SCH (09:50)
[2021-10-07] MEDS: SIMETHICONE 40 MG/0.6 ML ML GT SCH ×3 (09:53→21:00)
[2021-10-07] MEDS: CALCIUM CARBONATE/VITAMIN D3 1 TAB TABLET GT SCH ×2 (09:53→21:00)
[2021-10-07] MEDS: NEPHROVITE, (FOLIC ACID/VITAMIN B COMP W-C 1 TAB) GT SCH (09:53)
[2021-10-07] MEDS: METOCLOPRAMIDE HCL 10 MG/10 ML UDC GT SCH ×3 (09:54→23:26)
[2021-10-07] MEDS: ACETAMINOPHEN 650 MG/20.3 ML UDC GT SCH ×2 (09:54→23:25)
[2021-10-07] MEDS: ASCORBIC ACID 500 MG TABLET GT SCH (09:54)
[2021-10-07] MEDS: FAMOTIDINE 20 MG TABLET GT SCH ×2 (09:54→23:26)
[2021-10-07] MEDS: BALSAM PERU/CASTOR OIL 56.7 GM OINT...G. TP SCH (09:56)
[2021-10-07] MEDS: CHLORHEXIDINE GLUCONATE 15 ML/DOSE, 480 ML MM SCH ×2 (09:57→21:00)
[2021-10-07] MEDS: ENOXAPARIN SODIUM 30 MG/0.3 ML SYRINGE SQ SCH (09:59)
[2021-10-07] MEDS: PEG 400/HYPROMELLOSE/GLYCERIN 15 ML DROPS OP SCH (10:04)
--- NOTE | 2021-10-07 11:16 | NUR ---
Carrie Meng: Called Dr. Madrigal exchange and spoke with Anitha.
[2021-10-07 11:25] VITALS: BP_SYST 131
--- NOTE | 2021-10-07 14:06 | NUR ---
Nutrition F/U Admitting Diagnosis Acute renal failure Medical History Comment: Per EMR review, PMH includes chronic respiratory failure vent dependent, CKD, GERD, hemorrhage, renal failure and TBI. Pt also found w/ UTI and sepsis. SARS-CoV-2 Ag (Rapid) Negative 09/30. Subjective Information Nutrition Consult received 10/03/21 6144 d/t wounds RD bedside visit deferred d/t high workload. Pt is a spastic quadriplegic and has a stage IV sacral PI per physician notes. Per EMR review, Lexx score 9 stage I wound to L. buttocks, ecchymosis L. knee, wound to R. buttock and R. sacrum; B. feet 1+ pitting edema; abd. is firm and distended w/ hypoactive bowel sounds; TF formula Jevity 1.2 at 55 ml/hr 10/06; Last BM x1 10/07. BUN and Cr levels improving. Current Diet Order/Nutrition Support Jevity 1.2 @55 mL/hr, free water flush 200 mL x7 days Patient/Significant Other Unable To Verbalize Education Provided Not Indicated Pertinent Medications Zinc sulfate, VitB/VitC/Folic acid, FeSO4, pepcid, Vit C, Ca/VitD, D5 1/2NS @100 mL/hr x 10 hrs (yields 170 kcals), Reglan Pertinent Labs Na 135 L, BUN 38 H, Cr 1.83 H, BG 212 H, Alb 2.4 L Height (Feet) 5 feet Height (Inches) 4.00 inches Weight (Pounds) 114 pounds Weight (Calculated Kilograms) 51.150015 kilograms Patient Weight 51.71 kg Body Mass Index 19.57 kg/m2 %IBW 87 Ace/Adjusted Body Weight 130#/59.1 kg Recent Weight Change unable to verify Weight Status Appropriate Food Allergies unable to verify Usual Diet At Home Jevity 1.2 @55 mL/hr per nursing assessment Skin Integrity Comment: Lexx score 12, L knee abrasion, erythema on bilateral buttocks. Estimated Energy Expenditure (kcals/day) 2683-2973 kcals/day (30-35 kcals/kg IBW d/t wt gain, sepsis, wounds) Estimated Protein Required (g/day) 59-71 g/day (1-1.2 g/kg IBW d/t wt gain, sepsis, wounds and renal failure) Estimated Fluid Required (l/day) Per MD d/t renal failure Problem/Etiology/Signs/Symptoms Increased nutritional needs R/T physiological demands AEB estimated nutritional requirements for sepsis. (*ongoing) Altered nutrition-related lab values R/T endocrine dysfunction AEB BG 244 H. (*ongoing) Altered nutrition-related lab values R/T renal dysfunction AEB abnormal BUN and Cr. (*NEW) Expected Outcomes/Goals Monitor EN tolerance and intakes w/ goal of pt meeting more than 80% of estimated nutritional needs, labs trending WNL, normal GI function, skin integrity/wt maintenance. Dietitian Recommendations * Jevity 1.2 @55 mL/hr, Davin BID Provides 1764 kcals/day, 78 g protein/day and 1265 mL free water/day. Meets: 99% of lower kcal needs and 110% of upper protein needs. * Consider D/C D5% d/t elevated BG Follow Up High Risk: F/U in 2-3days
--- NOTE | 2021-10-07 14:07 | NUR ---
Dietitian Recommendations: * Jevity 1.2 @55 mL/hr, Davin BID Provides 1764 kcals/day, 78 g protein/day and 1265 mL free water/day. Meets: 99% of lower kcal needs and 110% of upper protein needs. * Consider D/C D5% d/t elevated BG Please refer to Nutrition F/U for details.
--- NOTE | 2021-10-07 14:40 | NUR ---
Note Suctioned patient. Provided oral and skin care. Call light within reach. Safety and fall precautions in place. All needs met.
[2021-10-07 15:41] VITALS: BP_SYST 122
--- NOTE | 2021-10-07 18:31 | NUR ---
Closing Note Patient is laying in bed with eyes closed. Patient appears calm and resting, no apparent distress noted. Call light within reach. Safety and fall precautions in place. All needs met. Will endorse care to caustic cresylate shift superintendent RN.
[2021-10-07 19:00] VITALS: BP_SYST 119
[2021-10-08 00:10] VITALS: BP_SYST 105
[2021-10-08] MEDS: LevALBUTEROL HCL 1.25 MG/0.5 ML *CONC.* VIAL.NEB (XOPENEX CONC.) INH SCH ×3 (00:41→12:46)
[2021-10-08 05:57] LABS: BASOPHILS # (AUTO) 0.1 K/uL (0.0-0.2); BASOPHILS % (AUTO) 0.7 % (0.0-2.0); EOSINOPHILS # (AUTO) 0.8 K/uL (0.0-0.4); HEMATOCRIT 30.4 % (36-54); HEMOGLOBIN 10.3 g/dL (14.0-18.0); LYMPHOCYTES # (AUTO) 1.3 K/uL (1.0-5.5); LYMPHOCYTES % (AUTO) 13.4 % (20.5-51.5); MEAN CORPUSCULAR HEMOGLOBIN 35 pg (27-31); MEAN CORPUSCULAR HGB CONC 34 % (32-36); MEAN CORPUSCULAR VOLUME 103 fL (79.0-98.0); MONOCYTES # (AUTO) 0.9 K/uL (0.0-1.0); NEUTROPHILS # (AUTO) 6.8 K/uL (1.8-7.7); NEUTROPHILS % (AUTO) 68.9 % (40.0-70.0); PLATELET COUNT (AUTO) 287 K/uL (130-430); RED BLOOD CELL COUNT(AUTO) 2.96 MIL/uL (4.2-6.2); RED CELL DISTRIBUTION WIDTH 14.7 % (9.0-15.0); WHITE BLOOD COUNT (AUTO) 9.9 K/uL (4.8-10.8)
[2021-10-08] MEDS: PIPERACILLIN/TAZO 3.375/DEX-IS 50 ML IV SCH ×2 (06:10→12:06)
[2021-10-08 06:22] LABS: ALBUMIN 2.6 g/dL (3.4-4.8); CALCIUM 8.6 mg/dL (8.4-11.0); CREATININE 1.68 mg/dL (0.55-1.30); POTASSIUM 3.7 mmol/L (3.5-5.1); TOTAL BILIRUBIN 0.2 mg/dL (0.0-1.0)
[2021-10-08 08:01] VITALS: BP_SYST 136
[2021-10-08] MEDS: ENOXAPARIN SODIUM 30 MG/0.3 ML SYRINGE SQ SCH (09:29)
[2021-10-08] MEDS: LevETIRAcetam 500 MG/5 ML UDC ORAL LIQUID GT SCH (09:29)
[2021-10-08] MEDS ORDERED: D5NS 1,000 ML IV SCH (09:30)
[2021-10-08] MEDS: FAMOTIDINE 20 MG TABLET GT SCH (09:30)
[2021-10-08] MEDS: NEPHROVITE, (FOLIC ACID/VITAMIN B COMP W-C 1 TAB) GT SCH (09:30)
[2021-10-08] MEDS: CALCIUM CARBONATE/VITAMIN D3 1 TAB TABLET GT SCH (09:31)
[2021-10-08] MEDS: FERROUS SULFATE 300 MG/5 ML UDC GT SCH (09:32)
[2021-10-08] MEDS: ASCORBIC ACID 500 MG TABLET GT SCH (09:32)
[2021-10-08] MEDS: THEOPHYLLINE ANHYDROUS 80 MG/15 ML UDC GT SCH (09:32)
[2021-10-08] MEDS: CHLORHEXIDINE GLUCONATE 15 ML/DOSE, 480 ML MM SCH (09:33)
[2021-10-08] MEDS: ACETAMINOPHEN 650 MG/20.3 ML UDC GT SCH (09:33)
[2021-10-08] MEDS: METOCLOPRAMIDE HCL 10 MG/10 ML UDC GT SCH (09:33)
[2021-10-08] MEDS: BALSAM PERU/CASTOR OIL 56.7 GM OINT...G. TP SCH (09:34)
[2021-10-08] MEDS: PEG 400/HYPROMELLOSE/GLYCERIN 15 ML DROPS OP SCH (09:34)
[2021-10-08] MEDS: SIMETHICONE 40 MG/0.6 ML ML GT SCH (09:37)
[2021-10-08 11:26] VITALS: BP_SYST 137
--- NOTE | 2021-10-08 11:59 | NUR ---
Discharge Planning: DCP arranged for transport with [facility] [employer] [phone] requested specialty transport with RT trip#[phone] will call with transport company name to [facility] [phone] to Rm [id number]. Patient packet taken to nurse station. Nurse made aware.
[2021-10-08 15:29] VITALS: BP_SYST 121
--- NOTE | 2021-10-08 15:29 | NUR ---
REPORT: REPORT GIVEN TO FLIP Victoria RN FROM [facility].
--- NOTE | 2021-10-08 16:40 | NUR ---
PT TRANSFERRED Sylvia RN provided report to RN at [facility]. Transfer packet with Transfer Orders and Medication Reconciliation form given to EMT with report. Exitcare provided. [facility] ID band removed, replaced with ID band with pt's name and . All belongings sent with patient. Patient left floor via gurney escorted by EMT in no distress.
== END 2021-10-08 16:40 | DRG 720 ==
LOC: SED 10:00 → STU 13:01
PROVIDERS: ADMIT Family Medicine; ATTEND Family Medicine
PROC: 5A1955Z Respiratory Ventilation, Greater than 96 Consecutive Hours (ICD-10-PCS; principal; 2021-09-30)
DX: A41.89 Other specified sepsis (principal); G93.40 Encephalopathy, unspecified; G82.50 Quadriplegia, unspecified; J96.10 Chronic respiratory failure, unspecified whether with hypoxia or hypercapnia; Z66 Do not resuscitate; N17.9 Acute kidney failure, unspecified; N39.0 Urinary tract infection, site not specified; E86.0 Dehydration; G40.909 Epilepsy, unspecified, not intractable, without status epilepticus; K21.9 Gastro-esophageal reflux disease without esophagitis; M24.50 Contracture, unspecified joint; M86.60 Other chronic osteomyelitis, unspecified site; Z20.822 Contact with and (suspected) exposure to COVID-19; E87.0 Hyperosmolality and hypernatremia; R74.01 Elevation of levels of liver transaminase levels; D53.9 Nutritional anemia, unspecified; R65.20 Severe sepsis without septic shock; N18.9 Chronic kidney disease, unspecified; B96.89 Other specified bacterial agents as the cause of diseases classified elsewhere; L89.899 Pressure ulcer of other site, unspecified stage; N20.0 Calculus of kidney; Z74.01 Bed confinement status; Z86.73 Personal history of transient ischemic attack (TIA), and cerebral infarction without residual deficits; Z93.1 Gastrostomy status; Z99.11 Dependence on respirator [ventilator] status; Z79.2 Long term (current) use of antibiotics; Z79.899 Other long term (current) drug therapy; Z93.0 Tracheostomy status
CPT/HCPCS: 36415; 36600; 71045; 76376; 76700-TC; 76770; 80053; 80061; 81000; 82803-TC; 83605; 83690; 83735; 83880; 84443; 84484; 85025; 85610-TC; 87040; 87070-TC; 87081; 87086; 87205-TC; 93005; 93306; 94002; 94003; 94640; 94760; 96361; 96365; 96375; 99291; G0378; J0696; J1650; J2543; J3490; J7060; J7612; J8597; Q5106

== ENCOUNTER 2021-11-08 14:58 | Inpatient (IN) | payer OTHER, MEDICAID ==
[~2021-11-08] VITALS: Ht 162.6 cm; Wt 54.4 kg
[~2021-11-08 14:58] MED LIST changes: +BISA10SU61 RC; -LEVO500T90 GT; +LOVI30 SQ; -VANCOMYCIN
[2021-11-08 15:05] VITALS: BP_SYST 114
[2021-11-08] MEDS ORDERED: ONDANSETRON 4 MG ODT TAB PO ONE (15:45)
--- NOTE | 2021-11-08 16:23 | NUR ---
Pt arrived to ED via [facility] transport from SNF for reports of N/V. Pt hx of TBI baseline mentation GCS 3. Pt presents with picc line to RUE. Pt chronic ventilated 40% FIO2. ED MD at bedside. RT at bedside. Possible stage II presurre ulcer noted to pt's sacrum and left leg; multiple pressure ulcers noted to pt's buttock. Will continue to monitor.
[2021-11-08 16:56] LABS: BASOPHILS # (AUTO) 0.1 K/uL (0.0-0.2); BASOPHILS % (AUTO) 0.8 % (0.0-2.0); EOSINOPHILS # (AUTO) 1.1 K/uL (0.0-0.4); EOSINOPHILS % (AUTO) 7.1 % (0.0-4.0); HEMATOCRIT 31.2 % (36-54); HEMOGLOBIN 10.4 g/dL (14.0-18.0); LYMPHOCYTES # (AUTO) 1.3 K/uL (1.0-5.5); LYMPHOCYTES % (AUTO) 8.6 % (20.5-51.5); MEAN CORPUSCULAR HEMOGLOBIN 35 pg (27-31); MEAN CORPUSCULAR HGB CONC 33 % (32-36); MEAN CORPUSCULAR VOLUME 105 fL (79.0-98.0); MONOCYTES % (AUTO) 6.5 % (1.7-9.3); RED BLOOD CELL COUNT(AUTO) 2.97 MIL/uL (4.2-6.2); RED CELL DISTRIBUTION WIDTH 13.5 % (9.0-15.0); WHITE BLOOD COUNT (AUTO) 15.7 K/uL (4.8-10.8)
[2021-11-08 16:59] LABS: CALCIUM 9.5 mg/dL (8.4-11.0); CREATININE 2.68 mg/dL (0.55-1.30); POTASSIUM 4.4 mmol/L (3.5-5.1)
[2021-11-08 17:10] LABS: PLATELET COUNT (AUTO) 393 K/uL (130-430)
[2021-11-08 17:12] LABS: ALBUMIN 2.9 g/dL (3.4-4.8); TOTAL BILIRUBIN 0.1 mg/dL (0.0-1.0)
[2021-11-08] MEDS ORDERED: NACL 0.9% 2,000 ML IV ONE (18:30)
--- NOTE | 2021-11-08 19:05 | NUR ---
Report rec from Patricio BEY.
[2021-11-08] MEDS ORDERED: VANCOMYCIN HCL 1,000 MG in NS 250 ML IV ONE (19:15)
[2021-11-08] MEDS ORDERED: PIPERACILLIN/TAZO 3.375 GM in NS 50 ML IV ONE (19:15)
--- NOTE | 2021-11-08 19:15 | NUR ---
Pt restin in bed with eyes open. FiO2 AT 40% AND O2 sat at 100%. Pt is tachycardic in the 120s Dr. Aldana made aware. Lab at bedside for draw.
[2021-11-08] MEDS ORDERED: PIPERACILLIN/TAZOBACTAM 3.375 GM/VIAL (ZOSYN) IV ONE (19:49)
[2021-11-08 20:19] VITALS: BP_SYST 112
[2021-11-08] MEDS ORDERED: NACL 0.9% 1,000 ML IV ONE (20:30)
[2021-11-08] MEDS ORDERED: APIX2.5T PO (20:35)
--- NOTE | 2021-11-08 20:35 | NUR ---
Medication reconciliation completed with information provided by vincent adams. Any prior medication reconciliation on file was reviewed and corrected.
[2021-11-08] MEDS ORDERED: VANCOMYCIN HCL 1000 MG/VIAL IV ONE (21:03)
--- NOTE | 2021-11-08 21:15 | NUR ---
Admit bed requested Patient will be admitted to care of . Admitted to TELEMETRY unit. Diagnosis SEPSIS Inpatient (Yes or No) YES Observation (Yes or No) Orientation concerns or request close to nursing station (Yes or No) NO Covid Status NEG On vent or bipap ON VENT Isolation requirements NO Needs a sitter From Home (Yes or if No enter name of facility) YES, [facility] Requires Dialysis (Yes or No) NO Med Rec Completed (Yes of No) YES
--- NOTE | 2021-11-08 23:50 | NUR ---
Pt resting in bed with eyes open. O2 SAT AT 99% on FiO2 at 40%. Safety precautions in place and connected to the monitor.
--- NOTE | 2021-11-09 00:30 | NUR ---
ADMISSION NOTE Received patient from ER via tesfaye, received report from SOTERO Clarke. Patient admitted with diagnosis of SEPSIS. Patient oriented to hospital routine, call light, toileting and safety-patient.
--- NOTE | 2021-11-09 00:40 | NUR ---
Patient will be admitted to care of Dr. Mclaughlin. Admitted to telemetry unit. Will go to room 109A. Belongings list completed. Complete and up to date summary report printed. SBAR report given to Marce BEY at bedside with opportunity for questions.
[2021-11-09 01:40] VITALS: BP_SYST 110
--- NOTE | 2021-11-09 01:40 | NUR ---
Initial RN notes Received pt from ED. Pt eyes open, non-verbal. Mechanical-vent dependent. AC 12, FIO2 40%, Peep 5 TV 400, O2 sat 99-100%. 2nd bag NS bolus running at this time R. UA midline, flushes well with NS, no blood return noted. GT clamped, 5cc brown residual noted. HOB maintained elevated. Wound photos taken. Peter heels floated with pillow support. Bed low, locked, siderails up x4, alarm on. To monitor.
[2021-11-09] MEDS: D5/0.45 NS 1,000 ML IV SCH ×4 (03:43→20:47)
[2021-11-09 03:56] VITALS: BP_SYST 115
--- NOTE | 2021-11-09 04:50 | NUR ---
Oral care Pt eyes open, no s/s distress noted. Oral care/suction noted large thick beige secretions. Pt tolerated well. HOB maintained elevated. To monitor.
--- NOTE | 2021-11-09 05:22 | NUR ---
CONSULTATION PAGED/CALLED Reason for Consultation: SEPSIS Person Who was Notified: BRADLEY Consulting Physician: Charity GARCIA Risk Management Manager Specialty: Ordering Physician: MADI
--- NOTE | 2021-11-09 05:53 | NUR ---
CONSULTATION PAGED/CALLED Reason for Consultation: VENT Person Who was Notified: BRADLEY Consulting Physician: SILVANA It Teacher Specialty: Ordering Physician: MADI
--- NOTE | 2021-11-09 06:05 | NUR ---
Closing notes Pt eyes open, non-verbal. VSS. No distress noted. No change in mechanical-vent settings. R. UA midline, flushes well with NS, no blood return noted. GT clamped, 5cc brown residual noted. HOB maintained elevated. Peter heels floated with pillow support. Bed low, locked, siderails up x4, alarm on. Pt receives Jevity 1.2 @ 55cc at [facility]. To endorse to AM nurse. Addendum: 11/09/21 at 0612 by Marce Yen RN Willis catheter draining to gravity with good amount of yellow, cloudy urine.
[2021-11-09] MEDS: ALBUTEROL SULFATE 0.083% 2.5 MG/3 ML VIAL.NEB INH SCH ×4 (06:18→20:09)
[2021-11-09] MEDS: LANSOPRAZOLE 30 MG CAPSULE.DR GT SCH (06:45)
--- NOTE | 2021-11-09 07:07 | NUR ---
CONSULT NEPHROLOGY SEPSIS DR EDGAR RACHEL ON [phone] S/W JAIRO EXCHANGE
[2021-11-09 08:23] LABS: BASOPHILS # (AUTO) 0.1 K/uL (0.0-0.2); BASOPHILS % (AUTO) 0.4 % (0.0-2.0); EOSINOPHILS # (AUTO) 0.6 K/uL (0.0-0.4); EOSINOPHILS % (AUTO) 4.7 % (0.0-4.0); HEMATOCRIT 28.1 % (36-54); HEMOGLOBIN 9.5 g/dL (14.0-18.0); LYMPHOCYTES # (AUTO) 0.7 K/uL (1.0-5.5); LYMPHOCYTES % (AUTO) 5.1 % (20.5-51.5); MEAN CORPUSCULAR HEMOGLOBIN 36 pg (27-31); MEAN CORPUSCULAR HGB CONC 34 % (32-36); MEAN CORPUSCULAR VOLUME 106 fL (79.0-98.0); MONOCYTES # (AUTO) 0.6 K/uL (0.0-1.0); MONOCYTES % (AUTO) 4.5 % (1.7-9.3); NEUTROPHILS # (AUTO) 11.5 K/uL (1.8-7.7); NEUTROPHILS % (AUTO) 85.3 % (40.0-70.0); PLATELET COUNT (AUTO) 379 K/uL (130-430); RED BLOOD CELL COUNT(AUTO) 2.66 MIL/uL (4.2-6.2); RED CELL DISTRIBUTION WIDTH 13.6 % (9.0-15.0); WHITE BLOOD COUNT (AUTO) 13.5 K/uL (4.8-10.8)
[2021-11-09 08:46] LABS: ALBUMIN 2.5 g/dL (3.4-4.8); CALCIUM 8.1 mg/dL (8.4-11.0); CREATININE 2.62 mg/dL (0.55-1.30); POTASSIUM 3.9 mmol/L (3.5-5.1); TOTAL BILIRUBIN 0.3 mg/dL (0.0-1.0)
[2021-11-09] MEDS ORDERED: MEROPENEM 1 GM IVPB PREMIX 50 ML IV SCH (09:00)
[2021-11-09] MEDS ORDERED: PANTOPRAZOLE SODIUM 40 MG TAB GT SCH (09:00)
[2021-11-09] MEDS: MEROPENEM 1 GM in NS 100 ML IV SCH ×2 (09:26→20:45)
--- NOTE | 2021-11-09 11:42 | NUR ---
* When appropriate, start G-tube feeding of Jevity 1.2 @ 55 ml/h -->TF + current IV fluid provides up to 2094 kcals/d, 73 gm protein to meet 110% of max kcal need and 100% protein need * If no IV fluid suggest FWF of 150 ml q4h (total volume 900 ml) -->TF + FWF would provide 1.9 L of free water to meet 100% of basic hydration need * When TF is started, suggest to DC dextrose in IV fluid as able to promote euglycemia * Suggest multivitamin w/ minerals and vitamin C Please see nutrition assessment for details. PS, RD
[2021-11-09 12:56] VITALS: BP_SYST 101
[2021-11-09 16:55] VITALS: BP_SYST 103
--- NOTE | 2021-11-09 18:30 | NUR ---
Patient remains on ventilator support to trach. HOB elevated semifowler's position. Pt is nonverbal and does not communicate. Respirations even et unlabored. No s/s acute distress noted. Pt requires total care. Turned q 2hours and repositioned for comfort. Continues on IV antibiotics as per ordered..
[2021-11-09 20:00] VITALS: BP_SYST 105
[2021-11-10 00:12] VITALS: BP_SYST 97
[2021-11-10] MEDS: LANSOPRAZOLE 30 MG CAPSULE.DR GT SCH (06:17)
[2021-11-10] MEDS: D5/0.45 NS 1,000 ML IV SCH ×2 (06:46→13:15)
[2021-11-10] MEDS: ALBUTEROL SULFATE 0.083% 2.5 MG/3 ML VIAL.NEB INH SCH ×3 (07:30→20:21)
[2021-11-10 07:35] VITALS: BP_SYST 131
[2021-11-10 07:57] LABS: BASOPHILS # (AUTO) 0.1 K/uL (0.0-0.2); BASOPHILS % (AUTO) 0.7 % (0.0-2.0); EOSINOPHILS # (AUTO) 0.7 K/uL (0.0-0.4); EOSINOPHILS % (AUTO) 9.5 % (0.0-4.0); HEMOGLOBIN 8.2 g/dL (14.0-18.0); LYMPHOCYTES # (AUTO) 0.7 K/uL (1.0-5.5); LYMPHOCYTES % (AUTO) 10.3 % (20.5-51.5); MEAN CORPUSCULAR HEMOGLOBIN 36 pg (27-31); MEAN CORPUSCULAR HGB CONC 34 % (32-36); MEAN CORPUSCULAR VOLUME 106 fL (79.0-98.0); MONOCYTES # (AUTO) 0.5 K/uL (0.0-1.0); MONOCYTES % (AUTO) 7.1 % (1.7-9.3); NEUTROPHILS # (AUTO) 5.1 K/uL (1.8-7.7); NEUTROPHILS % (AUTO) 72.4 % (40.0-70.0); PLATELET COUNT (AUTO) 305 K/uL (130-430); RED BLOOD CELL COUNT(AUTO) 2.26 MIL/uL (4.2-6.2); RED CELL DISTRIBUTION WIDTH 13.7 % (9.0-15.0)
[2021-11-10 08:00] VITALS: BP_SYST 106; BP_SYST 138
[2021-11-10 08:25] LABS: ALBUMIN 2.4 g/dL (3.4-4.8); CREATININE 2.17 mg/dL (0.55-1.30); POTASSIUM 3.7 mmol/L (3.5-5.1); TOTAL BILIRUBIN 0.2 mg/dL (0.0-1.0)
[2021-11-10] MEDS: MEROPENEM 1 GM in NS 100 ML IV SCH ×2 (09:24→20:44)
[2021-11-10 09:34] VITALS: BP_SYST 116
[2021-11-10 10:48] LABS: WHITE BLOOD COUNT (AUTO) 7.1 K/uL (4.8-10.8)
[2021-11-10 12:42] VITALS: BP_SYST 102
[2021-11-10 16:59] VITALS: BP_SYST 110
--- NOTE | 2021-11-10 19:52 | NUR ---
Patient remains on ventilator support to trach. HOB elevated semifowler's position. Pt is nonverbal and does not communicate. Respirations even et unlabored. No s/s acute distress noted. Pt requires total care. Turned q 2hours and repositioned for comfort. Continues on IV antibiotics as per ordered. No change in condition noted.
[2021-11-11 00:32] VITALS: BP_SYST 110
[2021-11-11] MEDS: ALBUTEROL SULFATE 0.083% 2.5 MG/3 ML VIAL.NEB INH SCH ×4 (01:44→20:48)
[2021-11-11] MEDS: D5/0.45 NS 1,000 ML IV SCH ×3 (02:04→12:25)
[2021-11-11] MEDS: LANSOPRAZOLE 30 MG CAPSULE.DR GT SCH (06:03)
[2021-11-11 07:24] LABS: BASOPHILS % (AUTO) 0.8 % (0.0-2.0); EOSINOPHILS # (AUTO) 0.6 K/uL (0.0-0.4); EOSINOPHILS % (AUTO) 10.4 % (0.0-4.0); HEMATOCRIT 25.4 % (36-54); HEMOGLOBIN 8.7 g/dL (14.0-18.0); LYMPHOCYTES # (AUTO) 0.7 K/uL (1.0-5.5); LYMPHOCYTES % (AUTO) 10.5 % (20.5-51.5); MEAN CORPUSCULAR HEMOGLOBIN 36 pg (27-31); MEAN CORPUSCULAR HGB CONC 34 % (32-36); MEAN CORPUSCULAR VOLUME 105 fL (79.0-98.0); MONOCYTES # (AUTO) 0.5 K/uL (0.0-1.0); MONOCYTES % (AUTO) 8.3 % (1.7-9.3); NEUTROPHILS # (AUTO) 4.4 K/uL (1.8-7.7); PLATELET COUNT (AUTO) 292 K/uL (130-430); RED BLOOD CELL COUNT(AUTO) 2.43 MIL/uL (4.2-6.2); RED CELL DISTRIBUTION WIDTH 13.5 % (9.0-15.0); WHITE BLOOD COUNT (AUTO) 6.2 K/uL (4.8-10.8)
[2021-11-11 07:52] VITALS: BP_SYST 133
[2021-11-11 08:00] LABS: CALCIUM 8.4 mg/dL (8.4-11.0); CREATININE 1.71 mg/dL (0.55-1.30); POTASSIUM 3.6 mmol/L (3.5-5.1)
--- NOTE | 2021-11-11 08:10 | NUR ---
OPENING NOTES: Received patient in bed, non-verbal and does not communicate, unable to make his needs known. Patient remains on ventilator to trache support, IV patent and infusing well, HOB elevated on semi-ornelas position, G-Tube intact and FC flowing by gravity. Safety precaution observed, bed alarm on, side rails up for support, call light within reach. Will continue to monitor.
[2021-11-11] MEDS: MEROPENEM 1 GM in NS 100 ML IV SCH ×2 (08:26→20:46)
--- NOTE | 2021-11-11 10:30 | NUR ---
RN NOTES/ WC DONE AND WOUND EVALUATION DONE: WOUND CARE AND WOUND EVALUATION DONE BY WOUND CARE NURSE. VENT TO TRACH IN PLACED WITH SAME SETTINGS. REPOSITIONED. INCONTINENT CARE DONE. NO S/S OF ACUTE DISTRESS NOTED. FALL AND SAFETY MEASURES REINFORCED. BED LOCKED, ALARM ON AND IN LOWEST POSITION. PADDED SIDE RAILS FOR SEIZURE PRECAUTION IN PLACED.
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
[2021-11-11 12:30] VITALS: BP_SYST 113
--- NOTE | 2021-11-11 15:16 | NUR ---
SPOKE TO DR. BARRAZA ( RE: G TUBE FEEDING): SPOKE TO DR. BARRAZA REGARDING THE G TUBE FEEDING AND CHANGED OF SENIOR IT ENGINEER. PER DR. BARRAZA, HE IS COMING AND WILL ASSESS THE PATIENT FIRST.
--- NOTE | 2021-11-11 16:09 | NUR ---
DISCHARGE PLANNING Called & spoke with Dr Mclaughlin, telephone order for dc planning for subacute. Pt from [facility] faxed pt info to [facility].
[2021-11-11 16:17] VITALS: BP_SYST 120
--- NOTE | 2021-11-11 18:42 | NUR ---
CLOSING NOTES: Patient awake, unable to verbalize needs, unable to follow instructions. Patient on bedrest, turned and repositioned q 2hrs for comfort, and kept clean and dry, all needs met through out shift. LISANDRO midline patent and infusing well. Patient on ventilator to trach support. HOB elevated semi-ornelas's position at all times, respiration even and unlabored. No s/s of scute distress noted. Patient totally dependent with care. Willis cath patent and draining by gravity. Treatment to wounds on sacral area, left buttocks and left knee performed, patient tolerated treatment well. Will continue to monitor until glass handler RN Addendum: 11/11/21 at 1850 by Chantell Jay LVN Safety precaution and seizure precautions observed, bed alarm on, side rails up for safety, bed height lowered, call light within reach.
[2021-11-11 19:40] VITALS: BP_SYST 127
--- NOTE | 2021-11-11 19:40 | NUR ---
PM ASSESSMENT; -Pt is awake,nonresponsive, resting in bed comfortably. No s/s any sob,pain,any acute distress noted. LISANDRO Midline patent,no s/s any infiltration drsg cdi noted. D51/2NS @125ml/hr. Willis cath w/ gravity drains yellow urine output. G-tube w/ Jevity 1.2 @ 55ml/hr, checked residual 60ml upon aspiration, continous feeding. Keep HOB > 30 degree entire time. All side rails padded. No seizure activity noted. Seizure precaution in place. VSS. Pt has thick clear secretion, suctioned and prn. Pt is on mechan vent via trachea with CP=165, FIo2=40%, PEEP=5, and AC=12, e4xvf=773%. Turned & repositioned and q 2hrs prn. Cont to monitor pt.
--- NOTE | 2021-11-11 22:00 | NUR ---
ROUNDS; -Pt is resting in bed comfortably. No s/s any sob or any acute distress noted. Willis cath w/ gravity drains well adequate urine output. Suctioned pt thick white mucus noted and suction prn. Turned & repositioned and q 2hrs prn. HOB> 30 degree entire time. Seizure precaution in place. cont to monitor pt.
[2021-11-12] VITALS (7 sets, daily range): BP systolic 112–152
--- NOTE | 2021-11-12 | NUR ---
ROUNDS; -Pt is resting in bed comfortably. No s/s any sob or any acute distress noted. Willis cath w/ gravity drains well adequate urine output. Turned & repositioned and q 2hrs prn. HOB> 30 degree entire time. Seizure precaution in place. cont to monitor pt.
--- NOTE | 2021-11-12 02:14 | NUR ---
ROUNDS; -Pt is resting in bed comfortably. No s/s any sob or any acute distress noted. Checked residual was 160ml of G-tube, stopped G-tube for an hour per md, and will check residual again. Willis cath w/ gravity drains well adequate urine output. Turned & repositioned and q 2hrs prn. HOB> 30 degree entire time. Suctioned thick white mucus and prn. Seizure precaution in place. cont to monitor pt.
--- NOTE | 2021-11-12 03:14 | NUR ---
NOTES; CHECKED RESIDUAL OF G-TUBE; 30ML RESIDUAL UPON ASPIRATION NOTED -Pt is resting in bed comfortably. No s/s any sob or any acute distress noted. Checked residual was 30ml of G-tube noted. Starting Jevity 1.2 @55ml/hr. Willis cath w/ gravity drains well adequate urine output. Turned & repositioned and q 2hrs prn. HOB> 30 degree entire time. Suctioned thick white mucus and prn. No seizure activity noted. Seizure precaution in place. cont to monitor pt. Addendum: 11/12/21 at 0503 by Dewar product inspection supervisor LATE ENTRY-ADDITIONAL LATE-FLUSHED W/ FREE WATER 200ML.
[2021-11-12] MEDS: ALBUTEROL SULFATE 0.083% 2.5 MG/3 ML VIAL.NEB INH SCH ×3 (03:27→13:47)
[2021-11-12] MEDS: D5/0.45 NS 1,000 ML IV SCH ×3 (04:30→14:06)
--- NOTE | 2021-11-12 04:59 | NUR ---
ROUNDS; -Pt is resting in bed comfortably. No s/s any sob or any acute distress noted. Checked G-tube feeding, residual less than 30ml, continously G-tube feeding @ 55ml/hr. Willis cath w/ gravity drains well adequate urine output. Changed drsg of sacral area, scant pinkish oozing noted, cleanse w/ NS, applied Hydrogel and Optiform applied. Turned & repositioned and q 2hrs prn. HOB> 30 degree entire time. Suctioned thick white mucus and prn. No seizure activity noted. Seizure precaution in place. cont to monitor pt.
[2021-11-12] MEDS: LANSOPRAZOLE 30 MG CAPSULE.DR GT SCH (06:07)
--- NOTE | 2021-11-12 06:20 | NUR ---
CLOSING NOTES; -Pt is resting in bed comfortably. No s/s any sob,pain,any acute distress noted. LISANDRO Midline patent,no s/s any infiltration drsg cdi noted. D51/2NS @125ml/hr. Willis cath w/ gravity drains yellow urine output. G-tube w/ Jevity 1.2 @ 55ml/hr, checked residual 10ml upon aspiration, gave Lansprazole 30mg via G-tube, flushed with 200ml free water, continous feeding. Keep HOB > 30 degree entire time. All side rails padded. No seizure activity noted. Seizure precaution in place. No seizure activity noted entire shift. Pt has thick clear secretion, suctioned and prn. Pt is on mechan vent via trachea with BD=716, FIo2=40%, PEEP=5, and AC=12, [id number]=919%. Turned & repositioned and q 2hrs prn. Will endorse to next nurse to cont care.
--- NOTE | 2021-11-12 08:00 | NUR ---
OPENING NOTES: Received patient in bed, awake, unable to follow instructions, unable to make his needs known. No s/s any sob,pain,any acute distress noted. LISANDRO Midline patent, infusing well with D5 1/2NS @125ml/hr. Willis cath draining to gravity with yellow urine output. G-tube w/ Jevity 1.2 @ 55ml/hr, checked residual 10ml upon aspiration, on continous feeding. HOB elevated at 30 degrees. All side rails padded. Seizure and safety precaution in place, bed alarm on, side rails up, call light within reach. Pt is on mechan vent via trachea with XS=302, FIo2=40%, PEEP=5, and AC=12, [id number]=801%. Will continue to monitor.
[2021-11-12] MEDS ORDERED: BALSAM PERU/CASTOR OIL 56.7 GM OINT...G. TP SCH (09:00)
[2021-11-12] MEDS: MEROPENEM 1 GM in NS 100 ML IV SCH (09:07)
[2021-11-12] MEDS ORDERED: ERTA1VIA IVPB (15:38)
--- NOTE | 2021-11-12 15:40 | NUR ---
RN NOTES/ SPOKE TO DR. GARCIA (ID) AND DR. BARRAZA (RE: DISCHARGE): SPOKE TO DR. GARCIA. PER DR. GARCIA, OKAY TO DISCHARGE PATIENT AND MAY HAVE INVANZ 1 GRAM IV DAILY FOR [address] BARRAZA, CONTINUE ALL HOME MEDICATIONS AND DISCHARGE BACK TO [facility].
--- NOTE | 2021-11-12 16:02 | NUR ---
Discharge Planning: DCP arranged transport with [facility] [phone] ACLS w/RT [place] to [facility] [phone] Rm [id number]. DCP made nurse aware and pt packet taken to nurse station.
--- NOTE | 2021-11-12 19:08 | NUR ---
PT TRANSFERRED Report given to at [place] RN at [facility]. Transfer packet with Transfer Orders and Medication Reconciliation form given to EMT with report. Exit care provided. [facility] ID band removed, replaced with ID band with pt's name and . G tube and LISANDRO midline. Ventilator/trach in placed. All belongings sent with patient. Patient left floor via gurney escorted by EMT of [facility] in no distress.
== END 2021-11-12 19:08 | DRG 720 ==
LOC: SED 14:58 → STU 21:10
PROVIDERS: ADMIT Internal Medicine; ATTEND Internal Medicine
PROC: 5A1945Z Respiratory Ventilation, 24-96 Consecutive Hours (ICD-10-PCS; principal; 2021-11-08)
DX: A41.9 Sepsis, unspecified organism (principal); J96.90 Respiratory failure, unspecified, unspecified whether with hypoxia or hypercapnia; G91.3 Post-traumatic hydrocephalus, unspecified; J18.9 Pneumonia, unspecified organism; G93.1 Anoxic brain damage, not elsewhere classified; N17.9 Acute kidney failure, unspecified; Z99.11 Dependence on respirator [ventilator] status; Z93.0 Tracheostomy status; E86.0 Dehydration; K51.90 Ulcerative colitis, unspecified, without complications; N18.9 Chronic kidney disease, unspecified; N20.0 Calculus of kidney; N28.1 Cyst of kidney, acquired; S81.002A Unspecified open wound, left knee, initial encounter; M86.9 Osteomyelitis, unspecified; G40.909 Epilepsy, unspecified, not intractable, without status epilepticus; D18.1 Lymphangioma, any site; K21.9 Gastro-esophageal reflux disease without esophagitis; N31.9 Neuromuscular dysfunction of bladder, unspecified; Z20.822 Contact with and (suspected) exposure to COVID-19; V89.2XXA Person injured in unspecified motor-vehicle accident, traffic, initial encounter; Z79.899 Other long term (current) drug therapy; Z99.81 Dependence on supplemental oxygen; Z79.1 Long term (current) use of non-steroidal anti-inflammatories (NSAID); Y93.89 Activity, other specified; Y92.89 Other specified places as the place of occurrence of the external cause; Y99.8 Other external cause status; Z87.440 Personal history of urinary (tract) infections; Z93.1 Gastrostomy status; Q63.8 Other specified congenital malformations of kidney
CPT/HCPCS: 36415; 71045; 76376; 80048; 80053; 83605; 83690; 85025; 87040; 87081; 94002; 94003; 94640; 94760; 96365; 96366; 96367; 99291; G0378; J2185; J2543; J3370; J7030; J7613

== ENCOUNTER 2021-12-11 11:23 | Inpatient (IN) | payer MEDICAID, OTHER ==
[~2021-12-11] VITALS: Ht 175.3 cm; Wt 52.2 kg
[~2021-12-11 11:23] MED LIST changes: +APIX2.5T PO; -BISACODYL SUPP PR; +ERTA1VIA IVPB; -LOVI30 SQ; -POLY17PO4 GT; -Rena-Vite GT
[2021-12-11 11:25] VITALS: BP_SYST 113
[2021-12-11] MEDS ORDERED: cefTRIAXone 1 GM IVPB PREMIX 50 ML IV ONE (12:15)
[2021-12-11] MEDS ORDERED: NACL 0.9% 1,000 ML IV ONE ×4 (12:15→22:15)
--- NOTE | 2021-12-11 12:16 | NUR ---
36-year-old male with a history of chronic renal insufficiency, epilepsy presenting with complaints of worsening renal failure. No other known complaints at this time. History limited due to acute cephalopathy. Patient brought in by ambulance
--- NOTE | 2021-12-11 12:33 | NUR ---
DR ZAVALA IN ROOM FOR EXAM
[2021-12-11 12:42] LABS: BASOPHILS # (AUTO) 0.1 K/uL (0.0-0.2); BASOPHILS % (AUTO) 0.7 % (0.0-2.0); EOSINOPHILS # (AUTO) 0.8 K/uL (0.0-0.4); EOSINOPHILS % (AUTO) 6.8 % (0.0-4.0); HEMATOCRIT 26.6 % (36-54); LYMPHOCYTES # (AUTO) 1.5 K/uL (1.0-5.5); LYMPHOCYTES % (AUTO) 13.7 % (20.5-51.5); MEAN CORPUSCULAR HEMOGLOBIN 35 pg (27-31); MEAN CORPUSCULAR HGB CONC 34 % (32-36); MEAN CORPUSCULAR VOLUME 102 fL (79.0-98.0); MONOCYTES # (AUTO) 0.8 K/uL (0.0-1.0); NEUTROPHILS # (AUTO) 7.9 K/uL (1.8-7.7); NEUTROPHILS % (AUTO) 71.8 % (40.0-70.0); PLATELET COUNT (AUTO) 292 K/uL (130-430); RED CELL DISTRIBUTION WIDTH 13.4 % (9.0-15.0)
[2021-12-11 13:00] LABS: CALCIUM 9.8 mg/dL (8.4-11.0); CREATININE 2.96 mg/dL (0.55-1.30)
--- NOTE | 2021-12-11 13:28 | NUR ---
Notify ED Admitting regarding Dr. Black's request for admission. Per Dr. Black, pt is not stable for transfer. Will notify sales executive insurance regarding this matter. PER [facility]ES[facility]: [facility]
[2021-12-11 13:31] LABS: TOTAL BILIRUBIN 0.4 mg/dL (0.0-1.0)
--- NOTE | 2021-12-11 14:21 | NUR ---
Admit bed requested Patient will be admitted to care of . Admitted to Tele unit. Diagnosis Renal Failure Inpatient (Yes or No) Yes Observation (Yes or No) No Orientation concerns or request close to nursing station (Yes or No) No Covid Status Negative On vent or bipap No Isolation requirements No Needs a sitter No From Home (Yes or if No enter name of facility) Yes Requires Dialysis (Yes or No) Yes Med Rec Completed (Yes of No) Yes
[2021-12-11 14:47] LABS: BILIRUBIN,URINE NEGATIVE (NEGATIVE); BLOOD, URINE 2+ (NEGATIVE); CLARITY/URINE TURBID (CLEAR); COLOR,URINE YELLOW (YELLOW); GLUCOSE,URINE NEGATIVE (NEGATIVE); KETONES,URINE NEGATIVE (NEGATIVE); LEUKOCYTE ESTERASE ,URINE 3+ (NEGATIVE); NITRITE, URINE NEGATIVE (NEGATIVE); PROTEIN URINE 2+ (NEGATIVE); UROBILINOGEN,URINE 0.2 (0.2-1.0)
[2021-12-11 14:49] LABS: WBC,URINE 20-50 /HPF (0-3)
[2021-12-11 14:50] LABS: BACTERIA,URINE MANY /HPF (None Seen)
--- NOTE | 2021-12-11 15:28 | NUR ---
FAXED CLINICAL INFO TO [facility] FAX: [phone]
--- NOTE | 2021-12-11 17:52 | NUR ---
Patient will be admitted to care of DR SKY. Admitted to unit. Will go to room . Belongings list completed. Complete and up to date summary report printed. SBAR report to be given at bedside with opportunity for questions.
--- NOTE | 2021-12-11 18:08 | NUR ---
Admission Note Received patient from ER with diagnosis of Renal Failure. Initial Plan of Care discussed not discussed with patient due to inability to understand due to disease process. Call light within reach, pain management and safety checks in place.
[2021-12-11 18:12] VITALS: BP_SYST 116; BP_SYST 94
[2021-12-11] MEDS ORDERED: ONDANSETRON HCL 4 MG/2 ML VIAL IVP PRN (19:00)
[2021-12-11] MEDS ORDERED: ALBUTEROL MDI INHALATION 8 GM INH INH PRN (19:00)
[2021-12-11] MEDS ORDERED: LORazepam 2 MG/ML VIAL IVP PRN (19:00)
[2021-12-11] MEDS ORDERED: BISACODYL 10 MG/SUPPOSITORY RC PRN (19:00)
--- NOTE | 2021-12-11 19:15 | NUR ---
OPENING NOTE REPORT RECEIVED FROM DAYSCAFT NURSE. PATIENT RECEIVED LYING IN BED, EYES OPEN, STARING TO CEILING, AOX0. NO S/S OF ACUTE DISTRESS. BREATHING EVEN AND UNLABORED. HOB RAISED, TRACH TO VENT ATTACHED AND OPERATING WELL. IV SITE IS PATENT, NO SIGNS OF INFILTRATION OR INFECTION NOTED. WANG ATTACHED, SECURED, AND DRAINING BY GRAVITY. BED ALARM ON. BED IS LOCKED AND AT LOWEST POSITION. SEIZURE PADS ATTACHED TO SIDE RAILS. WILL CONTINUE TO MONITOR.
[2021-12-11 20:00] VITALS: BP_SYST 95
[2021-12-11] MEDS: D5/0.45 NS 1,000 ML IV SCH (20:32)
[2021-12-11] MEDS: METOPROLOL TARTRATE 25 MG TABLET GT SCH (21:00)
[2021-12-11] MEDS: THEOPHYLLINE ANHYDROUS 80 MG/15 ML UDC GT SCH (21:00)
[2021-12-11] MEDS: CHLORHEXIDINE GLUC 0.12% 15 ML MOUTHWASH UDC MM SCH (21:00)
[2021-12-11] MEDS ORDERED: NON-FORMULARY MEDICATION (Amino Acids/Protein Hydrolys (Pro-Stat Liquid) 30 ML) GT SCH (21:00)
[2021-12-11] MEDS ORDERED: SIMETHICONE 80 MG GT SCH (21:00)
--- NOTE | 2021-12-11 21:31 | NUR ---
CONSULTATION PAGED/CALLED Reason for Consultation: renal failure Person Who was Notified: clark Consulting Physician: Rohan Martin Filter Assembler Specialty: At Risk Paraprofessional Ordering Physician: Hayder Mendez
[2021-12-11] MEDS: levETIRAcetam 500 MG TABLET GT SCH (22:19)
[2021-12-11] MEDS: FAMOTIDINE 20 MG TABLET GT SCH (22:19)
[2021-12-11] MEDS: METOCLOPRAMIDE HCL 10 MG/10 ML UDC GT SCH (22:19)
[2021-12-11] MEDS: traMADol HCL HCL 50 MG TABLET (ULTRAM) GT SCH (22:19)
[2021-12-11] MEDS: CALCIUM CARBONATE/VITAMIN D3 1 TAB TABLET GT SCH (22:19)
[2021-12-11] MEDS: SIMETHICONE 80 MG TAB.CHEW GT SCH (22:19)
[2021-12-11] MEDS: ACETAMINOPHEN 650 MG/20.3 ML UDC GT SCH (22:20)
[2021-12-11] MEDS: TOPIRAMATE 25 MG TABLET(TOPAMAX) GT SCH (22:20)
[2021-12-11] MEDS: APIXABAN 2.5 MG TABLET PO SCH (22:21)
[2021-12-11 23:23] VITALS: BP_SYST 106
[2021-12-12] MEDS: D5/0.45 NS 1,000 ML IV SCH ×2 (05:00→15:00)
--- NOTE | 2021-12-12 06:27 | NUR ---
CLOSING NOTE PATIENT IN BED, RESTING, NO S/S OF ACUTE DISTRESS. BREATHING EVEN AND UNLABORED, HOB RAISED, TRACH TO VENT ATTACHED AND OPERATING. IVF INFUSING WELL. TUBE FEEDING INFUSING WELL. IV SITE PATENT, NO SIGNS OF INFILTRATION OR INFECTION NOTED. WANG ATTACHED, SECURED, AND DRAINING BY GRAVITY. ALL NEEDS MET THROUGHOUT SHIFT. FALL, SAFETY, SEIZURE PRECAUTIONS MAINTAINED THROUGHOUT SHIFT. WILL CONTINUE TO MONITOR UNTIL PATIENT CARE IS ENDORSED TO ONCOMING DAYSHIFT NURSE.
[2021-12-12 06:32] LABS: BASOPHILS % (AUTO) 0.5 % (0.0-2.0); EOSINOPHILS # (AUTO) 0.4 K/uL (0.0-0.4); EOSINOPHILS % (AUTO) 5.1 % (0.0-4.0); HEMATOCRIT 22.4 % (36-54); HEMOGLOBIN 7.9 g/dL (14.0-18.0); LYMPHOCYTES # (AUTO) 0.8 K/uL (1.0-5.5); LYMPHOCYTES % (AUTO) 9.6 % (20.5-51.5); MEAN CORPUSCULAR HEMOGLOBIN 36 pg (27-31); MEAN CORPUSCULAR HGB CONC 35 % (32-36); MEAN CORPUSCULAR VOLUME 102 fL (79.0-98.0); MONOCYTES # (AUTO) 0.5 K/uL (0.0-1.0); MONOCYTES % (AUTO) 5.3 % (1.7-9.3); NEUTROPHILS # (AUTO) 6.9 K/uL (1.8-7.7); NEUTROPHILS % (AUTO) 79.5 % (40.0-70.0); PLATELET COUNT (AUTO) 222 K/uL (130-430); RED BLOOD CELL COUNT(AUTO) 2.19 MIL/uL (4.2-6.2); RED CELL DISTRIBUTION WIDTH 13.3 % (9.0-15.0); WHITE BLOOD COUNT (AUTO) 8.6 K/uL (4.8-10.8)
[2021-12-12 07:16] LABS: CALCIUM 8.4 mg/dL (8.4-11.0); CREATININE 2.37 mg/dL (0.55-1.30); POTASSIUM 3.5 mmol/L (3.5-5.1)
[2021-12-12] MEDS ORDERED: ALBUTEROL SULFATE 0.083% 2.5 MG/3 ML VIAL.NEB INH PRN (08:00)
[2021-12-12 08:02] VITALS: BP_SYST 100
--- NOTE | 2021-12-12 08:04 | NUR ---
OPENING NOTE Patient laying in bed, eyes open, AOX0. No s/sx distress. Breathing even and unlabored. HOB raised, trach to vent attached and operating well. Willis attached and draining to gravity. IV site patent and infusing, no signs of infiltration. Bed alarm on , bed is locked in lowest position and seizure precautions in place. Will continue to monitor.
[2021-12-12] MEDS ORDERED: ZINC GT SCH (09:00)
[2021-12-12] MEDS ORDERED: NON-FORMULARY MEDICATION (Lactulose 20 GM) PO SCH (09:00)
[2021-12-12] MEDS ORDERED: [UNRECOGNIZED DRUG - OTHER] GT SCH (09:00)
--- NOTE | 2021-12-12 09:05 | NUR ---
MD ROUNDS Spoke with MD Najera since he was here and informed him of critical BUN. stated he will send for Nephro consult.
[2021-12-12] MEDS: FERROUS SULFATE 300 MG/5 ML UDC GT SCH (09:10)
[2021-12-12] MEDS: ACETAMINOPHEN 650 MG/20.3 ML UDC GT SCH ×2 (09:10→21:25)
[2021-12-12] MEDS: METOCLOPRAMIDE HCL 10 MG/10 ML UDC GT SCH ×3 (09:10→21:26)
[2021-12-12] MEDS: LACTULOSE 20 GM/30 ML UDC GT SCH (09:11)
[2021-12-12] MEDS: levETIRAcetam 500 MG TABLET GT SCH ×2 (09:11→21:26)
[2021-12-12] MEDS: SIMETHICONE 80 MG TAB.CHEW GT SCH ×3 (09:11→21:26)
[2021-12-12] MEDS: FAMOTIDINE 20 MG TABLET GT SCH ×2 (09:11→21:26)
[2021-12-12] MEDS: CALCIUM CARBONATE/VITAMIN D3 1 TAB TABLET GT SCH ×2 (09:11→21:26)
[2021-12-12] MEDS: METOPROLOL TARTRATE 25 MG TABLET GT SCH ×2 (09:12→21:00)
[2021-12-12] MEDS: ASCORBIC ACID 500 MG TABLET GT SCH (09:12)
[2021-12-12] MEDS: BACLOFEN 10 MG TABLET GT SCH (09:12)
[2021-12-12] MEDS: CHLORHEXIDINE GLUC 0.12% 15 ML MOUTHWASH UDC MM SCH ×2 (09:18→21:26)
[2021-12-12] MEDS: THEOPHYLLINE ANHYDROUS 80 MG/15 ML UDC GT SCH ×2 (09:30→21:25)
[2021-12-12] MEDS: PEG 400/HYPROMELLOSE/GLYCERIN 15 ML DROPS OP SCH (09:31)
[2021-12-12] MEDS: traMADol HCL HCL 50 MG TABLET (ULTRAM) GT SCH ×2 (09:31→21:26)
[2021-12-12] MEDS: TOPIRAMATE 25 MG TABLET(TOPAMAX) GT SCH ×2 (09:31→21:26)
[2021-12-12] MEDS: APIXABAN 2.5 MG TABLET PO SCH ×2 (09:35→21:27)
--- NOTE | 2021-12-12 09:54 | NUR ---
CONSULTATION PAGED REASON FOR CONSULTATION:UTI WAS CONSULT CALLED?Y -PERSON WHO WAS NOTIFIED:ROSALINDA CONSULTING PHYSICIAN:NAVARRO LEA INSPECTOR AIDE SPECIALTY:ID INSPECTOR AIDE PHONE NUMBER:[phone] REQUESTING PHYSICIAN:SUSAN RAMIREZ
--- NOTE | 2021-12-12 09:58 | NUR ---
CONSULTATION PAGED REASON FOR CONSULTATION:ACUTE RESPIRATORY FAILURE WAS CONSULT CALLED?Y -PERSON WHO WAS NOTIFIED: CONSULTING PHYSICIAN:ERIC PETERSON AIDS COUNSELOR SPECIALTY:PULMONARY AIDS COUNSELOR PHONE NUMBER:[phone] REQUESTING PHYSICIAN:SUSAN RAMIREZ
[2021-12-12] MEDS: cefTRIAXone 1 GM in D5W 50 ML IV SCH (10:56)
--- NOTE | 2021-12-12 12:10 | NUR ---
PATIENT ROUNDS Patient laying in bed, eyes open. No s/sx distress. Breathing even and unlabored. HOB raised, trach to vent attached and operating well. Willis attached and draining to gravity. IV site patent and infusing, no signs of infiltration. Bed alarm on , bed is locked in lowest position and seizure precautions in place. Will continue to monitor.
[2021-12-12 12:28] VITALS: BP_SYST 103
[2021-12-12] MEDS: EPOETIN ALFA-EPBX 3,000 UNITS/ML VIAL SUBCUT SCH (16:59)
[2021-12-12 17:15] VITALS: BP_SYST 102
--- NOTE | 2021-12-12 18:47 | NUR ---
CLOSING NOTE Patient in bed, resting, no s/s of acute distress. Breathing even and unlabored, HOB raised with tach to vent attached and working well. IVF infusing and G-tube infusing feeding. IV site patent no infilitration. Willis Cath attched and secured draining by gravity. All needs met throughout shift. Will endorse to caustic cresylate shift superintendent nurse.
--- NOTE | 2021-12-12 19:15 | NUR ---
OPENING NOTE REPORT RECEIVED FROM DAYSHIFT NURSE. PATIENT RECEIVED LYING IN BED, EYES OPEN, NO S/S OF ACUTE DISTRESS. BREATHING IS EVEN AND UNLABORED. HOB RAISED, TRACH TO VENT ATTACHED AND OPERATING, PATIENT TOLERATING WELL, SPO2 100%. IVF AND TUBE FEEDING INFUSING WELL, IV SITE PATENT, NO SIGNS OF INFILTRATION OR INFECTION NOTED. WANG ATTACHED, SECURED, AND DRAINING BY GRAVITY. SEIZURE PADS ATTACHED ON SIDE RAILS. BED ALARM ON. BED IS LOCKED AND AT LOWEST POSITION. WILL CONTINUE TO MONITOR.
[2021-12-12 20:00] VITALS: BP_SYST 96
[2021-12-12] MEDS ORDERED: NACL 0.9% 1,000 ML IV ONE (22:15)
[2021-12-13 00:38] VITALS: BP_SYST 106
[2021-12-13] MEDS: D5/0.45 NS 1,000 ML IV SCH ×3 (01:41→22:17)
--- NOTE | 2021-12-13 06:18 | NUR ---
CLOSING NOTE PATIENT IN BED, RESTING, NO S/S OF ACUTE DISTRESS. BREATHING EVEN AND UNLABORED, HOB RAISED, TRACH TO VENT ATTACHED AND OPERATING, TOLERATING WELL, SPO2 AT 100%. IVF AND TUBE FEEDING INFUSING WELL, IV SITE IS PATENT, NO SIGNS OF INFILTRATION OR INFECTION NOTED. WANG ATTACHED, SECURED, AND DRAINING BY GRAVITY. ALL NEEDS MET THROUGHOUT SHIFT. FALL, SAFETY, SEIZURE PRECAUTIONS MAINTAINED THROUGHOUT SHIFT. WILL CONTINUE TO MONITOR UNTIL PATIENT CARE IS ENDORSED TO ONCOMING DAYSHIFT NURSE.
[2021-12-13 06:40] LABS: BASOPHILS # (AUTO) 0.1 K/uL (0.0-0.2); BASOPHILS % (AUTO) 0.7 % (0.0-2.0); EOSINOPHILS # (AUTO) 0.6 K/uL (0.0-0.4); EOSINOPHILS % (AUTO) 6.6 % (0.0-4.0); HEMOGLOBIN 7.7 g/dL (14.0-18.0); LYMPHOCYTES # (AUTO) 1.3 K/uL (1.0-5.5); LYMPHOCYTES % (AUTO) 14.5 % (20.5-51.5); MEAN CORPUSCULAR HEMOGLOBIN 36 pg (27-31); MEAN CORPUSCULAR HGB CONC 35 % (32-36); MEAN CORPUSCULAR VOLUME 102 fL (79.0-98.0); MONOCYTES # (AUTO) 0.7 K/uL (0.0-1.0); MONOCYTES % (AUTO) 8.4 % (1.7-9.3); NEUTROPHILS # (AUTO) 6.2 K/uL (1.8-7.7); NEUTROPHILS % (AUTO) 69.8 % (40.0-70.0); PLATELET COUNT (AUTO) 242 K/uL (130-430); RED BLOOD CELL COUNT(AUTO) 2.16 MIL/uL (4.2-6.2); RED CELL DISTRIBUTION WIDTH 13.2 % (9.0-15.0); WHITE BLOOD COUNT (AUTO) 8.9 K/uL (4.8-10.8)
[2021-12-13 07:10] LABS: ALBUMIN 2.6 g/dL (3.4-4.8); C-REACTIVE PROTEIN QUANT 4.9 mg/dL (0-0.5); CREATININE 2.01 mg/dL (0.55-1.30); PHOSPHORUS 3.4 mg/dL (2.7-4.5); TOTAL BILIRUBIN 0.2 mg/dL (0.0-1.0)
[2021-12-13 08:10] VITALS: BP_SYST 127
--- NOTE | 2021-12-13 08:10 | NUR ---
Opening Note Received report from Colin BEY. Patient laying in bed with eyes closed. A/O x0. No apparent distress noted. Vitals as charted. Call light within reach even though patient is contracted. Safety and fall precautions in place. All needs met.
[2021-12-13] MEDS ORDERED: [UNRECOGNIZED DRUG - OTHER] GT SCH (09:00)
[2021-12-13 10:31] LABS: ERYTHROCYTE SEDIMENTATION RATE > 140 MM/HR (0-15)
[2021-12-13] MEDS: CHLORHEXIDINE GLUC 0.12% 15 ML MOUTHWASH UDC MM SCH ×2 (10:53→22:13)
[2021-12-13] MEDS: LACTULOSE 20 GM/30 ML UDC GT SCH (10:53)
[2021-12-13] MEDS: METOCLOPRAMIDE HCL 10 MG/10 ML UDC GT SCH ×3 (10:54→22:13)
[2021-12-13] MEDS: THEOPHYLLINE ANHYDROUS 80 MG/15 ML UDC GT SCH ×2 (10:54→22:14)
[2021-12-13] MEDS: FERROUS SULFATE 300 MG/5 ML UDC GT SCH (10:54)
[2021-12-13] MEDS: ACETAMINOPHEN 650 MG/20.3 ML UDC GT SCH ×2 (10:55→22:13)
[2021-12-13] MEDS: CALCIUM CARBONATE/VITAMIN D3 1 TAB TABLET GT SCH ×2 (10:57→22:15)
[2021-12-13] MEDS: PEG 400/HYPROMELLOSE/GLYCERIN 15 ML DROPS OP SCH (10:57)
[2021-12-13] MEDS: ASCORBIC ACID 500 MG TABLET GT SCH (10:58)
[2021-12-13] MEDS: traMADol HCL HCL 50 MG TABLET (ULTRAM) GT SCH ×2 (10:58→22:15)
[2021-12-13] MEDS: SIMETHICONE 80 MG TAB.CHEW GT SCH ×3 (10:58→22:14)
[2021-12-13] MEDS: BACLOFEN 10 MG TABLET GT SCH (10:59)
[2021-12-13] MEDS: levETIRAcetam 500 MG TABLET GT SCH ×2 (10:59→22:14)
[2021-12-13] MEDS: METOPROLOL TARTRATE 25 MG TABLET GT SCH ×2 (10:59→22:14)
[2021-12-13] MEDS: cefTRIAXone 1 GM in D5W 50 ML IV SCH (11:00)
[2021-12-13] MEDS: TOPIRAMATE 25 MG TABLET(TOPAMAX) GT SCH ×2 (11:00→22:14)
--- NOTE | 2021-12-13 11:00 | NUR ---
Note Provided mouth care for patient. Performed oral suction as needed while performing oral care. Patient tolerated care well. Patient tries to bite while suctioning is performed, was very careful with his teeth. Call light within reach even though patient is contracted. Safety and fall precautions in place. All needs met.
[2021-12-13] MEDS: FAMOTIDINE 20 MG TABLET GT SCH ×2 (11:01→22:14)
[2021-12-13] MEDS: APIXABAN 2.5 MG TABLET PO SCH ×2 (11:02→22:15)
[2021-12-13 12:00] VITALS: BP_SYST 117
--- NOTE | 2021-12-13 14:00 | NUR ---
Note Patient laying in bed, appears calm and relaxed. Call light within reach. Safety and fall precautions in place. All needs met.
[2021-12-13 16:00] VITALS: BP_SYST 115
--- NOTE | 2021-12-13 19:15 | NUR ---
OPENING NOTE REPORT RECEIVED FROM DAYSVAFT NURSE. PATIENT RECEIVED LYING IN BED, EYES OPEN, NO S/S OF ACUTE DISTRESS. BREATHING EVEN AND UNLABORED, HOB RAISED, TRACT TO VENT ATTACHED AND OPERATING. IVF INFUSING WELL, IV SITE PATENT, NO SIGNS OF INFILTRATION OR INFECTION NOTED. TUBE FEEDING INFUSING WELL. WANG ATTACHED, SECURED, AND DRAINING BY GRAVITY. SEIZURE PADS ATTACHED TO SIDE RAILS. BED ALARM ON. BED IS LOCKED AND AT LOWEST POSITION. WILL CONTINUE TO MONITOR.
--- NOTE | 2021-12-13 19:15 | NUR ---
Closing Note Endorsed care to flaker operator SOTERO Shaw. Patient is laying in bed, no distress noted. Call light within reach. Safety and fall precautions in place. All needs met.
[2021-12-13 20:00] VITALS: BP_SYST 121
[2021-12-14 00:37] VITALS: BP_SYST 126
[2021-12-14] MEDS ORDERED: LEVOFLOXACIN 250 MG/D5W 50 ML IV ONE (02:59)
[2021-12-14] MEDS: LEVOFLOXACIN 250 MG/D5W 50 ML IV SCH (03:08)
--- NOTE | 2021-12-14 06:15 | NUR ---
CLOSING NOTE PATIENT IN BED, RESTING. NO S/S OF ACUTE DISTRESS. BREATHING EVEN AND UNLABORED. HOB RAISED, VENT TO TRACH ATTACHED AND OPERATING, PATIENT TOLERATING WELL, SPO2 100%. IVF AND TUBE FEEDING INFUSING WELL. IV SITE PATENT, NO SIGNS OF INFILTRATION OR INFECTION NOTED. WANG ATTACHED, SECURED, AND DRAINING BY GRAVITY. ALL NEEDS MET THROUGHOUT SHIFT. FALL, SAFETY, SEIZURE PRECAUTIONS MAINTAINED THROUGHOUT SHIFT. WILL CONTINUE TO MONITOR UNTIL PATIENT CARE IS ENDORSED TO ONCOMING DAYSHIFT NURSE.
[2021-12-14 06:58] LABS: BASOPHILS # (AUTO) 0.1 K/uL (0.0-0.2); BASOPHILS % (AUTO) 0.9 % (0.0-2.0); EOSINOPHILS # (AUTO) 0.7 K/uL (0.0-0.4); EOSINOPHILS % (AUTO) 6.7 % (0.0-4.0); HEMATOCRIT 24.6 % (36-54); HEMOGLOBIN 8.6 g/dL (14.0-18.0); LYMPHOCYTES # (AUTO) 1.4 K/uL (1.0-5.5); LYMPHOCYTES % (AUTO) 12.3 % (20.5-51.5); MEAN CORPUSCULAR HEMOGLOBIN 36 pg (27-31); MEAN CORPUSCULAR HGB CONC 35 % (32-36); MEAN CORPUSCULAR VOLUME 102 fL (79.0-98.0); MONOCYTES # (AUTO) 1.1 K/uL (0.0-1.0); MONOCYTES % (AUTO) 9.5 % (1.7-9.3); NEUTROPHILS # (AUTO) 7.9 K/uL (1.8-7.7); NEUTROPHILS % (AUTO) 70.6 % (40.0-70.0); PLATELET COUNT (AUTO) 253 K/uL (130-430); RED BLOOD CELL COUNT(AUTO) 2.41 MIL/uL (4.2-6.2); RED CELL DISTRIBUTION WIDTH 13.3 % (9.0-15.0); WHITE BLOOD COUNT (AUTO) 11.2 K/uL (4.8-10.8)
[2021-12-14 07:32] LABS: C-REACTIVE PROTEIN QUANT 5.8 mg/dL (0-0.5); CALCIUM 9.3 mg/dL (8.4-11.0); CREATININE 1.89 mg/dL (0.55-1.30); PHOSPHORUS 2.9 mg/dL (2.7-4.5); POTASSIUM 4.3 mmol/L (3.5-5.1)
[2021-12-14 07:48] VITALS: BP_SYST 110
[2021-12-14] MEDS: ACETAMINOPHEN 650 MG/20.3 ML UDC GT SCH ×2 (09:25→21:58)
[2021-12-14] MEDS: METOCLOPRAMIDE HCL 10 MG/10 ML UDC GT SCH ×3 (09:26→21:59)
[2021-12-14] MEDS: PEG 400/HYPROMELLOSE/GLYCERIN 15 ML DROPS OP SCH (09:26)
[2021-12-14] MEDS: FERROUS SULFATE 300 MG/5 ML UDC GT SCH (09:26)
[2021-12-14] MEDS: SIMETHICONE 80 MG TAB.CHEW GT SCH ×3 (09:27→22:05)
[2021-12-14] MEDS: levETIRAcetam 500 MG TABLET GT SCH ×2 (09:27→21:59)
[2021-12-14] MEDS: BACLOFEN 10 MG TABLET GT SCH (09:27)
[2021-12-14] MEDS: traMADol HCL HCL 50 MG TABLET (ULTRAM) GT SCH ×2 (09:28→22:05)
[2021-12-14] MEDS: ASCORBIC ACID 500 MG TABLET GT SCH (09:28)
[2021-12-14] MEDS: FAMOTIDINE 20 MG TABLET GT SCH ×2 (09:28→21:59)
[2021-12-14] MEDS: TOPIRAMATE 25 MG TABLET(TOPAMAX) GT SCH ×2 (09:28→22:04)
[2021-12-14] MEDS: METOPROLOL TARTRATE 25 MG TABLET GT SCH ×2 (09:29→21:59)
[2021-12-14] MEDS: CALCIUM CARBONATE/VITAMIN D3 1 TAB TABLET GT SCH ×2 (09:29→21:59)
[2021-12-14] MEDS: APIXABAN 2.5 MG TABLET PO SCH ×2 (09:30→22:00)
[2021-12-14] MEDS: CHLORHEXIDINE GLUC 0.12% 15 ML MOUTHWASH UDC MM SCH ×2 (09:31→22:01)
[2021-12-14] MEDS: THEOPHYLLINE ANHYDROUS 80 MG/15 ML UDC GT SCH ×2 (09:32→22:02)
[2021-12-14] MEDS: LACTULOSE 20 GM/30 ML UDC GT SCH (09:44)
[2021-12-14] MEDS: D5/0.45 NS 1,000 ML IV SCH ×2 (09:46→17:00)
[2021-12-14 10:07] VITALS: BP_SYST 110
[2021-12-14 11:12] LABS: ERYTHROCYTE SEDIMENTATION RATE > 140 MM/HR (0-15)
[2021-12-14 12:00] VITALS: BP_SYST 116
--- NOTE | 2021-12-14 13:41 | NUR ---
Dietitian Recommendations * Jevity 1.2 at 65 ml/hr (goal rate), Davin BID, Prosource daily, Free Water Flush: 100 ml Q6h (per physician d/t ANTHONY/CKD) via GT Provides: 2092 kcal/day, 107 gm protein/day, and 1659 ml free water/day Meets: 96% of lower end of estimated caloric needs and 98% of upper end of estimated protein needs LP, RD Please refer to Nutrition Assessment for details. Addendum: 12/14/21 at [address] Amended: Links added.
[2021-12-14 16:00] VITALS: BP_SYST 111
[2021-12-14] MEDS: EPOETIN ALFA-EPBX 3,000 UNITS/ML VIAL SUBCUT SCH (17:18)
[2021-12-14 21:04] VITALS: BP_SYST 103
[2021-12-14] MEDS: MEROPENEM 500 MG in NS 50 ML IV SCH (21:59)
[2021-12-15] VITALS (7 sets, daily range): BP systolic 99–145
[2021-12-15] MEDS: LEVOFLOXACIN 250 MG/D5W 50 ML IV SCH (02:02)
[2021-12-15] MEDS: D5/0.45 NS 1,000 ML IV SCH ×2 (02:03→14:59)
[2021-12-15] MEDS: MEROPENEM 500 MG in NS 50 ML IV SCH ×3 (06:10→21:48)
[2021-12-15 07:16] LABS: BASOPHILS # (AUTO) 0.1 K/uL (0.0-0.2); BASOPHILS % (AUTO) 0.6 % (0.0-2.0); EOSINOPHILS # (AUTO) 0.7 K/uL (0.0-0.4); EOSINOPHILS % (AUTO) 6.4 % (0.0-4.0); HEMATOCRIT 23.9 % (36-54); HEMOGLOBIN 8.2 g/dL (14.0-18.0); LYMPHOCYTES # (AUTO) 1.1 K/uL (1.0-5.5); LYMPHOCYTES % (AUTO) 9.7 % (20.5-51.5); MEAN CORPUSCULAR HEMOGLOBIN 35 pg (27-31); MEAN CORPUSCULAR HGB CONC 34 % (32-36); MEAN CORPUSCULAR VOLUME 102 fL (79.0-98.0); MONOCYTES # (AUTO) 0.7 K/uL (0.0-1.0); MONOCYTES % (AUTO) 6.3 % (1.7-9.3); PLATELET COUNT (AUTO) 239 K/uL (130-430); RED BLOOD CELL COUNT(AUTO) 2.34 MIL/uL (4.2-6.2); RED CELL DISTRIBUTION WIDTH 13.3 % (9.0-15.0); WHITE BLOOD COUNT (AUTO) 11.7 K/uL (4.8-10.8)
[2021-12-15 07:48] LABS: C-REACTIVE PROTEIN QUANT 8.1 mg/dL (0-0.5); CALCIUM 9.7 mg/dL (8.4-11.0); CREATININE 1.97 mg/dL (0.55-1.30); PHOSPHORUS 2.7 mg/dL (2.7-4.5); POTASSIUM 4.1 mmol/L (3.5-5.1)
[2021-12-15] MEDS: LACTULOSE 20 GM/30 ML UDC GT SCH (09:40)
[2021-12-15] MEDS: ACETAMINOPHEN 650 MG/20.3 ML UDC GT SCH ×2 (09:40→21:20)
[2021-12-15] MEDS: FERROUS SULFATE 300 MG/5 ML UDC GT SCH (09:40)
[2021-12-15] MEDS: CALCIUM CARBONATE/VITAMIN D3 1 TAB TABLET GT SCH ×2 (09:41→21:21)
[2021-12-15] MEDS: METOCLOPRAMIDE HCL 10 MG/10 ML UDC GT SCH ×3 (09:41→21:20)
[2021-12-15] MEDS: traMADol HCL HCL 50 MG TABLET (ULTRAM) GT SCH ×2 (09:42→21:22)
[2021-12-15] MEDS: APIXABAN 2.5 MG TABLET PO SCH ×2 (09:42→21:23)
[2021-12-15] MEDS: ASCORBIC ACID 500 MG TABLET GT SCH (09:42)
[2021-12-15] MEDS: METOPROLOL TARTRATE 25 MG TABLET GT SCH ×2 (09:43→21:22)
[2021-12-15] MEDS: FAMOTIDINE 20 MG TABLET GT SCH ×2 (09:43→21:21)
[2021-12-15] MEDS: levETIRAcetam 500 MG TABLET GT SCH ×2 (09:44→21:21)
[2021-12-15] MEDS: SIMETHICONE 80 MG TAB.CHEW GT SCH ×3 (09:44→21:22)
[2021-12-15] MEDS: BACLOFEN 10 MG TABLET GT SCH (09:44)
[2021-12-15] MEDS: CHLORHEXIDINE GLUC 0.12% 15 ML MOUTHWASH UDC MM SCH ×2 (09:45→21:24)
[2021-12-15] MEDS: THEOPHYLLINE ANHYDROUS 80 MG/15 ML UDC GT SCH ×2 (09:45→21:21)
[2021-12-15] MEDS: PEG 400/HYPROMELLOSE/GLYCERIN 15 ML DROPS OP SCH (09:46)
[2021-12-15] MEDS: TOPIRAMATE 25 MG TABLET(TOPAMAX) GT SCH ×2 (09:50→21:21)
[2021-12-15 10:51] LABS: ERYTHROCYTE SEDIMENTATION RATE > 140 MM/HR (0-15)
--- NOTE | 2021-12-15 18:15 | NUR ---
patient has been stable the whole shift, no untoward incident. no change in vent settings per r.t. wound care done, turned and repositioned q2 hours. ross drained about 500 cc of urine.
[2021-12-16] MEDS: D5/0.45 NS 1,000 ML IV SCH ×3 (00:37→19:25)
[2021-12-16 00:40] VITALS: BP_SYST 109
[2021-12-16 04:37] LABS: BASOPHILS # (AUTO) 0.1 K/uL (0.0-0.2); BASOPHILS % (AUTO) 0.9 % (0.0-2.0); EOSINOPHILS # (AUTO) 0.8 K/uL (0.0-0.4); EOSINOPHILS % (AUTO) 6.5 % (0.0-4.0); HEMATOCRIT 24.5 % (36-54); HEMOGLOBIN 8.6 g/dL (14.0-18.0); LYMPHOCYTES % (AUTO) 7.8 % (20.5-51.5); MEAN CORPUSCULAR HEMOGLOBIN 36 pg (27-31); MEAN CORPUSCULAR HGB CONC 35 % (32-36); MEAN CORPUSCULAR VOLUME 101 fL (79.0-98.0); MONOCYTES # (AUTO) 0.9 K/uL (0.0-1.0); MONOCYTES % (AUTO) 7.2 % (1.7-9.3); NEUTROPHILS # (AUTO) 9.9 K/uL (1.8-7.7); NEUTROPHILS % (AUTO) 77.6 % (40.0-70.0); PLATELET COUNT (AUTO) 231 K/uL (130-430); RED BLOOD CELL COUNT(AUTO) 2.41 MIL/uL (4.2-6.2); RED CELL DISTRIBUTION WIDTH 13.8 % (9.0-15.0); WHITE BLOOD COUNT (AUTO) 12.8 K/uL (4.8-10.8)
[2021-12-16 04:52] LABS: ALBUMIN 2.5 g/dL (3.4-4.8); C-REACTIVE PROTEIN QUANT 7.8 mg/dL (0-0.5); CALCIUM 9.5 mg/dL (8.4-11.0); CREATININE 1.89 mg/dL (0.55-1.30); PHOSPHORUS 3.2 mg/dL (2.7-4.5); POTASSIUM 4.1 mmol/L (3.5-5.1); TOTAL BILIRUBIN 0.2 mg/dL (0.0-1.0)
[2021-12-16 05:49] LABS: ERYTHROCYTE SEDIMENTATION RATE 111 MM/HR (0-15)
[2021-12-16] MEDS: MEROPENEM 500 MG in NS 50 ML IV SCH (06:00)
[2021-12-16 08:00] VITALS: BP_SYST 102
[2021-12-16] MEDS: THEOPHYLLINE ANHYDROUS 80 MG/15 ML UDC GT SCH ×2 (09:00→21:28)
[2021-12-16] MEDS: METOPROLOL TARTRATE 25 MG TABLET GT SCH ×2 (09:00→21:30)
[2021-12-16] MEDS: TOPIRAMATE 25 MG TABLET(TOPAMAX) GT SCH ×2 (09:49→21:29)
[2021-12-16] MEDS: ACETAMINOPHEN 650 MG/20.3 ML UDC GT SCH ×2 (09:50→21:28)
[2021-12-16] MEDS: FAMOTIDINE 20 MG TABLET GT SCH ×2 (09:50→21:33)
[2021-12-16] MEDS: levETIRAcetam 500 MG TABLET GT SCH ×2 (09:51→21:29)
[2021-12-16] MEDS: SIMETHICONE 80 MG TAB.CHEW GT SCH ×3 (09:51→21:29)
[2021-12-16] MEDS: ASCORBIC ACID 500 MG TABLET GT SCH (09:51)
[2021-12-16] MEDS: traMADol HCL HCL 50 MG TABLET (ULTRAM) GT SCH ×2 (09:51→21:29)
[2021-12-16] MEDS: BACLOFEN 10 MG TABLET GT SCH (09:52)
[2021-12-16] MEDS: CALCIUM CARBONATE/VITAMIN D3 1 TAB TABLET GT SCH ×2 (09:52→21:29)
[2021-12-16] MEDS: METOCLOPRAMIDE HCL 10 MG/10 ML UDC GT SCH ×3 (09:52→21:28)
[2021-12-16] MEDS: FERROUS SULFATE 300 MG/5 ML UDC GT SCH (09:53)
[2021-12-16] MEDS: PEG 400/HYPROMELLOSE/GLYCERIN 15 ML DROPS OP SCH (09:54)
[2021-12-16] MEDS: APIXABAN 2.5 MG TABLET PO SCH ×2 (10:01→21:00)
[2021-12-16] MEDS: CHLORHEXIDINE GLUC 0.12% 15 ML MOUTHWASH UDC MM SCH ×2 (10:04→21:35)
[2021-12-16] MEDS: LACTULOSE 20 GM/30 ML UDC GT SCH (10:04)
[2021-12-16 12:56] VITALS: BP_SYST 119
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
[2021-12-16 16:24] VITALS: BP_SYST 116
[2021-12-16 20:05] VITALS: BP_SYST 115
--- NOTE | 2021-12-16 21:46 | NUR ---
PATIENT PERIPHERAL IV STICK UNSUCCESSFUL BY FOOD SPECIALIST AND DAY TEAM RNMARCIN. CALL TO DOCTOR MAYRA WHO AGREES WITH CLEARANCE FOR PATIENT TO HAVE MIDLINE/PICC IF KIDNEY (BUN AND CREATININE ARE TRENDING IN RIGHT DIRECTION); HOWEVER, IT IS NOT ORDERED BY HER AND SHE WISHES THE ORDER REMAIN IS UNDER DOCTOR JOSE DANIEL. CLOVIS LUU RN
[2021-12-16 23:00] VITALS: BP_SYST 87
[2021-12-17 01:05] VITALS: BP_SYST 91
[2021-12-17] MEDS: D5/0.45 NS 1,000 ML IV SCH ×2 (05:00→15:00)
[2021-12-17 06:29] LABS: BASOPHILS # (AUTO) 0.1 K/uL (0.0-0.2); EOSINOPHILS # (AUTO) 0.9 K/uL (0.0-0.4); EOSINOPHILS % (AUTO) 8.6 % (0.0-4.0); HEMATOCRIT 25.6 % (36-54); HEMOGLOBIN 8.8 g/dL (14.0-18.0); LYMPHOCYTES # (AUTO) 1.5 K/uL (1.0-5.5); LYMPHOCYTES % (AUTO) 15.1 % (20.5-51.5); MEAN CORPUSCULAR HEMOGLOBIN 36 pg (27-31); MEAN CORPUSCULAR HGB CONC 34 % (32-36); MEAN CORPUSCULAR VOLUME 104 fL (79.0-98.0); MONOCYTES # (AUTO) 0.8 K/uL (0.0-1.0); MONOCYTES % (AUTO) 8.3 % (1.7-9.3); NEUTROPHILS # (AUTO) 6.7 K/uL (1.8-7.7); PLATELET COUNT (AUTO) 301 K/uL (130-430); RED BLOOD CELL COUNT(AUTO) 2.46 MIL/uL (4.2-6.2); RED CELL DISTRIBUTION WIDTH 13.6 % (9.0-15.0)
[2021-12-17 07:05] LABS: CALCIUM 10.3 mg/dL (8.4-11.0); POTASSIUM 4.7 mmol/L (3.5-5.1)
[2021-12-17 07:06] LABS: C-REACTIVE PROTEIN QUANT 11.7 mg/dL (0-0.5); CREATININE 2.03 mg/dL (0.55-1.30); PHOSPHORUS 4.1 mg/dL (2.7-4.5)
--- NOTE | 2021-12-17 07:43 | NUR ---
PT IS NONRESPONSIVE. PT LOOKS TO BE AT HIS BASELINE. G TUBE IS RUNNING. 10ML RESIDUAL. WANG CATHETER IS INTACT, PATENT, AND DRAINING. PERRLA. WILL CONTINUE TO MONITOR. STABLE AT THIS TIME.
[2021-12-17] MEDS: THEOPHYLLINE ANHYDROUS 80 MG/15 ML UDC GT SCH ×2 (09:00→21:46)
[2021-12-17] MEDS: METOPROLOL TARTRATE 25 MG TABLET GT SCH ×2 (09:00→21:48)
[2021-12-17] MEDS ORDERED: Zinc Sulfate GT (09:02)
[2021-12-17] MEDS ORDERED: LEVO500T90 GT (09:07)
[2021-12-17] MEDS: CALCIUM CARBONATE/VITAMIN D3 1 TAB TABLET GT SCH ×2 (09:19→21:47)
[2021-12-17] MEDS: LACTULOSE 20 GM/30 ML UDC GT SCH (09:19)
[2021-12-17] MEDS: FERROUS SULFATE 300 MG/5 ML UDC GT SCH (09:19)
[2021-12-17] MEDS: ASCORBIC ACID 500 MG TABLET GT SCH (09:20)
[2021-12-17] MEDS: FAMOTIDINE 20 MG TABLET GT SCH ×2 (09:20→21:48)
[2021-12-17] MEDS: TOPIRAMATE 25 MG TABLET(TOPAMAX) GT SCH ×2 (09:20→21:48)
[2021-12-17] MEDS: SIMETHICONE 80 MG TAB.CHEW GT SCH ×3 (09:20→21:47)
[2021-12-17] MEDS: METOCLOPRAMIDE HCL 10 MG/10 ML UDC GT SCH ×3 (09:20→21:48)
[2021-12-17] MEDS: BACLOFEN 10 MG TABLET GT SCH (09:21)
[2021-12-17] MEDS: traMADol HCL HCL 50 MG TABLET (ULTRAM) GT SCH ×2 (09:21→21:47)
[2021-12-17] MEDS: ACETAMINOPHEN 650 MG/20.3 ML UDC GT SCH ×2 (09:22→21:47)
[2021-12-17] MEDS: APIXABAN 2.5 MG TABLET PO SCH ×2 (09:23→21:46)
[2021-12-17] MEDS: CHLORHEXIDINE GLUC 0.12% 15 ML MOUTHWASH UDC MM SCH ×2 (09:24→21:49)
[2021-12-17] MEDS: PEG 400/HYPROMELLOSE/GLYCERIN 15 ML DROPS OP SCH (09:24)
[2021-12-17] MEDS: levETIRAcetam 500 MG TABLET GT SCH ×2 (09:38→21:29)
--- NOTE | 2021-12-17 09:49 | NUR ---
Discharge Planning: DCP faxed pt referral to [facility] [phone] DCP to follow up Addendum: 12/17/21 at 1615 by Taty Armstrong DP DCP arranged transport with [facility] [phone] using [facility] [phone] ETA P/U 7:00pm CCT w/RT to [facility] [phone] Rm 47B. DCP made CM and nurse aware. Addendum: 12/17/21 at 1616 by Taty Armstrong DP Faisal# [id number] Disposition 03
[2021-12-17 11:28] VITALS: BP_SYST 119
[2021-12-17 11:43] VITALS: BP_SYST 119
[2021-12-17 12:26] LABS: ERYTHROCYTE SEDIMENTATION RATE 118 MM/HR (0-15)
--- NOTE | 2021-12-17 16:19 | NUR ---
dispo code 03.
[2021-12-17] MEDS: EPOETIN ALFA-EPBX 3,000 UNITS/ML VIAL SUBCUT SCH (17:00)
[2021-12-17 17:01] VITALS: BP_SYST 116
[2021-12-17 20:16] VITALS: BP_SYST 115
[2021-12-18 00:43] VITALS: BP_SYST 121
[2021-12-18] MEDS: D5/0.45 NS 1,000 ML IV SCH ×2 (02:14→11:00)
[2021-12-18 06:30] LABS: BASOPHILS # (AUTO) 0.1 K/uL (0.0-0.2); BASOPHILS % (AUTO) 0.7 % (0.0-2.0); EOSINOPHILS # (AUTO) 0.7 K/uL (0.0-0.4); EOSINOPHILS % (AUTO) 4.9 % (0.0-4.0); HEMATOCRIT 24.4 % (36-54); HEMOGLOBIN 8.3 g/dL (14.0-18.0); LYMPHOCYTES # (AUTO) 1.6 K/uL (1.0-5.5); LYMPHOCYTES % (AUTO) 10.9 % (20.5-51.5); MEAN CORPUSCULAR HEMOGLOBIN 35 pg (27-31); MEAN CORPUSCULAR HGB CONC 34 % (32-36); MEAN CORPUSCULAR VOLUME 102 fL (79.0-98.0); MONOCYTES # (AUTO) 1.5 K/uL (0.0-1.0); NEUTROPHILS # (AUTO) 10.8 K/uL (1.8-7.7); NEUTROPHILS % (AUTO) 73.5 % (40.0-70.0); PLATELET COUNT (AUTO) 300 K/uL (130-430); RED BLOOD CELL COUNT(AUTO) 2.38 MIL/uL (4.2-6.2); RED CELL DISTRIBUTION WIDTH 13.6 % (9.0-15.0); WHITE BLOOD COUNT (AUTO) 14.7 K/uL (4.8-10.8)
[2021-12-18 07:56] LABS: ERYTHROCYTE SEDIMENTATION RATE 121 MM/HR (0-15)
[2021-12-18 08:40] LABS: ALBUMIN 2.5 g/dL (3.4-4.8); C-REACTIVE PROTEIN QUANT 8.5 mg/dL (0-0.5); CALCIUM 10.3 mg/dL (8.4-11.0); CREATININE 2.29 mg/dL (0.55-1.30); PHOSPHORUS 4.9 mg/dL (2.7-4.5); TOTAL BILIRUBIN 0.2 mg/dL (0.0-1.0)
[2021-12-18] MEDS: ACETAMINOPHEN 650 MG/20.3 ML UDC GT SCH (09:00)
[2021-12-18] MEDS: ASCORBIC ACID 500 MG TABLET GT SCH (09:00)
[2021-12-18] MEDS: FAMOTIDINE 20 MG TABLET GT SCH (09:00)
[2021-12-18] MEDS: levETIRAcetam 500 MG TABLET GT SCH (09:00)
[2021-12-18] MEDS: APIXABAN 2.5 MG TABLET PO SCH (09:00)
[2021-12-18] MEDS: METOCLOPRAMIDE HCL 10 MG/10 ML UDC GT SCH (09:00)
[2021-12-18] MEDS: TOPIRAMATE 25 MG TABLET(TOPAMAX) GT SCH (09:00)
[2021-12-18] MEDS: CHLORHEXIDINE GLUC 0.12% 15 ML MOUTHWASH UDC MM SCH (09:00)
[2021-12-18] MEDS: FERROUS SULFATE 300 MG/5 ML UDC GT SCH (09:00)
[2021-12-18] MEDS: PEG 400/HYPROMELLOSE/GLYCERIN 15 ML DROPS OP SCH (09:00)
[2021-12-18] MEDS: CALCIUM CARBONATE/VITAMIN D3 1 TAB TABLET GT SCH (09:00)
[2021-12-18] MEDS: traMADol HCL HCL 50 MG TABLET (ULTRAM) GT SCH (09:00)
[2021-12-18] MEDS: METOPROLOL TARTRATE 25 MG TABLET GT SCH (09:00)
[2021-12-18] MEDS: THEOPHYLLINE ANHYDROUS 80 MG/15 ML UDC GT SCH (09:00)
[2021-12-18] MEDS: LACTULOSE 20 GM/30 ML UDC GT SCH (09:00)
[2021-12-18] MEDS: BACLOFEN 10 MG TABLET GT SCH (09:00)
[2021-12-18] MEDS: SIMETHICONE 80 MG TAB.CHEW GT SCH (09:00)
--- NOTE | 2021-12-18 10:18 | NUR ---
Discharge Planning: DCP arranged transport [facility] [phone] using [facility] [phone] ETA P/U between 3:30pm-4:00pm CCT w/RT to [facility] [phone] [id number] Addendum: 12/18/21 at 1030 by Taty Armstrong DP Trip#[id number], patient packet at [facility]
[2021-12-18 11:35] VITALS: BP_SYST 113
[2021-12-18] MEDS ORDERED: SODIUM BICARBONATE 8.4% JECT 50 MEQ in D5/0.45 NS 1,000 ML IV SCH (15:00)
--- NOTE | 2021-12-18 15:00 | NUR ---
Report given to [facility]. Spoke to nurse Aarti about the status of the patient. Family foster been notified of the transfer. [facility] will be picking pt up for transfer. pt stable at this time. Will continue to monitor
[2021-12-18 15:55] VITALS: BP_SYST 122
== END 2021-12-18 16:50 | DRG 720 ==
LOC: SED 11:23 → STU 14:18
PROVIDERS: ADMIT Preventive Medicine Preventive Medicine/Occupational Environmental Medicine; ATTEND Preventive Medicine Preventive Medicine/Occupational Environmental Medicine
PROC: 5A1955Z Respiratory Ventilation, Greater than 96 Consecutive Hours (ICD-10-PCS; principal; 2021-12-11)
PROC: 05HY33Z Insertion of Infusion Device into Upper Vein, Percutaneous Approach (ICD-10-PCS; 2021-12-17)
PROC: B54NZZA Ultrasonography of Left Upper Extremity Veins, Guidance (ICD-10-PCS; 2021-12-17)
DX: A41.9 Sepsis, unspecified organism (principal); G91.3 Post-traumatic hydrocephalus, unspecified; N17.9 Acute kidney failure, unspecified; E44.0 Moderate protein-calorie malnutrition; E87.2 Acidosis; J15.0 Pneumonia due to Klebsiella pneumoniae; E88.09 Other disorders of plasma-protein metabolism, not elsewhere classified; J96.10 Chronic respiratory failure, unspecified whether with hypoxia or hypercapnia; N18.9 Chronic kidney disease, unspecified; N39.0 Urinary tract infection, site not specified; D64.9 Anemia, unspecified; R13.10 Dysphagia, unspecified; B96.89 Other specified bacterial agents as the cause of diseases classified elsewhere; E86.0 Dehydration; E83.41 Hypermagnesemia; G40.909 Epilepsy, unspecified, not intractable, without status epilepticus; N31.9 Neuromuscular dysfunction of bladder, unspecified; D18.1 Lymphangioma, any site; Z20.822 Contact with and (suspected) exposure to COVID-19; E83.39 Other disorders of phosphorus metabolism; K21.9 Gastro-esophageal reflux disease without esophagitis; Z99.11 Dependence on respirator [ventilator] status; Z93.0 Tracheostomy status; Z93.1 Gastrostomy status; Z68.1 Body mass index [BMI] 19.9 or less, adult
CPT/HCPCS: 36415; 71045; 80048; 80053; 81000; 83605; 83735; 84100; 85025; 85651-TC; 86140; 87040; 87070-TC; 87081; 87086; 87205-TC; 93005; 94002; 94003; 94640; 94760; 96365; 99291; G0378; J0696; J1956; J2060; J2185; J7030; J7060; J8597; Q5106

== ENCOUNTER 2022-05-05 14:35 | Inpatient (IN) | payer MEDICAID ==
[~2022-05-05] VITALS: Ht 167.6 cm; Wt 63.5 kg
[~2022-05-05 14:35] MED LIST changes: +BLOO-1360 XX; +EPOE40003 SUBCUT; -ERTA1VIA IVPB; -FAMO20TA8 GT; +HYDR-3917 GT; +LEVO-62 GT; +Zinc Sulfate GT
[2022-05-05 14:44] VITALS: BP_SYST 109
[2022-05-05] MEDS ORDERED: VANCOMYCIN HCL 1,000 MG in D5W 250 ML IV ONE (14:45)
[2022-05-05] MEDS ORDERED: PIPERACILLIN/TAZO 3.375 GM in D5W 50 ML IV ONE (14:45)
[2022-05-05] MEDS ORDERED: NACL 0.9% 1,000 ML IV ONE ×2 (15:00→17:15)
[2022-05-05] MEDS ORDERED: VANCOMYCIN HCL 1000 MG/VIAL IV ONE (15:27)
[2022-05-05] MEDS ORDERED: PIPERACILLIN/TAZOBACTAM 3.375 GM/VIAL (ZOSYN) IV ONE (15:27)
[2022-05-05 16:23] LABS: BILIRUBIN,URINE NEGATIVE (NEGATIVE); BLOOD, URINE 3+ (NEGATIVE); CLARITY/URINE TURBID (CLEAR); COLOR,URINE RED (YELLOW); GLUCOSE,URINE NEGATIVE (NEGATIVE); KETONES,URINE NEGATIVE (NEGATIVE); LEUKOCYTE ESTERASE ,URINE 3+ (NEGATIVE); PROTEIN URINE 1+ (NEGATIVE)
[2022-05-05 16:24] LABS: NITRITE, URINE NEGATIVE (NEGATIVE); UROBILINOGEN,URINE 0.2 (0.2-1.0)
[2022-05-05 16:28] LABS: BACTERIA,URINE MANY /HPF (None Seen); CALCIUM OXALATE CRYSTALS,UR 0-10 /HPF (None Seen); MUCUS,URINE None Seen /LPF (None Seen); WBC,URINE >100 /HPF (0-3); YEAST,URINE Many /HPF (None Seen)
[2022-05-05] MEDS ORDERED: NOREPINEPHRINE 4 MG/4 ML VIAL IV ONE (17:03)
[2022-05-05 17:05] LABS: ANION GAP 24 (5-15); CALCIUM 10.4 mg/dL (8.4-11.0); CHLORIDE 97 mmol/L (98-107); GLUCOSE 83 mg/dL (70-99)
[2022-05-05 17:07] LABS: MEAN CORPUSCULAR HEMOGLOBIN 33 pg (27-31); MEAN CORPUSCULAR HGB CONC 32 % (32-36); MEAN CORPUSCULAR VOLUME 101 fL (79.0-98.0); PLATELET COUNT (AUTO) 58 K/uL (130-430); RED BLOOD CELL COUNT(AUTO) 2.02 MIL/uL (4.2-6.2); RED CELL DISTRIBUTION WIDTH 19.9 % (9.0-15.0); WHITE BLOOD COUNT (AUTO) 25.4 K/uL (4.8-10.8)
[2022-05-05 17:11] LABS: HEMATOCRIT 20.5 % (36-54); HEMOGLOBIN 6.6 g/dL (14.0-18.0)
[2022-05-05] MEDS ORDERED: NOREPINEPHRINE BITARTRATE 4 MG in NS 246 ML IV ONE (17:15)
[2022-05-05 17:20] LABS: ALANINE AMINOTRANSFERASE 107 U/L (12-78); ASPARTATE AMINOTRANSFERASE 88 U/L (10-37); TOTAL BILIRUBIN 0.5 mg/dL (0.0-1.0)
[2022-05-05 17:23] LABS: BAND % (MANUAL) 19 % (0-6); BASOPHILS % (MANUAL) 0 % (0-2); EOSINOPHILS % (MANUAL) 0 % (0-7); LYMPHOCYTES % (MANUAL) 9 % (20-46); MONOCYTES % (MANUAL) 3 % (0-11)
[2022-05-05 17:26] LABS: GFR AFRICAN AMERICAN 19 mL/min (>90)
[2022-05-05 17:28] LABS: UREA NITROGEN, BLOOD 142 mg/dL (8-21)
[2022-05-05] MEDS ORDERED: NACL 0.9% 1,000 ML IV SCH (18:45)
[2022-05-05] MEDS ORDERED: MUPIROCIN 2% TOPICAL OINTMENT 22 GM NS PRN (19:00)
[2022-05-05] MEDS ORDERED: POTASSIUM CHLORIDE 20 MEQ TAB.PRT.SR PO PRN (19:00)
[2022-05-05] MEDS ORDERED: ONDANSETRON HCL 4 MG/2 ML VIAL IVP PRN (19:00)
[2022-05-05] MEDS ORDERED: DOCUSATE SODIUM 100 MG CAPSULE PO PRN (19:00)
[2022-05-05] MEDS ORDERED: ZOLPIDEM TARTRATE 5 MG TABLET PO PRN (19:00)
[2022-05-05] MEDS ORDERED: NALOXONE HCL 0.4 MG/ML AMP (NARCAN) IVP PRN ×2 (19:00)
[2022-05-05] MEDS ORDERED: MAGNESIUM SULFATE 50 ML IV PRN (19:00)
[2022-05-05] MEDS ORDERED: MORPHINE 2 MG/ML INJ. SYRINGE IVP PRN ×2 (19:00)
[2022-05-05] MEDS ORDERED: IPRATROPIUM/ALBUTEROL SULFATE 3 ML AMPUL.NEB (DUONEB) INH PRN (19:00)
[2022-05-05] MEDS ORDERED: ACETAMINOPHEN 325 MG TABLET PO PRN (19:00)
[2022-05-05] MEDS ORDERED: LORazepam 2 MG/ML VIAL IVP PRN (19:00)
[2022-05-05] MEDS ORDERED: INSULIN LISPRO SLIDING SCALE 100 UNITS/ML, 3 ML VIAL (humaLOG) SUBCUT PRN (19:00)
[2022-05-05 19:15] VITALS: BP_SYST 105
[2022-05-05] MEDS ORDERED: ALBUMIN HUMAN 5% 500 ML IV ONE (20:30)
[2022-05-05] MEDS ORDERED: SODIUM BICARBONATE 8.4% JECT 50 MEQ/50 ML SYRINGE IVP ONE (20:30)
[2022-05-05 20:48] LABS: TOTAL IRON BIND. CAPACITY 92 ug/dL (250-450)
[2022-05-05] MEDS: NOREPINEPHRINE BITARTRATE 4 MG in NS 246 ML IV PRN ×2 (20:55→23:06)
[2022-05-05] MEDS: THEOPHYLLINE ANHYDROUS 80 MG/15 ML UDC GT SCH (21:00)
[2022-05-05] MEDS ORDERED: APIXABAN 2.5 MG TABLET PO SCH (21:00)
[2022-05-05 21:15] VITALS: BP_SYST 108
[2022-05-05] MEDS: TOPIRAMATE 25 MG TABLET(TOPAMAX) GT SCH (21:23)
[2022-05-05] MEDS: traMADol HCL HCL 50 MG TABLET (ULTRAM) GT SCH (21:29)
[2022-05-05] MEDS: DEXTROSE 50% JECT 50 ML DISP.SYRIN IVP PRN ×2 (22:59→23:42)
[2022-05-05 23:20] VITALS: BP_SYST 112
[2022-05-06] VITALS (15 sets, daily range): BP systolic 78–122
[2022-05-06] MEDS: DEXTROSE 50% JECT 50 ML DISP.SYRIN IVP PRN ×2 (01:10→02:22)
[2022-05-06] MEDS ORDERED: NOREPINEPHRINE BITARTRATE 8 MG in D5W 242 ML IV PRN (01:15)
[2022-05-06] MEDS ORDERED: D5NS 1,000 ML IV SCH (02:45)
[2022-05-06] MEDS ORDERED: PIPERACILLIN/TAZOBACTAM 2.25 GM VIAL IV ONE (02:46)
[2022-05-06] MEDS ORDERED: NOREPINEPHRINE BITARTRATE 16 MG in D5W 242 ML IV PRN ×2 (03:00→09:00)
[2022-05-06] MEDS ORDERED: NOREPINEPHRINE 4 MG/4 ML VIAL IV ONE ×2 (03:02)
[2022-05-06] MEDS: PIPERACILLIN/TAZO 2.25G/DEX-IS 50 ML IV SCH ×2 (03:27→08:16)
[2022-05-06 06:59] LABS: CALCIUM 9.7 mg/dL (8.4-11.0); CREATININE 4.6 mg/dL (0.55-1.30)
[2022-05-06] MEDS: THEOPHYLLINE ANHYDROUS 80 MG/15 ML UDC GT SCH (08:14)
[2022-05-06] MEDS: TOPIRAMATE 25 MG TABLET(TOPAMAX) GT SCH (08:15)
[2022-05-06] MEDS ORDERED: SODIUM BICARBONATE 8.4% JECT 50 MEQ/50 ML SYRINGE IVP ONE (08:15)
[2022-05-06] MEDS ORDERED: NACL 0.9% 1,000 ML IV ONE (08:15)
[2022-05-06] MEDS: traMADol HCL HCL 50 MG TABLET (ULTRAM) GT SCH (08:16)
[2022-05-06 08:23] LABS: HEMATOCRIT 22.8 % (36-54); MEAN CORPUSCULAR HEMOGLOBIN 31 pg (27-31); MEAN CORPUSCULAR HGB CONC 31 % (32-36); MEAN CORPUSCULAR VOLUME 103 fL (79.0-98.0); RED BLOOD CELL COUNT(AUTO) 2.21 MIL/uL (4.2-6.2); RED CELL DISTRIBUTION WIDTH 19.9 % (9.0-15.0)
[2022-05-06 08:56] LABS: PLATELET COUNT (AUTO) 27 K/uL (130-430); WHITE BLOOD COUNT (AUTO) 38.6 K/uL (4.8-10.8)
[2022-05-06] MEDS ORDERED: BACLOFEN 10 MG TABLET GT SCH (09:00)
[2022-05-06] MEDS ORDERED: NOREPINEPHRINE BITARTRATE 8 MG in NS 242 ML IV PRN (09:30)
[2022-05-06] MEDS ORDERED: NOREPINEPHRINE BITARTRATE 16 MG in D5W 234 ML IV PRN (09:30)
[2022-05-06] MEDS ORDERED: NOREPINEPHRINE BITARTRATE 32 MG in NS 218 ML IV PRN (09:45)
[2022-05-06] MEDS ORDERED: NOREPINEPHRINE BITARTRATE 32 MG in D5W 218 ML IV PRN (09:45)
[2022-05-06] MEDS ORDERED: METOCLOPRAMIDE HCL 10 MG/2 ML VIAL IVP ONE (10:30)
[2022-05-06] MEDS ORDERED: FLUCONAZOLE 100 mg/ NS 50 ML IV SCH (12:00)
[2022-05-06] MEDS ORDERED: METOCLOPRAMIDE HCL 10 MG/2 ML VIAL IVP SCH (12:00)
[2022-05-06 12:50] LABS: BAND % (MANUAL) 26 % (0-6)
[2022-05-06 12:51] LABS: BASOPHILS % (MANUAL) 0 % (0-2); EOSINOPHILS % (MANUAL) 0 % (0-7); LYMPHOCYTES % (MANUAL) 5 % (20-46); METAMYELOCYTES % 5 % (0-0); MONOCYTES % (MANUAL) 3 % (0-11)
[2022-05-06] MEDS ORDERED: MEROPENEM 500 MG in NS 50 ML IV SCH (21:00)
[2022-05-07 13:07] LABS: FOLATE (FOLIC ACID) >20.0 ng/mL (>3.0)
[2022-05-08 09:13] LABS: FERRITIN 3760 ng/mL (30-400)
== END 2022-05-06 10:48 | DRG 720 ==
LOC: SED 14:35 → SIC 18:32
PROVIDERS: ADMIT General Practice; ATTEND General Practice
PROC: 06HY33Z Insertion of Infusion Device into Lower Vein, Percutaneous Approach (ICD-10-PCS; principal; 2022-05-05)
PROC: 5A1935Z Respiratory Ventilation, Less than 24 Consecutive Hours (ICD-10-PCS; 2022-05-05)
PROC: B54BZZA Ultrasonography of Right Lower Extremity Veins, Guidance (ICD-10-PCS; 2022-05-05)
PROC: 30233N1 Transfusion of Nonautologous Red Blood Cells into Peripheral Vein, Percutaneous Approach (ICD-10-PCS; 2022-05-05)
DX: A41.9 Sepsis, unspecified organism (principal); N17.0 Acute kidney failure with tubular necrosis; J96.20 Acute and chronic respiratory failure, unspecified whether with hypoxia or hypercapnia; J69.0 Pneumonitis due to inhalation of food and vomit; R65.21 Severe sepsis with septic shock; E87.29 Other acidosis; G82.50 Quadriplegia, unspecified; D63.8 Anemia in other chronic diseases classified elsewhere; E43 Unspecified severe protein-calorie malnutrition; G40.909 Epilepsy, unspecified, not intractable, without status epilepticus; G91.9 Hydrocephalus, unspecified; E88.09 Other disorders of plasma-protein metabolism, not elsewhere classified; R74.01 Elevation of levels of liver transaminase levels; Z20.822 Contact with and (suspected) exposure to COVID-19; N18.32 Chronic kidney disease, stage 3b; E11.22 Type 2 diabetes mellitus with diabetic chronic kidney disease; Z66 Do not resuscitate; K80.20 Calculus of gallbladder without cholecystitis without obstruction; Z51.5 Encounter for palliative care; Z74.01 Bed confinement status; Z87.440 Personal history of urinary (tract) infections; Z93.0 Tracheostomy status; Z93.1 Gastrostomy status; Z95.828 Presence of other vascular implants and grafts; Z99.11 Dependence on respirator [ventilator] status; Z68.22 Body mass index [BMI] 22.0-22.9, adult; I46.9 Cardiac arrest, cause unspecified
CPT/HCPCS: 36415; 36600; 71045; 76705; 80048; 80053; 80198; 81000; 82607; 82728; 82746; 82803-TC; 82962; 83036; 83540; 83550; 83605; 83735; 84484; 85007; 85027; 86886; 86900; 86901; 86920; 87040; 87070-TC; 87081; 87086; 87205-TC; 94002; 94640; 96365; 96368; 96375; 99291; 99292; J2543; J3370; J7030; J7042; J7050; J7060; P9021; P9041